=== PATIENT | male | born 1970 | race Caucasian/White ===

== ENCOUNTER 2016-06-27 09:56 | Outpatient (RCR) | payer OTHER ==
--- OUTSIDE RECORDS SUMMARY | 2016-03-31 13:56 | XMS REPORT | Continuity of Care Document ---
Author Author [facility] Organization [facility] Address Unknown Phone Unavailable Care Team Providers Care Employment Recruiter Name Role Phone ALFONSO JACKSON MD PCP Insurance Providers Payer Name Policy Number Subscriber Name Relationship [facility] [id number] Ana Luisa Her S 01 Advance Directives Directive Response Recorded Date/Time Advance Directives No 06/09/14 8:00am Organ Donor Yes 06/09/14 8:00am Problems No known problems or medical conditions. Medications Medication Dose Route Sig Days/Qty Instructions Order Date Discontinued Date Status Lisinopril 10 Mg PO DAILY 06/07/14 Active Levothyroxine Sodium (Levothroid) 100 Mcg PO DAILY 06/07/14 Active Loratadine 10 Mg PO DAILY 06/07/14 Active Esomeprazole Magnesium 20 Mg PO DAILY 06/07/14 Active Acetaminophen/Diphenhydramine 1 Ea PO BEDTIME 06/07/14 Active Ibuprofen 400-600 Mg PO FOUR TIMES DAILY PRN PAIN TAKE 2-3 (200MG) TABS PRN PAIN 06/07/14 Active Social History Social History Problem Response Recorded Date/Time Recent Foreign Travel N padmini collazo 03/21/2014 9:29am Hospital Discharge Instructions No hospital discharge instructions. Plan of Care No plan of care. Functional Status No functional status results. Allergies, Adverse Reactions, Alerts Allergen Type Severity Reaction Status Last Updated FRESH FRUIT [employer] FISH Allergy Unknown RASH Active 06/07/14 Immunizations No immunization records. Vital Signs Acute Vital Signs Vital Response Date/Time Temperature (Fahrenheit) 97.8 degrees F (97.6 - 99.5) Temperature (Calculated Celsius) 36.91817 degrees C (36.4 - 37.5) Temperature Source Temporal Pulse Rate (adult) 85 bpm (60 - 90) Respiratory Rate 16 bpm (12 - 24) O2 Sat by Pulse Oximetry 94 % (88 - 100) Blood Pressure 114/74 mm Hg Pain Pain Intensity 0 Height (Feet) 5 feet Height (Inches) 11.00 inches Height (Calculated Centimeters) 180.356068 cm Weight (Pounds) 210 pounds Weight (Calculated Grams) 44490.399 gm Weight (Calculated Kilograms) 95.715108 kilograms Height 5 ft 11 in Weight 95 lb Body Mass Index 13.2 kg/m^2 Results Laboratory Results Test Name Result Units Flags Reference Collection Date/Time Result Date/ Time Comments White Blood Count 3.8 10^3/uL L 4.3-11.0 06/19/2014 9:00am 06/19/2014 9: 09am Red Blood Count 4.39 10^6/uL 4.35-5.85 06/19/2014 9:00am 06/19/2014 9: 09am Hemoglobin 13.8 G/DL 13.3-17.7 06/19/2014 9:00am 06/19/2014 9:09am Hematocrit 39 % L 40-54 06/19/2014 9:00am 06/19/2014 9:09am Mean Corpuscular Volume 90 FL 80-99 06/19/2014 9:00am 06/19/2014 9: 09am Mean Corpuscular Hemoglobin 31 PG 25-34 06/19/2014 9:00am 06/19/2014 9: 09am Mean Corpuscular Hemoglobin Concent 35 G/DL 32-36 06/19/2014 9:00am 9:09am Red Cell Distribution Width 12.2 % 10.0-14.5 06/19/2014 9:00am 2014 9:09am Platelet Count 176 10^3/uL 130-400 06/19/2014 9:00am 06/19/2014 9:09am Mean Platelet Volume 11.7 FL H 7.4-10.4 06/19/2014 9:00am 06/19/2014 9: 09am Neutrophils (%) (Auto) 57 % 42-75 06/19/2014 9:00am 06/19/2014 9:09am Lymphocytes (%) (Auto) 26 % 12-44 06/19/2014 9:00am 06/19/2014 9:09am Monocytes (%) (Auto) 11 % 0-12 06/19/2014 9:00am 06/19/2014 9:09am Eosinophils (%) (Auto) 4 % 0-10 06/19/2014 9:00am 06/19/2014 9:09am Basophils (%) (Auto) 1 % 0-10 06/19/2014 9:00am 06/19/2014 9:09am Neutrophils # (Auto) 2.2 X 10^3 1.8-7.8 06/19/2014 9:00am 06/19/2014 9: 09am Lymphocytes # (Auto) 1.0 X 10^3 1.0-4.0 06/19/2014 9:00am 06/19/2014 9: 09am Monocytes # (Auto) 0.4 X 10^3 0.0-1.0 06/19/2014 9:00am 06/19/2014 9: 09am Eosinophils # (Auto) 0.2 10^3/uL 0.0-0.3 06/19/2014 9:00am 06/19/2014 9 :09am Basophils # (Auto) 0.1 10^3/uL 0.0-0.1 06/19/2014 9:00am 06/19/2014 9: 09am Sodium Level 139 MMOL/L 135-145 06/19/2014 9:00am 06/19/2014 9:28am Potassium Level 3.7 MMOL/L 3.6-5.0 06/19/2014 9:00am 06/19/2014 9:28am Chloride Level 107 MMOL/L 98-107 06/19/2014 9:00am 06/19/2014 9:28am Carbon Dioxide Level 22 MMOL/L 21-32 06/19/2014 9:00am 06/19/2014 9: 28am Blood Urea Nitrogen 13 MG/DL 7-18 06/19/2014 9:00am 06/19/2014 9:28am Creatinine 0.92 MG/DL 0.60-1.30 06/19/2014 9:00am 06/19/2014 9:28am BUN/Creatinine Ratio 14 06/19/2014 9:00am 06/19/2014 9:28am Estimat Glomerular Filtration Rate > 60 06/19/2014 9:00am 2014 9:28am GFR INTERPRETIVE DATA UNITS FOR ESTIMATED GFR (eGFR): mL/min/1.73 M2 REFERENCE RANGE FOR ESTIMATED GFR (eGFR) eGFR NORMAL eGFR >60 MODERATELY DECREASED eGFR 30-59 SEVERLY DECREASED eGFR 15-29 KIDNEY FAILURE <15 (OR DIALYSIS) Glucose Level 122 MG/DL H 70-105 06/19/2014 9:00am 06/19/2014 9:28am Calcium Level 8.9 MG/DL 8.5-10.1 06/19/2014 9:00am 06/19/2014 9:28am Magnesium Level 1.9 MG/DL 1.8-2.4 06/19/2014 9:00am 06/19/2014 9:28am Total Bilirubin 0.4 MG/DL 0.1-1.0 06/19/2014 9:00am 06/19/2014 9:28am Alkaline Phosphatase 82 U/L 40-136 06/19/2014 9:00am 06/19/2014 9:28am Aspartate Amino Transf (AST/SGOT) 25 U/L 5-34 06/19/2014 9:00am 2014 9:28am Alanine Aminotransferase (ALT/SGPT) 33 U/L 0-55 06/19/2014 9:00am 06/19 9:28am Total Protein 6.9 G/DL 6.4-8.2 06/19/2014 9:00am 06/19/2014 9:28am Albumin 3.7 G/DL 3.2-4.5 06/19/2014 9:00am 06/19/2014 9:28am Thyroid Stimulating Hormone (TSH) 0.02 UIU/ML L 0.35-4.94 05/30/2014 9: 30am 05/30/2014 10:23am Free Thyroxine 1.00 NG/DL 0.70-1.48 05/30/2014 9:30am 05/30/2014 10: 56am Procedures Procedure Status Date Provider(s) INSERT TUNNELED CV CATH completed 06/09/14 SHANT NOLEN DO Encounters Encounter Location Date/Time Discharged Recurring [facility] 06/19/14 8:33am Registered Clinic [facility] 06/14/14 9:50am Registered [facility] Day [facility] 06/09/14 7:28am Registered Clinic [facility] 06/07/14 9:01am
[2016-03-31 15:40] LABS: ALBUMIN 4.6 G/DL (3.2-4.5); BILIRUBIN,TOTAL 0.6 MG/DL (0.1-1.0); CALCIUM 9.3 MG/DL (8.5-10.1); CREATININE SERUM 1.38 MG/DL (0.60-1.30); POTASSIUM 4.1 MMOL/L (3.6-5.0); TOTAL PROTEIN 7.6 G/DL (6.4-8.2)
[2016-03-31 15:51] LABS: BASOPHILS # (AUTO) 0.1 10^3/uL (0.0-0.1); BASOPHILS % (AUTO) 1 % (0-10); EOSINOPHILS # (AUTO) 0.2 10^3/uL (0.0-0.3); EOSINOPHILS % (AUTO) 3 % (0-10); LYMPHOCYTES # (AUTO) 1.1 X 10^3 (1.0-4.0); LYMPHOCYTES % (AUTO) 19 % (12-44); MEAN CORPUSCULAR HEMOGLOBIN 31 PG (25-34); MEAN CORPUSCULAR HGB CONC 34 G/DL (32-36); MEAN CORPUSCULAR VOLUME 91 FL (80-99); MEAN PLATELET VOLUME 10.9 FL (7.4-10.4); MONOCYTES # (AUTO) 0.7 X 10^3 (0.0-1.0); MONOCYTES % (AUTO) 11 % (0-12); NEUTROPHILS # (AUTO) 3.9 X 10^3 (1.8-7.8); NEUTROPHILS % (AUTO) 66 % (42-75); PLATELET COUNT 198 10^3/uL (130-400); RED BLOOD COUNT 4.77 10^6/uL (4.35-5.85); RED CELL DISTRIBUTION WIDTH 13.1 % (10.0-14.5); WHITE BLOOD COUNT 5.8 10^3/uL (4.3-11.0)
[2016-03-31 15:55] LABS: THYROID STIMULATING HORMONE 1.09 UIU/ML (0.35-4.94)
[~2016-06-27 09:56] MED LIST: ACDPT PO; ESOM20CA PO; IBUP200T48 PO; LISI10TA2 PO; LORA10TA76 PO; LVT.1T PO
[2016-06-27 10:12] LABS: BASOPHILS # (AUTO) 0.1 10^3/uL (0.0-0.1); BASOPHILS % (AUTO) 1 % (0-10); EOSINOPHILS # (AUTO) 0.3 10^3/uL (0.0-0.3); EOSINOPHILS % (AUTO) 5 % (0-10); LYMPHOCYTES # (AUTO) 1.2 X 10^3 (1.0-4.0); LYMPHOCYTES % (AUTO) 21 % (12-44); MEAN CORPUSCULAR HEMOGLOBIN 31 PG (25-34); MEAN CORPUSCULAR HGB CONC 34 G/DL (32-36); MEAN CORPUSCULAR VOLUME 90 FL (80-99); MEAN PLATELET VOLUME 10.9 FL (7.4-10.4); MONOCYTES # (AUTO) 0.7 X 10^3 (0.0-1.0); MONOCYTES % (AUTO) 12 % (0-12); NEUTROPHILS # (AUTO) 3.5 X 10^3 (1.8-7.8); NEUTROPHILS % (AUTO) 61 % (42-75); PLATELET COUNT 185 10^3/uL (130-400); RED BLOOD COUNT 4.63 10^6/uL (4.35-5.85); RED CELL DISTRIBUTION WIDTH 12.8 % (10.0-14.5); WHITE BLOOD COUNT 5.7 10^3/uL (4.3-11.0)
[2016-06-27 10:37] LABS: ALANINE AMINOTRANSFERASE 59 U/L (0-55); ALBUMIN 4.2 G/DL (3.2-4.5); ANION GAP 10 MMOL/L (5-14); ASPARTATE AMINO TRANSFERASE 42 U/L (5-34); BILIRUBIN,TOTAL 0.5 MG/DL (0.1-1.0); BLOOD UREA NITROGEN 21 MG/DL (7-18); BUN/CREATININE RATIO 17; CALCIUM 8.8 MG/DL (8.5-10.1); CARBON DIOXIDE 24 MMOL/L (21-32); CHLORIDE 104 MMOL/L (98-107); CREATININE SERUM 1.24 MG/DL (0.60-1.30); GFR ESTIMATED > 60; GLUCOSE 89 MG/DL (70-105); POTASSIUM 4.3 MMOL/L (3.6-5.0); SODIUM 138 MMOL/L (135-145); TOTAL PROTEIN 7.3 G/DL (6.4-8.2)
[2016-06-27 10:57] LABS: THYROID STIMULATING HORMONE 1.22 UIU/ML (0.35-4.94)
== END 2016-06-29 | disposition home or self-care (01) ==
LOC: ONC 09:56
PROVIDERS: ATTEND Internal Medicine Hematology & Oncology
DX: Z08 Encounter for follow-up examination after completed treatment for malignant neoplasm (principal); Z85.818 Personal history of malignant neoplasm of other sites of lip, oral cavity, and pharynx; E89.0 Postprocedural hypothyroidism; Z79.899 Other long term (current) drug therapy; Z92.21 Personal history of antineoplastic chemotherapy; Z92.3 Personal history of irradiation; Z45.2 Encounter for adjustment and management of vascular access device
CPT/HCPCS: 36591; 80053; 84443; 85025; 96523; 99213

== ENCOUNTER 2016-09-26 11:33 | Outpatient (RCR) | payer BC, OTHER ==
[2016-09-26 11:55] LABS: BASOPHILS # (AUTO) 0.1 10^3/uL (0.0-0.1); BASOPHILS % (AUTO) 1 % (0-10); EOSINOPHILS # (AUTO) 0.3 10^3/uL (0.0-0.3); EOSINOPHILS % (AUTO) 5 % (0-10); LYMPHOCYTES % (AUTO) 19 % (12-44); MEAN CORPUSCULAR HEMOGLOBIN 31 PG (25-34); MEAN CORPUSCULAR HGB CONC 34 G/DL (32-36); MEAN CORPUSCULAR VOLUME 92 FL (80-99); MONOCYTES # (AUTO) 0.4 X 10^3 (0.0-1.0); MONOCYTES % (AUTO) 7 % (0-12); NEUTROPHILS # (AUTO) 3.6 X 10^3 (1.8-7.8); NEUTROPHILS % (AUTO) 68 % (42-75); PLATELET COUNT 165 10^3/uL (130-400); RED BLOOD COUNT 4.55 10^6/uL (4.35-5.85); RED CELL DISTRIBUTION WIDTH 12.7 % (10.0-14.5); WHITE BLOOD COUNT 5.3 10^3/uL (4.3-11.0)
[2016-09-26 12:20] LABS: ALANINE AMINOTRANSFERASE 49 U/L (0-55); ALBUMIN 4.2 G/DL (3.2-4.5); ANION GAP 8 MMOL/L (5-14); ASPARTATE AMINO TRANSFERASE 42 U/L (5-34); BILIRUBIN,TOTAL 0.6 MG/DL (0.1-1.0); BLOOD UREA NITROGEN 23 MG/DL (7-18); BUN/CREATININE RATIO 19; CALCIUM 9.2 MG/DL (8.5-10.1); CARBON DIOXIDE 25 MMOL/L (21-32); CHLORIDE 103 MMOL/L (98-107); CREATININE SERUM 1.22 MG/DL (0.60-1.30); GFR ESTIMATED > 60; GLUCOSE 136 MG/DL (70-105); POTASSIUM 4.1 MMOL/L (3.6-5.0); SODIUM 136 MMOL/L (135-145); TOTAL PROTEIN 7.5 G/DL (6.4-8.2)
[2016-09-26 12:40] LABS: THYROID STIMULATING HORMONE 1.92 UIU/ML (0.35-4.94)
== END 2016-10-30 | disposition home or self-care (01) ==
LOC: ONC 11:33
PROVIDERS: ATTEND Internal Medicine Hematology & Oncology
DX: Z08 Encounter for follow-up examination after completed treatment for malignant neoplasm (principal); Z85.818 Personal history of malignant neoplasm of other sites of lip, oral cavity, and pharynx; E89.0 Postprocedural hypothyroidism; Z79.899 Other long term (current) drug therapy; Z92.21 Personal history of antineoplastic chemotherapy; Z92.3 Personal history of irradiation; Z45.2 Encounter for adjustment and management of vascular access device
CPT/HCPCS: 36591; 80053; 84443; 85025; 96523; 99213

== ENCOUNTER 2016-12-19 10:41 | Outpatient (RCR) | payer BC | END 2017-01-31 | disposition home or self-care (01) | LOC: ONC 10:41 | PROVIDERS: ATTEND Internal Medicine Hematology & Oncology | DX: Z08 Encounter for follow-up examination after completed treatment for malignant neoplasm (principal); Z85.818 Personal history of malignant neoplasm of other sites of lip, oral cavity, and pharynx; E89.0 Postprocedural hypothyroidism; Z79.899 Other long term (current) drug therapy; Z92.21 Personal history of antineoplastic chemotherapy; Z92.3 Personal history of irradiation; Z45.2 Encounter for adjustment and management of vascular access device | CPT/HCPCS: 96523 ==

== ENCOUNTER 2017-02-06 11:41 | Outpatient (RCR) | payer BC ==
[2017-03-11] MEDS ORDERED: ALPR0.25 PO (14:52)
[2017-03-11] MEDS ORDERED: LEVO125T6 PO (14:52)
[2017-03-11] MEDS ORDERED: FLUO20CA42 PO (14:52)
[2017-03-11] MEDS ORDERED: ESOM20CA PO (14:52)
[2017-03-11] MEDS ORDERED: LORA10TA7 PO (14:52)
[2017-03-11] MEDS ORDERED: ATOR40TA70 PO (14:52)
[2017-03-11] MEDS ORDERED: LISI10TA2 PO (14:52)
== END 2017-05-07 | disposition home or self-care (01) ==
LOC: ONC 11:41
PROVIDERS: ATTEND Internal Medicine Hematology & Oncology
DX: Z08 Encounter for follow-up examination after completed treatment for malignant neoplasm (principal); Z85.818 Personal history of malignant neoplasm of other sites of lip, oral cavity, and pharynx; E89.0 Postprocedural hypothyroidism; Z79.899 Other long term (current) drug therapy; Z92.21 Personal history of antineoplastic chemotherapy; Z92.3 Personal history of irradiation; Z45.2 Encounter for adjustment and management of vascular access device
CPT/HCPCS: 96523

== ENCOUNTER → 2017-02-10 | Outpatient (CLI) | payer BC ==
[~2017-02-10] MED LIST changes: +IOHEXOL 350 MG/ML 100 ML (OMNIPAQUE 350) VIAL IV ONE; +NS 100 ML (IVPB) BAG IV ONE
--- NOTE | 2017-02-10 12:02 | Diagnostic Imaging Report ---
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 Two years ago, another evaluation of neck biopsy came back positive. EXAMINATION: Axial CT scan of the neck soft tissue performed with 75 cc of Omnipaque 350 IV contrast. Coronal and sagittal reformatted images are created. COMPARISON: CT scan of the neck performed with and without IV contrast dated 01/23/2016. FINDINGS: Dental streak artifact obscures portions of the oral cavity and tongue region. There is no evidence of developing mass or lymphadenopathy. There is interval resolution of previously seen mild prominence of the right parotid gland which is now relatively symmetric to the left side, suspected to represent resolution of previous inflammation. Left submandibular gland is stable and unremarkable. There is stable postop changes to the neck with modified neck dissection. There is removal of the right submandibular gland and right neck soft tissue. There is no developing mass seen in the region. Stable hypertrophy of the anterior belly of the left digastric muscle. The nasopharynx, oropharynx, hypopharynx, and laryngeal soft tissue structures are unremarkable. Stable lymph nodes in the periparotid region on the right near the pancreatic tail. Thyroid gland is unremarkable. The visualized neck vascular structures are patent. Visualized upper lung howell are clear. Previously seen [id number] is again seen overlying left chest. There is mild cervical spine degenerative disease. Visualized intracranial structures, orbits, and other extra cranial soft tissue structures are unremarkable. There is mild mucosal thickening in the sphenoid sinus. IMPRESSION: 1: There is no evidence of developing mass or lymphadenopathy. 2: There is resolution of previously seen mild enlargement of the right parotid gland suggesting resolution of inflammatory process. 3: Stable postop changes to the neck. Dictated by: Dictated on workstation # [id number]
--- NOTE | 2017-02-10 14:03 | Diagnostic Imaging Report ---
EXAMINATION: PET-CT. TECHNIQUE: Serum glucose level at the time of the study is: 103 mg/dL. 13.7 mCi of FDG was administered intravenously followed by obtaining PET images with corresponding noncontrast CT scan images. The CT scan was performed for anatomic correlation and attenuation correction and was not performed according to the diagnostic protocol of the areas covered. The scan was performed from the head to mid thighs. 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 COMPARISON: 09/18/2015. FINDINGS: The brain has symmetric FDG uptake. There is a moderately intense area of increased FDG uptake seen within the anterior aspect of the oral cavity that appears to project over the anterior aspect of the tongue, and the corresponding maximum SUV is 7. The correlating CT scan appearance is nonspecific with no definitive underlying mass is noted. This is similar to mom nonspecific activity seen in this region on the prior exam. There is otherwise no hypermetabolic mass seen in the neck. In the chest no suspicious hypermetabolic mass is seen. Uptake in the liver is slightly heterogeneous with no discrete focal mass. There is activity projecting over the bowel loops in a nonfocal fashion and with mild degree seen. There is blooming artifact obscuring evaluation in the pelvis probably related to the bladder intense activity from excretion. There is also excretion of the kidneys and renal collecting system. No suspicious hypermetabolic mass is seen in the abdomen or pelvis. IMPRESSION: Moderately intense area of increased FDG uptake in the anterior aspect of the oral cavity with no obvious correlating abnormality seen on the localizer unenhanced CT or concurrent CT scan of the neck performed. Correlate clinically. There is otherwise no hypermetabolic lymphadenopathy in the neck or evidence of metastasis. Dictated by: Dictated on workstation # [id number]
== END ==
LOC: RAD 08:45
PROVIDERS: ATTEND Plastic Surgery Plastic Surgery Within the Head and Neck
DX: C06.1 Malignant neoplasm of vestibule of mouth (principal); Z98.890 Other specified postprocedural states
CPT/HCPCS: 70491

== ENCOUNTER 2017-05-06 11:32 | Outpatient (RCR) | payer BC ==
[~2017-05-06 11:32] MED LIST changes: +ALPR0.25 PO; +ATOR40TA70 PO; +FLUO20CA42 PO; -IOHEXOL 350 MG/ML 100 ML (OMNIPAQUE 350) VIAL IV ONE; +LEVO125T6 PO; +LORA10TA7 PO; -NS 100 ML (IVPB) BAG IV ONE
== END 2017-06-08 15:16 | disposition home or self-care (01) ==
PROVIDERS: ATTEND Physician Assistant Surgical
DX: R13.12 Dysphagia, oropharyngeal phase (principal); C06.9 Malignant neoplasm of mouth, unspecified; Z92.3 Personal history of irradiation; Z98.890 Other specified postprocedural states

== ENCOUNTER → 2017-05-29 | Outpatient (CLI) | payer BC ==
--- NOTE | 2017-05-29 12:30 | Diagnostic Imaging Report ---
INDICATION: Dysphagia. TECHNIQUE: The study was performed in conjunction with speech pathology. Videofluoroscopy was performed during swallowing of thin barium. 26 seconds of fluoroscopy time was utilized. FINDINGS: The patient ingested thin barium. This was done without difficulty. No laryngeal penetration or aspiration was observed. No significant residue is identified. IMPRESSION: Unremarkable video swallow, as described. Dictated by: Dictated on workstation # [id number]
== END ==
LOC: RAD 09:56
PROVIDERS: ATTEND Physician Assistant Surgical
DX: R13.10 Dysphagia, unspecified (principal)
CPT/HCPCS: 74230

== ENCOUNTER → 2017-07-21 | Outpatient (CLI) | payer BC | LOC: LAB 11:27 | PROVIDERS: ATTEND Internal Medicine Infectious Disease | DX: R19.7 Diarrhea, unspecified (principal) | CPT/HCPCS: 87493 ==

== ENCOUNTER 2017-07-30 12:55 | Outpatient (RCR) | payer BC ==
[2017-07-14 16:11] VITALS: BP 128/80
[2017-07-14 16:26] VITALS: BP 128/80
[2017-07-14 16:36] VITALS: BP 128/80
[2017-07-20 11:30] VITALS: BP 91/64
[2017-07-20 11:56] LABS: BASOPHILS # (AUTO) 0.1 10^3/uL (0.0-0.1); BASOPHILS % (AUTO) 1 % (0-10); EOSINOPHILS # (AUTO) 0.4 10^3/uL (0.0-0.3); EOSINOPHILS % (AUTO) 7 % (0-10); HEMATOCRIT 37 % (40-54); HEMOGLOBIN 12.1 G/DL (13.3-17.7); LYMPHOCYTES % (AUTO) 16 % (12-44); MEAN CORPUSCULAR HEMOGLOBIN 27 PG (25-34); MEAN CORPUSCULAR HGB CONC 33 G/DL (32-36); MEAN CORPUSCULAR VOLUME 83 FL (80-99); MEAN PLATELET VOLUME 11.4 FL (7.4-10.4); MONOCYTES # (AUTO) 0.6 X 10^3 (0.0-1.0); MONOCYTES % (AUTO) 10 % (0-12); NEUTROPHILS # (AUTO) 4.3 X 10^3 (1.8-7.8); NEUTROPHILS % (AUTO) 67 % (42-75); PLATELET COUNT 344 10^3/uL (130-400); RED BLOOD COUNT 4.43 10^6/uL (4.35-5.85); WHITE BLOOD COUNT 6.4 10^3/uL (4.3-11.0)
[2017-07-20 12:13] LABS: ALANINE AMINOTRANSFERASE 23 U/L (0-55); ALKALINE PHOSPHATASE 143 U/L (40-136); BILIRUBIN,TOTAL 0.3 MG/DL (0.1-1.0); BUN/CREATININE RATIO 19; CALCIUM 9.5 MG/DL (8.5-10.1); CARBON DIOXIDE 26 MMOL/L (21-32); CHLORIDE 108 MMOL/L (98-107); CREATININE SERUM 0.86 MG/DL (0.60-1.30); GFR ESTIMATED > 60; GLUCOSE 86 MG/DL (70-105); POTASSIUM 4.4 MMOL/L (3.6-5.0); SODIUM 141 MMOL/L (135-145); TOTAL PROTEIN 7.8 GM/DL (6.4-8.2)
[2017-07-20 12:50] LABS: ERYTHROCYTE SEDIMENTATION RATE 56 MM/HR (0-15)
[2017-07-27 13:10] VITALS: BP 103/84
[2017-07-27 13:19] LABS: BASOPHILS # (AUTO) 0.1 10^3/uL (0.0-0.1); BASOPHILS % (AUTO) 1 % (0-10); EOSINOPHILS # (AUTO) 0.3 10^3/uL (0.0-0.3); EOSINOPHILS % (AUTO) 5 % (0-10); HEMATOCRIT 36 % (40-54); HEMOGLOBIN 11.6 G/DL (13.3-17.7); LYMPHOCYTES # (AUTO) 1.4 X 10^3 (1.0-4.0); LYMPHOCYTES % (AUTO) 22 % (12-44); MEAN CORPUSCULAR HEMOGLOBIN 27 PG (25-34); MEAN CORPUSCULAR HGB CONC 32 G/DL (32-36); MEAN CORPUSCULAR VOLUME 84 FL (80-99); MEAN PLATELET VOLUME 11.8 FL (7.4-10.4); MONOCYTES # (AUTO) 0.5 X 10^3 (0.0-1.0); MONOCYTES % (AUTO) 9 % (0-12); NEUTROPHILS # (AUTO) 3.9 X 10^3 (1.8-7.8); NEUTROPHILS % (AUTO) 63 % (42-75); PLATELET COUNT 307 10^3/uL (130-400); RED BLOOD COUNT 4.31 10^6/uL (4.35-5.85); RED CELL DISTRIBUTION WIDTH 13.9 % (10.0-14.5); WHITE BLOOD COUNT 6.1 10^3/uL (4.3-11.0)
[2017-07-27 13:40] LABS: ERYTHROCYTE SEDIMENTATION RATE 75 MM/HR (0-15)
[2017-07-27 13:51] LABS: ALANINE AMINOTRANSFERASE 21 U/L (0-55); ALBUMIN 3.9 GM/DL (3.2-4.5); ALKALINE PHOSPHATASE 130 U/L (40-136); BILIRUBIN,TOTAL 0.5 MG/DL (0.1-1.0); BUN/CREATININE RATIO 14; CALCIUM 9.3 MG/DL (8.5-10.1); CARBON DIOXIDE 29 MMOL/L (21-32); CHLORIDE 104 MMOL/L (98-107); CREATININE SERUM 0.83 MG/DL (0.60-1.30); GFR ESTIMATED > 60; GLUCOSE 96 MG/DL (70-105); POTASSIUM 4.1 MMOL/L (3.6-5.0); SODIUM 138 MMOL/L (135-145); TOTAL PROTEIN 7.1 GM/DL (6.4-8.2)
[~2017-07-30] VITALS: Ht 180.3 cm; Wt 104.3 kg
[~2017-07-30 12:55] MED LIST changes: +ERTAPENEM 1 GM/NS 100 ML IVPB IV NR
== END 2017-10-12 | disposition home or self-care (01) ==
LOC: SDC 12:55
PROVIDERS: ATTEND Physician Assistant
DX: M27.2 Inflammatory conditions of jaws (principal); T84.7XXS Infection and inflammatory reaction due to other internal orthopedic prosthetic devices, implants and grafts, sequela
CPT/HCPCS: 36415; 36569; 36592; 76937; 80053; 85025; 85652; 86141; 96365; 99211; 99212

== ENCOUNTER 2017-11-19 14:37 | Outpatient (RCR) | payer BC ==
[2017-10-07 13:02] VITALS: BP 131/84
[2017-10-07 13:30] VITALS: BP 131/84
--- NOTE | 2017-10-07 14:55 | Diagnostic Imaging Report ---
INDICATION: PICC line placement. EXAMINATION: Portable chest at 02:37 p.m. FINDINGS: Left upper extremity PICC line tip projects over the SVC. Heart size and pulmonary vascularity are normal. Lungs are clear. There are no effusions or pneumothoraces. IMPRESSION: PICC line tip projects over the SVC. Dictated by: Dictated on workstation # [id number]
[2017-10-07 15:24] LABS: BASOPHILS # (AUTO) 0.1 10^3/uL (0.0-0.1); BASOPHILS % (AUTO) 1 % (0-10); EOSINOPHILS # (AUTO) 0.4 10^3/uL (0.0-0.3); EOSINOPHILS % (AUTO) 6 % (0-10); HEMATOCRIT 35 % (40-54); HEMOGLOBIN 11.3 G/DL (13.3-17.7); LYMPHOCYTES # (AUTO) 1.1 X 10^3 (1.0-4.0); LYMPHOCYTES % (AUTO) 17 % (12-44); MEAN CORPUSCULAR HEMOGLOBIN 28 PG (25-34); MEAN CORPUSCULAR HGB CONC 32 G/DL (32-36); MEAN CORPUSCULAR VOLUME 86 FL (80-99); MONOCYTES # (AUTO) 0.6 X 10^3 (0.0-1.0); MONOCYTES % (AUTO) 8 % (0-12); NEUTROPHILS # (AUTO) 4.6 X 10^3 (1.8-7.8); NEUTROPHILS % (AUTO) 68 % (42-75); PLATELET COUNT 282 10^3/uL (130-400); RED BLOOD COUNT 4.06 10^6/uL (4.35-5.85); RED CELL DISTRIBUTION WIDTH 14.3 % (10.0-14.5); WHITE BLOOD COUNT 6.8 10^3/uL (4.3-11.0)
[2017-10-07 15:35] LABS: ALANINE AMINOTRANSFERASE 17 U/L (0-55); ALBUMIN 3.9 GM/DL (3.2-4.5); ALKALINE PHOSPHATASE 120 U/L (40-136); BILIRUBIN,TOTAL 0.4 MG/DL (0.1-1.0); BUN/CREATININE RATIO 16; CALCIUM 9.8 MG/DL (8.5-10.1); CARBON DIOXIDE 27 MMOL/L (21-32); CHLORIDE 104 MMOL/L (98-107); GFR ESTIMATED > 60; GLUCOSE 108 MG/DL (70-105); POTASSIUM 4.3 MMOL/L (3.6-5.0); SODIUM 139 MMOL/L (135-145); TOTAL PROTEIN 7.7 GM/DL (6.4-8.2)
[2017-10-07 16:02] LABS: ERYTHROCYTE SEDIMENTATION RATE > 140 MM/HR (0-15)
[2017-10-14 10:15] VITALS: BP 119/92
[2017-10-14 10:48] LABS: BASOPHILS # (AUTO) 0.1 10^3/uL (0.0-0.1); BASOPHILS % (AUTO) 2 % (0-10); EOSINOPHILS # (AUTO) 0.5 10^3/uL (0.0-0.3); EOSINOPHILS % (AUTO) 10 % (0-10); HEMATOCRIT 36 % (40-54); HEMOGLOBIN 11.4 G/DL (13.3-17.7); LYMPHOCYTES # (AUTO) 1.3 X 10^3 (1.0-4.0); LYMPHOCYTES % (AUTO) 26 % (12-44); MEAN CORPUSCULAR HEMOGLOBIN 27 PG (25-34); MEAN CORPUSCULAR HGB CONC 32 G/DL (32-36); MEAN CORPUSCULAR VOLUME 85 FL (80-99); MEAN PLATELET VOLUME 9.8 FL (7.4-10.4); MONOCYTES # (AUTO) 0.5 X 10^3 (0.0-1.0); MONOCYTES % (AUTO) 10 % (0-12); NEUTROPHILS # (AUTO) 2.6 X 10^3 (1.8-7.8); NEUTROPHILS % (AUTO) 52 % (42-75); PLATELET COUNT 316 10^3/uL (130-400); RED BLOOD COUNT 4.21 10^6/uL (4.35-5.85); RED CELL DISTRIBUTION WIDTH 13.7 % (10.0-14.5)
[2017-10-14 11:11] LABS: ALANINE AMINOTRANSFERASE 15 U/L (0-55); ALBUMIN 3.9 GM/DL (3.2-4.5); ALKALINE PHOSPHATASE 126 U/L (40-136); BILIRUBIN,TOTAL 0.3 MG/DL (0.1-1.0); BUN/CREATININE RATIO 14; CALCIUM 9.5 MG/DL (8.5-10.1); CARBON DIOXIDE 27 MMOL/L (21-32); CHLORIDE 104 MMOL/L (98-107); CREATININE SERUM 0.81 MG/DL (0.60-1.30); GFR ESTIMATED > 60; GLUCOSE 100 MG/DL (70-105); POTASSIUM 4.4 MMOL/L (3.6-5.0); SODIUM 141 MMOL/L (135-145); TOTAL PROTEIN 7.5 GM/DL (6.4-8.2)
[2017-10-14 11:18] LABS: ERYTHROCYTE SEDIMENTATION RATE 86 MM/HR (0-15)
[2017-10-21 13:35] VITALS: BP 123/94
[2017-10-21 13:57] LABS: HEMOGLOBIN 11.4 G/DL (13.3-17.7); RED BLOOD COUNT 4.08 10^6/uL (4.35-5.85); RED CELL DISTRIBUTION WIDTH 13.7 % (10.0-14.5); WHITE BLOOD COUNT 5.3 10^3/uL (4.3-11.0)
[2017-10-21 14:09] LABS: ALANINE AMINOTRANSFERASE 27 U/L (0-55); ALKALINE PHOSPHATASE 142 U/L (40-136); BILIRUBIN,TOTAL 0.4 MG/DL (0.1-1.0); BUN/CREATININE RATIO 12; CALCIUM 9.5 MG/DL (8.5-10.1); CARBON DIOXIDE 25 MMOL/L (21-32); CHLORIDE 106 MMOL/L (98-107); CREATININE SERUM 0.86 MG/DL (0.60-1.30); GFR ESTIMATED > 60; GLUCOSE 108 MG/DL (70-105); POTASSIUM 3.8 MMOL/L (3.6-5.0); SODIUM 143 MMOL/L (135-145); TOTAL PROTEIN 7.7 GM/DL (6.4-8.2)
[2017-10-28 12:39] VITALS: BP 139/92
[2017-10-28 13:36] LABS: BASOPHILS # (AUTO) 0.1 10^3/uL (0.0-0.1); BASOPHILS % (AUTO) 1 % (0-10); EOSINOPHILS # (AUTO) 0.5 10^3/uL (0.0-0.3); EOSINOPHILS % (AUTO) 4 % (0-10); HEMATOCRIT 35 % (40-54); HEMOGLOBIN 11.1 G/DL (13.3-17.7); LYMPHOCYTES # (AUTO) 1.2 X 10^3 (1.0-4.0); LYMPHOCYTES % (AUTO) 11 % (12-44); MEAN CORPUSCULAR HEMOGLOBIN 27 PG (25-34); MEAN CORPUSCULAR HGB CONC 32 G/DL (32-36); MEAN CORPUSCULAR VOLUME 85 FL (80-99); MEAN PLATELET VOLUME 11.1 FL (7.4-10.4); MONOCYTES # (AUTO) 0.7 X 10^3 (0.0-1.0); MONOCYTES % (AUTO) 6 % (0-12); NEUTROPHILS # (AUTO) 8.2 X 10^3 (1.8-7.8); NEUTROPHILS % (AUTO) 78 % (42-75); PLATELET COUNT 260 10^3/uL (130-400); RED BLOOD COUNT 4.09 10^6/uL (4.35-5.85); RED CELL DISTRIBUTION WIDTH 13.9 % (10.0-14.5); WHITE BLOOD COUNT 10.5 10^3/uL (4.3-11.0)
[2017-10-28 13:58] LABS: ERYTHROCYTE SEDIMENTATION RATE 76 MM/HR (0-15)
[2017-10-28 14:00] LABS: ALANINE AMINOTRANSFERASE 23 U/L (0-55); ALBUMIN 3.7 GM/DL (3.2-4.5); ALKALINE PHOSPHATASE 145 U/L (40-136); BILIRUBIN,TOTAL 0.4 MG/DL (0.1-1.0); BUN/CREATININE RATIO 14; CARBON DIOXIDE 27 MMOL/L (21-32); CHLORIDE 104 MMOL/L (98-107); CREATININE SERUM 0.71 MG/DL (0.60-1.30); GFR ESTIMATED > 60; GLUCOSE 105 MG/DL (70-105); SODIUM 140 MMOL/L (135-145); TOTAL PROTEIN 7.2 GM/DL (6.4-8.2)
--- NOTE | 2017-10-28 14:39 | Progress Note-Post Operative ---
Post-Operative Progess Note Surgeon (s)/Aviculturist (s) Surgeon JIM HANEY MD Aviculturist: none Pre-Operative Diagnosis squamous cell carcinoma oral, malfunctioning PEG tube Post-Operative Diagnosis same Procedure & Operative Findings Date of Procedure 10/28/17 Procedure Performed/Findings removal replacement PEG tube Anesthesia Type none Estimated Blood Loss Estimated blood loss (mL): minimal Specimens/Packing Specimens Removed none JIM HANEY MD Oct 28, 2017 14:39
--- NOTE | 2017-10-28 18:08 | CONSULTATION REPORT ---
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 He reports that this was first detected and he then underwent radiation therapy. He then developed lymphadenopathy, which was found to be positive for malignancy and underwent a modified radical neck dissection. This was then followed by chemotherapy. He states that he had done well; however, did have reoccurrence of the lesion. He then underwent the wedge resection of his mandible and a free flap reconstruction taken from his right leg on 03/2017 at [facility]. Since that time, he has had issues with oral hardware infection, requiring IV antibiotics. He also has a percutaneous gastrostomy tube placed during that surgery. He reports that early this morning he felt a pop as if something was actually popping and has not used the tube since that time. Upon further examination and exploration, the balloon within the gastrostomy tube appears to have perforated. PAST MEDICAL HISTORY: Metastatic oropharyngeal squamous cell carcinoma, hypothyroid, hypertension and hypercholesterolemia. PAST SURGICAL HISTORY: Anterior buccal radiation following a modified radical neck dissection and chemotherapy. Radical resection of the mandible with a free flap reconstruction as well as tracheostomy and gastrostomy tube in 03/2017 at [facility]. Tonsillectomy. Removal of a squamous cell cancer from the forehead. ALLERGIES: Some form of ANTIBIOTIC caused the joint pain. MEDICATIONS: Xanax 0.25 mg p.r.n. and hydrocodone p.r.n. SOCIAL HISTORY: Previous chewing tobacco two times a day for approximately 20 years. Positive alcohol; however, quit. He states taking in about four beers daily. FAMILY HISTORY: Father colon cancer. Paternal grandfather colon cancer. Maternal grandfather lung cancer. REVIEW OF SYSTEMS: Well-nourished male currently in no acute distress. He is not experiencing any shortness of breath or difficulty breathing. No chest pain, palpitations or diaphoresis. No nausea, vomiting, no diarrhea, constipation. No fever, chills, no recent inadvertent weight loss. All other review of systems negative. PHYSICAL EXAMINATION: VITAL SIGNS: Stable, afebrile. CHEST: Clear. Good breath sounds bilaterally. HEART: Regular. No murmurs. HEENT: No scleral icterus. NECK: No cervical lymphadenopathy. ABDOMEN: Soft, nontender, nondistended. SKIN: Warm, dry. ASSESSMENT AND PLAN: A 47-year-old male with a nonfunctioning of gastrostomy tube due to perforated intragastric balloon. We will remove this gastrostomy tube and replace with a new SUZI gastrostomy balloon at 20-Tajik size. Job ID: [id number] DocumentID: [id number] Dictated Date: 10/28/2017 14:45:06 [employer] Date: 10/28/2017 18:07:27 Dictated By: JIM HANEY MD
[2017-11-03 12:58] VITALS: BP 139/92
[2017-11-03 14:07] LABS: HEMATOCRIT 35 % (40-54); HEMOGLOBIN 11.3 G/DL (13.3-17.7); MEAN CORPUSCULAR HEMOGLOBIN 27 PG (25-34); MEAN CORPUSCULAR HGB CONC 32 G/DL (32-36); MEAN CORPUSCULAR VOLUME 85 FL (80-99); PLATELET COUNT 268 10^3/uL (130-400); RED BLOOD COUNT 4.12 10^6/uL (4.35-5.85)
[2017-11-03 14:08] LABS: BASOPHILS # (AUTO) 0.1 10^3/uL (0.0-0.1); BASOPHILS % (AUTO) 1 % (0-10); EOSINOPHILS # (AUTO) 0.4 10^3/uL (0.0-0.3); EOSINOPHILS % (AUTO) 8 % (0-10); LYMPHOCYTES # (AUTO) 1.2 X 10^3 (1.0-4.0); LYMPHOCYTES % (AUTO) 23 % (12-44); MEAN PLATELET VOLUME 10.9 FL (7.4-10.4); MONOCYTES # (AUTO) 0.4 X 10^3 (0.0-1.0); MONOCYTES % (AUTO) 9 % (0-12); NEUTROPHILS % (AUTO) 59 % (42-75)
[2017-11-03 14:18] LABS: ALANINE AMINOTRANSFERASE 34 U/L (0-55); ALBUMIN 3.9 GM/DL (3.2-4.5); ALKALINE PHOSPHATASE 135 U/L (40-136); BILIRUBIN,TOTAL 0.4 MG/DL (0.1-1.0); BUN/CREATININE RATIO 12; CALCIUM 9.3 MG/DL (8.5-10.1); CARBON DIOXIDE 28 MMOL/L (21-32); CHLORIDE 105 MMOL/L (98-107); CREATININE SERUM 0.81 MG/DL (0.60-1.30); GFR ESTIMATED > 60; GLUCOSE 111 MG/DL (70-105); SODIUM 141 MMOL/L (135-145); TOTAL PROTEIN 7.2 GM/DL (6.4-8.2)
[2017-11-03 14:27] LABS: ERYTHROCYTE SEDIMENTATION RATE 71 MM/HR (0-15)
[2017-11-10 14:20] VITALS: BP 108/67
[2017-11-10 15:59] LABS: BASOPHILS # (AUTO) 0.1 10^3/uL (0.0-0.1); BASOPHILS % (AUTO) 1 % (0-10); EOSINOPHILS # (AUTO) 0.6 10^3/uL (0.0-0.3); EOSINOPHILS % (AUTO) 12 % (0-10); HEMATOCRIT 36 % (40-54); HEMOGLOBIN 11.9 G/DL (13.3-17.7); LYMPHOCYTES # (AUTO) 1.1 X 10^3 (1.0-4.0); LYMPHOCYTES % (AUTO) 22 % (12-44); MEAN CORPUSCULAR HEMOGLOBIN 28 PG (25-34); MEAN CORPUSCULAR HGB CONC 33 G/DL (32-36); MEAN CORPUSCULAR VOLUME 85 FL (80-99); MEAN PLATELET VOLUME 11.9 FL (7.4-10.4); MONOCYTES # (AUTO) 0.4 X 10^3 (0.0-1.0); MONOCYTES % (AUTO) 7 % (0-12); NEUTROPHILS # (AUTO) 2.8 X 10^3 (1.8-7.8); NEUTROPHILS % (AUTO) 57 % (42-75); PLATELET COUNT 241 10^3/uL (130-400); RED BLOOD COUNT 4.25 10^6/uL (4.35-5.85); RED CELL DISTRIBUTION WIDTH 13.5 % (10.0-14.5); WHITE BLOOD COUNT 4.9 10^3/uL (4.3-11.0)
[2017-11-10 16:10] LABS: ALANINE AMINOTRANSFERASE 24 U/L (0-55); ALBUMIN 3.9 GM/DL (3.2-4.5); ALKALINE PHOSPHATASE 119 U/L (40-136); BILIRUBIN,TOTAL 0.5 MG/DL (0.1-1.0); BUN/CREATININE RATIO 13; CALCIUM 9.5 MG/DL (8.5-10.1); CARBON DIOXIDE 27 MMOL/L (21-32); CHLORIDE 104 MMOL/L (98-107); GFR ESTIMATED > 60; GLUCOSE 84 MG/DL (70-105); POTASSIUM 3.9 MMOL/L (3.6-5.0); SODIUM 141 MMOL/L (135-145); TOTAL PROTEIN 7.3 GM/DL (6.4-8.2)
[2017-11-10 16:18] LABS: BASOPHILS % (MANUAL) 2 %; EOSINOPHILS % (MANUAL) 10 %; LYMPHOCYTES % (MANUAL) 32 %; MONOCYTES % (MANUAL) 3 %
[2017-11-10 16:19] LABS: ERYTHROCYTE SEDIMENTATION RATE 38 MM/HR (0-15); RBC MORPH NORMAL
[2017-11-11 08:53] LABS: BAND NEUTROPHILS 0 %; NEUTROPHILS % (MANUAL) 53 %
[2017-11-17 14:49] LABS: BASOPHILS # (AUTO) 0.1 10^3/uL (0.0-0.1); BASOPHILS % (AUTO) 2 % (0-10); EOSINOPHILS # (AUTO) 0.6 10^3/uL (0.0-0.3); EOSINOPHILS % (AUTO) 11 % (0-10); HEMATOCRIT 38 % (40-54); HEMOGLOBIN 12.1 G/DL (13.3-17.7); LYMPHOCYTES % (AUTO) 19 % (12-44); MEAN CORPUSCULAR HEMOGLOBIN 27 PG (25-34); MEAN CORPUSCULAR HGB CONC 32 G/DL (32-36); MEAN CORPUSCULAR VOLUME 85 FL (80-99); MEAN PLATELET VOLUME 11.1 FL (7.4-10.4); MONOCYTES # (AUTO) 0.5 X 10^3 (0.0-1.0); MONOCYTES % (AUTO) 9 % (0-12); NEUTROPHILS # (AUTO) 3.2 X 10^3 (1.8-7.8); NEUTROPHILS % (AUTO) 60 % (42-75); PLATELET COUNT 222 10^3/uL (130-400); RED BLOOD COUNT 4.49 10^6/uL (4.35-5.85); RED CELL DISTRIBUTION WIDTH 13.7 % (10.0-14.5); WHITE BLOOD COUNT 5.4 10^3/uL (4.3-11.0)
[2017-11-17 15:11] LABS: ALANINE AMINOTRANSFERASE 36 U/L (0-55); ALKALINE PHOSPHATASE 131 U/L (40-136); BILIRUBIN,TOTAL 0.5 MG/DL (0.1-1.0); BUN/CREATININE RATIO 12; CALCIUM 9.8 MG/DL (8.5-10.1); CARBON DIOXIDE 33 MMOL/L (21-32); CHLORIDE 104 MMOL/L (98-107); CREATININE SERUM 0.83 MG/DL (0.60-1.30); GFR ESTIMATED > 60; GLUCOSE 92 MG/DL (70-105); POTASSIUM 4.2 MMOL/L (3.6-5.0); SODIUM 145 MMOL/L (135-145); TOTAL PROTEIN 7.7 GM/DL (6.4-8.2)
[2017-11-17 15:15] LABS: ERYTHROCYTE SEDIMENTATION RATE 48 MM/HR (0-15)
--- NOTE | 2017-11-17 15:15 | Diagnostic Imaging Report ---
INDICATION: PICC line placement. EXAMINATION: Portable chest at 2:28 PM. FINDINGS: The left upper extremity PICC line tip projects over the SVC. The heart size and pulmonary vascularity are normal. The lungs are clear. There are no effusions or pneumothoraces. IMPRESSION: Negative chest. Dictated by: Dictated on workstation # [id number]
[2017-11-17 15:20] VITALS: BP 125/87
[~2017-11-19] VITALS: Ht 175.3 cm; Wt 82.1 kg
[~2017-11-19 14:37] MED LIST changes: -ERTAPENEM 1 GM/NS 100 ML IVPB IV NR; +MEROPENEM 1,000 MG in NS (IVPB) 100 ML IV NR; +WATER (STERILE) FOR INJECTION 20 ML ONE
[2017-11-19 15:00] VITALS: BP 139/88
== END 2018-01-05 | disposition home or self-care (01) ==
LOC: SDC 14:37
PROVIDERS: ATTEND Internal Medicine Infectious Disease
DX: M27.2 Inflammatory conditions of jaws (principal); Z45.2 Encounter for adjustment and management of vascular access device
CPT/HCPCS: 36415; 36569; 36592; 71045; 76937; 80053; 85007; 85025; 85027; 85652; 86141; 99211

== ENCOUNTER 2017-12-01 13:03 | Outpatient (RCR) | payer BC ==
[2017-09-08 16:38] LABS: BASOPHILS # (AUTO) 0.1 10^3/uL (0.0-0.1); BASOPHILS % (AUTO) 1 % (0-10); EOSINOPHILS # (AUTO) 0.4 10^3/uL (0.0-0.3); EOSINOPHILS % (AUTO) 5 % (0-10); HEMATOCRIT 37 % (40-54); HEMOGLOBIN 11.7 G/DL (13.3-17.7); LYMPHOCYTES # (AUTO) 1.3 X 10^3 (1.0-4.0); LYMPHOCYTES % (AUTO) 19 % (12-44); MEAN CORPUSCULAR HEMOGLOBIN 27 PG (25-34); MEAN CORPUSCULAR HGB CONC 32 G/DL (32-36); MEAN CORPUSCULAR VOLUME 85 FL (80-99); MEAN PLATELET VOLUME 9.9 FL (7.4-10.4); MONOCYTES # (AUTO) 0.6 X 10^3 (0.0-1.0); MONOCYTES % (AUTO) 8 % (0-12); NEUTROPHILS # (AUTO) 4.4 X 10^3 (1.8-7.8); NEUTROPHILS % (AUTO) 66 % (42-75); PLATELET COUNT 348 10^3/uL (130-400); RED BLOOD COUNT 4.34 10^6/uL (4.35-5.85); RED CELL DISTRIBUTION WIDTH 14.9 % (10.0-14.5); WHITE BLOOD COUNT 6.7 10^3/uL (4.3-11.0)
[2017-09-08 17:00] LABS: ALANINE AMINOTRANSFERASE 21 U/L (0-55); ALBUMIN 4.1 GM/DL (3.2-4.5); ALKALINE PHOSPHATASE 151 U/L (40-136); BILIRUBIN,TOTAL 0.3 MG/DL (0.1-1.0); BUN/CREATININE RATIO 14; CALCIUM 9.6 MG/DL (8.5-10.1); CARBON DIOXIDE 26 MMOL/L (21-32); CHLORIDE 105 MMOL/L (98-107); GFR ESTIMATED > 60; GLUCOSE 94 MG/DL (70-105); POTASSIUM 4.5 MMOL/L (3.6-5.0); SODIUM 140 MMOL/L (135-145); TOTAL PROTEIN 7.6 GM/DL (6.4-8.2)
[2017-10-01 13:34] LABS: BASOPHILS # (AUTO) 0.1 10^3/uL (0.0-0.1); BASOPHILS % (AUTO) 1 % (0-10); EOSINOPHILS # (AUTO) 0.4 10^3/uL (0.0-0.3); EOSINOPHILS % (AUTO) 6 % (0-10); HEMATOCRIT 36 % (40-54); HEMOGLOBIN 11.8 G/DL (13.3-17.7); LYMPHOCYTES # (AUTO) 1.1 X 10^3 (1.0-4.0); LYMPHOCYTES % (AUTO) 18 % (12-44); MEAN CORPUSCULAR HEMOGLOBIN 28 PG (25-34); MEAN CORPUSCULAR HGB CONC 32 G/DL (32-36); MEAN CORPUSCULAR VOLUME 85 FL (80-99); MEAN PLATELET VOLUME 10.3 FL (7.4-10.4); MONOCYTES # (AUTO) 0.4 X 10^3 (0.0-1.0); MONOCYTES % (AUTO) 6 % (0-12); NEUTROPHILS # (AUTO) 4.2 X 10^3 (1.8-7.8); NEUTROPHILS % (AUTO) 69 % (42-75); PLATELET COUNT 273 10^3/uL (130-400); RED BLOOD COUNT 4.26 10^6/uL (4.35-5.85); RED CELL DISTRIBUTION WIDTH 14.4 % (10.0-14.5); WHITE BLOOD COUNT 6.1 10^3/uL (4.3-11.0)
[2017-10-01 13:54] LABS: ALANINE AMINOTRANSFERASE 17 U/L (0-55); ALKALINE PHOSPHATASE 120 U/L (40-136); BILIRUBIN,TOTAL 0.3 MG/DL (0.1-1.0); BUN/CREATININE RATIO 16; CALCIUM 9.9 MG/DL (8.5-10.1); CARBON DIOXIDE 25 MMOL/L (21-32); CHLORIDE 107 MMOL/L (98-107); CREATININE SERUM 0.86 MG/DL (0.60-1.30); GFR ESTIMATED > 60; GLUCOSE 126 MG/DL (70-105); POTASSIUM 4.2 MMOL/L (3.6-5.0); SODIUM 140 MMOL/L (135-145); TOTAL PROTEIN 7.7 GM/DL (6.4-8.2)
[2017-10-29 13:02] LABS: BASOPHILS # (AUTO) 0.1 10^3/uL (0.0-0.1); BASOPHILS % (AUTO) 1 % (0-10); EOSINOPHILS # (AUTO) 0.6 10^3/uL (0.0-0.3); EOSINOPHILS % (AUTO) 10 % (0-10); HEMATOCRIT 35 % (40-54); HEMOGLOBIN 11.3 G/DL (13.3-17.7); LYMPHOCYTES # (AUTO) 1.4 X 10^3 (1.0-4.0); LYMPHOCYTES % (AUTO) 24 % (12-44); MEAN CORPUSCULAR HEMOGLOBIN 28 PG (25-34); MEAN CORPUSCULAR HGB CONC 33 G/DL (32-36); MEAN CORPUSCULAR VOLUME 86 FL (80-99); MEAN PLATELET VOLUME 10.6 FL (7.4-10.4); MONOCYTES # (AUTO) 0.6 X 10^3 (0.0-1.0); MONOCYTES % (AUTO) 11 % (0-12); NEUTROPHILS # (AUTO) 3.2 X 10^3 (1.8-7.8); NEUTROPHILS % (AUTO) 54 % (42-75); PLATELET COUNT 261 10^3/uL (130-400); RED BLOOD COUNT 4.03 10^6/uL (4.35-5.85); RED CELL DISTRIBUTION WIDTH 13.8 % (10.0-14.5); WHITE BLOOD COUNT 5.9 10^3/uL (4.3-11.0)
[2017-10-29 13:20] LABS: ALANINE AMINOTRANSFERASE 25 U/L (0-55); ALBUMIN 3.7 GM/DL (3.2-4.5); ALKALINE PHOSPHATASE 142 U/L (40-136); BILIRUBIN,TOTAL 0.3 MG/DL (0.1-1.0); BUN/CREATININE RATIO 12; CALCIUM 9.5 MG/DL (8.5-10.1); CARBON DIOXIDE 28 MMOL/L (21-32); CHLORIDE 106 MMOL/L (98-107); CREATININE SERUM 0.75 MG/DL (0.60-1.30); GFR ESTIMATED > 60; GLUCOSE 96 MG/DL (70-105); POTASSIUM 4.1 MMOL/L (3.6-5.0); SODIUM 143 MMOL/L (135-145); TOTAL PROTEIN 7.4 GM/DL (6.4-8.2)
[~2017-12-01 13:03] MED LIST changes: -MEROPENEM 1,000 MG in NS (IVPB) 100 ML IV NR; -WATER (STERILE) FOR INJECTION 20 ML ONE
[2017-12-01 13:16] LABS: BASOPHILS # (AUTO) 0.1 10^3/uL (0.0-0.1); BASOPHILS % (AUTO) 1 % (0-10); EOSINOPHILS # (AUTO) 0.6 10^3/uL (0.0-0.3); EOSINOPHILS % (AUTO) 11 % (0-10); HEMATOCRIT 39 % (40-54); HEMOGLOBIN 12.7 G/DL (13.3-17.7); LYMPHOCYTES # (AUTO) 1.6 X 10^3 (1.0-4.0); LYMPHOCYTES % (AUTO) 28 % (12-44); MEAN CORPUSCULAR HEMOGLOBIN 28 PG (25-34); MEAN CORPUSCULAR HGB CONC 33 G/DL (32-36); MEAN CORPUSCULAR VOLUME 84 FL (80-99); MONOCYTES # (AUTO) 0.5 X 10^3 (0.0-1.0); MONOCYTES % (AUTO) 9 % (0-12); NEUTROPHILS # (AUTO) 2.9 X 10^3 (1.8-7.8); NEUTROPHILS % (AUTO) 52 % (42-75); PLATELET COUNT 225 10^3/uL (130-400); RED BLOOD COUNT 4.58 10^6/uL (4.35-5.85); RED CELL DISTRIBUTION WIDTH 13.7 % (10.0-14.5); WHITE BLOOD COUNT 5.7 10^3/uL (4.3-11.0)
[2017-12-01 13:33] LABS: ALANINE AMINOTRANSFERASE 24 U/L (0-55); ALBUMIN 4.2 GM/DL (3.2-4.5); ALKALINE PHOSPHATASE 155 U/L (40-136); BILIRUBIN,TOTAL 0.5 MG/DL (0.1-1.0); BUN/CREATININE RATIO 9; CALCIUM 9.9 MG/DL (8.5-10.1); CARBON DIOXIDE 27 MMOL/L (21-32); CHLORIDE 102 MMOL/L (98-107); GFR ESTIMATED > 60; GLUCOSE 114 MG/DL (70-105); POTASSIUM 3.8 MMOL/L (3.6-5.0); SODIUM 139 MMOL/L (135-145); TOTAL PROTEIN 7.7 GM/DL (6.4-8.2)
== END 2017-12-07 | disposition home or self-care (01) ==
LOC: ONC 13:03
PROVIDERS: ATTEND Internal Medicine Hematology & Oncology
DX: Z08 Encounter for follow-up examination after completed treatment for malignant neoplasm (principal); Z85.818 Personal history of malignant neoplasm of other sites of lip, oral cavity, and pharynx; E89.0 Postprocedural hypothyroidism; Z79.899 Other long term (current) drug therapy; Z92.21 Personal history of antineoplastic chemotherapy; Z92.3 Personal history of irradiation
CPT/HCPCS: 36415; 80053; 84443; 85025; 99213

== ENCOUNTER 2018-01-12 09:41 | Outpatient (RCR) | payer BC ==
[2018-01-12 11:08] LABS: BASOPHILS % (AUTO) 1 % (0-10); EOSINOPHILS # (AUTO) 0.5 10^3/uL (0.0-0.3); EOSINOPHILS % (AUTO) 12 % (0-10); HEMATOCRIT 35 % (40-54); HEMOGLOBIN 11.3 G/DL (13.3-17.7); LYMPHOCYTES # (AUTO) 1.2 X 10^3 (1.0-4.0); LYMPHOCYTES % (AUTO) 29 % (12-44); MEAN CORPUSCULAR HEMOGLOBIN 28 PG (25-34); MEAN CORPUSCULAR HGB CONC 33 G/DL (32-36); MEAN CORPUSCULAR VOLUME 86 FL (80-99); MEAN PLATELET VOLUME 11.6 FL (7.4-10.4); MONOCYTES # (AUTO) 0.6 X 10^3 (0.0-1.0); MONOCYTES % (AUTO) 14 % (0-12); NEUTROPHILS # (AUTO) 1.8 X 10^3 (1.8-7.8); NEUTROPHILS % (AUTO) 43 % (42-75); PLATELET COUNT 195 10^3/uL (130-400); RED BLOOD COUNT 4.03 10^6/uL (4.35-5.85); RED CELL DISTRIBUTION WIDTH 13.9 % (10.0-14.5); WHITE BLOOD COUNT 4.2 10^3/uL (4.3-11.0)
[2018-01-12 11:23] LABS: ALANINE AMINOTRANSFERASE 32 U/L (0-55); ALBUMIN 3.9 GM/DL (3.2-4.5); ALKALINE PHOSPHATASE 157 U/L (40-136); BILIRUBIN,TOTAL 0.5 MG/DL (0.1-1.0); BUN/CREATININE RATIO 14; CALCIUM 9.4 MG/DL (8.5-10.1); CARBON DIOXIDE 29 MMOL/L (21-32); CHLORIDE 103 MMOL/L (98-107); CREATININE SERUM 0.78 MG/DL (0.60-1.30); GFR ESTIMATED > 60; GLUCOSE 93 MG/DL (70-105); POTASSIUM 4.1 MMOL/L (3.6-5.0); SODIUM 141 MMOL/L (135-145); TOTAL PROTEIN 7.4 GM/DL (6.4-8.2)
== END 2018-01-31 | disposition home or self-care (01) ==
LOC: ONC 09:41
PROVIDERS: ATTEND Internal Medicine Hematology & Oncology
DX: Z08 Encounter for follow-up examination after completed treatment for malignant neoplasm (principal); Z85.818 Personal history of malignant neoplasm of other sites of lip, oral cavity, and pharynx; E89.0 Postprocedural hypothyroidism; Z79.899 Other long term (current) drug therapy; Z92.21 Personal history of antineoplastic chemotherapy; Z92.3 Personal history of irradiation
CPT/HCPCS: 36415; 80053; 84443; 85025; 99213

== ENCOUNTER 2018-01-26 13:46 | Outpatient (RCR) | payer BC ==
[2017-12-10 15:00] VITALS: BP 132/85
--- NOTE | 2017-12-10 16:08 | Diagnostic Imaging Report ---
INDICATION: PICC line placement. FINDINGS: Left PICC catheter distal tip overlies the SVC in good position. The lungs are clear. IMPRESSION: Left PICC line at the SVC distally projecting over the shadow of the right mainstem bronchus. Dictated by: Dictated on workstation # [id number]
[2017-12-15 15:00] VITALS: BP 133/92
[2017-12-15 15:05] LABS: BASOPHILS # (AUTO) 0.1 10^3/uL (0.0-0.1); BASOPHILS % (AUTO) 1 % (0-10); EOSINOPHILS # (AUTO) 0.4 10^3/uL (0.0-0.3); EOSINOPHILS % (AUTO) 7 % (0-10); HEMATOCRIT 37 % (40-54); LYMPHOCYTES # (AUTO) 1.2 X 10^3 (1.0-4.0); LYMPHOCYTES % (AUTO) 18 % (12-44); MEAN CORPUSCULAR HEMOGLOBIN 28 PG (25-34); MEAN CORPUSCULAR HGB CONC 33 G/DL (32-36); MEAN CORPUSCULAR VOLUME 86 FL (80-99); MEAN PLATELET VOLUME 11.8 FL (7.4-10.4); MONOCYTES # (AUTO) 0.4 X 10^3 (0.0-1.0); MONOCYTES % (AUTO) 6 % (0-12); NEUTROPHILS # (AUTO) 4.6 X 10^3 (1.8-7.8); NEUTROPHILS % (AUTO) 69 % (42-75); PLATELET COUNT 230 10^3/uL (130-400); RED BLOOD COUNT 4.25 10^6/uL (4.35-5.85); RED CELL DISTRIBUTION WIDTH 13.7 % (10.0-14.5); WHITE BLOOD COUNT 6.7 10^3/uL (4.3-11.0)
[2017-12-15 15:19] LABS: ALANINE AMINOTRANSFERASE 24 U/L (0-55); ALKALINE PHOSPHATASE 149 U/L (40-136); BILIRUBIN,TOTAL 0.5 MG/DL (0.1-1.0); BUN/CREATININE RATIO 10; CALCIUM 9.5 MG/DL (8.5-10.1); CARBON DIOXIDE 30 MMOL/L (21-32); CHLORIDE 102 MMOL/L (98-107); CREATININE SERUM 0.86 MG/DL (0.60-1.30); GFR ESTIMATED > 60; GLUCOSE 128 MG/DL (70-105); POTASSIUM 3.9 MMOL/L (3.6-5.0); SODIUM 140 MMOL/L (135-145); TOTAL PROTEIN 7.7 GM/DL (6.4-8.2)
[2017-12-15 15:52] LABS: ERYTHROCYTE SEDIMENTATION RATE 55 MM/HR (0-15)
[2017-12-22 14:30] VITALS: BP 110/83
[2017-12-22 14:47] LABS: BASOPHILS # (AUTO) 0.1 10^3/uL (0.0-0.1); BASOPHILS % (AUTO) 1 % (0-10); EOSINOPHILS # (AUTO) 0.6 10^3/uL (0.0-0.3); EOSINOPHILS % (AUTO) 8 % (0-10); HEMATOCRIT 36 % (40-54); HEMOGLOBIN 11.6 G/DL (13.3-17.7); LYMPHOCYTES # (AUTO) 1.2 X 10^3 (1.0-4.0); LYMPHOCYTES % (AUTO) 16 % (12-44); MEAN CORPUSCULAR HEMOGLOBIN 27 PG (25-34); MEAN CORPUSCULAR HGB CONC 32 G/DL (32-36); MEAN CORPUSCULAR VOLUME 86 FL (80-99); MEAN PLATELET VOLUME 10.6 FL (7.4-10.4); MONOCYTES # (AUTO) 0.7 X 10^3 (0.0-1.0); MONOCYTES % (AUTO) 9 % (0-12); NEUTROPHILS # (AUTO) 5.1 X 10^3 (1.8-7.8); NEUTROPHILS % (AUTO) 67 % (42-75); PLATELET COUNT 336 10^3/uL (130-400); RED BLOOD COUNT 4.23 10^6/uL (4.35-5.85); RED CELL DISTRIBUTION WIDTH 13.4 % (10.0-14.5); WHITE BLOOD COUNT 7.6 10^3/uL (4.3-11.0)
[2017-12-22 15:03] LABS: ALANINE AMINOTRANSFERASE 27 U/L (0-55); ALBUMIN 3.9 GM/DL (3.2-4.5); ALKALINE PHOSPHATASE 178 U/L (40-136); BILIRUBIN,TOTAL 0.5 MG/DL (0.1-1.0); BUN/CREATININE RATIO 14; CALCIUM 9.9 MG/DL (8.5-10.1); CARBON DIOXIDE 32 MMOL/L (21-32); CHLORIDE 101 MMOL/L (98-107); CREATININE SERUM 0.76 MG/DL (0.60-1.30); GFR ESTIMATED > 60; GLUCOSE 109 MG/DL (70-105); POTASSIUM 3.8 MMOL/L (3.6-5.0); SODIUM 140 MMOL/L (135-145); TOTAL PROTEIN 7.8 GM/DL (6.4-8.2)
[2017-12-22 15:06] LABS: ERYTHROCYTE SEDIMENTATION RATE 76 MM/HR (0-15)
[2017-12-29 14:26] VITALS: BP 125/87
[2017-12-29 14:59] LABS: BASOPHILS # (AUTO) 0.1 10^3/uL (0.0-0.1); BASOPHILS % (AUTO) 1 % (0-10); EOSINOPHILS # (AUTO) 0.6 10^3/uL (0.0-0.3); EOSINOPHILS % (AUTO) 9 % (0-10); HEMATOCRIT 36 % (40-54); HEMOGLOBIN 11.9 G/DL (13.3-17.7); LYMPHOCYTES # (AUTO) 1.4 X 10^3 (1.0-4.0); LYMPHOCYTES % (AUTO) 20 % (12-44); MEAN CORPUSCULAR HEMOGLOBIN 28 PG (25-34); MEAN CORPUSCULAR HGB CONC 33 G/DL (32-36); MEAN CORPUSCULAR VOLUME 86 FL (80-99); MEAN PLATELET VOLUME 10.9 FL (7.4-10.4); MONOCYTES # (AUTO) 0.5 X 10^3 (0.0-1.0); MONOCYTES % (AUTO) 7 % (0-12); NEUTROPHILS # (AUTO) 4.2 X 10^3 (1.8-7.8); NEUTROPHILS % (AUTO) 63 % (42-75); PLATELET COUNT 297 10^3/uL (130-400); RED BLOOD COUNT 4.23 10^6/uL (4.35-5.85); RED CELL DISTRIBUTION WIDTH 13.2 % (10.0-14.5); WHITE BLOOD COUNT 6.8 10^3/uL (4.3-11.0)
[2017-12-29 15:23] LABS: ALANINE AMINOTRANSFERASE 23 U/L (0-55); ALBUMIN 3.9 GM/DL (3.2-4.5); ALKALINE PHOSPHATASE 146 U/L (40-136); BILIRUBIN,TOTAL 0.5 MG/DL (0.1-1.0); BUN/CREATININE RATIO 17; CALCIUM 9.6 MG/DL (8.5-10.1); CARBON DIOXIDE 26 MMOL/L (21-32); CHLORIDE 103 MMOL/L (98-107); CREATININE SERUM 0.81 MG/DL (0.60-1.30); GFR ESTIMATED > 60; GLUCOSE 101 MG/DL (70-105); SODIUM 140 MMOL/L (135-145); TOTAL PROTEIN 7.8 GM/DL (6.4-8.2)
[2017-12-29 15:39] LABS: ERYTHROCYTE SEDIMENTATION RATE 69 MM/HR (0-15)
[2018-01-05 15:15] VITALS: BP 121/78
[2018-01-05 15:20] LABS: BASOPHILS # (AUTO) 0.1 10^3/uL (0.0-0.1); BASOPHILS % (AUTO) 1 % (0-10); EOSINOPHILS # (AUTO) 0.5 10^3/uL (0.0-0.3); EOSINOPHILS % (AUTO) 9 % (0-10); HEMATOCRIT 36 % (40-54); HEMOGLOBIN 11.7 G/DL (13.3-17.7); LYMPHOCYTES % (AUTO) 19 % (12-44); MEAN CORPUSCULAR HEMOGLOBIN 28 PG (25-34); MEAN CORPUSCULAR HGB CONC 33 G/DL (32-36); MEAN CORPUSCULAR VOLUME 86 FL (80-99); MEAN PLATELET VOLUME 11.5 FL (7.4-10.4); MONOCYTES # (AUTO) 0.4 X 10^3 (0.0-1.0); MONOCYTES % (AUTO) 8 % (0-12); NEUTROPHILS # (AUTO) 3.3 X 10^3 (1.8-7.8); NEUTROPHILS % (AUTO) 63 % (42-75); PLATELET COUNT 244 10^3/uL (130-400); RED BLOOD COUNT 4.17 10^6/uL (4.35-5.85); RED CELL DISTRIBUTION WIDTH 13.5 % (10.0-14.5); WHITE BLOOD COUNT 5.2 10^3/uL (4.3-11.0)
[2018-01-05 15:39] LABS: ALANINE AMINOTRANSFERASE 26 U/L (0-55); ALBUMIN 3.9 GM/DL (3.2-4.5); ALKALINE PHOSPHATASE 136 U/L (40-136); BILIRUBIN,TOTAL 0.5 MG/DL (0.1-1.0); BUN/CREATININE RATIO 15; CALCIUM 9.4 MG/DL (8.5-10.1); CARBON DIOXIDE 29 MMOL/L (21-32); CHLORIDE 103 MMOL/L (98-107); CREATININE SERUM 0.75 MG/DL (0.60-1.30); GFR ESTIMATED > 60; GLUCOSE 103 MG/DL (70-105); SODIUM 140 MMOL/L (135-145); TOTAL PROTEIN 7.4 GM/DL (6.4-8.2)
[2018-01-05 15:41] LABS: ERYTHROCYTE SEDIMENTATION RATE 69 MM/HR (0-15)
[2018-01-12 10:30] VITALS: BP 121/78
[2018-01-19 16:05] VITALS: BP 131/91
[2018-01-19 16:10] LABS: BASOPHILS % (AUTO) 1 % (0-10); EOSINOPHILS # (AUTO) 0.3 10^3/uL (0.0-0.3); EOSINOPHILS % (AUTO) 7 % (0-10); HEMATOCRIT 34 % (40-54); HEMOGLOBIN 11.4 G/DL (13.3-17.7); LYMPHOCYTES # (AUTO) 0.8 X 10^3 (1.0-4.0); LYMPHOCYTES % (AUTO) 22 % (12-44); MEAN CORPUSCULAR HEMOGLOBIN 29 PG (25-34); MEAN CORPUSCULAR HGB CONC 34 G/DL (32-36); MEAN CORPUSCULAR VOLUME 86 FL (80-99); MEAN PLATELET VOLUME 11.4 FL (7.4-10.4); MONOCYTES # (AUTO) 0.3 X 10^3 (0.0-1.0); MONOCYTES % (AUTO) 7 % (0-12); NEUTROPHILS # (AUTO) 2.4 X 10^3 (1.8-7.8); NEUTROPHILS % (AUTO) 63 % (42-75); PLATELET COUNT 188 10^3/uL (130-400); RED BLOOD COUNT 3.92 10^6/uL (4.35-5.85); RED CELL DISTRIBUTION WIDTH 13.8 % (10.0-14.5); WHITE BLOOD COUNT 3.9 10^3/uL (4.3-11.0)
[2018-01-19 16:28] LABS: ERYTHROCYTE SEDIMENTATION RATE 56 MM/HR (0-15)
[2018-01-19 16:29] LABS: ALANINE AMINOTRANSFERASE 33 U/L (0-55); ALBUMIN 4.1 GM/DL (3.2-4.5); ALKALINE PHOSPHATASE 145 U/L (40-136); BILIRUBIN,TOTAL 0.7 MG/DL (0.1-1.0); BUN/CREATININE RATIO 14; CALCIUM 9.7 MG/DL (8.5-10.1); CARBON DIOXIDE 30 MMOL/L (21-32); CHLORIDE 103 MMOL/L (98-107); CREATININE SERUM 0.78 MG/DL (0.60-1.30); GFR ESTIMATED > 60; GLUCOSE 116 MG/DL (70-105); POTASSIUM 3.7 MMOL/L (3.6-5.0); SODIUM 141 MMOL/L (135-145); TOTAL PROTEIN 7.4 GM/DL (6.4-8.2)
[~2018-01-26] VITALS: Ht 175.3 cm; Wt 82.1 kg
[2018-01-26 14:10] LABS: BASOPHILS % (AUTO) 1 % (0-10); EOSINOPHILS # (AUTO) 0.5 10^3/uL (0.0-0.3); EOSINOPHILS % (AUTO) 10 % (0-10); HEMATOCRIT 35 % (40-54); HEMOGLOBIN 11.3 G/DL (13.3-17.7); LYMPHOCYTES % (AUTO) 21 % (12-44); MEAN CORPUSCULAR HEMOGLOBIN 29 PG (25-34); MEAN CORPUSCULAR HGB CONC 33 G/DL (32-36); MEAN CORPUSCULAR VOLUME 87 FL (80-99); MONOCYTES # (AUTO) 0.5 X 10^3 (0.0-1.0); MONOCYTES % (AUTO) 10 % (0-12); NEUTROPHILS # (AUTO) 2.7 X 10^3 (1.8-7.8); NEUTROPHILS % (AUTO) 57 % (42-75); PLATELET COUNT 227 10^3/uL (130-400); RED BLOOD COUNT 3.96 10^6/uL (4.35-5.85); RED CELL DISTRIBUTION WIDTH 14.1 % (10.0-14.5); WHITE BLOOD COUNT 4.6 10^3/uL (4.3-11.0)
[2018-01-26 14:15] VITALS: BP 112/73
[2018-01-26 14:31] LABS: ALANINE AMINOTRANSFERASE 24 U/L (0-55); ALBUMIN 4.1 GM/DL (3.2-4.5); ALKALINE PHOSPHATASE 113 U/L (40-136); BILIRUBIN,TOTAL 0.7 MG/DL (0.1-1.0); BUN/CREATININE RATIO 18; CALCIUM 9.6 MG/DL (8.5-10.1); CARBON DIOXIDE 31 MMOL/L (21-32); CHLORIDE 104 MMOL/L (98-107); CREATININE SERUM 0.83 MG/DL (0.60-1.30); GFR ESTIMATED > 60; GLUCOSE 99 MG/DL (70-105); POTASSIUM 4.1 MMOL/L (3.6-5.0); SODIUM 142 MMOL/L (135-145); TOTAL PROTEIN 7.5 GM/DL (6.4-8.2)
[2018-01-26 15:11] LABS: ERYTHROCYTE SEDIMENTATION RATE 65 MM/HR (0-15)
== END 2018-03-10 | disposition home or self-care (01) ==
LOC: SDC 13:46
PROVIDERS: ATTEND Internal Medicine Infectious Disease
DX: M27.2 Inflammatory conditions of jaws (principal)
CPT/HCPCS: 36415; 36569; 36592; 71045; 76937; 80053; 85025; 85652; 86141; 99211

== ENCOUNTER → 2018-03-06 | Outpatient (CLI) | payer BC ==
[~2018-03-06] MED LIST changes: +GADOBUTROL 10 MMOL/10 ML (GADAVIST) VIAL IV ONE
--- NOTE | 2018-03-06 16:13 | Diagnostic Imaging Report ---
PROCEDURE: MRI neck with and without contrast. TECHNIQUE: Multiplanar, multisequence MRI of the neck was performed with and without contrast. INDICATION: Followup recurrent oral cancer. 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 COMPARISON: None. DISCUSSION: Postoperative changes of excision of the right mandible with fibular graft. There is diffuse swelling of the overlying facial soft tissues on the right. There is soft tissue edema present. No drainable discrete fluid collection is identified. There is mild enhancement of the soft tissues which is nonspecific. No discrete enhancing mass is identified otherwise. There is no definite enhancement within the fibular graft itself to suggest tumor recurrence or osteomyelitis. Shotty appearing cervical lymph nodes are present. The visualized orbits and sinuses are unremarkable. The mastoid air cells are well-aerated. The lung apices appear within normal limits. The right submandibular gland is not visualized, likely surgically absent. Extensive scarring is noted along the floor of the mouth. IMPRESSION: 1. Right facial soft tissue swelling in the setting of previous postsurgical change of the right mandible as described. There is no drainable fluid collection identified. There is no abnormal contrast enhancement within the fibular graft to suggest tumor recurrence or osteomyelitis. Dictated by: Dictated on workstation # [id number]
== END ==
LOC: RAD 10:54
PROVIDERS: ATTEND Otolaryngology
DX: C02.9 Malignant neoplasm of tongue, unspecified (principal)
CPT/HCPCS: 70543

== ENCOUNTER 2018-03-16 14:26 | Outpatient (RCR) | payer BC ==
[2018-02-02 14:55] VITALS: BP 115/78
[2018-02-02 15:22] LABS: BASOPHILS # (AUTO) 0.1 10^3/uL (0.0-0.1); BASOPHILS % (AUTO) 1 % (0-10); EOSINOPHILS # (AUTO) 0.5 10^3/uL (0.0-0.3); EOSINOPHILS % (AUTO) 9 % (0-10); HEMATOCRIT 33 % (40-54); LYMPHOCYTES # (AUTO) 1.3 X 10^3 (1.0-4.0); LYMPHOCYTES % (AUTO) 22 % (12-44); MEAN CORPUSCULAR HEMOGLOBIN 29 PG (25-34); MEAN CORPUSCULAR HGB CONC 33 G/DL (32-36); MEAN CORPUSCULAR VOLUME 88 FL (80-99); MEAN PLATELET VOLUME 11.8 FL (7.4-10.4); MONOCYTES # (AUTO) 0.6 X 10^3 (0.0-1.0); MONOCYTES % (AUTO) 9 % (0-12); NEUTROPHILS # (AUTO) 3.6 X 10^3 (1.8-7.8); NEUTROPHILS % (AUTO) 59 % (42-75); PLATELET COUNT 227 10^3/uL (130-400); RED BLOOD COUNT 3.77 10^6/uL (4.35-5.85); RED CELL DISTRIBUTION WIDTH 13.6 % (10.0-14.5); WHITE BLOOD COUNT 6.1 10^3/uL (4.3-11.0)
[2018-02-02 15:48] LABS: ALANINE AMINOTRANSFERASE 22 U/L (0-55); ALBUMIN 4.1 GM/DL (3.2-4.5); ALKALINE PHOSPHATASE 130 U/L (40-136); BILIRUBIN,TOTAL 0.5 MG/DL (0.1-1.0); BUN/CREATININE RATIO 12; CALCIUM 9.5 MG/DL (8.5-10.1); CARBON DIOXIDE 28 MMOL/L (21-32); CHLORIDE 104 MMOL/L (98-107); CREATININE SERUM 0.81 MG/DL (0.60-1.30); GFR ESTIMATED > 60; GLUCOSE 94 MG/DL (70-105); SODIUM 143 MMOL/L (135-145); TOTAL PROTEIN 7.6 GM/DL (6.4-8.2)
[2018-02-02 15:54] LABS: ERYTHROCYTE SEDIMENTATION RATE 52 MM/HR (0-15)
[2018-02-09 14:40] VITALS: BP 129/85
[2018-02-09 15:12] LABS: BASOPHILS # (AUTO) 0.1 10^3/uL (0.0-0.1); BASOPHILS % (AUTO) 1 % (0-10); EOSINOPHILS # (AUTO) 0.6 10^3/uL (0.0-0.3); EOSINOPHILS % (AUTO) 11 % (0-10); HEMATOCRIT 34 % (40-54); HEMOGLOBIN 11.1 G/DL (13.3-17.7); LYMPHOCYTES # (AUTO) 1.2 X 10^3 (1.0-4.0); LYMPHOCYTES % (AUTO) 22 % (12-44); MEAN CORPUSCULAR HEMOGLOBIN 28 PG (25-34); MEAN CORPUSCULAR HGB CONC 33 G/DL (32-36); MEAN CORPUSCULAR VOLUME 87 FL (80-99); MEAN PLATELET VOLUME 11.7 FL (7.4-10.4); MONOCYTES # (AUTO) 0.5 X 10^3 (0.0-1.0); MONOCYTES % (AUTO) 8 % (0-12); NEUTROPHILS # (AUTO) 3.3 X 10^3 (1.8-7.8); NEUTROPHILS % (AUTO) 58 % (42-75); PLATELET COUNT 238 10^3/uL (130-400); RED CELL DISTRIBUTION WIDTH 13.1 % (10.0-14.5); WHITE BLOOD COUNT 5.6 10^3/uL (4.3-11.0)
[2018-02-09 15:34] LABS: ERYTHROCYTE SEDIMENTATION RATE 68 MM/HR (0-15)
[2018-02-09 15:36] LABS: ALANINE AMINOTRANSFERASE 41 U/L (0-55); ALBUMIN 4.1 GM/DL (3.2-4.5); ALKALINE PHOSPHATASE 164 U/L (40-136); BILIRUBIN,TOTAL 0.5 MG/DL (0.1-1.0); BUN/CREATININE RATIO 16; CALCIUM 9.4 MG/DL (8.5-10.1); CARBON DIOXIDE 28 MMOL/L (21-32); CHLORIDE 102 MMOL/L (98-107); CREATININE SERUM 0.82 MG/DL (0.60-1.30); GFR ESTIMATED > 60; GLUCOSE 111 MG/DL (70-105); POTASSIUM 3.6 MMOL/L (3.6-5.0); SODIUM 140 MMOL/L (135-145); TOTAL PROTEIN 7.6 GM/DL (6.4-8.2)
[2018-02-16 11:10] VITALS: BP 117/97
[2018-02-16 11:21] LABS: BASOPHILS # (AUTO) 0.1 10^3/uL (0.0-0.1); BASOPHILS % (AUTO) 1 % (0-10); EOSINOPHILS # (AUTO) 0.6 10^3/uL (0.0-0.3); EOSINOPHILS % (AUTO) 12 % (0-10); HEMATOCRIT 35 % (40-54); HEMOGLOBIN 11.7 G/DL (13.3-17.7); LYMPHOCYTES # (AUTO) 1.3 X 10^3 (1.0-4.0); LYMPHOCYTES % (AUTO) 24 % (12-44); MEAN CORPUSCULAR HEMOGLOBIN 29 PG (25-34); MEAN CORPUSCULAR HGB CONC 33 G/DL (32-36); MEAN CORPUSCULAR VOLUME 86 FL (80-99); MEAN PLATELET VOLUME 11.5 FL (7.4-10.4); MONOCYTES # (AUTO) 0.5 X 10^3 (0.0-1.0); MONOCYTES % (AUTO) 10 % (0-12); NEUTROPHILS # (AUTO) 2.8 X 10^3 (1.8-7.8); NEUTROPHILS % (AUTO) 53 % (42-75); PLATELET COUNT 209 10^3/uL (130-400); RED CELL DISTRIBUTION WIDTH 13.2 % (10.0-14.5); WHITE BLOOD COUNT 5.2 10^3/uL (4.3-11.0)
[2018-02-16 11:35] LABS: ALANINE AMINOTRANSFERASE 27 U/L (0-55); ALBUMIN 4.2 GM/DL (3.2-4.5); ALKALINE PHOSPHATASE 147 U/L (40-136); BILIRUBIN,TOTAL 0.5 MG/DL (0.1-1.0); BUN/CREATININE RATIO 18; CALCIUM 9.4 MG/DL (8.5-10.1); CARBON DIOXIDE 27 MMOL/L (21-32); CHLORIDE 103 MMOL/L (98-107); CREATININE SERUM 0.78 MG/DL (0.60-1.30); GFR ESTIMATED > 60; GLUCOSE 109 MG/DL (70-105); SODIUM 139 MMOL/L (135-145); TOTAL PROTEIN 7.7 GM/DL (6.4-8.2)
[2018-02-16 11:45] LABS: ERYTHROCYTE SEDIMENTATION RATE 56 MM/HR (0-15)
[2018-02-23 15:18] LABS: BASOPHILS # (AUTO) 0.1 10^3/uL (0.0-0.1); BASOPHILS % (AUTO) 1 % (0-10); EOSINOPHILS # (AUTO) 0.6 10^3/uL (0.0-0.3); EOSINOPHILS % (AUTO) 8 % (0-10); HEMATOCRIT 35 % (40-54); HEMOGLOBIN 11.4 G/DL (13.3-17.7); LYMPHOCYTES % (AUTO) 14 % (12-44); MEAN CORPUSCULAR HEMOGLOBIN 28 PG (25-34); MEAN CORPUSCULAR HGB CONC 33 G/DL (32-36); MEAN CORPUSCULAR VOLUME 88 FL (80-99); MONOCYTES # (AUTO) 0.5 X 10^3 (0.0-1.0); MONOCYTES % (AUTO) 7 % (0-12); NEUTROPHILS % (AUTO) 70 % (42-75); PLATELET COUNT 202 10^3/uL (130-400); RED BLOOD COUNT 4.01 10^6/uL (4.35-5.85); RED CELL DISTRIBUTION WIDTH 13.1 % (10.0-14.5); WHITE BLOOD COUNT 7.1 10^3/uL (4.3-11.0)
[2018-02-23 15:25] VITALS: BP 127/78
[2018-02-23 15:33] LABS: ALANINE AMINOTRANSFERASE 24 U/L (0-55); ALBUMIN 4.1 GM/DL (3.2-4.5); ALKALINE PHOSPHATASE 156 U/L (40-136); BILIRUBIN,TOTAL 0.4 MG/DL (0.1-1.0); BUN/CREATININE RATIO 16; CALCIUM 9.3 MG/DL (8.5-10.1); CARBON DIOXIDE 27 MMOL/L (21-32); CHLORIDE 102 MMOL/L (98-107); GFR ESTIMATED > 60; GLUCOSE 107 MG/DL (70-105); POTASSIUM 3.8 MMOL/L (3.6-5.0); SODIUM 141 MMOL/L (135-145); TOTAL PROTEIN 7.6 GM/DL (6.4-8.2)
[2018-02-23 15:38] LABS: ERYTHROCYTE SEDIMENTATION RATE 55 MM/HR (0-15)
[2018-03-02 14:35] VITALS: BP 123/97
[2018-03-02 15:06] LABS: BASOPHILS # (AUTO) 0.1 10^3/uL (0.0-0.1); BASOPHILS % (AUTO) 1 % (0-10); EOSINOPHILS # (AUTO) 0.5 10^3/uL (0.0-0.3); EOSINOPHILS % (AUTO) 4 % (0-10); HEMATOCRIT 34 % (40-54); HEMOGLOBIN 11.3 G/DL (13.3-17.7); LYMPHOCYTES # (AUTO) 1.1 X 10^3 (1.0-4.0); LYMPHOCYTES % (AUTO) 10 % (12-44); MEAN CORPUSCULAR HEMOGLOBIN 29 PG (25-34); MEAN CORPUSCULAR HGB CONC 34 G/DL (32-36); MEAN CORPUSCULAR VOLUME 87 FL (80-99); MEAN PLATELET VOLUME 11.5 FL (7.4-10.4); MONOCYTES # (AUTO) 0.7 X 10^3 (0.0-1.0); MONOCYTES % (AUTO) 6 % (0-12); NEUTROPHILS # (AUTO) 8.9 X 10^3 (1.8-7.8); NEUTROPHILS % (AUTO) 80 % (42-75); PLATELET COUNT 215 10^3/uL (130-400); RED BLOOD COUNT 3.88 10^6/uL (4.35-5.85); RED CELL DISTRIBUTION WIDTH 13.3 % (10.0-14.5); WHITE BLOOD COUNT 11.2 10^3/uL (4.3-11.0)
--- NOTE | 2018-03-02 15:16 | Diagnostic Imaging Report ---
INDICATION: PICC line placement. TIME OF EXAM: 03:04 p.m. Correlation is made with prior study from 12/10/2017. FINDINGS: Left upper extremity PICC line is noted. Tip appears to overlie the SVC near the right atrial junction. Lungs are clear. There is no pneumothorax. IMPRESSION: PICC line placement, as described. Dictated by: Dictated on workstation # [id number]
[2018-03-02 15:24] LABS: ERYTHROCYTE SEDIMENTATION RATE 60 MM/HR (0-15)
[2018-03-02 15:27] LABS: ALANINE AMINOTRANSFERASE 30 U/L (0-55); ALBUMIN 4.1 GM/DL (3.2-4.5); ALKALINE PHOSPHATASE 143 U/L (40-136); BILIRUBIN,TOTAL 0.7 MG/DL (0.1-1.0); BUN/CREATININE RATIO 19; CALCIUM 9.4 MG/DL (8.5-10.1); CARBON DIOXIDE 29 MMOL/L (21-32); CHLORIDE 100 MMOL/L (98-107); GFR ESTIMATED > 60; GLUCOSE 111 MG/DL (70-105); POTASSIUM 3.9 MMOL/L (3.6-5.0); SODIUM 138 MMOL/L (135-145); TOTAL PROTEIN 7.4 GM/DL (6.4-8.2)
[2018-03-09 15:05] VITALS: BP 130/91
[2018-03-09 15:11] LABS: BASOPHILS # (AUTO) 0.1 10^3/uL (0.0-0.1); BASOPHILS % (AUTO) 2 % (0-10); EOSINOPHILS # (AUTO) 0.5 10^3/uL (0.0-0.3); EOSINOPHILS % (AUTO) 9 % (0-10); HEMATOCRIT 37 % (40-54); HEMOGLOBIN 11.8 G/DL (13.3-17.7); LYMPHOCYTES # (AUTO) 1.4 X 10^3 (1.0-4.0); LYMPHOCYTES % (AUTO) 23 % (12-44); MEAN CORPUSCULAR HEMOGLOBIN 28 PG (25-34); MEAN CORPUSCULAR HGB CONC 32 G/DL (32-36); MEAN CORPUSCULAR VOLUME 86 FL (80-99); MONOCYTES # (AUTO) 0.5 X 10^3 (0.0-1.0); MONOCYTES % (AUTO) 9 % (0-12); NEUTROPHILS # (AUTO) 3.5 X 10^3 (1.8-7.8); NEUTROPHILS % (AUTO) 58 % (42-75); PLATELET COUNT 223 10^3/uL (130-400); RED BLOOD COUNT 4.23 10^6/uL (4.35-5.85); RED CELL DISTRIBUTION WIDTH 13.2 % (10.0-14.5)
[2018-03-09 15:34] LABS: ALANINE AMINOTRANSFERASE 38 U/L (0-55); ALBUMIN 4.2 GM/DL (3.2-4.5); ALKALINE PHOSPHATASE 158 U/L (40-136); BILIRUBIN,TOTAL 0.5 MG/DL (0.1-1.0); BUN/CREATININE RATIO 16; CALCIUM 9.6 MG/DL (8.5-10.1); CARBON DIOXIDE 27 MMOL/L (21-32); CHLORIDE 102 MMOL/L (98-107); GFR ESTIMATED > 60; GLUCOSE 108 MG/DL (70-105); POTASSIUM 3.7 MMOL/L (3.6-5.0); SODIUM 141 MMOL/L (135-145); TOTAL PROTEIN 7.7 GM/DL (6.4-8.2)
[2018-03-09 15:40] LABS: ERYTHROCYTE SEDIMENTATION RATE 40 MM/HR (0-15)
[~2018-03-16] VITALS: Ht 175.3 cm; Wt 82.1 kg
[~2018-03-16 14:26] MED LIST changes: -GADOBUTROL 10 MMOL/10 ML (GADAVIST) VIAL IV ONE
[2018-03-16 14:50] VITALS: BP 115/66
== END 2018-05-03 | disposition home or self-care (01) ==
LOC: SDC 14:26
PROVIDERS: ATTEND Internal Medicine Hematology & Oncology
DX: Z08 Encounter for follow-up examination after completed treatment for malignant neoplasm (principal); Z85.818 Personal history of malignant neoplasm of other sites of lip, oral cavity, and pharynx; E89.0 Postprocedural hypothyroidism; Z79.899 Other long term (current) drug therapy; Z92.21 Personal history of antineoplastic chemotherapy; Z92.3 Personal history of irradiation
CPT/HCPCS: 36415; 71045; 80053; 85025; 85652; 86141; 99211

== ENCOUNTER 2018-04-19 14:19 | Outpatient (RCR) | payer BC ==
[2018-03-15 14:12] LABS: BASOPHILS # (AUTO) 0.1 10^3/uL (0.0-0.1); BASOPHILS % (AUTO) 1 % (0-10); EOSINOPHILS # (AUTO) 0.5 10^3/uL (0.0-0.3); EOSINOPHILS % (AUTO) 8 % (0-10); HEMATOCRIT 38 % (40-54); HEMOGLOBIN 12.9 G/DL (13.3-17.7); LYMPHOCYTES # (AUTO) 1.7 X 10^3 (1.0-4.0); LYMPHOCYTES % (AUTO) 26 % (12-44); MEAN CORPUSCULAR HEMOGLOBIN 29 PG (25-34); MEAN CORPUSCULAR HGB CONC 34 G/DL (32-36); MEAN CORPUSCULAR VOLUME 86 FL (80-99); MEAN PLATELET VOLUME 11.4 FL (7.4-10.4); MONOCYTES # (AUTO) 0.6 X 10^3 (0.0-1.0); MONOCYTES % (AUTO) 9 % (0-12); NEUTROPHILS # (AUTO) 3.7 X 10^3 (1.8-7.8); NEUTROPHILS % (AUTO) 57 % (42-75); PLATELET COUNT 232 10^3/uL (130-400); RED BLOOD COUNT 4.46 10^6/uL (4.35-5.85); RED CELL DISTRIBUTION WIDTH 13.9 % (10.0-14.5); WHITE BLOOD COUNT 6.6 10^3/uL (4.3-11.0)
[2018-03-15 14:34] LABS: ALANINE AMINOTRANSFERASE 29 U/L (0-55); ALBUMIN 4.4 GM/DL (3.2-4.5); ALKALINE PHOSPHATASE 156 U/L (40-136); BILIRUBIN,TOTAL 0.5 MG/DL (0.1-1.0); BUN/CREATININE RATIO 13; CALCIUM 9.7 MG/DL (8.5-10.1); CARBON DIOXIDE 27 MMOL/L (21-32); CHLORIDE 102 MMOL/L (98-107); CREATININE SERUM 0.92 MG/DL (0.60-1.30); GFR ESTIMATED > 60; GLUCOSE 111 MG/DL (70-105); POTASSIUM 3.9 MMOL/L (3.6-5.0); SODIUM 139 MMOL/L (135-145)
[2018-04-19 14:30] LABS: BASOPHILS # (AUTO) 0.1 10^3/uL (0.0-0.1); BASOPHILS % (AUTO) 1 % (0-10); EOSINOPHILS # (AUTO) 0.5 10^3/uL (0.0-0.3); EOSINOPHILS % (AUTO) 5 % (0-10); HEMATOCRIT 38 % (40-54); HEMOGLOBIN 12.2 G/DL (13.3-17.7); LYMPHOCYTES # (AUTO) 1.8 X 10^3 (1.0-4.0); LYMPHOCYTES % (AUTO) 19 % (12-44); MEAN CORPUSCULAR HEMOGLOBIN 29 PG (25-34); MEAN CORPUSCULAR HGB CONC 32 G/DL (32-36); MEAN CORPUSCULAR VOLUME 91 FL (80-99); MEAN PLATELET VOLUME 11.1 FL (7.4-10.4); MONOCYTES # (AUTO) 0.6 X 10^3 (0.0-1.0); MONOCYTES % (AUTO) 7 % (0-12); NEUTROPHILS # (AUTO) 6.3 X 10^3 (1.8-7.8); NEUTROPHILS % (AUTO) 68 % (42-75); PLATELET COUNT 256 10^3/uL (130-400); RED BLOOD COUNT 4.19 10^6/uL (4.35-5.85); RED CELL DISTRIBUTION WIDTH 13.6 % (10.0-14.5); WHITE BLOOD COUNT 9.3 10^3/uL (4.3-11.0)
[2018-04-19 14:51] LABS: ALANINE AMINOTRANSFERASE 22 U/L (0-55); ALBUMIN 4.4 GM/DL (3.2-4.5); ALKALINE PHOSPHATASE 188 U/L (40-136); BILIRUBIN,TOTAL 0.4 MG/DL (0.1-1.0); BUN/CREATININE RATIO 13; CALCIUM 9.7 MG/DL (8.5-10.1); CARBON DIOXIDE 28 MMOL/L (21-32); CHLORIDE 102 MMOL/L (98-107); CREATININE SERUM 0.99 MG/DL (0.60-1.30); GFR ESTIMATED > 60; GLUCOSE 109 MG/DL (70-105); POTASSIUM 4.1 MMOL/L (3.6-5.0); SODIUM 141 MMOL/L (135-145); TOTAL PROTEIN 8.1 GM/DL (6.4-8.2)
[2018-05-13] MEDS ORDERED: BUPR-168 PO (08:35)
[2018-05-13] MEDS ORDERED: ESOM20CA58 PO (08:35)
[2018-05-13] MEDS ORDERED: FENT-64 TD (08:35)
[2018-05-13] MEDS ORDERED: AMOX1TAB12 PO (08:42)
[2018-05-13] MEDS ORDERED: OXYC5SOL19 PO (08:42)
[2018-05-13] MEDS ORDERED: ACET-2469 PO (08:42)
[2018-05-13] MEDS ORDERED: ALPR0.254 PO (08:42)
[2018-05-13] MEDS ORDERED: PARO30TA3 PO (08:42)
[2018-05-14] MEDS ORDERED: MERO1PIG IV (09:49)
== END 2018-05-17 | disposition home or self-care (01) ==
LOC: ONC 14:19
PROVIDERS: ATTEND Internal Medicine Hematology & Oncology
DX: Z08 Encounter for follow-up examination after completed treatment for malignant neoplasm (principal); Z85.818 Personal history of malignant neoplasm of other sites of lip, oral cavity, and pharynx; E89.0 Postprocedural hypothyroidism; Z79.899 Other long term (current) drug therapy; Z92.21 Personal history of antineoplastic chemotherapy; Z92.3 Personal history of irradiation
CPT/HCPCS: 36415; 80053; 84443; 85025; 99213

== ENCOUNTER 2018-05-12 12:42 | Inpatient (IN) | payer BC ==
[~2018-05-12] VITALS: Ht 180.3 cm; Wt 98.6 kg
--- OUTSIDE RECORDS SUMMARY | 2018-05-12 12:47 | XMS REPORT | Encounter Summary ---
Author Author [facility] Organization [facility] Address Unknown Phone Unavailable Care Team Providers Care Urban Gardening Specialist Name Role Phone Michael Encinas MD PCP Ingrid Medeiros MD Unavailable Reason for Visit * Reason Comments Records Request Encounter Details Care Team Description Date Type Department Saeid Luna PA-C [address] [facility] [address] [place] [address] Records Request 05/05/2018 Telephone [facility] [address] [place] [address] Social History Date Tobacco Use Types Packs/Day Years Used Never Smoker Smokeless Tobacco: Former Chew Quit: 05/20/2013 User Comments: used chew for 20 years Alcohol Use Drinks/Week oz/Week Comments No Sex Assigned at Date Recorded Not on file Industry Job Start Date Occupation Not on file Not on file Not on file Travel End Travel History Travel Start No recent travel history available. as of this encounter Functional Status Date of Assessment Functional Status Response 07/02/2017 Does the patient have a hearing impairment: No 07/02/2017 Does the patient have a visual impairment: No 07/02/2017 Does the patient have impaired ambulation: No 07/02/2017 Does the patient have an activity of daily living No (ADL) impairment: 07/02/2017 Does the patient have an instrumental activity of Yes daily living (IADL) impairment: Date of Assessment Cognitive Status Response 07/02/2017 Does the patient have a cognitive impairment: No as of this encounter Miscellaneous Notes * Telephone Encounter - Gayle Null LPN - 05/05/2018 3:46 PM DIRECTOR EXPERIMENTAL MEDICINE Faxed office visit note to Dr Ingrid Medeiros @ [phone]. Confirmation rec'd 05.05.2018 @ 2:49pm. CTOR EXPERIMENTAL MEDICINE in this encounter Plan of Treatment Not on fileas of this encounter Visit Diagnoses Not on filein this encounter
--- OUTSIDE RECORDS SUMMARY | 2018-05-12 12:47 | XMS REPORT | Encounter Summary ---
Author Author [facility] Organization [facility] Address Unknown Phone Unavailable Care Team Providers Care Pneumatic Tester Name Role Phone Michael Encinas MD PCP Ingrid Medeiros MD Unavailable Reason for Visit * Reason Comments Anxiety Encounter Details Care Team Description Date Type Department Tiago Flower MD [address] [place] [address] MDD (major depressive disorder), recurrent episode, moderate (HCC) (Primary Dx); Specific phobia 05/05/2018 Office Visit [facility] - [facility]iatry [facility] Level 6A [address] [place] [address] Social History Date Tobacco Use Types Packs/Day [...] travel history available. as of this encounter Last Filed Vital Signs Time Taken Vital Sign Reading 05/05/2018 1:50 PM EMBLEM CUTTER Blood Pressure 130/76 05/05/2018 1:50 PM EMBLEM CUTTER Pulse 80 - Temperature - - Respiratory Rate - - Oxygen Saturation - - Inhaled Oxygen - Concentration 05/05/2018 1:50 PM EMBLEM CUTTER Weight 96.2 kg (212 lb) 05/05/2018 1:50 PM EMBLEM CUTTER Height 177.8 cm (5' 10") 05/05/2018 1:50 PM EMBLEM CUTTER Body Mass Index 30.42 in this encounter Functional Status Date of Assessment [...] cognitive impairment: No as of this encounter Patient Instructions * Patient Instructions* Tiago Flower MD - 05/05/2018 1:45 PM EMBLEM CUTTER - Increase Paxil to 30mg daily for depression and anxiety - Start Wellbutrin 75mg daily for depression and energy In the event of a safety concern or suicidal thoughts, call 911 or go to the nearest emergency room. National Suicide Prevention Lifeline 899-015-1074 (Talk) . Crisis Text Hotline (text 431776). The [facility] phone line is a resource for talk support innon- emergencysituations (1-537-IRHNVVK). Please do not hesitate to call the clinic, if you have questions regarding your psychiatric medications or start to develop side effects to medications prescribed by your psychiatrist. EM CUTTER in this encounter Progress Notes * Elbert Haque MD - 05/05/2018 1:45 PM EMBLEM CUTTER ATTENDING NOTE Encounter Date: 05/05/2018 I saw and evaluated Roberto Her, discussed with Tiago Flower MD and concur with the assessment and treatment plan. PRESENTING PROBLEM AND BACKGROUND: Patient is 47 y.o. male with initially seen in our clinic in February with one year history of depression and anxiety following extensive facial surgery for cancer with readmissions for revisions and infections. Major complaint is dysphoria and extreme avolition, fatigue, and anhedonia. His pc physician started him on paroxetine with no apparent benefit at current dose. Patient lives with , worked until year ago when his illness forced him to discontinue. At first visit with us paroxetine increased and psychotherapy recommended CURRENT TREATMENT AND RESPONSES: Patient accompanied by and both report no significant change with increase in paroxetine. He has noted onset of nightmares with increase in paroxetine. He continues to need opiates for his pain and hoping to be able to decrease in the future. He is agreeable to increase in paroxetine with addition of bupropion. He is also seeking psychotherapy in his home community of [facility]. PLAN: 1. Increase paroxetine from 20 mg qd to 30 mg qd 2. Trial bupropion 75 mg qam 3. Continue alprazolam 0.25 mg prn anxiety 4. Encourage psychotherapy 5. Monitor affect, energy, nightmares EM CUTTER * Tiago Flower MD - 05/05/2018 1:45 PM EMBLEM CUTTER Subjective: Patient is a 47 year old male with history of hypertension, squamous cell carcinoma, hypothyroidism with depression and specific phobia of driving presenting for follow up. Ana Luisa present. Since last visit in February with Mansi Rosales when Paxil was increased he reports that things are worse. Ana Luisa is present. Patient reports fatigue , lack of motivation. Having nightmares; thinks about fighting with his parents. Patient reports feeling worse, lazy and sluggish. Patient reports difficulty accomplishing nearly anything lately. Has had 2 surgeries due to infection on R cheek after removal of titanium plate. As far as they know the patient is currently in remission. Denies all SI/HI. Denies all concern for psychosis, AVH, paranoia or delusions. Biggest issues are currently fatigue, lack of purpose and motivation. Patient endorses feeling depressed for about 1 year. Patient has had problems with driving since 2014; can only drive in town but not on the highway or around a lot of cars. No history of mukul. Patient uses Tylenol PM to fall asleep. Takes Xanax rarely; only when nervous. Uses Xanax rarely and thinks it helps some. Has been on Paxil for about 6 months. Paxil was chosen per patient to help with depression and anxiety. Had surgery on face in March 2017; at that time wasn' t taking any medications. No history of seizures. Past medications: Cymbalta - "lazy" Wellbutrin- doesn't think so Buspirone- has taken Substance Use: Alcohol: Denies. Tobacco: Denies currently. Illicit drugs: States that in the s he used to take a "bottle of legal speed ". He did this daily for 10 years. 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 On disability for about year since cancer treatment His main support system is his Ana Luisa Review of Systems Constitutional: Positive for fatigue. HENT: Positive for ear pain, trouble swallowing and voice change. Negative for congestion. Respiratory: Negative for shortness of breath. Cardiovascular: Negative for chest pain. Psychiatric/Behavioral: Positive for dysphoric mood. Negative for hallucinations and suicidal ideas. The patient is nervous/anxious. Objective: acetaminophen (TYLENOL) 325 mg tablet two tablets by PEG Tube route every 4 hours as needed. acetaminophen/diphenhydramine (TYLENOL PM PO) Take by mouth at bedtime daily. ALPRAZolam (XANAX) 0.25 mg tablet Take 1 tablet via feeding tube three times daily as needed for Anxiety. Per amoxicillin/K clavulanate (AUGMENTIN) 875/125 mg tablet Take one tablet by mouth every 12 hours. Take with food. atorvastatin (LIPITOR) 40 mg tablet Take 1 tablet via feeding tube daily. esomeprazole DR(+) (NEXIUM) 20 mg capsule Take 1 capsule by mouth every morning. Take on an empty stomach at least 1 hour before or 2 hours after food. Per Gtube fentaNYL (DURAGESIC) 12 mcg/hr patch Apply 1 patch to top of skin as directed every 72 hours total dose of 37 (along with the 25mcg patch) fentaNYL (DURAGESIC) 25 mcg/hr patch Apply 1 patch to top of skin as directed every 72 hours L.acid/L.casei/B.bif/B.susan/FOS (PROBIOTIC BLEND PO) Take by mouth daily. levothyroxine (SYNTHROID) 125 mcg tablet Take one tablet via feeding tube daily 30 minutes before breakfast. Hold tube feed 1hr before and 1hr after dose. loratadine (CLARITIN) 10 mg tablet Take 1 tablet by mouth every morning. Per feeding tube ondansetron (ZOFRAN) 4 mg tablet Take 1 tablet by mouth every 8 hours as needed for Nausea or Vomiting. oxyCODONE (ROXICODONE) 1 mg/mL oral solution 5-10 mL by PEG Tube route every 4 hours as needed PARoxetine (PAXIL) 20 mg tablet Take one tablet by mouth daily. There were no vitals filed for this visit. There is no height or weight on file to calculate BMI. Physical Exam Metabolic monitoring: Metabolic monitoring: There is no height or weight on file to calculate BMI. Wt Readings from Last 3 Encounters: 03/03/18 96.6 kg (213 lb) 03/03/18 95.7 kg (211 lb) 03/03/18 95.7 kg (211 lb) BP Readings from Last 3 Encounters: 03/03/18 132/83 03/03/18 123/81 03/03/18 122/80 Recent K-TRACS shows 04/19/2018 2 04/19/2018 OXYCODONE HCL 5 MG/5 ML SOLN 1800.0 30 HI PER [id number] [facility] (6157) 0 90.0 MME Comm Ins [place] 04/15/2018 2 04/12/2018 FENTANYL 37.5 MCG/HR PATCH 10.0 30 TIFFANIE MAT [id number] [facility] (6157) 0 90.0 [place] 04/06/2018 2 04/06/2018 ALPRAZOLAM 0.25 MG TABLET 20.0 6 SE AND [id number] [facility] ( 6157) 0 [place] 03/30/2018 2 03/23/2018 FENTANYL 37.5 MCG/HR PATCH 5.0 15 TIFFANIE MAT [id number] [facility] ( 6157) 0 90.0 [place] 03/29/2018 2 03/23/2018 OXYCODONE HCL 5 MG/5 ML SOLN 1540.0 25 TIFFANIE MAT [id number] [facility] (6157) 0 92.4 [place] 02/25/2018 2 02/23/2018 FENTANYL 50 MCG/HR PATCH 10.0 30 TIFFANIE MAT [id number] [facility] ( 6157) 0 120.0 [place] 02/18/2018 2 02/16/2018 OXYCODONE HCL 5 MG/5 ML SOLN 1800.0 30 TIFFANIE MAT [id number] [facility] (6157) 0 90.0 [place] 02/15/2018 2 02/15/2018 ALPRAZOLAM 0.25 MG TABLET 20.0 6 SE AND [id number] [facility] ( 6157) 0 Comm Ins [place] 02/05/2018 2 02/05/2018 OXYCODONE HCL 5 MG/5 ML SOLN 500.0 8 TIFFANIE MAT [id number] [facility] (6157) 0 93.75 MME Comm Ins [place] 01/26/2018 2 01/25/2018 OXYCODONE HCL 5 MG/5 ML SOLN 500.0 8 TIFFANIE MAT [id number] [facility] (6157) 0 93.75 MME Comm Ins [place] 01/23/2018 1 01/23/2018 OXYCODONE HCL 5 MG/5 ML SOLN 220.0 4 CH BOY [id number] [facility] (0971) 0 82.5 MME Comm Ins [place] 01/21/2018 2 01/21/2018 ALPRAZOLAM 0.25 MG TABLET 20.0 6 SE AND [id number] [facility] ( 6157) 0 Comm Ins [place] Assessment and Plan: AXIS I: MDD, recurrent, moderate -specific phobia, situational (driving) -tobacco use disorder, severe, in sustained remission AXIS II: Deferred AXIS III: hx of squamous cell carcinoma of buccal mucosa, HTN, GERD, hypothyroid AXIS IV: PSYCHOSOCIAL STRESSORS: relationships AXIS V: CURRENT GAF: 64 Plan: Patient presents with continued depression after Paxil was increased last visit in February. Depression became severe after treatment of facial cancer about 1 year ago. Reporting violent nightmares recently. Also of note has been out of work for 1 year and on disability; also on opioid pain medication for about 1 year which is likely contributing to presentation. Main symptoms are fatigue and lack of motivation. No SI/HI/AVH. Uses feeding tube at times for nutrition but states that he can swallow pills without issue. - Increase Paxil to 30mg QDAY for depression and anxiety - Start Wellbutrin 75mg QDAY for depression and energy - Continue Xanax 0.25mg QDAY PRN for severe anxiety (no refill today) - Again strongly recommending therapy; patient to contact insurance company to find provider in [place], [place] + Oxycodone, Fentanyl, Gabapentin Return to clinic in 2 months Seen and discussed with Dr. Haque The following was discussed with patient: In the event of a safety concern or suicidal thoughts, call 911 or go to the nearest emergency room. National Suicide Prevention Lifeline 423-592-4853 (Talk) . Crisis Text Hotline (text 141938). The [facility] phone line is a resource for talk support innon- emergencysituations (9-715-IRVHSVP). Please do not hesitate to call the clinic, if you have questions regarding your psychiatric medications or start to develop side effects to medications prescribed by your psychiatrist. EM CUTTER in this encounter Plan of Treatment Not on fileas of this encounter Visit Diagnoses Diagnosis MDD (major depressive disorder), recurrent episode, moderate (HCC) - Primary Major depressive disorder, recurrent episode, moderate Specific phobia Other isolated or specific phobias in this encounter
--- OUTSIDE RECORDS SUMMARY | 2018-05-12 12:47 | XMS REPORT | Clinical Summary ---
Author Author [facility] Organization [facility] Address Unknown Phone Unavailable Care Team Providers Care Traffic Representative Name Role Phone Michael Encinas MD PCP Ingrid Medeiros MD Unavailable Source Comments Some departments are not documenting in the electronic medical record. If you do not see the information that you expected, contact Release of Information in the Health Information Management department at [phone] for further assistance in locating additional records.[facility] Allergies Comments Active Allergy Reactions Severity Noted Date Levofloxacin JOINT PAIN Low 06/04/2017 Fresh fruit Unclassified Drug ITCHING, Medium 02/17/2017 EDEMA Medications End Date Status Medication Sig Dispensed Refills Start Date Active atorvastatin (LIPITOR) 40 Take 1 tablet 90 tablet 3 03/27/201 mg tablet via feeding 7 tube daily. Active ALPRAZolam (XANAX) 0.25 Take 1 tablet 10 tablet 0 201 mg tablet via feeding 8 tube three times daily as needed for Anxiety. Per Active loratadine (CLARITIN) 10 Take 1 tablet 90 tablet 3 mg tablet by mouth 8 every morning. Per feeding tube Active esomeprazole DR(+) Take 1 90 capsule 3 (NEXIUM) 20 mg capsule capsule by 8 mouth every morning. Take on an empty stomach at least 1 hour before or 2 hours after food. Per Gtube Active L.acid/L.casei/B.bif/B.lo Take by 0 n/FOS (PROBIOTIC BLEND mouth daily. PO) Active fentaNYL (DURAGESIC) 25 Apply 1 patch 0 mcg/hr patchIndications: to top of 50mcg/hr patch skin as directed every 72 hours Active acetaminophen/diphenhydra Take by 0 mine (TYLENOL PM PO) mouth at bedtime daily. Active fentaNYL (DURAGESIC) 12 Apply 1 patch 0 mcg/hr patch to top of skin as directed every 72 hours total dose of 37 (along with the 25mcg patch) Active acetaminophen (TYLENOL) two tablets 0 325 mg tablet by PEG Tube 8 route every 4 hours as needed. Active oxyCODONE (ROXICODONE) 1 5-10 mL by 220 mL 0 mg/mL oral solution PEG Tube 8 route every 4 hours as needed Active amoxicillin/K clavulanate Take one 60 tablet 4 (AUGMENTIN) 875/125 mg tablet by 8 tablet mouth every 12 hours. Take with food. Active levothyroxine (SYNTHROID) Take one 60 tablet 0 125 mcg tablet tablet via 8 feeding tube daily 30 minutes before breakfast. Hold tube feed 1hr before and 1hr after dose. Active gabapentin (NEURONTIN) Take one 90 capsule 2 300 mg capsule by 9 capsuleIndications: mouth every 8 Neuropathic Pain hours. Active PARoxetine (PAXIL) 30 mg Take one 30 tablet 3 tablet tablet by 9 mouth daily. Active buPROPion (WELLBUTRIN) 75 Take one 30 tablet 3 mg tablet tablet by 9 mouth daily. 05/05/2018 Discontinued ondansetron (ZOFRAN) 4 mg Take 1 tablet 30 tablet 0 tablet by mouth 8 every 8 hours as needed for Nausea or Vomiting. 05/05/2018 Discontinued PARoxetine (PAXIL) 20 mg Take one 30 tablet 0 tablet tablet by 8 mouth daily. 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 Malignant neoplasm of oral cavity 02/17/2017 Status post dissection of neck 02/17/2017 History of radiation therapy 02/17/2017 Recurrent tongue cancer 02/17/2017 Hypertension 02/17/2017 Resolved Problems Problem Noted Date Resolved Date Tracheostomy in place 05/05/2017 06/16/2017 Encounters Care Team Description Date Type Specialty Tiago Flower MD MDD (major depressive disorder), recurrent episode, moderate (HCC) (Primary Dx); Specific phobia 05/05/2018 Office Visit Psychiatry Saeid Luna PA-C Malignant neoplasm of oral cavity (HCC) (Primary Dx); Recurrent tongue cancer (HCC); History of radiation therapy; Status post dissection of neck; 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 Infectious Diseases Antibiotic Therapy Roque Oshea MD Outpatient Antibiotic Therapy (Opat) 03/17/2018 Telephone Infectious Diseases Roque Oshea MD Outpatient Antibiotic Therapy (Opat) 03/16/2018 Telephone Infectious Diseases Roque Oshea MD Results 03/16/2018 Telephone Infectious Diseases Roque Oshea MD 03/15/2018 Outpt. Infectious Diseases Antibiotic Therapy Roque Oshea MD 03/10/2018 Outpt. 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 Infectious Diseases Antibiotic Therapy Roque Oshea MD 02/24/2018 Outpt. Infectious Diseases Antibiotic Therapy Saeid Luna PA-C Referral 02/18/2018 Telephone Otolaryngology Saeid Luna PA-C Depression, unspecified depression type (Primary Dx) 02/18/2018 Orders Only Otolaryngology Roque Oshea MD 02/16/2018 Outpt. Infectious Diseases Antibiotic Therapy Roque Oshea MD 02/10/2018 Outpt. Infectious Diseases Antibiotic Therapy from Last 3 Months Immunizations Name Dates Previously Given Next Due Flu Vaccine=>6 Months 07/02/2017 Quadrivalent PF Family History Relation Name Status Comments Father Mother Alive Social History Date Tobacco Use Types Packs/Day Years Used Never Smoker Smokeless Tobacco: Former Chew Quit: 05/20/2013 User Comments: used chew for 20 years Alcohol Use Drinks/Week oz/Week Comments No Sex Assigned at Date Recorded Not on file Industry Job Start Date Occupation Not on file Not on file Not on file Travel End Travel History Travel Start No recent travel history available. Last Filed Vital Signs Time Taken Vital Sign Reading 05/05/2018 1:50 PM CHERRY PICKER OPERATOR Blood Pressure 130/76 05/05/2018 1:50 PM CHERRY PICKER OPERATOR Pulse 80 03/03/2018 1:08 PM CDT Temperature 36.2 C (97.1 F) 03/03/2018 3:18 PM CDT Respiratory Rate 18 01/23/2018 9:14 AM CDT Oxygen Saturation 96% - Inhaled Oxygen - Concentration 05/05/2018 1:50 PM CHERRY PICKER OPERATOR Weight 96.2 kg (212 lb) 05/05/2018 1:50 PM CHERRY PICKER OPERATOR Height 177.8 cm (5' 10") 05/05/2018 1:50 PM CHERRY PICKER OPERATOR Body Mass Index 30.42 Plan of Treatment Health Maintenance Due Date Last Done Comments PHYSICAL (COMPREHENSIVE) 1976 EXAM HIV SCREENING 1984 DTAP/TDAP VACCINES ( - 1987 Tdap) INFLUENZA VACCINE Completed 02/24/2018, 07/02/2017, 02/15/2003, Additional history exists Implants Device Identifier Shelf Expiration Date Model / Serial / Lot Implanted Type Area Manufactur er [id number] / [id number] / Screw Titanium 11mm 2mm Taper Mandible UNIDENTIFI Oralmaxillofacial Self - ED MFG [id number] Implanted: Qty: 1 on 03/19/2017 by Baron Torres MD 11/24/2018 [id number] / [id number] / [id number] Filler Bone Void 2.5cc Dbx Mandible MUSCULOSKE Allograft Freeze Dry Putty - LETAL [id number] TRANSPLANT Implanted: Qty: 1 on 03/19/2017 by Baron Perdomo MD 11/19/2021 [id number] / N/A / [id number] Software Deployment Engineer Anastomosis 4mm [place] [employer] Microvascular Sterile Disposable - MICRO CO Sn/A ALLIANCE Implanted: Qty: 1 on 03/19/2017 by Baron Torres MD 11/19/2021 [id number] / [id number] / [id number] Software Deployment Engineer Anastomosis 4mm [place] [employer]NOVIS Microvascular Sterile Disposable - MICRO CO [id number] ALLIANCE Implanted: Qty: 1 on 03/19/2017 by Baron Torres MD Device Identifier Shelf Expiration Date Model / Serial / Lot Explanted Type Area Manufactur / / Screw Titanium 7mm 2mm Taper Mandible UNIDENTIFI Oralmaxillofacial Self - ED MFG [id number] Implanted: Qty: 4 on 03/19/2017 by Baron Torres MD Explanted: Qty: 4 on 01/21/2018 by Baron Torres MD / / Screw Titanium 9mm 2mm Taper Mandible UNIDENTIFI Oralmaxillofacial Self - ED MFG [id number] Implanted: Qty: 7 on 03/19/2017 by Baron Torres MD Explanted: Qty: 7 on 01/21/2018 by Baron Torres MD [id number] / N/A / N/A Pci,Slim Plate - Sn/A Mandible UNIDENTIFI Implanted: Qty: 1 on 03/19/2017 by ED ELÍASG Baron Torres MD Explanted: Qty: 1 on 01/21/2018 by Baron Torres MD Procedures Comments Procedure Name Priority Date/Time Associated Diagnosis C REACTIVE PROTEIN (CRP) Routine 03/16/2018 2:45 PM CHERRY PICKER OPERATOR SED RATE Routine 03/16/2018 2:45 PM CHERRY PICKER OPERATOR BUN Routine 03/15/2018 2:04 PM CHERRY PICKER OPERATOR ALT (SGPT) Routine 03/15/2018 2:04 PM CHERRY PICKER OPERATOR AST (SGOT) Routine 03/15/2018 2:04 PM CHERRY PICKER OPERATOR POTASSIUM Routine 03/15/2018 2:04 PM CHERRY PICKER OPERATOR ALK PHOS TOTAL Routine 03/15/2018 2:04 PM CHERRY PICKER OPERATOR CREATININE Routine 03/15/2018 2:04 PM CHERRY PICKER OPERATOR PLATELET COUNT Routine 03/15/2018 2:04 PM CHERRY PICKER OPERATOR CBC Routine 03/15/2018 2:04 PM CHERRY PICKER OPERATOR HEMOGLOBIN Routine 03/15/2018 2:04 PM CHERRY PICKER OPERATOR C REACTIVE PROTEIN (CRP) Routine 03/09/2018 2:55 PM CHERRY PICKER OPERATOR BUN Routine 03/09/2018 2:55 PM CHERRY PICKER OPERATOR ALT (SGPT) Routine 03/09/2018 2:55 PM CHERRY PICKER OPERATOR AST (SGOT) Routine 03/09/2018 2:55 PM CHERRY PICKER OPERATOR POTASSIUM Routine 03/09/2018 2:55 PM CHERRY PICKER OPERATOR ALK PHOS TOTAL Routine 03/09/2018 2:55 PM CHERRY PICKER OPERATOR CREATININE Routine 03/09/2018 2:55 PM CHERRY PICKER OPERATOR SED RATE Routine 03/09/2018 2:55 PM CHERRY PICKER OPERATOR PLATELET COUNT Routine 03/09/2018 2:55 PM CHERRY PICKER OPERATOR CBC Routine 03/09/2018 2:55 PM CHERRY PICKER OPERATOR HEMOGLOBIN Routine 03/09/2018 2:55 PM CHERRY PICKER OPERATOR MRI NECK EXTERNAL IMAGING Routine 03/06/2018 MRI NECK EXTERNAL IMAGING Routine 03/06/2018 Diagnosis unknown 12:00 AM CDT C REACTIVE PROTEIN (CRP) Routine 03/02/2018 3:00 PM CDT BUN Routine 03/02/2018 3:00 PM CDT ALT (SGPT) Routine 03/02/2018 3:00 PM CDT AST (SGOT) Routine 03/02/2018 3:00 PM CDT POTASSIUM Routine 03/02/2018 3:00 PM CDT ALK PHOS TOTAL Routine 03/02/2018 3:00 PM CDT CREATININE Routine 03/02/2018 3:00 PM CDT SED RATE Routine 03/02/2018 3:00 PM CDT PLATELET COUNT Routine 03/02/2018 3:00 PM CDT CBC Routine 03/02/2018 3:00 PM CDT HEMOGLOBIN Routine 03/02/2018 3:00 PM CDT C REACTIVE PROTEIN (CRP) Routine 02/23/2018 3:00 PM CDT BUN Routine 02/23/2018 3:00 PM CDT ALT (SGPT) Routine 02/23/2018 3:00 PM CDT AST (SGOT) Routine 02/23/2018 3:00 PM CDT POTASSIUM Routine 02/23/2018 3:00 PM CDT ALK PHOS TOTAL Routine 02/23/2018 3:00 PM CDT CREATININE Routine 02/23/2018 3:00 PM CDT SED RATE Routine 02/23/2018 3:00 PM CDT PLATELET COUNT Routine 02/23/2018 3:00 PM CDT CBC Routine 02/23/2018 3:00 PM CDT HEMOGLOBIN Routine 02/23/2018 3:00 PM CDT C REACTIVE PROTEIN (CRP) Routine 02/16/2018 11:10 AM CDT BUN Routine 02/16/2018 11:10 AM CDT ALT (SGPT) Routine 02/16/2018 11:10 AM CDT AST (SGOT) Routine 02/16/2018 11:10 AM CDT POTASSIUM Routine 02/16/2018 11:10 AM CDT ALK PHOS TOTAL Routine 02/16/2018 11:10 AM CDT CREATININE Routine 02/16/2018 11:10 AM CDT SED RATE Routine 02/16/2018 11:10 AM CDT PLATELET COUNT Routine 02/16/2018 11:10 AM CDT CBC Routine 02/16/2018 11:10 AM CDT HEMOGLOBIN Routine 02/16/2018 11:10 AM CDT C REACTIVE PROTEIN (CRP) Routine 02/09/2018 2:50 PM CDT BUN Routine 02/09/2018 2:50 PM CDT ALT (SGPT) Routine 02/09/2018 2:50 PM CDT AST (SGOT) Routine 02/09/2018 2:50 PM CDT POTASSIUM Routine 02/09/2018 2:50 PM CDT ALK PHOS TOTAL Routine 02/09/2018 2:50 PM CDT CREATININE Routine 02/09/2018 2:50 PM CDT SED RATE Routine 02/09/2018 2:50 PM CDT PLATELET COUNT Routine 02/09/2018 2:50 PM CDT CBC Routine 02/09/2018 2:50 PM CDT HEMOGLOBIN Routine 02/09/2018 2:50 PM CDT from Last 3 Months Results * SED RATE (03/16/2018 2:45 PM CHERRY PICKER OPERATOR) Only the most recent of 6 results within the time period is included. Sed Rate -ESR 38 OTHER OUTSIDE LAB Specimen Blood - Blood Narrative Performed At Performing Organization Address City/State/Zipcode Phone Number OTHER OUTSIDE LAB * C REACTIVE PROTEIN (CRP) (03/16/2018 2:45 PM CHERRY PICKER OPERATOR) Only the most recent of 6 results within the time period is included. C-Reactive Protein 1.72mg/dL high sensitivity OTHER OUTSIDE LAB Specimen Blood - Blood Narrative Performed At Performing Organization Address City/State/Zipcode Phone Number OTHER OUTSIDE LAB * PLATELET COUNT (03/15/2018 2:04 PM CHERRY PICKER OPERATOR) Only the most recent of 6 results within the time period is included. Platelet Count 232 OTHER OUTSIDE LAB Specimen Blood - Blood Performing Organization Address City/State/Zipcode Phone Number OTHER OUTSIDE LAB * CBC (03/15/2018 2:04 PM CHERRY PICKER OPERATOR) Only the most recent of 6 results within the time period is included. White Blood Cells 6.6 OTHER OUTSIDE LAB Specimen Blood - Blood Performing Organization Address City/State/Zipcode Phone Number OTHER OUTSIDE LAB * HEMOGLOBIN (03/15/2018 2:04 PM CHERRY PICKER OPERATOR) Only the most recent of 6 results within the time period is included. Hemoglobin 12.9 OTHER OUTSIDE LAB Specimen Blood - Blood Narrative Performed At Performing Organization Address City/State/Zipcode Phone Number OTHER OUTSIDE LAB * BUN (03/15/2018 2:04 PM CHERRY PICKER OPERATOR) Only the most recent of 6 results within the time period is included. Blood Urea Nitrogen 12 OTHER OUTSIDE LAB Specimen Blood - Blood Performing Organization Address City/State/Zipcode Phone Number OTHER OUTSIDE LAB * ALT (SGPT) (03/15/2018 2:04 PM CHERRY PICKER OPERATOR) Only the most recent of 6 results within the time period is included. ALT (SGPT) 29 OTHER OUTSIDE LAB Specimen Blood - Blood Performing Organization Address City/State/Zipcode Phone Number OTHER OUTSIDE LAB * AST (SGOT) (03/15/2018 2:04 PM CHERRY PICKER OPERATOR) Only the most recent of 6 results within the time period is included. AST (SGOT) 26 OTHER OUTSIDE LAB Specimen Blood - Blood Performing Organization Address [facility]State[facility] Phone Number OTHER [facility] * POTASSIUM (03/15/2018 2:04 PM CHERRY PICKER OPERATOR) Only the most recent of 6 results within the time period is included. Potassium 3.9 OTHER OUTSIDE LAB Specimen Blood - Blood Performing Organization Address City/State/Zipcode Phone Number OTHER OUTSIDE LAB * ALK PHOS TOTAL (03/15/2018 2:04 PM CHERRY PICKER OPERATOR) Only the most recent of 6 results within the time period is included. Alk Phosphatase 156 OTHER OUTSIDE LAB Specimen Blood - Blood Performing Organization Address City/State/Zipcode Phone Number OTHER OUTSIDE LAB * CREATININE (03/15/2018 2:04 PM CHERRY PICKER OPERATOR) Only the most recent of 6 results within the time period is included. Creatinine 0.92 OTHER OUTSIDE LAB Specimen Blood - Blood Performing Organization Address City/State/Zipcode Phone Number OTHER OUTSIDE LAB * MRI NECK EXTERNAL IMAGING (03/06/2018) Only the most recent of 2 results within the time period is included. Narrative Performed At Performing Organization Address City/State/Zipcode Phone Number IN CLINIC from Last 3 Months Insurance Payer Benefit Subscriber ID Type Phone Address Plan / Group [facility] xxxxxxxxxxxx PPO [facility] BLUE Advance Directives Patient has advance care planning documents, and code status on file. For more information, please contact: [facility] [address] [place] [address] Date Inactivated Comments Code Status Date Activated 01/23/2018 3:41 PM Full Code 01/21/2018 6:11 PM Provider has discussed Code Status No, discussion not w/Patient or Family? necessary based on Dx 07/02/2017 3:02 PM Full Code 06/26/2017 4:32 PM Provider has discussed Code Status No, more discussion w/Patient or Family? needed 03/27/2017 4:47 PM Full Code 03/19/2017 9:21 PM Provider has discussed Code Status No, discussion not w/Patient or Family? necessary based on Dx
--- OUTSIDE RECORDS SUMMARY | 2018-05-12 12:47 | XMS REPORT | Encounter Summary ---
Author Author [facility] Organization [facility] Address Unknown Phone Unavailable Care Team Providers Care Hospital Account Manager Name Role Phone Michael Encinas MD PCP Ingrid Medeiros MD Unavailable Reason for Visit * Reason Comments Other pt. 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); Oropharyngeal dysphagia 05/05/2018 Office Visit [facility] - ENT [facility] Level 3C [address] [place] [address] Social History Date Tobacco Use [...] Signs Time Taken Vital Sign Reading 05/05/2018 11:32 AM LIBRARY SERVICES COORDINATOR Blood Pressure 130/77 05/05/2018 11:32 AM LIBRARY SERVICES COORDINATOR Pulse 82 - Temperature - - Respiratory Rate - - Oxygen Saturation - - Inhaled Oxygen - Concentration 05/05/2018 11:32 AM LIBRARY SERVICES COORDINATOR Weight 96.2 kg (212 lb) 05/05/2018 11:32 AM LIBRARY SERVICES COORDINATOR Height 177.8 cm (5' 10") 05/05/2018 11:32 AM LIBRARY SERVICES COORDINATOR Body Mass Index 30.42 in this encounter [...] cognitive impairment: No as of this encounter Progress Notes * Saeid Luna PA-C - 05/05/2018 11:30 AM LIBRARY SERVICES COORDINATOR Chief Complaint Patient presents with Other pt. here to check on jaw and OC infection History of Present Illness: Roberto Her is a 47 y.o. year old male evaluated on 05/05/2018, in the Otolaryngology-Head and Neck Surgery Clinic at the [facility] for follow-up. Pt. here for follow-up after right jaw hardware removal from mandible on 01/21/18. He reports that about 2 weeks ago he had another episode of facial swelling and that he pushed on his right neck and that puss came out of a pocket in his mouth. He denies any drainage from the skin. He is still on BID augmentin. He has been off IV abx for over 2 months now. He is scheduled to see Dr. Oshea and Dr. Torres on 06/02/18 but wanted to be seen today since he had the intraoral drainage. He is still seeing pain management physician in [place] and reports that he has lowered his fentanyl patch dose but is still relying on oxy at times for breakthrough pain which worries him and his . He is worried about addiction. He is seeing psy today for follow up on paxil treatment which he believes is giving him nightmares. He denies fever and reports that since 2 weeks ago he has had no issues and things have been steady. He reports that he still on occasion gets a "toothache where he doesn't have a tooth". He is also reporting that he has been getting headaches recently which is new. Otherwise he is doing ok. Reports that he hasn't used his PEG in months and that he is eating special K drinks and that he eats a lot of toaster strudels. He is accompanied by his today. Just of note his PMH is significant for Patient has history significant chewing tobacco for 30+ years and initial lesion discovered in 2012. Underwent primary radiation completed in 08/2013, then recurrence and underwent buccal resection, marginal mandibulectomy, and R MRND in 04/2014. Final path report not available but he had positive LN and completed adjuvant chemotherapy in 10/2014. Unsure why delay in adjuvant therapy. He noted new lesions and sores in his mouth along two spots in his gingival buccal sulcus along previous marginal mandibulecotmy. Biopsied both showed +SCCa. He is also s/p DL, tracheotomy, composite resection of the right oral cavity, revision right ND, left ND and mandible reconstruction with plate by Dr. Ramey and right fibula free flap, STSG, osteotomy of the mandible and vestibuloplasty by Dr. Torres on 03/19/17. 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 His has a past surgical history that includes tonsillectomy (Childhood); Mandible reconstruction (2013); Mouth surgery (2013); sinus surgery (2013); Tunneled venous port placement (2014); Neck surgery (Bilateral, 03/19/2017); tracheostomy (N/A, 03/19/2017); laryngoscopy (03/19/2017); Mandible reconstruction (03/19/2017); Mandible reconstruction (N/A, 03/19/2017); tissue transfer (Right, 03/19/2017); Skin graft (03/19/2017); incision and drainage ( Bilateral, 06/30/2017); and removal implant deep (N/A, 01/21/2018). Past Family/Social History His family history is not on file. He reports that has never smoked. He quit smokeless tobacco use about 4 years ago. His smokeless tobacco use included chew. He reports that he does not drink alcohol or use drugs. Medications/Allergies/Immunizations His current medication(s) include: Current Outpatient Medications Medication Sig Dispense Refill acetaminophen (TYLENOL) 325 mg tablet two tablets by PEG Tube route every 4 hours as needed. 0 acetaminophen/diphenhydramine (TYLENOL PM PO) Take by mouth at bedtime daily. ALPRAZolam (XANAX) 0.25 mg tablet Take 1 tablet via feeding tube three times daily as needed for Anxiety. Per 10 tablet 0 amoxicillin/K clavulanate (AUGMENTIN) 875/125 mg tablet Take one tablet by mouth every 12 hours. Take with food. 60 tablet 4 atorvastatin (LIPITOR) 40 mg tablet Take 1 tablet via feeding tube daily. 90 tablet 3 buPROPion (WELLBUTRIN) 75 mg tablet Take one tablet by mouth daily. [address](+) (NEXIUM) 20 mg capsule Take 1 capsule by mouth every morning. Take on an empty stomach at least 1 hour before or 2 hours after food. Per Gtube 90 capsule 3 fentaNYL (DURAGESIC) 12 mcg/hr patch Apply 1 patch to top of skin as directed every 72 hours total dose of 37 (along with the 25mcg patch) fentaNYL (DURAGESIC) 25 mcg/hr patch Apply 1 patch to top of skin as directed every 72 hours gabapentin (NEURONTIN) 300 mg capsule Take one capsule by mouth every 8 hours. 90 capsule 2 L.acid/L.casei/B.bif/B.susan/FOS (PROBIOTIC BLEND PO) Take by mouth daily. levothyroxine (SYNTHROID) 125 mcg tablet Take one tablet via feeding tube daily 30 minutes before breakfast. Hold tube feed 1hr before and 1hr after dose. 60 tablet 0 loratadine (CLARITIN) 10 mg tablet Take 1 tablet by mouth every morning. Per feeding tube 90 tablet 3 oxyCODONE (ROXICODONE) 1 mg/mL oral solution 5-10 mL by PEG Tube route every 4 hours as needed 220 mL 0 PARoxetine (PAXIL) 30 mg tablet Take one tablet by mouth daily. 30 tablet 3 No current facility-administered medications for this visit. Allergies: Other [unclassified drug] and Levaquin [levofloxacin] Immunizations: Immunization History Administered Date(s) Administered Flu Vaccine=>6 Months Quadrivalent PF 07/02/2017 Review of Systems Constitutional: Negative for fever, weight loss and weight gain. Skin: Negative for rash, itchiness, dryness HENT: Negative for ear pain, sore throat and hoarseness. Negative for difficulty swallowing. Cardiovascular: Negative for chest pain and dyspnea on exertion (Can climb up 2 floors). Respiratory: Is not experiencing shortness of breath. Gastrointestinal: Negative for nausea and vomiting. Neurological: Negative for headaches. Lymph/Heme: Negative for lymphadenopathy or easy bruising Musculoskeletal: Negative for joint or muscle pain Psychiatric: The patient is not nervous/anxious. All other systems are negative except for that listed in the HPI. PHYSICAL EXAM: Vital Signs: BP 130/77 (BP Source: Arm, Left Upper, Patient Position: Sitting) | Pulse 82 | Ht 177.8 cm (70") | Wt 96.2 kg (212 lb) | BMI 30.42 kg/m General: Well-developed, well-nourished Communication and Voice: Clear pitch and clarity Hearing: Hearing adequate for verbal communication bilaterally Inspection: Normocephalic and atraumatic without mass or lesion Palpation: Facial skeleton intact without bony stepoffs Parotid Glands: No mass or tenderness Facial Strength: Facial motility at baseline Pinna: External ear intact and fully developed External canal: Canal is patent with intact skin Tympanic Membrane: Clear and mobile External nose: No scar or anatomic deformity TMJ: No pain to palpation with more mobility on exam today that previously Oral cavity, Lips, Teeth, and Gums: Mucosa and teeth intact and viable, no fistula that I can appreciate, right RMT with granulation tissue and callous from upper teeth rubbing as well as the left lower alveolar ridge, nothing friable Oropharynx: No erythema or exudate, no masses or ulcerations, non-obstructive tonsils Nasopharynx: Not visualized Hypopharynx: Not visualized Larynx: Not visualized Neck, Trachea, Lymphatics: Midline trachea without mass or lesion, no lymphadenopathy with post surgical and XRT changes and redness around mouth at baseline, no open draining areas from the neck Thyroid: Did not palpate Eyes: No nystagmus with equal extraocular motion bilaterally Neuro/Psych/Balance: Patient oriented and appropriate in interaction; Appropriate mood and affect; Gait is intact with no imbalance; Cranial nerves I -XII are intact Respiratory effort: Equal inspiration and expiration without stridor Peripheral Vascular: Warm extremities with equal pulses PATHOLOGY REVIEW: none RADIOLOGIC REVIEW: MRI results are scanned in under imaging and from 03/06/18. IMPRESSION: My impression is that Mr. Her has had recurrent oral cancer and is most recently s/p DL, tracheotomy, composite resection of the right oral cavity, revision right ND, left ND and mandible reconstruction with plate by Dr. Ramey and right fibula free flap, STSG, osteotomy of the mandible and vestibuloplasty by Dr. Torres on 03/19/17 and then hardware removal on 01/21/18. Most recent MRI without signs of osteomyelitis per outside report. Pain intermittent and episode of facial swelling and purulent drainage from OC 2 weeks ago. Still on augmentin. PLAN: Follow up with Dr. Torres and Dr. Oshea as planned for 06/02/18. I talked with pt. about using a water pik on the lowest setting after he eats to keep the OC clean. He is going to get in with his PCP soon to have his lipids and TSH checked. I am going to start him on a trial of gabapentin to see if this helps with pain. Will fax office note to his pain management physician Dr. Ingrid Medeiros. I believe that Mr. Her has a good understanding of the issues involved and I answered all of his questions. 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
--- OUTSIDE RECORDS SUMMARY | 2018-05-12 12:48 | XMS REPORT | Encounter Summary ---
Author Author [facility] Organization [facility] Address Unknown Phone Unavailable Care Team Providers Care Complex Manager Name Role Phone Michael Encinas MD PCP Encounter Details Care Team Description Date Type Department Roque Oshea MD [address] [facility] [address] [place] [address] 03/10/2018 Outpt. [facility] Physicians - Internal Therapy Medicine Ortho and [facility] Level 4C [address] [place] [address] Social History Date Tobacco Use [...] cognitive impairment: No as of this encounter Plan of Treatment Not on fileas of this encounter Procedures Comments Procedure Name Priority Date/Time Associated Diagnosis SED RATE Routine 03/09/2018 2:55 PM RETAIL COMMISSION SALES ASSOCIATE PLATELET COUNT Routine 03/09/2018 2:55 PM RETAIL COMMISSION SALES ASSOCIATE CBC Routine 03/09/2018 2:55 PM RETAIL COMMISSION SALES ASSOCIATE HEMOGLOBIN Routine 03/09/2018 2:55 PM RETAIL COMMISSION SALES ASSOCIATE C REACTIVE PROTEIN (CRP) Routine 03/09/2018 2:55 PM RETAIL COMMISSION SALES ASSOCIATE BUN Routine 03/09/2018 2:55 PM RETAIL COMMISSION SALES ASSOCIATE ALT (SGPT) Routine 03/09/2018 2:55 PM RETAIL COMMISSION SALES ASSOCIATE AST (SGOT) Routine 03/09/2018 2:55 PM RETAIL COMMISSION SALES ASSOCIATE POTASSIUM Routine 03/09/2018 2:55 PM RETAIL COMMISSION SALES ASSOCIATE ALK PHOS TOTAL Routine 03/09/2018 2:55 PM RETAIL COMMISSION SALES ASSOCIATE CREATININE Routine 03/09/2018 2:55 PM RETAIL COMMISSION SALES ASSOCIATE in this encounter Results * C REACTIVE PROTEIN (CRP) (03/09/2018 2:55 PM RETAIL COMMISSION SALES ASSOCIATE) C-Reactive Protein 1.49mg/dL high sensitivity OTHER OUTSIDE LAB Specimen Blood - Blood Performing Organization Address City/[facility] Phone Number OTHER OUTSIDE LAB * BUN (03/09/2018 2:55 PM RETAIL COMMISSION SALES ASSOCIATE) Blood Urea Nitrogen 13 OTHER OUTSIDE LAB Specimen Blood - Blood Performing Organization Address [facility] Phone Number OTHER OUTSIDE LAB * ALT (SGPT) (03/09/2018 2:55 PM RETAIL COMMISSION SALES ASSOCIATE) ALT (SGPT) 38 OTHER OUTSIDE LAB Specimen Blood - Blood Performing Organization Address City/[facility] Phone Number OTHER OUTSIDE LAB * AST (SGOT) (03/09/2018 2:55 PM RETAIL COMMISSION SALES ASSOCIATE) AST (SGOT) 32 OTHER OUTSIDE LAB Specimen Blood - Blood Performing Organization Address City/[facility] Phone Number OTHER OUTSIDE LAB * POTASSIUM (03/09/2018 2:55 PM RETAIL COMMISSION SALES ASSOCIATE) Potassium 3.7 OTHER OUTSIDE LAB Specimen Blood - Blood Performing Organization Address [facility] Phone Number OTHER OUTSIDE LAB * ALK PHOS TOTAL (03/09/2018 2:55 PM RETAIL COMMISSION SALES ASSOCIATE) Alk Phosphatase 158 OTHER OUTSIDE LAB Specimen Blood - Blood Performing Organization Address City/State/Zipcode Phone Number OTHER OUTSIDE LAB * CREATININE (03/09/2018 2:55 PM RETAIL COMMISSION SALES ASSOCIATE) Creatinine 0.80 OTHER OUTSIDE LAB Specimen Blood - Blood Performing Organization Address City/[facility]/Zipcode Phone Number OTHER OUTSIDE LAB * SED RATE (03/09/2018 2:55 PM RETAIL COMMISSION SALES ASSOCIATE) Sed Rate -ESR 40 OTHER OUTSIDE LAB Specimen Blood - Blood Performing Organization Address City/[facility]/Zipcode Phone Number OTHER OUTSIDE LAB * PLATELET COUNT (03/09/2018 2:55 PM RETAIL COMMISSION SALES ASSOCIATE) Platelet Count 223 OTHER OUTSIDE LAB Specimen Blood - Blood Performing Organization Address City/[facility]/Zipcode Phone Number OTHER OUTSIDE LAB * CBC (03/09/2018 2:55 PM RETAIL COMMISSION SALES ASSOCIATE) White Blood Cells 6.0 OTHER OUTSIDE LAB Specimen Blood - Blood Performing Organization Address City/[facility]/Zipcode Phone Number OTHER OUTSIDE LAB * HEMOGLOBIN (03/09/2018 2:55 PM RETAIL COMMISSION SALES ASSOCIATE) Hemoglobin 11.8 OTHER OUTSIDE LAB Specimen Blood - Blood Narrative Performed At Performing Organization Address City/State/Zipcode Phone Number OTHER OUTSIDE LAB in this encounter Visit Diagnoses Not on filein this encounter
--- OUTSIDE RECORDS SUMMARY | 2018-05-12 12:48 | XMS REPORT | Encounter Summary ---
Author Author [facility] Organization [facility] Address Unknown Phone Unavailable Care Team Providers Care Patent Engineer Name Role Phone Michael Encinas MD PCP Reason for Referral * Consult, Test & Treat (Routine) Referred By Contact Referred To Contact Status Reason Specialty Diagnoses / [place] [address] [place] [address] [address] [place] [address] New Request Specialty Services Diagnoses Required Encounter for long-term (current) use of antibiotics Reason for Visit * Reason Comments Outpatient Antibiotic Therapy (Opat) Encounter Details Care Team Description Date [place] [address] [place] [address] MS [facility] [place], [place] [id number] Outpatient Antibiotic Therapy (Opat) 03/16/2018 Telephone [facility] Physicians - Internal Medicine Ortho and [facility] Level 4C [address] [place] [address] Social History Date Tobacco Use [...] encounter Miscellaneous Notes * Telephone Encounter - Blanco Gunn RN - 03/16/2018 9:09 AM FIELD CROP HARVEST WORKER D CROP HARVEST WORKER in this encounter Plan of Treatment Order Schedule Name Priority Associated Diagnoses Ordered: 03/16/2018 AMB REFERRAL TO HOME CARE Routine Encounter for long-term (current) use of antibiotics as of this encounter Visit Diagnoses Diagnosis Encounter for long-term (current) use of antibiotics - Primary in this encounter
--- OUTSIDE RECORDS SUMMARY | 2018-05-12 12:48 | XMS REPORT | Encounter Summary ---
Author Author [facility] Organization [facility] Address Unknown Phone Unavailable Care Team Providers Care Agricultural Crop Farm Manager Name Role Phone Michael Encinas MD PCP Reason for Visit * Reason Comments Results Encounter Details Care Team Description Date Type Department Roque Oshea MD [address] [facility] [address] [place] [address] Results 03/16/2018 Telephone [facility] Physicians - Internal Medicine [facility] Level 4C [address] [place] [address] Social History Date Tobacco Use [...] encounter Miscellaneous Notes * Telephone Encounter - Roque Oshea MD - 03/16/2018 7:33 AM SENIOR ADMINISTRATIVE ASSOCIATE MRI imaging reviewed. We received the formal report yesterday. There remains soft tissue swelling around the right mandible (fibula graft). No evidence of associated abscess. MRI not suggestive of substantial involvement of osteomyelitis of the fibula graft. I attempted to contact the patient. Left voicemail. Our plan is to go ahead and remove the PICC. He will continue on oral Augmentin for suppressive therapy. I have asked him to contact us if he develops any new concerns. Otherwise, we will plan to see him back in clinic as previously scheduled. Roque Oshea MD OR ADMINISTRATIVE ASSOCIATE in this encounter Plan of Treatment Not on fileas of this encounter Visit Diagnoses Not on filein this encounter
--- OUTSIDE RECORDS SUMMARY | 2018-05-12 12:48 | XMS REPORT | Encounter Summary ---
Author Author [facility] Organization [facility] Address Unknown Phone Unavailable Care Team Providers Care Analysis Analyst Name Role Phone Michael Encinas MD PCP Encounter Details Care Team Description Date Type Department Saeid Luna PA-C [address] [facility] [address] [place] [address] 04/12/2018 Orders Only [facility] Physicians - ENT Ortho and Medical [facility] Level 3C [address] [place] [address] Social History Date Tobacco Use [...]
--- OUTSIDE RECORDS SUMMARY | 2018-05-12 12:48 | XMS REPORT | Encounter Summary ---
Author Author [facility] Organization [facility] Address Unknown Phone Unavailable Care Team Providers Care Account Group Supervisor Name Role Phone Michael Encinas MD PCP Reason for Visit * Reason Comments Outpatient Antibiotic Therapy (Opat) Encounter Details Care Team Description Date Type Department Roque Oshea MD [address] [facility] [address] [place] [address] Outpatient Antibiotic Therapy (Opat) 03/17/2018 Telephone [facility] Physicians - Internal Medicine [facility] and [facility] Level 4C [address] [place] [address] Social History Date Tobacco Use [...] Telephone Encounter - Blanco Gunn RN - 03/17/2018 9:59 AM MILITARY POLICE OFFICER Confirmed with [facility] at [facility] PICC was removed on 03/16/18 and all weekly lab orders and antibiotics were discontinued. Pt to follow up in ID ~End may. TARY POLICE OFFICER in this encounter Plan of Treatment Not on fileas of this encounter Visit Diagnoses Not on filein this encounter
--- OUTSIDE RECORDS SUMMARY | 2018-05-12 12:48 | XMS REPORT | Encounter Summary ---
Author Author [facility] Organization [facility] Address Unknown Phone Unavailable Care Team Providers Care Parachutist/Combatant Diver Qualified Name Role Phone Michael Encinas MD PCP Reason for Visit * Reason Comments Depression Anxiety * Consult, Test & Treat (Urgent) Referred By Contact Referred To Contact Status Reason Specialty Diagnoses / Procedures Saeid Luna PA-C [address] [facility] [address] [place] [address] [facility] Level 6A [address] [place] [address] No Auth Needed Specialty Services Psychiatry Diagnoses Required Depression, unspecified depression type Encounter Details Care Team Description Date Type Department Saeid Luna PA-C [address] [facility] [address] [place] [address] [phone] Mansi Rosales, HEAD ORTHOPEDIC TEAM PHYSICIAN-SONG AND DANCE PERFORMER [address] [place] [address] [phone] MDD (major depressive disorder), recurrent episode, moderate (HCC) (Primary Dx); Tobacco use disorder, severe, in sustained remission; Specific phobia 03/03/2018 Office Visit [facility] - Psychiatry [facility] Level 6A [address] [place] [address] Social History Date Tobacco Use [...] Vital Signs Time Taken Vital Sign Reading 03/03/2018 3:18 PM CDT Blood Pressure 132/83 03/03/2018 3:18 PM CDT Pulse 96 - Temperature - 03/03/2018 3:18 PM CDT Respiratory Rate 18 - Oxygen Saturation - - Inhaled Oxygen - Concentration 03/03/2018 3:18 PM CDT Weight 96.6 kg (213 lb) 03/03/2018 3:18 PM CDT Height 180.3 cm (5' 11") 03/03/2018 3:18 PM CDT Body Mass Index 29.71 in this encounter Functional Status Date of [...] this encounter Patient Instructions * Patient Instructions* Mansi Rosales APRN-NP - 03/03/2018 3:30 PM CDT -Start paxil 20mg by mouth once a day. -Continue xanax 0.25mg by mouth three times a day as needed for anxiety. -Begin therapy. Suggested options are the following. -[email or web address] or -[facility] or -Call the number on the back of your insurance card -Return to the clinic in 4 weeks. Call clinic with questions or concerns. Should suicidal thoughts, intentions or plans or homicidal thoughts, intentions or plans develop and/or worsen, please utilize one of the following resources including 911, ER, mental health provider or crisis hotline including National Suicide Prevention Lifeline (Talk). Crisis text hotline, text 665941. in this encounter Progress Notes * Mansi Rosales APRN-NP - 03/03/2018 3:30 PM CDT Subjective: Roberto Her is 47 y.o. presents with chief complaint of "depression and anxiety ". Patient presents to the clinic to establish care with a history of depressed moods and anxiety History of Present Illness: Patient reports that he has been struggling with depression and anxiety. He is on disability for hx of oral cancer that was caused by 20 years of chewing tobacco. States oral cancer has returned 3 times and did have skin cancer on his forehead at one point.Currently not in chemo. Has an oral infection currently and patient reports "they can't figure out why it's not going away". Has been on an antibiotic since October 2017. Patient's reports that she noticed his depression worsening around the same time that he started the antibiotics. Reports that depression has worsened over the past 3 months. Cancer first arised in 2012 and this is when he noticed depressed moods. Currently describes his mood as depressed. He is waking up every hour, he will go to bed at 10pm and wake up all night until 6am then go back to sleep until 12 or 2pm with some naps. Sleep has been poor since July 2017. Reports anhedonia. Reports hopelessness. Denies worthlessness and guilt. Endorses fatigue throughout the day. His concentration is poor. Has a feeding tube. Denies active SI/HI when asked. Started paxil in October 2017. Reports feeling on edge all the time but denies that it is anxiety. Has been on xanax at least 1.5 years, does not take it often. Reports taking xanax prior to being in the car. He fears driving and hates driving over bridges. This has been going on for the past 2 years. Denies that he has been in any car accidents or anything that would cause his fear of driving. States that he has less anxiety while being a passenger in the car but that the anxiety is still persistent. PSYCHIATRIC REVIEW OF SYMPTOMS Depression: The patient endorses symptoms of depressed mood, sleep changes, anhedonia, feelings of hopelessness, fatigue, poor concentration. Denies active SI/HI when asked. Denies feelings of guilt/worthlessness, appetite changes, or psychomotor agitation or retardation. Mukul: The patient denies symptoms of elevated/expansive mood, decreased need for sleep, grandiosity, and pressured speech, flight of ideas, distractibility, and increase in goal directed activity, and hyper sexuality. Psychosis: The patient denies symptoms of auditory or visual hallucinations, delusions, thought broadcasting, thought insertion, delusions of reference, catatonia, or disorganized speech or behavior. Anxiety: The patient denies symptoms of excessive worry, restlessness, easily fatigued, poor concentration, irritability, muscle tension, and sleep changes for greater than 6 months. Panic: The patient endorses history of panic attacks lasting 2 of minutes with palpitations, tachycardia, diaphoresis, tremulousness, SOB, smothering sensation /choking, chest tightness, nausea, lightheadedness/dizziness, derealization/ depersonalization, fear of dying. This will only occur while driving. First panic attack was in 2011 when he was working for the [employer]. States that at that time he was under a lot of stress and was working in an area he disliked. Endorses fearing future panic attacks. 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 PTSD: The patient denies a history of a traumatic event, 1 symptom of re- experiencing (nightmares, flashbacks, illusions, intrusive thoughts, triggers symbolizing trauma), 3 symptoms of avoidance of (thoughts, situations, amnesia, anhedonia, detachment, numbness, sense of shortened future), and 2 symptoms of hyperarousal (hypervigilance, irritability, poor sleep, poor concentration, exaggerated startle response). Borderline personality disorder: The patient denies a pattern of intense and unstable personal relationships, frantic efforts to avoid real or imagined abandonment, unstable self-image, chronic feelings of emptiness, impulsivity in 2 harmful areas, recurrent suicidal behavior, affective instability, intense and inappropriate anger, transient stress-related paranoid ideation or dissociation. OCD: The patient denies intrusive images/impulses/thoughts, repetitive behaviors , counting, checking, washing, symmetry, or grouping and ordering that take up more than 1 hour of the day. Eating Disorder: The patient denies feeling overweight, excessive dieting or exercise to lose weight, overuse of laxatives, binging/purging behaviors, and amenorrhea. ADHD: The patient denies 6 (or more) symptoms of inattention in TWO settings before age 12, including failing to give close attention to details, difficulty with sustained attention, difficulty listening when spoken to, difficulty finishing work, difficulty organizing tasks and activities, avoiding tasks requiring mental effort, losing things often, often distracted by extraneous stimuli, flight of ideas and forgetfulness. The patient also denies 6 (or more) symptoms of hyperactivity-impulsivity in 2 settings, including fidgeting, getting up from the seat in class, running about or climbing on things excessively, difficulty engaging quietly, always "on the go", talking excessively, blurting out answers before the question has been completed, difficulty awaiting turn, interrupting others. Past Psychiatric History: - Diagnoses: "depression and anxiety". - Outpatient: Denies. Has been to a therapist one time. He saw one 2-3 years ago during chemo. - Hospitalizations: Denies. -Past Self-Injurious Behaviors: Denies. - Past suicide attempts: Denies. Past Psychiatric Medication Trials and Responses -Paxil-taking currently, unsure if it is helpful. -xanax-taking currently, feels it helps with some anxiety. 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) ([facility]) Comment: buccal gingival sulcus No date: Seasonal allergic reaction 2013, 2014: Status post chemoradiation No date: Tobacco abuse No date: Weight loss Comment: 45# since mar 2017 No date: Wheezing Past Surgical History: 2014: MANDIBLE RECONSTRUCTION 2014: MOUTH SURGERY 2014: SINUS SURGERY 2015: TUNNELED VENOUS PORT PLACEMENT Comment: romoved 03/19/2017: NECK SURGERY; Bilateral Comment: COMPOSITE RESECTION WITH REVISION RIGHT NECK DISSECTION, LEFT NECK DISSECTION performed by Vivian Ramey MD at [facility] OR/[facility] 03/19/2017: TRACHEOSTOMY; N/A Comment: TRACHEOSTOMY performed by Vivian Ramey MD at [facility] OR/[facility] 03/19/2017: LARYNGOSCOPY Comment: DIRECT LARYNGOSCOPY performed by Vivian Ramey MD at [facility] OR/[facility] 03/19/2017: MANDIBLE RECONSTRUCTION Comment: RECONSTRUCTION MANDIBLE WITH PLATE performed by Vivian Ramey MD at [facility] OR/[place], [facility] 03/19/2017: MANDIBLE RECONSTRUCTION; N/A Comment: RECONSTRUCTION MANDIBLE WITH ALLOGRAFT performed by Baron Torres MD at [facility] OR/[facility], [facility] 03/19/2017: TISSUE TRANSFER; Right Comment: OSTEOCUTANEOUS FREE FLAP-FIBULA performed by Baron Torres MD at [facility] OR/[place], [facility] 03/19/2017: SKIN GRAFT Comment: GRAFT SKIN SPLIT THICKNESS LOWER EXTREMITY performed by Baron Torres MD at [facility] OR/[facility], [facility] 06/30/2017: INCISION AND DRAINAGE; Bilateral Comment: INCISION AND DRAINAGE OF SUBMENTAL ABSCESS; EXAM OF ORAL CAVITY UNDER ANESTHESIA; I&D OF RIGHT CHEEK ABSCESS performed by Baron Torres MD at [facility] OR/[facility], [facility] 01/21/2018: SC REMOVAL IMPLANT DEEP; N/A Comment: HARDWARE REMOVAL MANDIBLE performed by Baron Torres MD at [facility] OR/[facility] Childhood: HX TONSILLECTOMY Allergies: -- Other (Unclassified Drug) -- ITCHING and EDEMA -- Fresh fruit -- Levaquin (Levofloxacin) -- JOINT PAIN No results found for: HGBA1C, CHOL, LDL, TRIG, HDL, VLDL, NONHDLCHOL Substance Use: - Alcohol: Denies. - Tobacco: Denies currently. He used to chew tobacco, quit in 2013. He chewed 2 cans a day for 20 years. - Illicit drugs: States that in the he used to take a "bottle of legal speed". He did this daily for 10 years. - Caffeine: Denies -Access to firearms: Reports access to firearms, states they are secure. Denies negative thoughts of using a firearm to harm themselves or others. Social History: Born and raised in [place]. Raised by biological mother and father. He has 2 sisters. He has been 2 times. currently for 6 years. He has 2 daughters, his oldest one he adopted and the other is biological. Lives with and the youngest son. He is on social security and disability which started a few months ago. 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 His main support system is his . For fun, he used to enjoy hunting, fishing, and golfing. - Abuse: Denies. - Education: Some college, he was studying firefighting. - Legal history: Denies. Arrested for bad checks years ago. - history: Denies. - Sabianist: [employer] Family History: - Mother: Denies. - Father: Denies. - Knowledge of suicide attempts within family: Denies. Roberto Her is a 47 y.o. male. Review of Systems Constitutional: Positive for fatigue. Negative for appetite change. Eyes: Negative for pain. Respiratory: Negative for chest tightness, shortness of breath and wheezing. Cardiovascular: Negative for chest pain and palpitations. Gastrointestinal: Negative for abdominal pain. Endocrine: Negative for polydipsia. Musculoskeletal: Negative for gait problem. Neurological: Negative for dizziness. Psychiatric/Behavioral: Positive for dysphoric mood and sleep disturbance. Negative for agitation, behavioral problems, confusion, decreased concentration , hallucinations, self-injury and suicidal ideas. The patient is nervous/ anxious. The patient is not hyperactive. Objective: acetaminophen (TYLENOL) 325 mg tablet two tablets by PEG Tube route every 4 hours as needed. acetaminophen/diphenhydramine (TYLENOL PM PO) Take by mouth at bedtime daily. ALPRAZolam (XANAX) 0.25 mg tablet Take 1 tablet via feeding tube three times daily as needed for Anxiety. Per atorvastatin (LIPITOR) 40 mg tablet Take 1 [...] daily. levothyroxine (SYNTHROID) 125 mcg tablet Take 1 tablet via feeding tube daily 30 minutes before breakfast. Hold tube feed 1hr before and 1hr after dose. loratadine (CLARITIN) 10 mg tablet Take 1 tablet by mouth every morning. Per feeding tube meropenem (MERREM) 1 g/20 mL injection Administer 1 g through vein every 8 hours. ondansetron (ZOFRAN) 4 mg tablet Take 1 tablet by mouth every 8 hours as needed for Nausea or Vomiting. oxyCODONE (ROXICODONE) 1 mg/mL oral solution 5-10 mL by PEG Tube route every 4 hours as needed PARoxetine (PAXIL) 10 mg tablet one tablet by Per G Tube route daily. Vitals: 03/03/18 1518 BP: 132/83 Pulse: 96 Resp: 18 Weight: 96.6 kg (213 lb) Height: 180.3 cm (71") Body mass index is 29.71 kg/m. Physical Exam Psychiatric: Mental Status Exam: General/Constitutional: 47 y.o. male with facial scarring on his left cheek from surgery, dressed in street clothes, appropriate hygiene Eye Contact: appropriately maintained Speech: regular rate rhythm tone and volume Psychomotor: Normal Mood:"tired" Affect: dysphoric, stable, full range, mood congruent Thought Process: linear, goal oriented Associations: intact Thought Content: denies suicidal intent, homicidal intent Perception: denies paranoia. Denies delusions/illusions. Denies auditory hallucinations. Denies visual hallucinations Insight: Good Judgement: Good Orientation: AOx4 Recent and Remote Memory: intact Attention span and concentration: intact, keeps focus, not easily distracted Language: Hungarian, appropriate Fund of knowledge and vocabulary: appropriate for educational level Gait: steady Assessment and Plan: IMPRESSION DIAGNOSIS: Roberto Her is a 47 y.o. y.o. male with a history of depressed moods and anxiety while driving who presents to outpatient psychiatry with his , which appears to be precipitated by a referral from his ENT. Diagnosed with oral cancer in 2012 from 20 years of chewing tobacco. Does not chew tobacco anymore. First noticed depression around the time of his diagnosis. Patient's noticed worsening depression when starting antibiotics in October 2017 that he is still on. Reports depressed moods and panic attacks specifically when driving. Will increase paxil from 10mg to 20mg po q day for mood and anxiety. Does have a feeding tube but has been taking paxil orally. States that he his doctor started him on paxil 10mg po q day with intention of increasing it but never did. Has xanax prescription, does not take it often. Will continue xanax 0.25mg po TID PRN for severe anxiety. Discussed plan to possibly taper and discontinue this medication as it is intended for short-term use only. Encouraged patient to begin therapy for specific phobia of driving, states he will look into resources provided. Denies [facility]. Denies active SI/HI when asked. Factors that seem to have predisposed him to depression and anxiety include include history of depressed mood, hx of oral cancer, current oral infection, and driving. This current problem is maintained by poor medication management and lack of therapy. Patient denies history of mukul, hypomania, psychosis, PTSD, ADHD, or OCD. Protective factors include willingness to engage in treatment, good insight, and a strong support system. Proposed treatment will consist of medication management, therapy, and ongoing outpatient psychiatry visits. -MDD, recurrent, moderate -specific phobia, situational (driving) -tobacco use disorder, severe, in sustained remission -R/O Medication induced depressive disorder -hx of squamous cell carcinoma of buccal mucosa, HTN, GERD, hypothyroid PLAN: -Increase paxil from 10mg to 20mg po q day for mood and anxiety. -Continue xanax 0.25mg po TID PRN for severe anxiety. Per [facility], last filled qty 20 with zero refills. No refills provided today. -Begin therapy. Suggested options are the following. -[email or web address] or -[facility] or -Call the number on the back of insurance card -RTC 4 weeks or PRN Denies active SI/HI when asked. Denies plan, access, or intent. Contracts for safety. Discussed safety plan if the patient were to have thoughts of harming themselves or others. Patient was instructed to call 911 and/or come to the emergency room. Patient was agreeable. Medication risks and benefits were discussed with patient. Patient was agreeable to medication changes noted above. Discussed the dangers of respiratory depression and when using alcohol, opioids, and benzodiazepines . Patient understood the risks. Discussed potential side effects of Benzodiazepines use including but not limited to: cognitive dysfunction, falls, tolerance, dependence, rebound anxiety , and potentially fatal respiratory depression especially when combined with opioids and/or alcohol Discussed potential side effects of SSRI including but not limited to sleep changes, weight changes, nausea/vomiting/diarrhea, and sexual dysfunction. The proposed treatment plan was discussed with the patient/guardian who was provided the opportunity to ask questions and make suggestions regarding alternative treatment. in this encounter Plan of Treatment Not on fileas of this encounter Visit Diagnoses Diagnosis MDD (major depressive disorder), recurrent episode, moderate (HCC) - Primary Major depressive disorder, recurrent episode, moderate Tobacco use disorder, severe, in sustained remission Specific phobia Other isolated or specific phobias in this encounter
--- OUTSIDE RECORDS SUMMARY | 2018-05-12 12:48 | XMS REPORT | Encounter Summary ---
Author Author [facility] Organization [facility] Address Unknown Phone Unavailable Care Team Providers Care Life Enrichment Director Name Role Phone Michael Encinas MD PCP Reason for Referral * Consult, Test & Treat (Routine) Referred By Contact Referred To Contact Status Reason Specialty Diagnoses [place] [address] [place] [address] [address] [place] [address] New Request Specialty Services Diagnoses Required Encounter for long-term (current) use of antibiotics Reason for Visit * Reason Comments Outpatient Antibiotic Therapy ([facility]) Encounter Details Care Team Description Date [place] [address] [place] [address] MS [facility] [place], [place] [id number] Outpatient Antibiotic Therapy ([facility]) 03/04/2018 Telephone [facility] - Internal Medicine [facility] Level [address] [place] [address] Social History Date Tobacco Use [...] as of this encounter Miscellaneous Notes * Addendum Note - Juan Pablo López RN - 03/04/2018 1:37 PM CDT Addended by: JUAN PABLO LÓPEZ on: 03/04/2018 01:37 PM Modules accepted: Orders * Telephone Encounter - Juan Pablo López RN - 03/04/2018 1:14 PM CDT I spoke with Ana Luisa, pts and she understands we will D/C Meropenem 1g IV Q 8 hrs on 03/04/18. According to pts , when D/C a picc in the past and starting oral abx, pt would have a return of infection and have to get another picc placed. Per Dr. Oshea leaving the current picc in for a week and starting amoxicillin/K clavulanate (AUGMENTIN) 875/125 mg tablet Q12 hrs is the plan. I will call pt on 03/08 to see how he is doing on oral abx and we will assess getting the picc out then. in this encounter Plan of Treatment Order Schedule Name Priority Associated Diagnoses Ordered: 03/04/2018 AMB REFERRAL TO HOME CARE Routine Encounter for long-term (current) use of antibiotics as of this encounter Visit Diagnoses Diagnosis Encounter for long-term (current) use of antibiotics - Primary in this encounter
--- OUTSIDE RECORDS SUMMARY | 2018-05-12 12:48 | XMS REPORT | Encounter Summary ---
Author Author [facility] Organization [facility] Address Unknown Phone Unavailable Care Team Providers Care Fisher Trap Name Role Phone Michael Encinas MD PCP Encounter Details Care Team Description Date Type Department Roque Oshea MD [address] [facility] [address] [place] [address] 03/15/2018 Outpt. [facility] Antibiotic Physicians - Internal Therapy Medicine [facility] Level 4C [address] [place] [address] Social History Date Tobacco Use [...] Comments Procedure Name Priority Date/Time Associated Diagnosis MRI NECK EXTERNAL IMAGING Routine 03/06/2018 in this encounter Results * MRI NECK EXTERNAL IMAGING (03/06/2018) Narrative Performed At Performing Organization Address City/State/Zipcode Phone Number IN CLINIC in this encounter Visit Diagnoses Not on filein this encounter
--- OUTSIDE RECORDS SUMMARY | 2018-05-12 12:48 | XMS REPORT | Encounter Summary ---
Author Author [facility] Organization [facility] Address Unknown Phone Unavailable Care Team Providers Care First Beater Name Role Phone Michael Encinas MD PCP Reason for Visit * Reason Comments Medication Refill Encounter Details Care Team Description Date Type Department Tiago Flower MD [address] [place] [address] 03/31/2018 Refill [facility] Physicians - Psychiatry [facility] Level [address]A [address] [place] [address] Social History Date Tobacco Use [...]
--- OUTSIDE RECORDS SUMMARY | 2018-05-12 12:48 | XMS REPORT | Encounter Summary ---
Author Author [facility] Organization [facility] Address Unknown Phone Unavailable Care Team Providers Care Glue Specialty Supervisor Name Role Phone Michael Encinas MD PCP Encounter Details Care Team Description Date Type Department Roque Oshea MD [address] [facility] [address] [place] [address] 03/19/2018 Outpt. [facility] Antibiotic Physicians - Internal Therapy Medicine [facility] Level 4C [address] [place] [address] Social History Date Tobacco Use [...] Priority Date/Time Associated Diagnosis SED RATE Routine 03/16/2018 2:[address] ABSTRACTOR C REACTIVE PROTEIN (CRP) Routine 03/16/2018 2:[address] [facility] PLATELET COUNT Routine 03/15/2018 2:[address] ABSTRA[facility] CBC Routine 03/15/2018 2:[address] [facility] HEMOGLOBIN Routine 03/15/2018 2:[address] [facility] BUN Routine 03/15/2018 2:[address] [facility] ALT (SGPT) Routine 03/15/2018 2:[address] [facility]STRA[facility] AST (SGOT) Routine 03/15/2018 2:[address] [facility] POTASSIUM Routine 03/15/2018 2:[address] ABSTRACTOR ALK PHOS TOTAL Routine 03/15/2018 2:[address] ABSTRACTOR CREATININE Routine 03/15/2018 2:[address] ABSTRACTOR in this encounter Results * C REACTIVE PROTEIN (CRP) (03/16/2018 2:[address] ABSTRACTOR) C-Reactive Protein 1.72mg/dL high sensitivity OTHER OUTSIDE LAB Specimen Blood - Blood Narrative Performed At Performing Organization Address City/State/Zipcode Phone Number OTHER OUTSIDE LAB * SED RATE (03/16/2018 2:[address] ABSTRACTOR) Sed Rate -ESR 38 OTHER OUTSIDE LAB Specimen Blood - Blood Narrative Performed At Performing Organization Address City/State/Zipcode Phone Number OTHER OUTSIDE LAB * BUN (03/15/2018 2:[address] ABSTRACTOR) Blood Urea Nitrogen 12 OTHER OUTSIDE LAB Specimen Blood - Blood Performing Organization Address City/[facility]/Zipcode Phone Number OTHER OUTSIDE LAB * ALT (SGPT) (03/15/2018 2:[address] ABSTRACTOR) ALT (SGPT) 29 OTHER OUTSIDE LAB Specimen Blood - Blood Performing Organization Address City/[facility] [[email or web address] Phone Number OTHER OUTSIDE LAB * AST (SGOT) (03/15/2018 2:[address] ABSTRACTOR) AST (SGOT) 26 OTHER OUTSIDE LAB Specimen Blood - Blood Performing Organization Address City/[facility]/Zipcode Phone Number OTHER OUTSIDE LAB * POTASSIUM (03/15/2018 2:[address] ABSTRACTOR) Potassium 3.9 OTHER OUTSIDE LAB Specimen Blood - Blood Performing Organization Address City/[facility]/Zipcode Phone Number OTHER OUTSIDE LAB * ALK PHOS TOTAL (03/15/2018 2:[address] ABSTRACTOR) Alk Phosphatase 156 OTHER OUTSIDE LAB Specimen Blood - Blood Performing Organization Address City/[facility] [[email or web address] Phone Number OTHER OUTSIDE LAB * CREATININE (03/15/2018 2:[address] ABSTRACTOR) Creatinine 0.92 OTHER OUTSIDE LAB Specimen Blood - Blood Performing Organization Address City/[facility]/Zipcode Phone Number OTHER OUTSIDE LAB * PLATELET COUNT (03/15/2018 2:[address] ABSTRACTOR) Platelet Count 232 OTHER OUTSIDE LAB Specimen Blood - Blood Performing Organization Address City/[facility] [[email or web address] Phone Number OTHER OUTSIDE LAB * CBC (03/15/2018 2:[address] ABSTRACTOR) White Blood Cells 6.6 OTHER OUTSIDE LAB Specimen Blood - Blood Performing Organization Address City/[facility] [[email or web address] Phone Number OTHER OUTSIDE LAB * HEMOGLOBIN (03/15/2018 2:[address] ABSTRACTOR) Hemoglobin 12.9 OTHER OUTSIDE LAB Specimen Blood - Blood Narrative Performed At Performing Organization Address City/State/[facility] [[email or web address] Phone Number OTHER OUTSIDE LAB in this encounter Visit Diagnoses Not on filein this encounter
--- OUTSIDE RECORDS SUMMARY | 2018-05-12 12:48 | XMS REPORT | Encounter Summary ---
Author Author [facility] Organization [facility] Address Unknown Phone Unavailable Care Team Providers Care Assistant Pastry Chef Name Role Phone Michael Encinas MD PCP Encounter Details Care Team Description Date Type Department 03/06/2018 Hospital [facility] Encounter Hospital Radiology [facility] [address] [place] [address] Social History Date Tobacco Use Types Packs/Day [...] cognitive impairment: No as of this encounter Medications at Time of Discharge Start Date End Date Medication Sig Dispensed Refills 01/23/2018 acetaminophen (TYLENOL) two tablets 0 325 mg tablet by PEG Tube route every 4 hours as needed. acetaminophen/diphenhydra Take by 0 mine (TYLENOL PM PO) mouth at bedtime daily. 07/02/2017 ALPRAZolam (XANAX) 0.25 Take 1 tablet 10 tablet 0 mg tablet via feeding tube three times daily as needed for Anxiety. Per 03/04/2018 amoxicillin/K clavulanate Take one 60 tablet 4 (AUGMENTIN) 875/125 mg tablet by tablet mouth every 12 hours. Take with food. 03/27/2017 atorvastatin (LIPITOR) 40 Take 1 tablet 90 tablet 3 mg tablet via feeding tube daily. 07/02/[address](+) Take 1 90 capsule 3 (NEXIUM) 20 mg capsule capsule by mouth every morning. Take on an empty stomach at least 1 hour before or 2 hours after food. Per Gtube fentaNYL (DURAGESIC) 12 Apply 1 patch 0 mcg/hr patch to top of skin as directed every 72 hours total dose of 37 (along with the 25mcg patch) fentaNYL (DURAGESIC) 25 Apply 1 patch 0 mcg/hr patchIndications: to top of 50mcg/hr patch skin as directed every 72 hours L.acid/L.casei/B.bif/B.lo Take by 0 n/FOS (PROBIOTIC BLEND mouth daily. PO) 07/02/2017 loratadine (CLARITIN) 10 Take 1 tablet 90 tablet 3 mg tablet by mouth every morning. Per feeding tube 01/23/2018 oxyCODONE (ROXICODONE) 1 5-10 mL by 220 mL 0 mg/mL oral solution PEG Tube route every 4 hours as needed 03/27/2017 04/12/2018 levothyroxine (SYNTHROID) Take 1 tablet 90 tablet 3 125 mcg tablet via feeding tube daily 30 minutes before breakfast. Hold tube feed 1hr before and 1hr after dose. 09/08/2017 05/05/2018 ondansetron (ZOFRAN) 4 mg Take 1 tablet 30 tablet 0 tablet by mouth every 8 hours as needed for Nausea or Vomiting. 03/03/2018 03/31/2018 PARoxetine (PAXIL) 20 mg Take one 30 tablet 0 tablet tablet by mouth daily. as of this encounter Plan of Treatment Not on fileas of this encounter Procedures Comments Procedure Name Priority Date/Time Associated Diagnosis MRI NECK EXTERNAL IMAGING Routine 03/06/2018 Diagnosis unknown 12:00 AM CDT in this encounter Results * MRI NECK EXTERNAL IMAGING (03/06/2018 12:00 AM CDT) Narrative Performed At This order has been auto finalized and does not contain a result. in this encounter Visit Diagnoses Diagnosis Diagnosis unknown Other unknown and unspecified cause of morbidity or mortality in this encounter
--- OUTSIDE RECORDS SUMMARY | 2018-05-12 12:48 | XMS REPORT | Encounter Summary ---
Author Author [facility] Organization [facility] Address Unknown Phone Unavailable Care Team Providers Care Clinical Implementation Specialist Name Role Phone Michael Encinas MD PCP Ingrid Medeiros MD Unavailable Reason for Visit * Reason Comments Medication Refill Encounter Details Care Team Description Date Type Department Vivian Ramey MD [address] [facility] [address] [place] [address] 03/30/2018 Refill [facility] Physicians - ENT Orth[facility] Level 3C [address] [place] [address] Social History Date Tobacco Use [...]
--- OUTSIDE RECORDS SUMMARY | 2018-05-12 12:49 | XMS REPORT | Encounter Summary ---
Author Author [facility] Organization [facility] Address Unknown Phone Unavailable Care Team Providers Care Cell Stripper Final Name Role Phone Michael Encinas MD PCP Encounter Details Care Team Description Date Type Department Roque Oshea MD [address] [facility] [address] [place] [address] 02/10/2018 Outpt. [facility] Antibiotic Physicians - Internal Therapy Medicine [facility] Level 4C [address] [place] [address] Social History Date Tobacco Use [...] Priority Date/Time Associated Diagnosis SED RATE Routine 02/09/2018 2:50 PM CDT PLATELET COUNT Routine 02/09/2018 2:50 PM CDT CBC Routine 02/09/2018 2:50 PM CDT HEMOGLOBIN Routine 02/09/2018 2:50 PM CDT C REACTIVE PROTEIN (CRP) Routine 02/09/2018 2:50 PM CDT BUN Routine 02/09/2018 2:50 PM CDT ALT (SGPT) Routine 02/09/2018 2:50 PM CDT AST (SGOT) Routine 02/09/2018 2:50 PM CDT POTASSIUM Routine 02/09/2018 2:50 PM CDT ALK PHOS TOTAL Routine 02/09/2018 2:50 PM CDT CREATININE Routine 02/09/2018 2:50 PM CDT in this encounter Results * C REACTIVE PROTEIN (CRP) (02/09/2018 2:50 PM CDT) C-Reactive Protein 2.59mg/dL high sensitivity OTHER OUTSIDE LAB Specimen Blood - Blood Performing Organization Address City/[facility]/Zipcode Phone Number OTHER OUTSIDE LAB * BUN (02/09/2018 2:50 PM CDT) Blood Urea Nitrogen 13 OTHER OUTSIDE LAB Specimen Blood - Blood Performing Organization Address City/[facility] Phone Number OTHER [facility] * ALT (SGPT) (02/09/2018 2:50 PM CDT) ALT (SGPT) 41 OTHER OUTSIDE LAB Specimen Blood - Blood Performing Organization Address City/[facility]/Zipcode Phone Number OTHER OUTSIDE LAB * AST (SGOT) (02/09/2018 2:50 PM CDT) AST (SGOT) 40 OTHER OUTSIDE LAB Specimen Blood - Blood Performing Organization Address City/[facility]/Zipcode Phone Number OTHER OUTSIDE LAB * POTASSIUM (02/09/2018 2:50 PM CDT) Potassium 3.6 OTHER OUTSIDE LAB Specimen Blood - Blood Performing Organization Address City/[facility] Phone Number OTHER OUTSIDE LAB * ALK PHOS TOTAL (02/09/2018 2:50 PM CDT) Alk Phosphatase 164 OTHER OUTSIDE LAB Specimen Blood - Blood Performing Organization Address City/State/Zipcode Phone Number OTHER OUTSIDE LAB * CREATININE (02/09/2018 2:50 PM CDT) Creatinine 0.82 OTHER OUTSIDE LAB Specimen Blood - Blood Performing Organization Address City/State/Zipcode Phone Number OTHER OUTSIDE LAB * SED RATE (02/09/2018 2:50 PM CDT) Sed Rate -ESR 68 OTHER OUTSIDE LAB Specimen Blood - Blood Performing Organization Address City/State/Path[address]code Phone Number OTHER OUTSIDE LAB * PLATELET COUNT (02/09/2018 2:50 PM CDT) Platelet Count 238 OTHER OUTSIDE LAB Specimen Blood - Blood Performing Organization Address City/State/Zipcode Phone Number OTHER OUTSIDE LAB * CBC (02/09/2018 2:50 PM CDT) White Blood Cells 5.6 OTHER OUTSIDE LAB Specimen Blood - Blood Performing Organization Address City/[facility] Phone Number OTHER OUTSIDE LAB * HEMOGLOBIN (02/09/2018 2:50 PM CDT) Hemoglobin 11.1 OTHER OUTSIDE LAB Specimen Blood - Blood Narrative Performed At Performing Organization Address City/State/Zipcode Phone Number OTHER OUTSIDE LAB in this encounter Visit Diagnoses Not on filein this encounter
--- OUTSIDE RECORDS SUMMARY | 2018-05-12 12:49 | XMS REPORT | Encounter Summary ---
Author Author [facility] Organization [facility] Address Unknown Phone Unavailable Care Team Providers Care Infection Control Rn Name Role Phone Michale Encinas MD PCP Reason for Referral * Consult, Test & Treat (Urgent) Referred By Contact Referred To Contact Status Reason Specialty Diagnoses / Procedures Saeid Luna PA-C [id number] [place] [address] [facility] Level 6A [address] [place] [address] No Auth Needed Specialty Services Psychiatry Diagnoses Required Depression, unspecified depression type Scheduling Instructions Please call the pts , Ana Luisa, to schedule. Pt. lives hours away and will be here for 2 other office visits on 03/03/18 so if at all possible for him to see someone in your department on the same day that would be greatly appreciated. Encounter Details Care Team Description Date Type Department Saeid Luna PA-C [id number] [place] [address] Depression, unspecified depression type (Primary Dx) 02/18/2018 Orders Only [facility] Physicians - ENT Ortho and [facility] Level [address]C [address] [place] [address] Social History Date Tobacco Use [...] as of this encounter Plan of Treatment Order Schedule Name Priority Associated Diagnoses Ordered: 02/18/2018 AMB REFERRAL TO PSYCHIATRY Routine Depression, unspecified depression type as of this encounter Visit Diagnoses Diagnosis Depression, unspecified depression type - Primary in this encounter
--- OUTSIDE RECORDS SUMMARY | 2018-05-12 12:49 | XMS REPORT | Encounter Summary ---
Author Author [facility] Organization [facility] Address Unknown Phone Unavailable Care Team Providers Care Hearing Aide Technician Name Role Phone Michael Encinas MD PCP Reason for Visit * Reason Comments Referral Encounter Details Care Team Description Date Type Department Saeid Luna PA-C [address] [facility] [address] [place] [address] Referral 02/18/2018 Telephone [facility] Physicians - ENT Ortho and [facility] Level [address]C [address] [place] [address] Social History Date Tobacco Use [...] Telephone Encounter - Gayle Null LPN - 02/18/2018 1:43 PM CDT Faxed referral to the Psychiatry Dept @ [phone]. Confirmation rec'd 02.18.2018 @ 1:16pm. in this encounter Plan of Treatment Not on fileas of this encounter Visit Diagnoses Not on filein this encounter
--- OUTSIDE RECORDS SUMMARY | 2018-05-12 12:49 | XMS REPORT | Encounter Summary ---
Author Author [facility] Organization [facility] Address Unknown Phone Unavailable Care Team Providers Care Message Clerk Name Role Phone Michael Encinas MD PCP Reason for Visit * Reason Comments Infection Encounter Details Care Team Description Date Type Department Roque Oshea MD [address] [facility] [address] [place] [address] Encounter for long-term (current) use of antibiotics ( Primary Dx); Infection of mandible; History of radiation therapy 03/03/2018 Office Visit [facility] Physicians - Internal Medicine [facility] Level 4C [address] [place] [address] Social History Date Tobacco Use [...] Signs Time Taken Vital Sign Reading 03/03/2018 1:08 PM CDT Blood Pressure 122/80 03/03/2018 1:08 PM CDT Pulse 80 03/03/2018 1:08 PM CDT Temperature 36.2 C (97.1 F) - Respiratory Rate - - Oxygen Saturation - - Inhaled Oxygen - Concentration 03/03/2018 1:08 PM CDT Weight 95.7 kg (211 lb) 03/03/2018 1:08 PM CDT Height 180.3 cm (5' 11") 03/03/2018 1:08 PM CDT Body Mass Index 29.43 in this encounter Functional Status Date of [...] as of this encounter Progress Notes * Roque Oshea MD - 03/03/2018 1:00 PM CDT History of Present Illness: Roberto Her is a 47 y.o. male with h/o chronic chewing tobaccosim, SCC H&N 2012 s/p XRT 08/2013, recurrence recently admitted with surgical site infection. He returns to clinic for f/u. Mr. Her was dx with SCC mandible 2012 for which he completed XRT 08/2013, recurrence prompted buccal resection with mandibulectomy and right neck dissection (LN pos) 04/2014 followed by adjuvant chemo complete 10/2014. Established with ENT Dr. Ramey b/c of new palate lesion adjacent to prior surgical site, bx confirmed SCCa, 03/19/17 s/p tracheotomy, osteotomy mandible & vestibuloplasthy, mandibular reconstruction w/ plate and tibular graft. 04/03 ENT f/u drainage along R neck noted, 1.5 cm dehiscence inferiorlateral to trach , 5 cm deep , drained in clinic, cx obtained and started on empiric LQ. Cx returned Eikenella corrodens, CO2-dep strep, MSSA, after cx returned LQ changed to Bactim 04/06, improved drainage thereafter. He was put on augmentin 05/13 b/c of erythematous hiwot-oral regions, picture sent to ENT with unchanged facial swelling, no systemic complaints, started on augmentin (05/13-05/23) and seen back 05/19 at which point cx obtained, g/s with no pmns, moderate secs, moderate yeast, cx=CoNS, fungal cx NG. 06/04 CT neck obtained showing ill-defined abscess along floor of the mouth (3.1 x 5.7 x 2 cm) adjacent to flap, he was started on nystatin and IR aspiration performed 06/11 submental (left side??? Why not clear the indurated area and CT was on right side)of 1-2 cc old clotted blood aspirated, no organized collection seen, g/s=rare pmns, no organisms, aerobic cx NG. Was seen 06/[address] Turk at which time edematous mandible off abx since 06/02 , resumed on augmentin while awaiting cultures w/o much improvement. A few weeks later with progressive right sided facial swelling, and 06/26 when pressed cheek purulent discharge from R buccal region was expressed and was admitted to same day. On admit afebrile w/o tachycardia, tachypnea and normotensive on RA although with slight leukocytosis (13.8, 81%N). he was evaluated by ID Dr. Oshea & Dr. Andrews, on exam with purulent material expressed from R buccal region, swab of this culture - g/s moderate GPC, few GNRs, few budding yeast, rare GPRs, aerobic cx NG, anaerobic heavy growth Veillonella spp. CT showed persistent abscess along floor of mouth (5.3 x 2.9 --> 5.5 x 2 cm) w/ LAD, callus formation around mandibular fibular graft, HDW intact no lysis. He was started on unasyn, leukocytosis resolved, 06/30 underwent I&D by Dr. Torres, intra- operatively was discovered to have R lateral buccal abscess the cavity was debrided but difficult access 2/2 trismus, significant necrotic debris was encountered along submental area also both sites packed, frozen sections & cytology negative for malignancy which showed only acute inflammation, path of floor of mouth w/ extensive ulceration, necrosis, acute inflammation with granulation tissue hyperkeratosis of squamous mucosa no malignancy on 2 specimens. g/s showed few pmns, no bacteria, aerobic cx grew LG of CO2-dep strep , 8 colonies alpha hemolytic strep, 5 colonies Lactobacillus spp, 2 colonies C.albicans and anaerobic grew Veillonella spp also, fungal cx NG, AFB cx NGTD ( unreliable as arrived on swab). ID recommended ertapenem, he declined and alternative moxifloxacin x4 weeks started potential suppressive given HDW, w/ instructions to call should tendonitis develop. He tolerated moxifloxacin during his hospital stay, and discharged home on the same. He states that within a few days of returning home, he developed diffuse arthralgias. This included pain in his shoulders, elbows, knees, etc. He also had significant fatigue. He tried to wait out the symptoms, but they simply progressed. He was seen in clinic by Dr. Keenan on 07/13/17. At that time, she discussed options with the patient. He is agreeable to starting IV ertapenem. PICC was placed back at home in [place]. He was started on IV. His contacted us within 34 days explaining he was feeling severely depressed. He felt this poorly as he did at one point a few years prior when he was dealing with his advanced malignancy. He felt as though this was worse after starting the IV ertapenem. He declined interventions at that point. He was able to complete his scheduled course of therapy on 07/29/17 and started on amoxicillin 500 mg p.o. twice daily on 07/29/17. Of note, he was diagnosed with C. difficile colitis on 07/22/17 it was treated with a 2 week course of oral vancomycin. Patient contacted our office on 08/20/17 with complaints of increasing pain in his jaw. He send us pictures at that time. Tentatively, surgery was not scheduled until October. We elected to stop Augmentin at that point and start clindamycin 450 mg p.o. 3 times daily + doxycycline 100 mg p.o. twice daily. He declined IV antibiotic therapy at that point. He was seen back in clinic by Dr. Ramey on 09/01/17. Repeat CT neck was completed that day. Films viewed. This demonstrated a well-formed abscess between the fibular graft and hyoid muscle with a tract extending towards the skin surface and abutting the fibular graft. He also had further enlargement of a nearby lymph node. He went to IR to undergo biopsy of the cervical lymph node in the right neck FNA was without evidence of malignancy. An aspirate of the right neck fluid revealed 2 colonies of coagulase-negative Staphylococcus. No other growth. No change in his antibiotics recommended at that time. The patient contacted our office 10/06/17 and sent to us to new pictures. He had worsening swelling/pain along the right side of his face. He would have continued drainage from this region, sometimes white in color, other times clear , occasionally bloody. He was started meropenem 1 g IV every 8 hours. Amoxicillin + doxycycline were discontinued. Meropenem completed 11/18/17. He was then started back on amox/clav 875 mg p.o. twice daily + doxycycline 100 mg p.o. twice daily. This summer, he sought a second surgical opinion at [facility] for second opinion regarding his mandible. He was encouraged that some additional healing was underway. He was also encouraged to hear that it was unlikely that he would lose his mandible. He was seen by Infectious Diseases also while at [facility]. Per the patient, they explained that he would likely continue to require courses of IV antibiotic therapy while waiting for further healing of the bone. Patient returned to the OR (Dr. Torres) on (01/21/18) The prior incision was opened and the plate was exposed. 10 screws in the plate were removed. Dr. Torres was unable to debride the bone as he felt healing was too tenuous to allow for such debridement. His neck wound was closed. The first 7-10 days following surgery , he felt much better with significant improvement in swelling. However, by the time of our last visit 02/04/18, he developed some increasing swelling around the right neck/right jaw. A small amount of serosanguineous fluid was expressed on the day of our last visit. He was continued on IV meropenem with anticipated stop date=03/04/18. Current Visit: Patient returns to clinic today for follow-up. We have continue to monitor his labs on a weekly basis. WBC is remain normal. Hemoglobin and platelets stable. ESR has remained elevated but essentially unchanged over the last 1 month (5260). CRP also remains mildly elevated (1.422.56). Creatinine and liver enzymes also stable. Patient continues to have pain and swelling along the right mandible. In general, swelling has increased since his last visit. No fevers or night sweats. He does believe there is some mobility of the distal aspect of the right mandible. He denies nausea, vomiting, diarrhea, myalgia or arthralgia. He has had issues with worsening depression. Recently, he started to see a psychologist to address this issue. Review of systems: Remainder of full 14-point ROS reviewed and unremarkable. 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 sulcus Seasonal allergic reaction Status post chemoradiation 2013, 2014 Tobacco abuse Weight loss 45# since mar 2017 Wheezing Past Surgical History: Procedure Laterality Date MANDIBLE RECONSTRUCTION 2014 MOUTH SURGERY 2013 SINUS SURGERY 2013 TUNNELED VENOUS PORT PLACEMENT 2015 romoved NECK SURGERY Bilateral 03/19/2017 COMPOSITE RESECTION WITH REVISION RIGHT NECK DISSECTION, LEFT NECK DISSECTION performed by Vivian Ramey MD at [facility] OR/Periop TRACHEOSTOMY N/A 03/19/2017 TRACHEOSTOMY performed by Vivian Ramey MD at [facility] OR/Periop LARYNGOSCOPY 03/19/2017 DIRECT LARYNGOSCOPY performed by Vivian Ramey MD at [facility] OR/Periop MANDIBLE RECONSTRUCTION 03/19/2017 RECONSTRUCTION MANDIBLE WITH PLATE performed by Vivian Ramey MD at [facility] OR/ Periop MANDIBLE RECONSTRUCTION N/A 03/19/2017 RECONSTRUCTION MANDIBLE WITH ALLOGRAFT performed by Baron Torres MD at [facility] OR/ Peri TISSUE TRANSFER Right 03/19/2017 OSTEOCUTANEOUS FREE FLAP-FIBULA performed by Baron Torres MD at [facility] OR/Periop SKIN GRAFT 03/19/2017 GRAFT SKIN SPLIT THICKNESS LOWER EXTREMITY performed by Baron Torres MD at [facility] OR/Periop INCISION AND DRAINAGE Bilateral 06/30/2017 INCISION AND DRAINAGE OF SUBMENTAL ABSCESS; EXAM OF ORAL CAVITY UNDER ANESTHESIA; I&D OF RIGHT CHEEK ABSCESS performed by Baron Torres MD at [facility] OR/ Periop NC REMOVAL IMPLANT DEEP N/A 01/21/2018 HARDWARE REMOVAL MANDIBLE performed by Baron Torres MD at [facility] OR/Periop HX TONSILLECTOMY Childhood Immunization History Administered Date(s) Administered Flu Vaccine=>6 Months Quadrivalent PF 07/02/2017 Social Hx: . Lives in [facility]. Previously worked for [employer]. Recently started receiving Social Security. History of chewing tobacco dependence. Family History: Reviewed. Noncontributory Allergies: Allergies Allergen Reactions Other [Unclassified Drug] ITCHING and EDEMA Fresh fruit Levaquin [Levofloxacin] JOINT PAIN acetaminophen (TYLENOL) 325 mg tablet two tablets [...] tablet Take one tablet by mouth daily. Vitals: 03/03/18 1308 BP: 122/80 Pulse: 80 Temp: 36.2 C (97.1 F) TempSrc: Axillary Weight: 95.7 kg (211 lb) Height: 180.3 cm (71") Physical Exam: Gen: Awake, alert, NAD at rest HEENT: No icterus, no conj hemorrhages, PERRL Thickened skin + swelling of right cheek / mandible; no drainage; minimal warmth Nodes: No axillary, epitrochlear or inguinal adenopathy Lungs: clear Heart: Reg, no murmur Abd: + BS, soft, NT, no HSM Ext: No edema MSK: no warm or tender joints Skin: no acute rash. Lab/Radiology/Other Diagnostic Tests: CBC w/Diff Lab Results Component Value Date/Time WBC 11.2 03/02/2018 03:00 PM RBC 3.38 (L) 01/22/2018 04:20 AM HGB 11.3 03/02/2018 03:00 PM HCT 28.6 (L) 01/22/2018 04:20 AM MCV 84.8 01/22/2018 04:20 AM MCH 28.4 01/22/2018 04:20 AM MCHC 33.5 01/22/2018 04:20 AM RDW 14.5 01/22/2018 04:20 AM PLTCT 215 03/02/2018 03:00 PM MPV 9.4 01/22/2018 04:20 AM Lab Results Component Value Date/Time NEUT 72 07/02/2017 04:42 AM ANC 6.10 07/02/2017 04:42 AM LYMA 18 (L) 07/02/2017 04:42 AM ALC 1.50 07/02/2017 04:42 AM SHANNAN 8 07/02/2017 04:42 AM AMC 0.70 07/02/2017 04:42 AM EOSA 1 07/02/2017 04:42 AM AEC 0.10 07/02/2017 04:42 AM BASA 1 07/02/2017 04:42 AM ABC 0.10 07/02/2017 04:42 AM Comprehensive Metabolic Profile Lab Results Component Value Date/Time NA 138 01/22/2018 04:20 AM K 3.9 03/02/2018 03:00 PM CL 102 01/22/2018 04:20 AM CO2 30 01/22/2018 04:20 AM GAP 6 01/22/2018 04:20 AM BUN 15 03/02/2018 03:00 PM CR 0.80 03/02/2018 03:00 PM GLU 133 (H) 01/22/2018 04:20 AM Lab Results Component Value Date/Time CA 8.9 01/22/2018 04:20 AM PO4 3.5 06/26/2017 02:39 PM ALBUMIN 4.1 07/13/2017 12:40 PM TOTPROT 7.8 07/13/2017 12:40 PM ALKPHOS 143 03/02/2018 03:00 PM AST 30 03/02/2018 03:00 PM ALT 30 03/02/2018 03:00 PM TOTBILI 0.6 07/13/2017 12:40 PM GFR >60 01/22/2018 04:20 AM GFRAA >60 01/22/2018 04:20 AM Assessment / Plan : 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 - +30 year hx chewing tobacco - 2012 dx of SCCa of Head/neck, s/p Rad/buccal resection with marginal mandibulectomy and R MRN D (04/2014 for surgery after recurrence)/ adjuvant chemotherapy (10/2014) -02/2017 Presented to ENT for new lesion (SCCa) in mouth -03/19/17 Direct laryngoscopy, tracheotomy, composite resection of the right oral cavity, revision of the right neck dissection, left neck dissection, and mandibular reconstruction with plate placement, donor site on fibula -04/03/17 Seen in follow-up, noted drainage from R Neck, 1.5 cm inferior to the neck incision and lateral to the trach area of dehiscence proximal to ear about 5 cm in depth small opening, this was drained and packed, given Levofloxacin, cx with Eikenella corrodens, CO2 dependent Streptococcus, and MSSA. -04/06/17 Changed to TMP/SMX -05/13/17 Facial Redness/swelling; invoving chin and near lips/ perioral region. Given Amoxicillin/clavulanic acid -05/19/17. Noted to have erythema and facial swelling, No fever chills or night sweats. He was given a prescription for nystatin cream, prednisone, and levofloxacin. - Culture "right neck": (?draining wound?) gram stain showed no neutrophils and moderate epithelial cells as well as moderate yeast, grew coagulase-negative staph, fungal NGTD. Saw [facility], no caries were noted. - 05/22/17 ENT messaged by , slight improvement but not much. Pt given 1 dose of fluconazole. -05/26/17 Email update showed minimal improvement. Prednisone was completed -06/04/17 Seen again in clinic, Noted significant joint pain since starting levofloxacin. redness/edema not improved. Because yeast grew on cx, given additional nystatin powder. ID referral given. - Aspiration of small subsegmental fluid collection (06/11/17). 1- 2 cm of old blood was removed. - 06/30/17 to OR, found to have significant necrotic debris. Central portion of skin paddle on right communicating with cavity in right neck. -d/c home on moxifloxacin, tolerated poorly; transitioned to ertapenem 1 g daily on (3/12/18). Completed 07/29/17 - Started amoxicillin 500 mg p.o. twice daily his chronic prophylaxis (07/29/17) . - Progressive swelling/tenderness - Transition to clindamycin 450 mg p.o. 3 times daily + doxycycline 100 mg p.o. twice daily (08/20/17) - Little improvement > worsening swelling, pain + low-grade fever - Meropenem initiated (10/06/17) -> discontinued (11/18/17) - Did well for approximately 710 days; development of new swelling/pain - Second opinion [facility] /had a repeat CT neck completed (films requested) - with worsening swelling / pain of jaw, restarted meropenem (12/10/17) - OR (01/21/18): - Dr. Torres - removal of plate and hardware; no bony debridement as mandible felt to be too unstable - progressive swelling / tenderness despite 6 weeks of IV abx therapy ( meropenem) following procedure C.diff colitis -Responded to therapy History of tobacco abuse - quit 2013 Antibiotic sensitivity -Levofloxacin: joint pain Despite continuation of broad-spectrum antibiotics (IV meropenem), he has developed progressive swelling and tenderness of the right mandible. As of tomorrow, we will have completed 6 weeks of IV meropenem since the time of his last surgery. Not surprisingly, ESR/CRP have not normalized. In addition, he believes there is now a step-off along the distal aspect of his right mandible, concerning for potential fracture. Organisms previously recovered from his right mandible/cheek should have been susceptible to meropenem. In fact, he had progressive symptoms on other antibiotic regimens as well. I am very suspicious about osteomyelitis of residual portions of his sycuan bone and/or osteomyelitis of the fibula graft. Though a sycuan mandible can be somewhat more resilient in regard to infections than osteomyelitis of most all other bones of the body, his history of radiation therapy of the jaw and replacement of a portion of his mandible with a fibula graft would render that relative potential benefit moot. In other words, for cure of the osteomyelitis, adequate bony debridement of all infected bone must be achieved. For Mr. Her, this is not an option. Aggressive debridement would result in further instability of the mandible. This leaves us trying to attempt adequate suppression with antibiotic therapy. Unfortunately, he has failed very aggressive IV antimicrobial therapy. Though it is possible his mandible is now colonized with an organism not previously recovered and thus not susceptible to meropenem, I am concerned that advanced osteomyelitis and an inadequate immune response (secondary to radiation therapy of the surrounding soft tissues) is more likely responsible for his clinical failure. Patient discussed with Dr. Torres. We have suggested MRI maxillofacial to better evaluate for subtle abscess within the surrounding soft tissues and to assess degree of underlying osteomyelitis. If there is a fluid collection that is drainable, it would be reasonable to acquire a culture from this collection to see if there are organisms present such that a change in antimicrobial suppression would result in more effective control of this chronic bone infection. Our plan is to discontinue the IV meropenem as he has now completed 6 weeks of therapy following his surgical procedure. We will transition to amox/clav 875 mg p.o. twice daily. Per his 's request, we will leave his PICC in for 1 additional week. They will flush it on a daily basis. They are fearful that the infection will get too far out of control while off the meropenem. We will review MRI results once available. We will see him back in clinic at the end of May. in this encounter Plan of Treatment Not on fileas of this encounter Visit Diagnoses Diagnosis Encounter for long-term (current) use of antibiotics - Primary Infection of mandible Inflammatory conditions of jaw History of radiation therapy Personal history of irradiation, presenting hazards to health in this encounter
--- OUTSIDE RECORDS SUMMARY | 2018-05-12 12:49 | XMS REPORT | Encounter Summary ---
Author Author [facility] Organization [facility] Address Unknown Phone Unavailable Care Team Providers Care Spiral Tube Winder Name Role Phone Michael Encinas MD PCP Encounter Details Care Team Description Date Type Department Roque Oshea MD [address] [facility] [address] [place] [address] 03/02/2018 Outpt. [facility] Antibiotic Physicians - Internal Therapy Medicine [facility] Level 4C [address] [place] [address] Social History Date Tobacco Use [...] Priority Date/Time Associated Diagnosis SED RATE Routine 03/02/2018 3:00 PM CDT PLATELET COUNT Routine 03/02/2018 3:00 PM CDT CBC Routine 03/02/2018 3:00 PM CDT HEMOGLOBIN Routine 03/02/2018 3:00 PM CDT C REACTIVE PROTEIN (CRP) Routine 03/02/2018 3:00 PM CDT BUN Routine 03/02/2018 3:00 PM CDT ALT (SGPT) Routine 03/02/2018 3:00 PM CDT AST (SGOT) Routine 03/02/2018 3:00 PM CDT POTASSIUM Routine 03/02/2018 3:00 PM CDT ALK PHOS TOTAL Routine 03/02/2018 3:00 PM CDT CREATININE Routine 03/02/2018 3:00 PM CDT in this encounter Results * C REACTIVE PROTEIN (CRP) (03/02/2018 3:00 PM CDT) C-Reactive Protein 2.56mg/dL high sensitivity OTHER OUTSIDE LAB Specimen Blood - Blood Performing Organization Address City/[facility]/Zipcode Phone Number OTHER OUTSIDE LAB * BUN (03/02/2018 3:00 PM CDT) Blood Urea Nitrogen 15 OTHER OUTSIDE LAB Specimen Blood - Blood Performing Organization Address City/[facility] Number [facility] * ALT (SGPT) (03/02/2018 3:00 PM CDT) ALT (SGPT) 30 OTHER OUTSIDE LAB Specimen Blood - Blood Performing Organization Address City/[facility]/Zipcode Phone Number OTHER OUTSIDE LAB * AST (SGOT) (03/02/2018 3:00 PM CDT) AST (SGOT) 30 OTHER OUTSIDE LAB Specimen Blood - Blood Performing Organization Address City/[facility]/Zipcode Phone Number OTHER OUTSIDE LAB * POTASSIUM (03/02/2018 3:00 PM CDT) Potassium 3.9 OTHER OUTSIDE LAB Specimen Blood - Blood Performing Organization Address City/[facility]/Zipcode Phone Number OTHER OUTSIDE LAB * ALK PHOS TOTAL (03/02/2018 3:00 PM CDT) Alk Phosphatase 143 OTHER OUTSIDE LAB Specimen Blood - Blood Performing Organization Address City/State/Zipcode Phone Number OTHER OUTSIDE LAB * CREATININE (03/02/2018 3:00 PM CDT) Creatinine 0.80 OTHER OUTSIDE LAB Specimen Blood - Blood Performing Organization Address City/State/Zipcode Phone Number OTHER OUTSIDE LAB * SED RATE (03/02/2018 3:00 PM CDT) Sed Rate -ESR 60 OTHER OUTSIDE LAB Specimen Blood - Blood Performing Organization Address City/State/[place] Phone Number OTHER OUTSIDE LAB * PLATELET COUNT (03/02/2018 3:00 PM CDT) Platelet Count 215 OTHER OUTSIDE LAB Specimen Blood - Blood Performing Organization Address City/State/Zipcode Phone Number OTHER OUTSIDE LAB * CBC (03/02/2018 3:00 PM CDT) White Blood Cells 11.2 OTHER OUTSIDE LAB Specimen Blood - Blood Performing Organization Address City/[facility] Phone Number OTHER OUTSIDE LAB * HEMOGLOBIN (03/02/2018 3:00 PM CDT) Hemoglobin 11.3 OTHER OUTSIDE LAB Specimen Blood - Blood Narrative Performed At Performing Organization Address City/State/Zipcode Phone Number OTHER OUTSIDE LAB in this encounter Visit Diagnoses Not on filein this encounter
--- OUTSIDE RECORDS SUMMARY | 2018-05-12 12:49 | XMS REPORT | Encounter Summary ---
Author Author [facility] Organization [facility] Address Unknown Phone Unavailable Care Team Providers Care Interstate Bus Driver Name Role Phone Michael Encinas MD PCP Reason for Referral * Radiology Services (Routine) Referred By Contact Referred To Contact Status Reason Specialty Diagnoses / Procedures Baron Torres MD [address] [place] [address] New Request Radiology Diagnoses Recurrent tongue cancer (HCC) P rocedures MRI ORBIT FACE AND/OR NECK WO/W CONT Reason for Visit * Reason Comments Post Operative Visit Encounter Details Care Team Description Date Type Department Baron Torres MD [address] [place] [address] Recurrent tongue cancer (HCC) (Primary Dx); 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 Office Visit [facility] - ENT [facility] Level 3C [address] [place] [address] Social History Date Tobacco Use [...] Signs Time Taken Vital Sign Reading 03/03/2018 2:06 PM CDT Blood Pressure 123/81 03/03/2018 2:06 PM CDT Pulse 93 - Temperature - 03/03/2018 2:06 PM CDT Respiratory Rate 18 - Oxygen Saturation - - Inhaled Oxygen - Concentration 03/03/2018 2:06 PM CDT Weight 95.7 kg (211 lb) 03/03/2018 2:06 PM CDT Height 180.3 cm (5' 11") 03/03/2018 2:06 PM CDT Body Mass Index 29.43 in [...] as of this encounter Progress Notes * Baron Torres MD - 03/03/2018 1:45 PM CDT Chief Complaint Patient presents with Post Operative Visit History of Present Illness: Roberto Her is a 47 y.o. year old male evaluated on 03/03/2018, in the Otolaryngology-Head and Neck Surgery Clinic at the [facility] for follow-up after right jaw hardware removal from mandible on 01/21/18. Since his last visit with Saeid Luna, he has continued to experience swelling and some serous drainage from his right neck. He has had no fevers. Is currently on meropenem which is being monitored by Dr. Oshea and he has PICC line in place. He is drinking PO including Ensure and attempting some soft foods PO. Accompanied by his today. Recently started on paxil to help with anxiety and depression. He is seeing a psychiatrist this afternoon. 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 His has a past surgical [...] is not on file. He reports that he has never smoked. He quit smokeless tobacco use about 4 years ago. His smokeless tobacco use included Chew. He reports that he does not drink alcohol or use drugs. Medications/Allergies/Immunizations His current medication(s) include: Current Outpatient Prescriptions Medication Sig Dispense Refill acetaminophen (TYLENOL) 325 mg tablet two tablets by PEG Tube route every 4 hours as needed. 0 acetaminophen/diphenhydramine (TYLENOL PM PO) Take by mouth at bedtime daily. ALPRAZolam (XANAX) 0.25 mg tablet Take 1 tablet via feeding tube three times daily as needed for Anxiety. Per 10 tablet 0 atorvastatin (LIPITOR) 40 mg tablet Take 1 tablet via feeding tube daily. [address](+) (NEXIUM) 20 mg [...] feed 1hr before and 1hr after dose. 90 tablet 3 loratadine (CLARITIN) 10 mg tablet Take 1 tablet by mouth every morning. Per feeding tube 90 tablet 3 meropenem (MERREM) 1 g/20 mL injection Administer 1 g through vein every 8 hours. ondansetron (ZOFRAN) 4 mg tablet Take 1 tablet by mouth every 8 hours as needed for Nausea or Vomiting. 30 tablet 0 oxyCODONE (ROXICODONE) 1 mg/mL oral solution 5-10 mL by PEG Tube route every 4 hours as needed 220 mL 0 PARoxetine (PAXIL) 10 mg tablet one tablet by Per G Tube route daily. senna/docusate (SENOKOT-S) 8.6/50 mg tablet one tablet by Per G Tube route twice daily. 60 tablet 0 No current facility-administered medications for this visit. [...] the HPI. PHYSICAL EXAM: Vital Signs: BP 123/81 | Pulse 93 | Resp 18 | Ht 180.3 cm (71") | Wt 95.7 kg (211 lb) | BMI 29.43 kg/m General: Well-developed, well-nourished Communication and Voice: Clear pitch and clarity Hearing: Hearing adequate for verbal communication bilaterally Inspection: Normocephalic and atraumatic without mass or lesion Palpation: Facial skeleton intact without bony stepoffs Parotid Glands: No mass or tenderness Facial Strength: Facial motility symmetric and full bilaterally Pinna: External ear intact and fully developed External canal: Canal is patent with intact skin Tympanic Membrane: Clear and mobile External nose: No scar or anatomic deformity Internal Nose: Septum intact and midline. No edema, polyp, or rhinorrhea. TMJ: No pain to palpation with full mobility Oral cavity, Lips, Teeth, and Gums: Mucosa and teeth intact and viable, No lesions, masses or ulcers. Skin paddle well healed. There is a macerated area opposing the region of the left maxillary canine. Oropharynx: No erythema or exudate, no masses or ulcerations, non-obstructive tonsils Nasopharynx: No mass or lesion with intact mucosa Hypopharynx: No masses or ulcerations, normal mucosa without pooling of secretions Larynx: Normal supraglottic and glottic structures without masses or ulcerations, normal vocal fold mobility Neck, Trachea, Lymphatics: Midline trachea without mass or lesion, no lymphadenopathy. Incision well healed. Minimal erythema of the chin. No masses. Thyroid: No mass or nodularity Eyes: No nystagmus with equal extraocular motion bilaterally Neuro/Psych/Balance: Patient oriented and appropriate in interaction; Appropriate mood and affect; Gait is intact with no imbalance; Cranial nerves I -XII are intact Respiratory effort: Equal inspiration and expiration without stridor Peripheral Vascular: Warm extremities with equal pulses PATHOLOGY REVIEW: NA RADIOLOGIC REVIEW: NA IMPRESSION: My impression is that Mr. 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 PLAN: Overall, he is doing about the same that he was prior to surgery to remove the hardware. I did discuss his case with Dr. Oshea today and specifically discussed that his mandibular bone actually looked quite healthy at the time of surgery 6 weeks ago. The concern at this point, now that the hardware has been removed, is that he has osteomyelitis of the flap bone or nuiqsut mandible. We will obtain an MRI of the neck to evaluate for this. I did explain that there is likely no role for surgery here because of the previously discussed risks of mandible fracture, discontinuity, etc. I also discussed that I would not recommend aggressive bone removal, as osteomyelitis is primarily a disease that is treated medically. The [facility]'s expressed their understanding. I will see him back in 3 months. I believe that Mr. Her has a good understanding of the issues involved and I answered all of his questions. 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
--- OUTSIDE RECORDS SUMMARY | 2018-05-12 12:49 | XMS REPORT | Encounter Summary ---
Author Author [facility] Organization [facility] Address Unknown Phone Unavailable Care Team Providers Care Mold Stamper Name Role Phone Michael Encinas MD PCP Encounter Details Care Team Description Date Type Department Roque Oshea MD [address] [facility] [address] [place] [address] 02/16/2018 Outpt. [facility] - Internal Therapy Medicine [facility] Level 4C [address] [place] [address] Social History Date Tobacco Use [...] Priority Date/Time Associated Diagnosis SED RATE Routine 02/16/2018 11:10 AM CDT PLATELET COUNT Routine 02/16/2018 11:10 AM CDT CBC Routine 02/16/2018 11:10 AM CDT HEMOGLOBIN Routine 02/16/2018 11:10 AM CDT C REACTIVE PROTEIN (CRP) Routine 02/16/2018 11:10 AM CDT BUN Routine 02/16/2018 11:10 AM CDT ALT (SGPT) Routine 02/16/2018 11:10 AM CDT AST (SGOT) Routine 02/16/2018 11:10 AM CDT POTASSIUM Routine 02/16/2018 11:10 AM CDT ALK PHOS TOTAL Routine 02/16/2018 11:10 AM CDT CREATININE Routine 02/16/2018 11:10 AM CDT in this encounter Results * C REACTIVE PROTEIN (CRP) (02/16/2018 11:10 AM CDT) C-Reactive Protein 1.42mg/dL high sensitivity OTHER OUTSIDE LAB Specimen Blood - Blood Performing Organization Address City/[facility]/Zipcode Phone Number OTHER OUTSIDE LAB * BUN (02/16/2018 11:10 AM CDT) Blood Urea Nitrogen 14 OTHER OUTSIDE LAB Specimen Blood - Blood Performing Organization Address City/[facility] Number OTHER OUT[facility] * ALT (SGPT) (02/16/2018 11:10 AM CDT) ALT (SGPT) 27 OTHER OUTSIDE LAB Specimen Blood - Blood Performing Organization Address City/[facility]/Zipcode Phone Number OTHER OUTSIDE LAB * AST (SGOT) (02/16/2018 11:10 AM CDT) AST (SGOT) 23 OTHER OUTSIDE LAB Specimen Blood - Blood Performing Organization Address City/[facility]/Zipcode Phone Number OTHER OUTSIDE LAB * POTASSIUM (02/16/2018 11:10 AM CDT) Potassium 4.0 OTHER OUTSIDE LAB Specimen Blood - Blood Performing Organization Address City/[facility]/Zipcode Phone Number OTHER OUTSIDE LAB * ALK PHOS TOTAL (02/16/2018 11:10 AM CDT) Alk Phosphatase 147 OTHER OUTSIDE LAB Specimen Blood - Blood Performing Organization Address City/State/Zipcode Phone Number OTHER OUTSIDE LAB * CREATININE (02/16/2018 11:10 AM CDT) Creatinine 0.78 OTHER OUTSIDE LAB Specimen Blood - Blood Performing Organization Address City/State/Zipcode Phone Number OTHER OUTSIDE LAB * SED RATE (02/16/2018 11:10 AM CDT) Sed Rate -ESR 56 OTHER OUTSIDE LAB Specimen Blood - Blood Performing Organization Address City/State/Zipcode Phone Number OTHER OUTSIDE LAB * PLATELET COUNT (02/16/2018 11:10 AM CDT) Platelet Count 209 OTHER OUTSIDE LAB Specimen Blood - Blood Performing Organization Address City/[facility]/Zipcode Phone Number OTHER OUTSIDE LAB * CBC (02/16/2018 11:10 AM CDT) White Blood Cells 5.2 OTHER OUTSIDE LAB Specimen Blood - Blood Performing Organization Address City/[facility] Phone Number OTHER OUTSIDE LAB * HEMOGLOBIN (02/16/2018 11:10 AM CDT) Hemoglobin 11.7 OTHER OUTSIDE LAB Specimen Blood - Blood Narrative Performed At Performing Organization Address City/State/Zipcode Phone Number OTHER OUTSIDE LAB in this encounter Visit Diagnoses Not on filein this encounter
--- OUTSIDE RECORDS SUMMARY | 2018-05-12 12:49 | XMS REPORT | Encounter Summary ---
Author Author [facility] Organization [facility] Address Unknown Phone Unavailable Care Team Providers Care Recovery Operator Helper Name Role Phone Michael Encinas MD PCP Encounter Details Care Team Description Date Type Department Roque Oshea MD [address] [facility] [address] [place] [address] 02/24/2018 Outpt. [facility] - Internal Therapy Medicine [facility] Level 4C [address] [place] [address] Social History Date Tobacco Use [...] Priority Date/Time Associated Diagnosis SED RATE Routine 02/23/2018 3:00 PM CDT [...] CDT CREATININE Routine 02/23/2018 3:00 PM CDT in this encounter Results * C REACTIVE PROTEIN (CRP) (02/23/2018 3:00 PM CDT) C-Reactive Protein 1.50mg/dL high sensitivity OTHER OUTSIDE LAB Specimen Blood - Blood Performing Organization Address City/[facility]/Zipcode Phone Number OTHER OUTSIDE LAB * BUN (02/23/2018 3:00 PM CDT) Blood Urea Nitrogen 13 OTHER OUTSIDE LAB Specimen Blood - Blood Performing Organization Address City/[facility] Number [facility] * ALT (SGPT) (02/23/2018 3:00 PM CDT) ALT (SGPT) 24 OTHER OUTSIDE LAB Specimen Blood - Blood Performing Organization Address City/[facility]/Zipcode Phone Number OTHER OUTSIDE LAB * AST (SGOT) (02/23/2018 3:00 PM CDT) AST (SGOT) 24 OTHER OUTSIDE LAB Specimen Blood - Blood Performing Organization Address City/[facility]/Zipcode Phone Number OTHER OUTSIDE LAB * POTASSIUM (02/23/2018 3:00 PM CDT) Potassium 3.8 OTHER OUTSIDE LAB Specimen Blood - Blood Performing Organization Address City/[facility]/Zipcode Phone Number OTHER OUTSIDE LAB * ALK PHOS TOTAL (02/23/2018 3:00 PM CDT) Alk Phosphatase 156 OTHER OUTSIDE LAB Specimen Blood - Blood Performing Organization Address City/State/Zipcode Phone Number OTHER OUTSIDE LAB * CREATININE (02/23/2018 3:00 PM CDT) Creatinine 0.80 OTHER OUTSIDE LAB Specimen Blood - Blood Performing Organization Address City/[facility]/Zipcode Phone Number OTHER OUTSIDE LAB * SED RATE (02/23/2018 3:00 PM CDT) Sed Rate -ESR 55 OTHER OUTSIDE LAB Specimen Blood - Blood Performing Organization Address City/State/Zipcode Phone Number OTHER OUTSIDE LAB * PLATELET COUNT (02/23/2018 3:00 PM CDT) Platelet Count 202 OTHER OUTSIDE LAB Specimen Blood - Blood Performing Organization Address City/[facility]/Zipcode Phone Number OTHER OUTSIDE LAB * CBC (02/23/2018 3:00 PM CDT) White Blood Cells 7.1 OTHER OUTSIDE LAB Specimen Blood - Blood Performing Organization Address City/[facility] Number OTHER OUTSIDE LAB * HEMOGLOBIN (02/23/2018 3:00 PM CDT) Hemoglobin 11.4 OTHER OUTSIDE LAB Specimen Blood - Blood Narrative Performed At Performing Organization Address City/State/Zipcode Phone Number OTHER OUTSIDE LAB in this encounter Visit Diagnoses Not on filein this encounter
--- OUTSIDE RECORDS SUMMARY | 2018-05-12 12:54 | XMS REPORT | Continuity of Care Document ---
Author Author [facility] Organization [facility] Address Unknown Phone Unavailable Allergies Active Description Code Type Severity Reaction Onset Reported/Identified Relationship to Patient Clinical Status Yes No Allergy Information Available [id number] Drug Allergy Unknown N/A 2013 Yes FRESH FRUIT AND FISH FRESH FRUIT AND FISH Unknown RASH 06/07/2014 Yes FRESH FRUIT FRESH FRUIT Severe SWELLING OF KATE 03/11/2017 Medications There is no data. 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, 04/02/1340 KAMINI ELLIS Ot Z92.21 PERSONAL HISTORY OF ANTINEOPLASTIC CHEMO 04/02/1340 KAMINI ELLIS Ot Z92.3 PERSONAL HISTORY OF IRRADIATION 04/02/1515 SEMAJ SANTIAGO Ot C06.9 MALIGNANT NEOPLASM OF MOUTH, UNSPECIFIED 04/02/1515 SEMAJ SANTIAGO Ot R13.12 DYSPHAGIA, OROPHARYNGEAL PHASE 04/02/1515 SEMAJ SANTIAGO Ot Z92.3 PERSONAL HISTORY OF IRRADIATION 04/02/1515 SEMAJ SANTIAGO Ot Z98.890 OTHER SPECIFIED POSTPROCEDURAL STATES 08/11/2013 BALDEV BERRY MD Ot 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 08/11/2013 BALDEV BERRY MD Ot V58.0 ENCOUNTER FOR RADIOTHERAPY 11/10/2013 BALDEV BERRY MD Ot 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 11/10/2013 BALDEV BERRY MD Ot V58.0 ENCOUNTER FOR RADIOTHERAPY 03/15/2014 Ot 143.1 03/22/2014 MOUNA OCAMPO, ROSA Domingo Ot 143.1 03/29/2014 MOUNA OCAMPO, ROSA Domingo Ot 145.9 04/05/2014 MOUNA OCAMPO, ROSA Domingo Ot 145.9 06/08/2014 MOUNA OCAMPO, ROSA Domingo Ot 143.1 06/09/2014 SHANT NOLEN DO Ot 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 06/19/2014 ROSA FREIRE MD Ot 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 06/19/2014 ROSA FREIRE MD Ot V58.11 ENCOUNTER FOR ANTINEOPLASTIC CHEMOTHERAP 06/19/2014 ROSA FREIRE MD Ot 143.1 06/23/2014 ROSA FREIRE MD Ot 143.1 06/26/2014 ROSA FREIRE MD Ot 143.1 08/01/2014 ROSA FREIRE MD Ot 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 08/01/2014 KAMINI ELLIS N Ot 143.1 08/03/2014 CALEBKAMINI RASHID N Ot 143.1 08/04/2014 CALEBKAMINI N Ot 143.1 09/04/2014 CALEBKAMINI N Ot 143.1 09/04/2014 CALEBKAMINI N Ot 143.1 09/27/2014 SHANT NOLEN DO Ot 145.9 09/27/2014 SHANT NOLEN DO Ot V72.84 09/27/2014 CALEB, BOBAN N Ot 143.1 10/02/2014 CALEB, BOBAN N Ot 143.1 10/03/2014 CALEB, BOBAN N Ot 143.1 10/03/2014 CALEB, BOBAN N Ot 143.1 11/01/2014 CALEBKAMINI N Ot 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 11/01/2014 GA ELLISAN N Ot 288.03 DRUG INDUCED NEUTROPENIA 11/01/2014 GA ELLISAN N Ot 564.00 UNSPEC CONSTIPATION 11/01/2014 KAMINI ELLIS N Ot 692.3 TOPICAL MED DERMATITIS 11/01/2014 CALEB BOBNEWTON N Ot 780.4 DIZZINESS AND GIDDINESS 11/01/2014 KAMINI ELLIS N Ot E933.1 ADV EFF ANTINEOPLASTIC 11/01/2014 KAMINI ELLIS N Ot V58.11 ENCOUNTER FOR ANTINEOPLASTIC CHEMOTHERAP 11/06/2014 KAMINI ELLIS N Ot 143.1 11/07/2014 KAMINI ELLIS N Ot 143.1 12/04/2014 KAMINI ELLIS N Ot 145.9 01/01/2015 MARCOS PATEL S GRADUATE RECRUITER Ot 143.1 01/01/2015 MARCOS PATEL S GRADUATE RECRUITER Ot 389.9 01/01/2015 MARCOS PATEL S GRADUATE RECRUITER Ot V15.3 01/01/2015 MARCOS PATEL S GRADUATE RECRUITER Ot V58.81 01/01/2015 MARCOS PATEL S GRADUATE RECRUITER Ot V87.41 01/29/2015 KAMINI ELLIS N Ot 143.1 01/31/2015 KAMINI ELLIS N Ot 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 01/31/2015 KAMINI ELLIS N Ot V58.81 FIT/ADJ VASCULAR CATHETER 03/26/2015 RENETTA OCAMPO, ALFONSO Sanchez Ot 143.1 03/26/2015 MOUNA OCAMPO, ROSA Domingo Ot 145.9 03/26/2015 MOUNA OCAMPO, ROSA Domingo Ot 145.9 03/26/2015 RENETTA OCAMPO, ALFONSO Sanchez Ot 401.9 03/26/2015 NOLENSHANT HERNANDEZ DO Ot 145.9 03/26/2015 SHANT NOLEN DO Ot V72.84 03/26/2015 MARCOS PATEL S GRADUATE RECRUITER Ot 145.9 03/26/2015 Ot 145.9 03/26/2015 MARCOS PATEL S GRADUATE RECRUITER Ot 145.9 03/26/2015 MARCOS PATEL S GRADUATE RECRUITER Ot 145.9 03/26/2015 MARCOS PATEL S GRADUATE RECRUITER Ot 780.4 03/26/2015 MARCOS PATEL S GRADUATE RECRUITER Ot 145.9 03/26/2015 MARCOS PATEL S GRADUATE RECRUITER Ot 780.4 03/26/2015 PATELMARCOS Oshea S GRADUATE RECRUITER Ot 145.9 03/26/2015 CALEBGA RASHIDAN N Ot 145.9 03/26/2015 MARCOS PATEL S GRADUATE RECRUITER Ot 143.1 03/26/2015 MARCOS PATEL S GRADUATE RECRUITER Ot 389.9 03/26/2015 MARCOS PATEL S GRADUATE RECRUITER Ot V15.3 03/26/2015 MARCOS PATEL S GRADUATE RECRUITER Ot V58.81 03/26/2015 MARCOS PATEL S GRADUATE RECRUITER Ot V87.41 03/26/2015 KAMINI ELLIS N Ot 143.1 04/21/2015 KAMINI ELLIS N Ot 143.1 04/24/2015 RENETTA OCAMPO, ALFONSO Sanchez Ot 143.1 04/24/2015 MOUNA OCAMPO, ROSA Domingo Ot 145.9 04/24/2015 MOUNA OCAMPO, ROSA Domingo Ot 145.9 04/24/2015 RENETTA OCAMPO, ALFONSO W Ot 401.9 04/24/2015 MOCA SHANT GOMEZ Ot 145.9 04/24/2015 MOCA SHANT GOMEZ Ot V72.84 04/24/2015 PATEL, MARCOS S GRADUATE RECRUITER Ot 145.9 04/24/2015 Ot 145.9 04/24/2015 JORGE MARCOS S GRADUATE RECRUITER Ot 145.9 04/24/2015 PATEL, MARCOS S GRADUATE RECRUITER Ot 145.9 04/24/2015 JORGE MARCOS S GRADUATE RECRUITER Ot 780.4 04/24/2015 JORGE MARCOS S GRADUATE RECRUITER Ot 145.9 04/24/2015 JORGE MARCOS S GRADUATE RECRUITER Ot 780.4 04/24/2015 JORGE MARCOS S GRADUATE RECRUITER Ot 145.9 04/24/2015 KAMINI ELLIS N Ot 145.9 04/24/2015 JORGE MARCOS S GRADUATE RECRUITER Ot 143.1 04/24/2015 JORGE MARCOS S GRADUATE RECRUITER Ot 389.9 04/24/2015 JORGE MARCOS S GRADUATE RECRUITER Ot V15.3 04/24/2015 JORGE MARCOS S GRADUATE RECRUITER Ot V58.81 04/24/2015 JORGE MARCOS S GRADUATE RECRUITER Ot V87.41 04/24/2015 KAMINI ELLIS N Ot C03.1 04/24/2015 CALEBKAMINI RASHID N Ot Z45.2 04/24/2015 JORGE MARCOS S GRADUATE RECRUITER Ot F32.9 04/24/2015 JORGE MARCOS S GRADUATE RECRUITER Ot F41.9 04/24/2015 JORGE MARCOS S GRADUATE RECRUITER Ot K06.8 04/24/2015 JORGE MARCOS S GRADUATE RECRUITER Ot Z08 04/24/2015 MOMO PATELLEE S GRADUATE RECRUITER Ot Z79.899 04/24/2015 JORGE MARCOS S GRADUATE RECRUITER Ot Z85.818 04/24/2015 JORGE MARCOS Oshea GRADUATE RECRUITER Ot Z92.21 04/24/2015 GETACHEW YEAGER APRN Ot E78.5 05/15/2015 JORGE MARCOS Oshea GRADUATE RECRUITER Ot F32.9 05/15/2015 JORGE MARCOS Oshea GRADUATE RECRUITER Ot F41.9 05/15/2015 JORGE MARCOS Oshea GRADUATE RECRUITER Ot K06.8 05/15/2015 MOMO PATELLEE Dorie CLEANINGP Ot Z08 05/15/2015 JORGE MARCOS Oshea GRADUATE RECRUITER Ot Z79.899 05/15/2015 JORGE MARCOS Oshea GRADUATE RECRUITER Ot Z85.818 05/15/2015 JORGE MARCOS Oshea GRADUATE RECRUITER Ot Z92.21 05/29/2015 KAMINI ELLIS Ot C03.1 MALIGNANT NEOPLASM OF LOWER GUM 05/29/2015 KAMINI ELLIS Ot Z45.2 ENCOUNTER FOR ADJUSTMENT AND MANAGEMENT 06/14/2015 KAMINI ELLIS Ot C03.1 06/14/2015 KAMINI ELLIS N Ot Z45.2 06/22/2015 CALEBKAMINI N Ot C03.1 06/22/2015 CALEBKAMINI N Ot Z45.2 09/14/2015 MARCOS PATELP Ot E89.0 POSTPROCEDURAL HYPOTHYROIDISM 09/14/2015 MARCOS PATELP Ot Z08 ENCNTR FOR FOLLOW-UP EXAM AFTER TRTMT FO 09/14/2015 MARCOS PATEL GRADUATE RECRUITER Ot Z79.899 OTHER SENIOR CARE (CURRENT) DRUG THERAPY 09/14/2015 MARCOS PATEL GRADUATE RECRUITER Ot 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, 09/14/2015 MARCOS PATEL GRADUATE RECRUITER Ot Z92.21 PERSONAL HISTORY OF ANTINEOPLASTIC CHEMO 09/14/2015 MARCOS PATEL GRADUATE RECRUITER Ot Z92.3 PERSONAL HISTORY OF IRRADIATION 09/15/2015 MARCOS PATEL GRADUATE RECRUITER Ot E89.0 POSTPROCEDURAL HYPOTHYROIDISM 09/15/2015 MARCOS PATEL GRADUATE RECRUITER Ot Z08 ENCNTR FOR FOLLOW-UP EXAM AFTER TRTMT FO 09/15/2015 MARCOS PATEL GRADUATE RECRUITER Ot Z79.899 OTHER SENIOR CARE (CURRENT) DRUG THERAPY 09/15/2015 PATELMOMOLEE S GRADUATE RECRUITER Ot 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, 09/15/2015 MARCOS PATEL GRADUATE RECRUITER Ot Z92.21 PERSONAL HISTORY OF ANTINEOPLASTIC CHEMO 09/15/2015 PATELMOMOLEE S GRADUATE RECRUITER Ot Z92.3 PERSONAL HISTORY OF IRRADIATION 09/19/2015 KAMINI ELLIS N Ot E89.0 POSTPROCEDURAL HYPOTHYROIDISM 09/19/2015 CALEB, GANEWTON N Ot Z08 ENCNTR FOR FOLLOW-UP EXAM AFTER TRTMT FO 09/19/2015 CALEBKAMINI RASHID N Ot Z45.2 ENCOUNTER FOR ADJUSTMENT AND MANAGEMENT 09/19/2015 CALEBKAMINI RASHID N Ot Z79.899 OTHER SENIOR CARE (CURRENT) DRUG THERAPY 09/19/2015 CALEBKAMINI RASHID N Ot 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, 09/19/2015 CALEBGANEWTON N Ot Z92.21 PERSONAL HISTORY OF ANTINEOPLASTIC CHEMO 09/19/2015 CALEB, KAMINI N Ot Z92.3 PERSONAL HISTORY OF IRRADIATION 09/19/2015 MARCOS PATEL S GRADUATE RECRUITER Ot 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 09/19/2015 MARCOS PATEL S GRADUATE RECRUITER Ot 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 09/20/2015 CALEB GANEWTON N Ot E89.0 POSTPROCEDURAL HYPOTHYROIDISM 09/20/2015 CALEB, KAMINI N Ot Z08 ENCNTR FOR FOLLOW-UP EXAM AFTER TRTMT FO 09/20/2015 CALEB, KAMINI Barker Ot Z45.2 ENCOUNTER FOR ADJUSTMENT AND MANAGEMENT 09/20/2015 KAMINI ELLIS N Ot Z79.899 OTHER SENIOR CARE (CURRENT) DRUG THERAPY 09/20/2015 CALEBKAMINI RASHID N Ot 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, 09/20/2015 CALEBKAMINI N Ot Z92.21 PERSONAL HISTORY OF ANTINEOPLASTIC CHEMO 09/20/2015 CALEB, KAMINI N Ot Z92.3 PERSONAL HISTORY OF IRRADIATION 10/29/2015 MARCOS PATEL S GRADUATE RECRUITER Ot 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 12/07/2015 KAMINI ELLIS Ot E89.0 POSTPROCEDURAL HYPOTHYROIDISM 12/07/2015 KAMINI ELLIS Ot Z08 ENCNTR FOR FOLLOW-UP EXAM AFTER TRTMT FO 12/07/2015 KAMINI ELLIS Ot Z45.2 ENCOUNTER FOR ADJUSTMENT AND MANAGEMENT 12/07/2015 KAMINI ELLIS Ot Z79.899 OTHER SENIOR CARE (CURRENT) DRUG THERAPY 12/07/2015 KAMINI ELLIS Ot 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, 12/07/2015 KAMINI ELLIS Ot Z92.21 PERSONAL HISTORY OF ANTINEOPLASTIC CHEMO 12/07/2015 KAMINI ELLIS Ot Z92.3 PERSONAL HISTORY OF IRRADIATION 12/11/2015 RENETTA OCAMPO, ALFONSO Sanchez Ot 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 12/11/2015 MOUNA OCAMPO, ROSA Domingo Ot 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 12/11/2015 MOUNA OCAMPO, ROSA Domingo Ot 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 12/11/2015 RENETTA OCAMPO, ALFONSO Sanchez Ot 401.9 HYPERTENSION NOS 12/11/2015 NOLEN SHANT GOMEZ D Ot 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 12/11/2015 SHANT NOLEN DO Ot V72.84 EXAM PRE-OPERATIVE NOS 12/11/2015 MARCOS PATEL GRADUATE RECRUITER Ot 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 12/11/2015 Ot 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 12/11/2015 PATELMARCOS Oshea S GRADUATE RECRUITER Ot 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 12/11/2015 PATELMARCOS Oshea S GRADUATE RECRUITER Ot 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 12/11/2015 MARCOS PATEL S GRADUATE RECRUITER Ot 780.4 DIZZINESS AND GIDDINESS 12/11/2015 PATELMARCOS S GRADUATE RECRUITER Ot 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 12/11/2015 MARCOS PATEL S GRADUATE RECRUITER Ot 780.4 DIZZINESS AND GIDDINESS 12/11/2015 PATELMARCOS Oshea S GRADUATE RECRUITER Ot 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 12/11/2015 KAMINI ELLIS N Ot 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 12/11/2015 MARCOS PATEL S GRADUATE RECRUITER Ot 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 12/11/2015 MARCOS PATEL S GRADUATE RECRUITER Ot 389.9 HEARING LOSS NOS 12/11/2015 MARCOS PATEL GRADUATE RECRUITER Ot V15.3 HX OF IRRADIATION 12/11/2015 MARCOS PATEL GRADUATE RECRUITER Ot V58.81 FIT/ADJ VASCULAR CATHETER 12/11/2015 MARCOS PATEL GRADUATE RECRUITER Ot V87.41 PERSONAL HISTORY OF ANTINEOPLASTIC CHEMO 12/11/2015 MARCOS PATEL GRADUATE RECRUITER Ot F32.9 MAJOR DEPRESSIVE DISORDER, SINGLE EPISOD 12/11/2015 MARCOS PATEL GRADUATE RECRUITER Ot F41.9 ANXIETY DISORDER, UNSPECIFIED 12/11/2015 MARCOS PATELP Ot 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 12/11/2015 MARCOS PATEL GRADUATE RECRUITER Ot Z08 ENCNTR FOR FOLLOW-UP EXAM AFTER TRTMT FO 12/11/2015 MARCOS PATEL GRADUATE RECRUITER Ot Z79.899 OTHER INSPECTOR GENERAL (CURRENT) DRUG THERAPY 12/11/2015 PATELMARCOS Oshea GRADUATE RECRUITER Ot 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, 12/11/2015 MARCOS PATEL GRADUATE RECRUITER Ot Z92.21 PERSONAL HISTORY OF ANTINEOPLASTIC CHEMO 12/11/2015 MARCOS PATEL GRADUATE RECRUITER Ot 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 12/11/2015 GETACHEW YEAGER WAREHOUSE DIRECTOR Ot E78.5 HYPERLIPIDEMIA, UNSPECIFIED 12/11/2015 MARCOS PATEL GRADUATE RECRUITER Ot E89.0 POSTPROCEDURAL HYPOTHYROIDISM 12/11/2015 PATELMARCOS Oshea GRADUATE RECRUITER Ot Z08 ENCNTR FOR FOLLOW-UP EXAM AFTER TRTMT FO 12/11/2015 MARCOS PATEL GRADUATE RECRUITER Ot Z79.899 OTHER INSPECTOR GENERAL (CURRENT) DRUG THERAPY 12/11/2015 PATELMARCOS Oshea GRADUATE RECRUITER Ot 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, 12/11/2015 PATELMARCOS Oshea GRADUATE RECRUITER Ot Z92.21 PERSONAL HISTORY OF ANTINEOPLASTIC CHEMO 12/11/2015 PATELMARCOS GRADUATE RECRUITER Ot Z92.3 PERSONAL HISTORY OF IRRADIATION 12/11/2015 PATELMARCOS Oshea GRADUATE RECRUITER Ot 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 12/11/2015 KAMINI ELLIS Ot E89.0 POSTPROCEDURAL HYPOTHYROIDISM 12/11/2015 KAMINI ELLIS Ot Z08 ENCNTR FOR FOLLOW-UP EXAM AFTER TRTMT FO 12/11/2015 KAMINI ELLIS Ot Z45.2 ENCOUNTER FOR ADJUSTMENT AND MANAGEMENT 12/11/2015 KAMINI ELLIS Ot Z79.899 OTHER SENIOR CARE (CURRENT) DRUG THERAPY 12/11/2015 KAMINI ELLIS Ot 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, 12/11/2015 KAMINI ELLIS Ot Z92.21 PERSONAL HISTORY OF ANTINEOPLASTIC CHEMO 12/11/2015 KAMINI ELLIS Ot Z92.3 PERSONAL HISTORY OF IRRADIATION 12/26/2015 RENETTA OCAMPO, ALFONSO Sanchez Ot 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 12/26/2015 MOUNA OCAMPO, ROSA Domingo Ot 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 12/26/2015 MOUNA OCAMPO, ROSA Domingo Ot 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 12/26/2015 RENETTA OCAMPO, ALFONSO Sanchez Ot 401.9 HYPERTENSION NOS 12/26/2015 NOLEN DOSHANT D Ot 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 12/26/2015 SHANT NOLEN DO D Ot V72.84 EXAM PRE-OPERATIVE NOS 12/26/2015 MARCOS PATEL S GRADUATE RECRUITER Ot 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 12/26/2015 Ot 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 12/26/2015 PATELMARCOS Oshea S GRADUATE RECRUITER Ot 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 12/26/2015 PATELMARCOS Oshea S GRADUATE RECRUITER Ot 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 12/26/2015 MARCOS PATEL S GRADUATE RECRUITER Ot 780.4 DIZZINESS AND GIDDINESS 12/26/2015 PATELMARCOS S GRADUATE RECRUITER Ot 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 12/26/2015 PATELMARCOS Oshea S GRADUATE RECRUITER Ot 780.4 DIZZINESS AND GIDDINESS 12/26/2015 PATELMARCOS Oshea S GRADUATE RECRUITER Ot 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 12/26/2015 KAMINI ELLIS N Ot 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 12/26/2015 MARCOS PATEL S GRADUATE RECRUITER Ot 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 12/26/2015 MARCOS PATEL S GRADUATE RECRUITER Ot 389.9 HEARING LOSS NOS 12/26/2015 PATELMARCOS Oshea GRADUATE RECRUITER Ot V15.3 HX OF IRRADIATION 12/26/2015 PATELMARCOS Oshea GRADUATE RECRUITER Ot V58.81 FIT/ADJ VASCULAR CATHETER 12/26/2015 PATELMARCOS Oshea GRADUATE RECRUITER Ot V87.41 PERSONAL HISTORY OF ANTINEOPLASTIC CHEMO 12/26/2015 JORGEMARCOS GRADUATE RECRUITER Ot F32.9 MAJOR DEPRESSIVE DISORDER, SINGLE EPISOD 12/26/2015 PATELMARCOS Oshea GRADUATE RECRUITER Ot F41.9 ANXIETY DISORDER, UNSPECIFIED 12/26/2015 PATELMARCOS Oshea GRADUATE RECRUITER Ot 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 12/26/2015 PATELMARCOS GRADUATE RECRUITER Ot Z08 ENCNTR FOR FOLLOW-UP EXAM AFTER TRTMT FO 12/26/2015 JORGE MARCOS Oshea GRADUATE RECRUITER Ot Z79.899 OTHER INSPECTOR GENERAL (CURRENT) DRUG THERAPY 12/26/2015 JORGE MARCOS Oshea GRADUATE RECRUITER Ot 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, 12/26/2015 JORGE MARCOS Oshea GRADUATE RECRUITER Ot Z92.21 PERSONAL HISTORY OF ANTINEOPLASTIC CHEMO 12/26/2015 JORGE MARCOS Oshea GRADUATE RECRUITER Ot 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 12/26/2015 GETACHEW YEAGER WAREHOUSE DIRECTOR Ot E78.5 HYPERLIPIDEMIA, UNSPECIFIED 12/26/2015 PATELMARCOS Oshea GRADUATE RECRUITER Ot E89.0 POSTPROCEDURAL HYPOTHYROIDISM 12/26/2015 JORGE MARCOS Oshea GRADUATE RECRUITER Ot Z08 ENCNTR FOR FOLLOW-UP EXAM AFTER TRTMT FO 12/26/2015 JORGE MARCOS Oshea GRADUATE RECRUITER Ot Z79.899 OTHER SENIOR CARE (CURRENT) DRUG THERAPY 12/26/2015 JORGE MARCOS Oshea GRADUATE RECRUITER Ot 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, 12/26/2015 AKMINI ELLIS Ot Z92.21 PERSONAL HISTORY OF ANTINEOPLASTIC CHEMO 12/26/2015 KAMINI ELLIS Ot Z92.3 PERSONAL HISTORY OF IRRADIATION 12/27/2015 RENETTA OCAMPO, ALFONSO Sanchez Ot 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 12/27/2015 MOUNA OCAMPO, ROSA Domingo Ot 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 12/27/2015 MOUNA OCAMPO, ROSA Domingo Ot 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 12/27/2015 RENETTA OCAMPO, ALFONSO Sanchez Ot 401.9 HYPERTENSION NOS 12/27/2015 NOLENSHANT HERNANDEZ DO D Ot 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 12/27/2015 SHANT NOLEN DO Ot V72.84 EXAM PRE-OPERATIVE NOS 12/27/2015 MARCOS PATEL GRADUATE RECRUITER Ot 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 12/27/2015 Ot 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 12/27/2015 PATELMARCOS Oseha GRADUATE RECRUITER Ot 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 12/27/2015 MARCOS PATEL GRADUATE RECRUITER Ot 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 12/27/2015 MARCOS PATEL GRADUATE RECRUITER Ot 780.4 DIZZINESS AND GIDDINESS 12/27/2015 MARCOS PATEL GRADUATE RECRUITER Ot 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 12/27/2015 MARCOS PATEL S GRADUATE RECRUITER Ot 780.4 DIZZINESS AND GIDDINESS 12/27/2015 MARCOS PATEL S GRADUATE RECRUITER Ot 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 12/27/2015 CALEB GANEWTON Lucero Ot 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 12/27/2015 MARCOS PATEL S GRADUATE RECRUITER Ot 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 12/27/2015 MOMO PATELAH S GRADUATE RECRUITER Ot 389.9 HEARING LOSS NOS 12/27/2015 PATELMARCOS Oshea GRADUATE RECRUITER Ot V15.3 HX OF IRRADIATION 12/27/2015 JORGE MARCOS Oshea GRADUATE RECRUITER Ot V58.81 FIT/ADJ VASCULAR CATHETER 12/27/2015 PATELMARCOS Oshea GRADUATE RECRUITER Ot V87.41 PERSONAL HISTORY OF ANTINEOPLASTIC CHEMO 12/27/2015 MOMO PATELLEE Dorie CLEANINGP Ot F32.9 MAJOR DEPRESSIVE DISORDER, SINGLE EPISOD 12/27/2015 JORGE MARCOS Oshea GRADUATE RECRUITER Ot F41.9 ANXIETY DISORDER, UNSPECIFIED 12/27/2015 JORGE MARCOS Oshea GRADUATE RECRUITER Ot 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 12/27/2015 MOMO PATELLEE Oshea GRADUATE RECRUITER Ot Z08 ENCNTR FOR FOLLOW-UP EXAM AFTER TRTMT FO 12/27/2015 MOMO PATELLEE Oshea GRADUATE RECRUITER Ot Z79.899 OTHER INSPECTOR GENERAL (CURRENT) DRUG THERAPY 12/27/2015 MOMO PATELLEE Oshea GRADUATE RECRUITER Ot 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, 12/27/2015 JORGE MARCOS Oshea GRADUATE RECRUITER Ot Z92.21 PERSONAL HISTORY OF ANTINEOPLASTIC CHEMO 12/27/2015 JORGE MARCOS Oshea GRADUATE RECRUITER Ot 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 12/27/2015 GETACHEW YEAGER WAREHOUSE DIRECTOR Ot E78.5 HYPERLIPIDEMIA, UNSPECIFIED 12/27/2015 PATEL MARCOS Oshea GRADUATE RECRUITER Ot E89.0 POSTPROCEDURAL HYPOTHYROIDISM 12/27/2015 MOMO PATELLEE Dorie GRADUATE RECRUITER Ot Z08 ENCNTR FOR FOLLOW-UP EXAM AFTER TRTMT FO 12/27/2015 MOMO PATELLEE Oshea GRADUATE RECRUITER Ot Z79.899 OTHER INSPECTOR GENERAL (CURRENT) DRUG THERAPY 12/27/2015 MARCOS PATEL GRADUATE RECRUITER Ot 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, 12/27/2015 JORGE MARCOS Oshea GRADUATE RECRUITER Ot Z92.21 PERSONAL HISTORY OF ANTINEOPLASTIC CHEMO 12/27/2015 MARCOS PATEL GRADUATE RECRUITER Ot Z92.3 PERSONAL HISTORY OF IRRADIATION 12/27/2015 MOMO PATELLEE Dorie GRADUATE RECRUITER Ot 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 12/27/2015 KAMINI ELLIS Ot E89.0 POSTPROCEDURAL HYPOTHYROIDISM 12/27/2015 KAMINI ELLIS Ot Z08 ENCNTR FOR FOLLOW-UP EXAM AFTER TRTMT FO 12/27/2015 KAMINI ELLIS Ot Z45.2 ENCOUNTER FOR ADJUSTMENT AND MANAGEMENT 12/27/2015 KAMINI ELLIS Ot Z79.899 OTHER SENIOR CARE (CURRENT) DRUG THERAPY 12/27/2015 KAMINI ELLIS Ot 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, 12/27/2015 KAMINI ELLIS Ot Z92.21 PERSONAL HISTORY OF ANTINEOPLASTIC CHEMO 12/27/2015 KAMINI ELLIS Ot Z92.3 PERSONAL HISTORY OF IRRADIATION 12/28/2015 RENETTA OCAMPO, ALFONSO Sanchez Ot 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 12/28/2015 MOUNA OCAMPO, ROSA Domingo Ot 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 12/28/2015 MOUNA OCAMPO, ROSA Domingo Ot 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 12/28/2015 RENETTA OCAMPO, ALFONSO Sanchez Ot 401.9 HYPERTENSION NOS 12/28/2015 NOLEN SHANT GOMEZ D Ot 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 12/28/2015 SHANT NOLEN DO Ot V72.84 EXAM PRE-OPERATIVE NOS 12/28/2015 MARCOS PATEL GRADUATE RECRUITER Ot 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 12/28/2015 Ot 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 12/28/2015 MARCOS PATEL GRADUATE RECRUITER Ot 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 12/28/2015 MARCOS PATEL GRADUATE RECRUITER Ot 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 12/28/2015 MARCOS PATEL GRADUATE RECRUITER Ot 780.4 DIZZINESS AND GIDDINESS 12/28/2015 MARCOS PATEL GRADUATE RECRUITER Ot 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 12/28/2015 MARCOS PATEL GRADUATE RECRUITER Ot 780.4 DIZZINESS AND GIDDINESS 12/28/2015 MARCOS PATEL S GRADUATE RECRUITER Ot 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 12/28/2015 KAMINI ELLIS Lucero Ot 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 12/28/2015 MARCOS PATEL GRADUATE RECRUITER Ot 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 12/28/2015 MARCOS PATEL GRADUATE RECRUITER Ot 389.9 HEARING LOSS NOS 12/28/2015 MARCOS PATEL GRADUATE RECRUITER Ot V15.3 HX OF IRRADIATION 12/28/2015 MARCOS PATEL GRADUATE RECRUITER Ot V58.81 FIT/ADJ VASCULAR CATHETER 12/28/2015 MARCOS PATEL GRADUATE RECRUITER Ot V87.41 PERSONAL HISTORY OF ANTINEOPLASTIC CHEMO 12/28/2015 MARCOS PATELP Ot F32.9 MAJOR DEPRESSIVE DISORDER, SINGLE EPISOD 12/28/2015 MARCOS PATEL GRADUATE RECRUITER Ot F41.9 ANXIETY DISORDER, UNSPECIFIED 12/28/2015 MARCOS PATELP Ot 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 12/28/2015 MARCOS PATELP Ot Z08 ENCNTR FOR FOLLOW-UP EXAM AFTER TRTMT FO 12/28/2015 MARCOS PATEL GRADUATE RECRUITER Ot Z79.899 OTHER SENIOR CARE (CURRENT) DRUG THERAPY 12/28/2015 MARCOS PATEL GRADUATE RECRUITER Ot 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, 12/28/2015 MARCOS PATEL GRADUATE RECRUITER Ot Z92.21 PERSONAL HISTORY OF ANTINEOPLASTIC CHEMO 12/28/2015 MARCOS PATEL GRADUATE RECRUITER Ot 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 12/28/2015 GETACHEW YEAGER WAREHOUSE DIRECTOR Ot E78.5 HYPERLIPIDEMIA, UNSPECIFIED 12/28/2015 MARCOS PATEL GRADUATE RECRUITER Ot E89.0 POSTPROCEDURAL HYPOTHYROIDISM 12/28/2015 MARCOS PATEL GRADUATE RECRUITER Ot Z08 ENCNTR FOR FOLLOW-UP EXAM AFTER TRTMT FO 12/28/2015 MARCOS PATEL GRADUATE RECRUITER Ot Z79.899 OTHER INSPECTOR GENERAL (CURRENT) DRUG THERAPY 12/28/2015 MARCOS PATEL GRADUATE RECRUITER Ot 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, 12/28/2015 MARCOS PATEL GRADUATE RECRUITER Ot Z92.21 PERSONAL HISTORY OF ANTINEOPLASTIC CHEMO 12/28/2015 MARCOS PATEL GRADUATE RECRUITER Ot Z92.3 PERSONAL HISTORY OF IRRADIATION 12/28/2015 MARCOS PATEL GRADUATE RECRUITER Ot 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 12/28/2015 KAMINI ELLIS Ot E89.0 POSTPROCEDURAL HYPOTHYROIDISM 12/28/2015 KAMINI ELLIS Ot Z08 ENCNTR FOR FOLLOW-UP EXAM AFTER TRTMT FO 12/28/2015 KAMINI ELLIS Ot Z45.2 ENCOUNTER FOR ADJUSTMENT AND MANAGEMENT 12/28/2015 KAMINI ELLIS Ot Z79.899 OTHER SENIOR CARE (CURRENT) DRUG THERAPY 12/28/2015 KAMINI ELLIS Ot 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, 12/28/2015 KAMINI ELLIS Ot Z92.21 PERSONAL HISTORY OF ANTINEOPLASTIC CHEMO 12/28/2015 KAMINI ELLIS Ot Z92.3 PERSONAL HISTORY OF IRRADIATION 12/31/2015 LIDIA APARICIO MD Ot I10 ESSENTIAL (PRIMARY) HYPERTENSION 12/31/2015 LIDIA APARICIO MD Ot R00.2 PALPITATIONS 12/31/2015 LIDIA APARICIO MD Ot R06.02 SHORTNESS OF BREATH 12/31/2015 LIDIA APARICIO MD Ot R07.9 CHEST PAIN, UNSPECIFIED 01/02/2016 LIDIA APARICIO MD Ot I10 ESSENTIAL (PRIMARY) HYPERTENSION 01/02/2016 LIDIA APARICIO MD Ot R00.2 PALPITATIONS 01/02/2016 LIDIA APARICIO MD Ot R06.02 SHORTNESS OF BREATH 01/02/2016 LIDIA APARICIO MD Ot R07.9 CHEST PAIN, UNSPECIFIED 01/17/2016 RENETTA OCAMPO, ALFONSO Sanchez Ot 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 01/17/2016 ROSA FREIRE MD Ot 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 01/17/2016 ROSA FREIRE MD Ot 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 01/17/2016 ALFONSO JACKSON MD Ot 401.9 HYPERTENSION NOS 01/17/2016 NOLENSHANT HERNANDEZ DO Ot 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 01/17/2016 SHANT NOLEN DO Ot V72.84 EXAM PRE-OPERATIVE NOS 01/17/2016 MARCOS PATEL GRADUATE RECRUITER Ot 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 01/17/2016 Ot 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 01/17/2016 MARCOS PATEL GRADUATE RECRUITER Ot 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 01/17/2016 MARCOS PATEL GRADUATE RECRUITER Ot 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 01/17/2016 MARCOS PATEL GRADUATE RECRUITER Ot 780.4 DIZZINESS AND GIDDINESS 01/17/2016 MARCOS PATEL GRADUATE RECRUITER Ot 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 01/17/2016 MARCOS PATEL GRADUATE RECRUITER Ot 780.4 DIZZINESS AND GIDDINESS 01/17/2016 MARCOS PATEL GRADUATE RECRUITER Ot 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 01/17/2016 KAMINI ELLIS N Ot 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 01/17/2016 MARCOS PATEL GRADUATE RECRUITER Ot 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 01/17/2016 MARCOS PATEL GRADUATE RECRUITER Ot 389.9 HEARING LOSS NOS 01/17/2016 MARCOS PATEL GRADUATE RECRUITER Ot V15.3 HX OF IRRADIATION 01/17/2016 MARCOS PATEL GRADUATE RECRUITER Ot V58.81 FIT/ADJ VASCULAR CATHETER 01/17/2016 MARCOS PATEL GRADUATE RECRUITER Ot V87.41 PERSONAL HISTORY OF ANTINEOPLASTIC CHEMO 01/17/2016 MARCOS PATEL GRADUATE RECRUITER Ot F32.9 MAJOR DEPRESSIVE DISORDER, SINGLE EPISOD 01/17/2016 MARCOS PATEL GRADUATE RECRUITER Ot F41.9 ANXIETY DISORDER, UNSPECIFIED 01/17/2016 MARCOS PATEL GRADUATE RECRUITER Ot 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 01/17/2016 MARCOS PATEL GRADUATE RECRUITER Ot Z08 ENCNTR FOR FOLLOW-UP EXAM AFTER TRTMT FO 01/17/2016 MARCOS PATEL GRADUATE RECRUITER Ot Z79.899 OTHER SENIOR CARE (CURRENT) DRUG THERAPY 01/17/2016 MARCOS PATEL GRADUATE RECRUITER Ot 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, 01/17/2016 MARCOS PATEL GRADUATE RECRUITER Ot Z92.21 PERSONAL HISTORY OF ANTINEOPLASTIC CHEMO 01/17/2016 MARCOS PATEL GRADUATE RECRUITER Ot 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 01/17/2016 GETACHEW YEAGER WAREHOUSE DIRECTOR Ot E78.5 HYPERLIPIDEMIA, UNSPECIFIED 01/17/2016 MARCOS PATEL GRADUATE RECRUITER Ot E89.0 POSTPROCEDURAL HYPOTHYROIDISM 01/17/2016 MARCOS PATEL GRADUATE RECRUITER Ot Z08 ENCNTR FOR FOLLOW-UP EXAM AFTER TRTMT FO 01/17/2016 MARCOS PATEL GRADUATE RECRUITER Ot Z79.899 OTHER SENIOR CARE (CURRENT) DRUG THERAPY 01/17/2016 MARCOS PATEL GRADUATE RECRUITER Ot 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, 01/17/2016 MARCOS PATEL GRADUATE RECRUITER Ot Z92.21 PERSONAL HISTORY OF ANTINEOPLASTIC CHEMO 01/17/2016 MARCOS PATEL GRADUATE RECRUITER Ot Z92.3 PERSONAL HISTORY OF IRRADIATION 01/17/2016 MARCOS PATEL GRADUATE RECRUITER Ot 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 01/17/2016 KAMINI ELLIS Lucero Ot E89.0 POSTPROCEDURAL HYPOTHYROIDISM 01/17/2016 KAMINI ELLIS Lucero Ot Z08 ENCNTR FOR FOLLOW-UP EXAM AFTER TRTMT FO 01/17/2016 CALEBKAMINI Ot Z45.2 ENCOUNTER FOR ADJUSTMENT AND MANAGEMENT 01/17/2016 CALEB, GANEWTON N Ot Z79.899 OTHER SENIOR CARE (CURRENT) DRUG THERAPY 01/17/2016 CALEB, GANEWTON Lucero Ot 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, 01/17/2016 CALEB GANEWTON N Ot Z92.21 PERSONAL HISTORY OF ANTINEOPLASTIC CHEMO 01/17/2016 CALEB GANEWTON N Ot Z92.3 PERSONAL HISTORY OF IRRADIATION 01/17/2016 LIDIA APARICIO MD Ot I10 ESSENTIAL (PRIMARY) HYPERTENSION 01/17/2016 LIDIA APARICIO MD Ot R00.2 PALPITATIONS 01/17/2016 LIDIA APARICIO MD Ot R06.02 SHORTNESS OF BREATH 01/17/2016 LIDIA APARICIO MD Ot R07.9 CHEST PAIN, UNSPECIFIED 01/17/2016 LIDIA AAPRICIO MD Ot I10 ESSENTIAL (PRIMARY) HYPERTENSION 01/17/2016 LIDIA APARICIO MD Ot R00.2 PALPITATIONS 01/17/2016 LIDIA APARICIO MD Ot R06.02 SHORTNESS OF BREATH 01/17/2016 ALESSANDRA MD, BASHAR J Ot R07.9 CHEST PAIN, UNSPECIFIED 01/23/2016 KAMINI ELLIS Ot E89.0 POSTPROCEDURAL HYPOTHYROIDISM 01/23/2016 KAMINI ELLIS Ot Z08 ENCNTR FOR FOLLOW-UP EXAM AFTER TRTMT FO 01/23/2016 KAMINI ELLIS Ot Z45.2 ENCOUNTER FOR ADJUSTMENT AND MANAGEMENT 01/23/2016 KAMINI ELLIS Ot Z79.899 OTHER SENIOR CARE (CURRENT) DRUG THERAPY 01/23/2016 KAMINI ELLIS Ot 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, 01/23/2016 KAMINI ELLIS Ot Z92.21 PERSONAL HISTORY OF ANTINEOPLASTIC CHEMO 01/23/2016 KAMINI ELLIS Ot Z92.3 PERSONAL HISTORY OF IRRADIATION 01/23/2016 RENETTA OCAMPO, ALFONSO Sanchez Ot 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 01/23/2016 MOUNA OCAMPO, ROSA Domingo Ot 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 01/23/2016 MOUNA OCAMPO, ROSA Domingo Ot 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 01/23/2016 RENETTA OCAMPO, ALFONSO Sanchez Ot 401.9 HYPERTENSION NOS 01/23/2016 NOLEN SHANT GOMEZ D Ot 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 01/23/2016 SHANT NOLEN DO Ot V72.84 EXAM PRE-OPERATIVE NOS 01/23/2016 MARCOS PATEL GRADUATE RECRUITER Ot 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 01/23/2016 Ot 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 01/23/2016 MARCOS PATEL GRADUATE RECRUITER Ot 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 01/23/2016 MARCOS PATEL GRADUATE RECRUITER Ot 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 01/23/2016 MARCOS PATEL GRADUATE RECRUITER Ot 780.4 DIZZINESS AND GIDDINESS 01/23/2016 MARCOS PATEL GRADUATE RECRUITER Ot 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 01/23/2016 MARCOS PATEL GRADUATE RECRUITER Ot 780.4 DIZZINESS AND GIDDINESS 01/23/2016 MARCOS PATEL S GRADUATE RECRUITER Ot 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 01/23/2016 GA ELLISNEWTON Barker Ot 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 01/23/2016 MARCOS PATEL S GRADUATE RECRUITER Ot 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 01/23/2016 MARCOS PATEL GRADUATE RECRUITER Ot 389.9 HEARING LOSS NOS 01/23/2016 MARCOS PATELP Ot V15.3 HX OF IRRADIATION 01/23/2016 MARCOS PATEL GRADUATE RECRUITER Ot V58.81 FIT/ADJ VASCULAR CATHETER 01/23/2016 MARCOS PATEL GRADUATE RECRUITER Ot V87.41 PERSONAL HISTORY OF ANTINEOPLASTIC CHEMO 01/23/2016 MARCOS PATEL GRADUATE RECRUITER Ot F32.9 MAJOR DEPRESSIVE DISORDER, SINGLE EPISOD 01/23/2016 MARCOS PATEL GRADUATE RECRUITER Ot F41.9 ANXIETY DISORDER, UNSPECIFIED 01/23/2016 MARCOS PATELP Ot 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 01/23/2016 MARCOS PATEL GRADUATE RECRUITER Ot Z08 ENCNTR FOR FOLLOW-UP EXAM AFTER TRTMT FO 01/23/2016 MARCOS PATEL GRADUATE RECRUITER Ot Z79.899 OTHER INSPECTOR GENERAL (CURRENT) DRUG THERAPY 01/23/2016 MARCOS PATEL GRADUATE RECRUITER Ot 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, 01/23/2016 MARCOS PATEL GRADUATE RECRUITER Ot Z92.21 PERSONAL HISTORY OF ANTINEOPLASTIC CHEMO 01/23/2016 MARCOS PATEL GRADUATE RECRUITER Ot 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 01/23/2016 GETACHEW YEAGER WAREHOUSE DIRECTOR Ot E78.5 HYPERLIPIDEMIA, UNSPECIFIED 01/23/2016 MARCOS PATELP Ot E89.0 POSTPROCEDURAL HYPOTHYROIDISM 01/23/2016 MARCOS PATEL GRADUATE RECRUITER Ot Z08 ENCNTR FOR FOLLOW-UP EXAM AFTER TRTMT FO 01/23/2016 MARCOS PATEL GRADUATE RECRUITER Ot Z79.899 OTHER SENIOR CARE (CURRENT) DRUG THERAPY 01/23/2016 MARCOS PATEL GRADUATE RECRUITER Ot 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, 01/23/2016 MARCOS PATEL GRADUATE RECRUITER Ot Z92.21 PERSONAL HISTORY OF ANTINEOPLASTIC CHEMO 01/23/2016 MARCOS PATEL GRADUATE RECRUITER Ot Z92.3 PERSONAL HISTORY OF IRRADIATION 01/23/2016 PATEL, HILAH S GRADUATE RECRUITER Ot 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 01/23/2016 KAMINI ELLIS Ot E89.0 POSTPROCEDURAL HYPOTHYROIDISM 01/23/2016 KAMINI ELLIS Ot Z08 ENCNTR FOR FOLLOW-UP EXAM AFTER TRTMT FO 01/23/2016 KAMINI ELLIS Ot Z45.2 ENCOUNTER FOR ADJUSTMENT AND MANAGEMENT 01/23/2016 KAMINI ELLIS Ot Z79.899 OTHER SENIOR CARE (CURRENT) DRUG THERAPY 01/23/2016 KAMINI ELLIS Ot 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, 01/23/2016 KAMINI ELLIS Ot Z92.21 PERSONAL HISTORY OF ANTINEOPLASTIC CHEMO 01/23/2016 KAMINI ELLIS Ot Z92.3 PERSONAL HISTORY OF IRRADIATION 01/23/2016 LIDIA APARICIO MD J Ot I10 ESSENTIAL (PRIMARY) HYPERTENSION 01/23/2016 LIDIA APARICIO MD J Ot R00.2 PALPITATIONS 01/23/2016 LIDIA APARICIO MD J Ot R06.02 SHORTNESS OF BREATH 01/23/2016 LIDIA APARICIO MD J Ot R07.9 CHEST PAIN, UNSPECIFIED 01/23/2016 ALESSANDRA OCAMPO, LIDIA J Ot I10 ESSENTIAL (PRIMARY) HYPERTENSION 01/23/2016 LIDIA APARICIO MD J Ot R00.2 PALPITATIONS 01/23/2016 LIDIA APARICIO MD J Ot R06.02 SHORTNESS OF BREATH 01/23/2016 LIDIA APARICIO MD J Ot R07.9 CHEST PAIN, UNSPECIFIED 01/24/2016 KAMINI ELLIS Ot E89.0 POSTPROCEDURAL HYPOTHYROIDISM 01/24/2016 KAMINI ELLIS Ot Z08 ENCNTR FOR FOLLOW-UP EXAM AFTER TRTMT FO 01/24/2016 KAMINI ELLIS Ot Z45.2 ENCOUNTER FOR ADJUSTMENT AND MANAGEMENT 01/24/2016 KAMINI ELLIS Ot Z79.899 OTHER SENIOR CARE (CURRENT) DRUG THERAPY 01/24/2016 KAMINI ELLIS Ot 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, 01/24/2016 KAMINI ELLIS Ot Z92.21 PERSONAL HISTORY OF ANTINEOPLASTIC CHEMO 01/24/2016 CALEB, BOBAN N Ot Z92.3 PERSONAL HISTORY OF IRRADIATION 01/24/2016 RENETTA OCAMPO, ALFONSO Sanchez Ot 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 01/24/2016 RENETTA OCAMPO, ALFONSO Sanchez Ot Z98.89 OTHER SPECIFIED POSTPROCEDURAL STATES 01/27/2016 ALESSANDRA OCAMPO, LIDIA Farley Ot I10 ESSENTIAL (PRIMARY) HYPERTENSION 01/27/2016 ALESSANDRA OCAMPO, LIDIA Farley Ot R00.2 PALPITATIONS 01/27/2016 ALESSANDRA OCAMPO, LIDIA Farley Ot R06.02 SHORTNESS OF BREATH 01/27/2016 ALESSANDRA OCAMPO, LIDIA Farley Ot R07.9 CHEST PAIN, UNSPECIFIED 02/08/2016 KM FRY DO Ot R06.00 DYSPNEA, UNSPECIFIED 02/11/2016 CALEBKAMINI RASHID Lucero Ot E89.0 POSTPROCEDURAL HYPOTHYROIDISM 02/11/2016 CALEB, GANEWTON N Ot Z08 ENCNTR FOR FOLLOW-UP EXAM AFTER TRTMT FO 02/11/2016 CALEBGANEWTON Lucero Ot Z45.2 ENCOUNTER FOR ADJUSTMENT AND MANAGEMENT 02/11/2016 CALEB, GANEWTON N Ot Z79.899 OTHER INSPECTOR GENERAL (CURRENT) DRUG THERAPY 02/11/2016 KAMINI ELLIS N Ot 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, 02/11/2016 KAMINI ELLIS N Ot Z92.21 PERSONAL HISTORY OF ANTINEOPLASTIC CHEMO 02/11/2016 CALEBKAMINI RASHID N Ot Z92.3 PERSONAL HISTORY OF IRRADIATION 02/11/2016 CALEB, GANEWTON N Ot E89.0 POSTPROCEDURAL HYPOTHYROIDISM 02/11/2016 CALEBKAMINI N Ot Z08 ENCNTR FOR FOLLOW-UP EXAM AFTER TRTMT FO 02/11/2016 KAMINI ELLIS N Ot Z79.899 OTHER INSPECTOR GENERAL (CURRENT) DRUG THERAPY 02/11/2016 CALEB, GANEWTON N Ot 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, 02/11/2016 CALEB, GANEWTON N Ot Z92.21 PERSONAL HISTORY OF ANTINEOPLASTIC CHEMO 02/11/2016 CALEB, GANEWTON N Ot Z92.3 PERSONAL HISTORY OF IRRADIATION 02/15/2016 RENETTA OCAMPO, ALFONSO Sanchez Ot 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 02/15/2016 ALFONSO JACKSON MD, Ot Z98.89 OTHER SPECIFIED POSTPROCEDURAL STATES 02/26/2016 ALFONSO JACKSON MD Ot 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 02/26/2016 ALFONSO JACKSON MD Ot Z98.89 OTHER SPECIFIED POSTPROCEDURAL STATES 02/26/2016 ALFONSO JACKSON MD Ot 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 02/26/2016 ALFONSO JACKSON MD Ot Z98.89 OTHER SPECIFIED POSTPROCEDURAL STATES 03/26/2016 CALEBKAMINI RASHID Lucero Ot E89.0 POSTPROCEDURAL HYPOTHYROIDISM 03/26/2016 CALEB GANEWTON Lucero Ot Z08 ENCNTR FOR FOLLOW-UP EXAM AFTER TRTMT FO 03/26/2016 CALEB GANEWTON Lucero Ot Z79.899 OTHER SENIOR CARE (CURRENT) DRUG THERAPY 03/26/2016 KAMINI ELLIS Lucero Ot 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, 03/26/2016 KAMINI ELLIS Lucero Ot Z92.21 PERSONAL HISTORY OF ANTINEOPLASTIC CHEMO 03/26/2016 CALEB, KAMINI Barker Ot Z92.3 PERSONAL HISTORY OF IRRADIATION 03/31/2016 RENETTA OCAMPO, ALFONSO Sanchez Ot 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 03/31/2016 MOUNA OCAMPO, ROSA Domingo Ot 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 03/31/2016 MOUNA OCAMPO, ROSA Domingo Ot 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 03/31/2016 RENETTA OCAMPO, ALFONSO Sanchez Ot 401.9 HYPERTENSION NOS 03/31/2016 NOLEN DOSHANT D Ot 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 03/31/2016 NOLEN DOSHANT D Ot V72.84 EXAM PRE-OPERATIVE NOS 03/31/2016 MARCOS PATEL GRADUATE RECRUITER Ot 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 03/31/2016 Ot 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 03/31/2016 MARCOS PATEL GRADUATE RECRUITER Ot 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 03/31/2016 MARCOS PATEL GRADUATE RECRUITER Ot 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 03/31/2016 MARCOS PATEL GRADUATE RECRUITER Ot 780.4 DIZZINESS AND GIDDINESS 03/31/2016 MARCOS PATEL GRADUATE RECRUITER Ot 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 03/31/2016 MARCOS PATEL GRADUATE RECRUITER Ot 780.4 DIZZINESS AND GIDDINESS 03/31/2016 MARCOS PATEL GRADUATE RECRUITER Ot 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 03/31/2016 KAMINI ELLIS Ot 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 03/31/2016 MARCOS PATEL GRADUATE RECRUITER Ot 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 03/31/2016 MARCOS PATEL GRADUATE RECRUITER Ot 389.9 HEARING LOSS NOS 03/31/2016 MARCOS PATEL GRADUATE RECRUITER Ot V15.3 HX OF IRRADIATION 03/31/2016 MARCOS PATEL GRADUATE RECRUITER Ot V58.81 FIT/ADJ VASCULAR CATHETER 03/31/2016 MARCOS PATEL GRADUATE RECRUITER Ot V87.41 PERSONAL HISTORY OF ANTINEOPLASTIC CHEMO 03/31/2016 MARCOS PATEL GRADUATE RECRUITER Ot F32.9 MAJOR DEPRESSIVE DISORDER, SINGLE EPISOD 03/31/2016 MARCOS PATEL GRADUATE RECRUITER Ot F41.9 ANXIETY DISORDER, UNSPECIFIED 03/31/2016 MARCOS PATEL GRADUATE RECRUITER Ot 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 03/31/2016 MARCOS PATEL GRADUATE RECRUITER Ot Z08 ENCNTR FOR FOLLOW-UP EXAM AFTER TRTMT FO 03/31/2016 MARCOS PATEL GRADUATE RECRUITER Ot Z79.899 OTHER INSPECTOR GENERAL (CURRENT) DRUG THERAPY 03/31/2016 MARCOS PATEL GRADUATE RECRUITER Ot 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, 03/31/2016 MARCOS PATEL GRADUATE RECRUITER Ot Z92.21 PERSONAL HISTORY OF ANTINEOPLASTIC CHEMO 03/31/2016 MARCOS PATEL GRADUATE RECRUITER Ot 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 03/31/2016 GETACHEW YEAGER WAREHOUSE DIRECTOR Ot E78.5 HYPERLIPIDEMIA, UNSPECIFIED 03/31/2016 MARCOS PATEL GRADUATE RECRUITER Ot E89.0 POSTPROCEDURAL HYPOTHYROIDISM 03/31/2016 MARCOS PATEL GRADUATE RECRUITER Ot Z08 ENCNTR FOR FOLLOW-UP EXAM AFTER TRTMT FO 03/31/2016 MARCOS PATEL GRADUATE RECRUITER Ot Z79.899 OTHER SENIOR CARE (CURRENT) DRUG THERAPY 03/31/2016 MARCOS PATEL GRADUATE RECRUITER Ot 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, 03/31/2016 MARCOS PATEL ZEV Ot Z92.21 PERSONAL HISTORY OF ANTINEOPLASTIC CHEMO 03/31/2016 MARCOS PATEL GRADUATE RECRUITER Ot Z92.3 PERSONAL HISTORY OF IRRADIATION 03/31/2016 MARCOS PATEL GRADUATE RECRUITER Ot 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 03/31/2016 LIDIA APARICIO MD Ot I10 ESSENTIAL (PRIMARY) HYPERTENSION 03/31/2016 LIDIA APARICIO MD Ot R00.2 PALPITATIONS 03/31/2016 LIDIA APARICIO MD Ot R06.02 SHORTNESS OF BREATH 03/31/2016 LIDIA APARICIO MD Ot R07.9 CHEST PAIN, UNSPECIFIED 03/31/2016 LIDIA APARICIO MD Ot I10 ESSENTIAL (PRIMARY) HYPERTENSION 03/31/2016 LIDIA APARICIO MD Ot R00.2 PALPITATIONS 03/31/2016 LIDIA APARICIO MD Ot R06.02 SHORTNESS OF BREATH 03/31/2016 LIDIA APARICIO MD Ot R07.9 CHEST PAIN, UNSPECIFIED 03/31/2016 RENETTA OCAMPO, ALFONSO Sanchez Ot 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 03/31/2016 RENETTA OCAMPO, ALFONSO Sanchez Ot Z98.89 OTHER SPECIFIED POSTPROCEDURAL STATES 03/31/2016 KM FRY DO Ot R06.00 DYSPNEA, UNSPECIFIED 03/31/2016 KAMINI ELLIS Ot E89.0 POSTPROCEDURAL HYPOTHYROIDISM 03/31/2016 KAMINI ELLIS Ot Z08 ENCNTR FOR FOLLOW-UP EXAM AFTER TRTMT FO 03/31/2016 KAMINI ELLIS Ot Z79.899 OTHER INSPECTOR GENERAL (CURRENT) DRUG THERAPY 03/31/2016 KAMINI ELLIS Ot 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, 03/31/2016 KAMINI ELLIS Ot Z92.21 PERSONAL HISTORY OF ANTINEOPLASTIC CHEMO 03/31/2016 KAMINI ELLIS Ot Z92.3 PERSONAL HISTORY OF IRRADIATION 04/08/2016 KAMINI ELLIS Ot E89.0 POSTPROCEDURAL HYPOTHYROIDISM 04/08/2016 CALEB, BOBAN N Ot Z08 ENCNTR FOR FOLLOW-UP EXAM AFTER TRTMT FO 04/08/2016 GA ELLISNEWTON N Ot Z79.899 OTHER SENIOR CARE (CURRENT) DRUG THERAPY 04/08/2016 GA ELLISNEWTON N Ot 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, 04/08/2016 KAMINI ELLIS N Ot Z92.21 PERSONAL HISTORY OF ANTINEOPLASTIC CHEMO 04/08/2016 CALEB, KAMINI N Ot Z92.3 PERSONAL HISTORY OF IRRADIATION 05/02/2016 KAMINI ELLIS N Ot E89.0 POSTPROCEDURAL HYPOTHYROIDISM 05/02/2016 CALEB, GAAN N Ot Z08 ENCNTR FOR FOLLOW-UP EXAM AFTER TRTMT FO 05/02/2016 CALEB KAMINI N Ot Z79.899 OTHER SENIOR CARE (CURRENT) DRUG THERAPY 05/02/2016 CALEB, KAMINI N Ot 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, 05/02/2016 CALEBKAMINI N Ot Z92.21 PERSONAL HISTORY OF ANTINEOPLASTIC CHEMO 05/02/2016 CALEB, KAMINI N Ot Z92.3 PERSONAL HISTORY OF IRRADIATION 06/29/2016 CALEB GANEWTON N Ot E89.0 POSTPROCEDURAL HYPOTHYROIDISM 06/29/2016 CALEBKAMINI N Ot Z08 ENCNTR FOR FOLLOW-UP EXAM AFTER TRTMT FO 06/29/2016 CALEBKAMINI N Ot Z45.2 ENCOUNTER FOR ADJUSTMENT AND MANAGEMENT 06/29/2016 GA ELLISNEWTON N Ot Z79.899 OTHER INSPECTOR GENERAL (CURRENT) DRUG THERAPY 06/29/2016 CALEB, KAMINI N Ot 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, 06/29/2016 CALEB, KAMINI N Ot Z92.21 PERSONAL HISTORY OF ANTINEOPLASTIC CHEMO 06/29/2016 CALEBKAMINI N Ot Z92.3 PERSONAL HISTORY OF IRRADIATION 06/30/2016 CALEB, KAMINI N Ot E89.0 POSTPROCEDURAL HYPOTHYROIDISM 06/30/2016 CALEB, KAMINI N Ot Z08 ENCNTR FOR FOLLOW-UP EXAM AFTER TRTMT FO 06/30/2016 CALEBKAMINI N Ot Z45.2 ENCOUNTER FOR ADJUSTMENT AND MANAGEMENT 06/30/2016 KAMINI ELLIS N Ot Z79.899 OTHER SENIOR CARE (CURRENT) DRUG THERAPY 06/30/2016 KAMINI ELLIS N Ot 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, 06/30/2016 CALEB GANEWTON N Ot Z92.21 PERSONAL HISTORY OF ANTINEOPLASTIC CHEMO 06/30/2016 CALEB GANEWTON N Ot Z92.3 PERSONAL HISTORY OF IRRADIATION 07/02/2016 CALEB GANEWTON N Ot E89.0 POSTPROCEDURAL HYPOTHYROIDISM 07/02/2016 CALEB KAMINI N Ot Z08 ENCNTR FOR FOLLOW-UP EXAM AFTER TRTMT FO 07/02/2016 CALEB GANEWTON Lucero Ot Z45.2 ENCOUNTER FOR ADJUSTMENT AND MANAGEMENT 07/02/2016 CALEB KAMINI N Ot Z79.899 OTHER SENIOR CARE (CURRENT) DRUG THERAPY 07/02/2016 CALEB GANEWTON N Ot 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, 07/02/2016 CALEB KAMINI N Ot Z92.21 PERSONAL HISTORY OF ANTINEOPLASTIC CHEMO 07/02/2016 CALEB KAMINI N Ot Z92.3 PERSONAL HISTORY OF IRRADIATION 08/05/2016 CALEB GANEWTON N Ot E89.0 POSTPROCEDURAL HYPOTHYROIDISM 08/05/2016 CALEBKAMINI N Ot Z08 ENCNTR FOR FOLLOW-UP EXAM AFTER TRTMT FO 08/05/2016 CALEB KAMINI N Ot Z79.899 OTHER SENIOR CARE (CURRENT) DRUG THERAPY 08/05/2016 CALEB KAMINI N Ot 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, 08/05/2016 CALEB KAMINI N Ot Z92.21 PERSONAL HISTORY OF ANTINEOPLASTIC CHEMO 08/05/2016 CALEBKAMINI N Ot Z92.3 PERSONAL HISTORY OF IRRADIATION 08/07/2016 CALEB AKMINI N Ot E89.0 POSTPROCEDURAL HYPOTHYROIDISM 08/07/2016 CALEBKAMINI N Ot Z08 ENCNTR FOR FOLLOW-UP EXAM AFTER TRTMT FO 08/07/2016 CALEB KAMINI N Ot Z79.899 OTHER INSPECTOR GENERAL (CURRENT) DRUG THERAPY 08/07/2016 CALEBKAMINI N Ot 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, 08/07/2016 KAMINI ELLIS Ot Z92.21 PERSONAL HISTORY OF ANTINEOPLASTIC CHEMO 08/07/2016 KAMINI ELLIS Ot Z92.3 PERSONAL HISTORY OF IRRADIATION 08/21/2016 KAMINI ELLIS Ot E89.0 POSTPROCEDURAL HYPOTHYROIDISM 08/21/2016 KAMINI ELLIS Ot Z08 ENCNTR FOR FOLLOW-UP EXAM AFTER TRTMT FO 08/21/2016 KAMINI ELLIS Ot Z79.899 OTHER SENIOR CARE (CURRENT) DRUG THERAPY 08/21/2016 KAMINI ELLIS Ot 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, 08/21/2016 KAMINI ELLIS Ot Z92.21 PERSONAL HISTORY OF ANTINEOPLASTIC CHEMO 08/21/2016 KAMINI ELLIS Ot Z92.3 PERSONAL HISTORY OF IRRADIATION 08/21/2016 RENETTA OCAMPO, ALFONSO Sanchez Ot 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 08/21/2016 ROSA FREIRE MD Ot 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 08/21/2016 ROSA FREIRE MD Ot 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 08/21/2016 RENETTA OCAMPO, LAFONSO Sanchez Ot 401.9 HYPERTENSION NOS 08/21/2016 NOLENSHANT HERNANDEZ DO D Ot 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 08/21/2016 SHANT NOLEN DO Ot V72.84 EXAM PRE-OPERATIVE NOS 08/21/2016 MARCOS PATEL GRADUATE RECRUITER Ot 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 08/21/2016 Ot 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 08/21/2016 PATELMARCOS Oshea S GRADUATE RECRUITER Ot 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 08/21/2016 PATELMARCOS Oshea S GRADUATE RECRUITER Ot 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 08/21/2016 MARCOS PATEL GRADUATE RECRUITER Ot 780.4 DIZZINESS AND GIDDINESS 08/21/2016 MARCOS PATEL GRADUATE RECRUITER Ot 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 08/21/2016 MARCOS PATEL S GRADUATE RECRUITER Ot 780.4 DIZZINESS AND GIDDINESS 08/21/2016 MARCOS PATEL GRADUATE RECRUITER Ot 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 08/21/2016 CALEB, BOBAN N Ot 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 08/21/2016 MARCOS PATEL GRADUATE RECRUITER Ot 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 08/21/2016 MARCOS PATEL GRADUATE RECRUITER Ot 389.9 HEARING LOSS NOS 08/21/2016 MARCOS PATEL GRADUATE RECRUITER Ot V15.3 HX OF IRRADIATION 08/21/2016 MARCOS PATEL GRADUATE RECRUITER Ot V58.81 FIT/ADJ VASCULAR CATHETER 08/21/2016 MARCOS PATEL GRADUATE RECRUITER Ot V87.41 PERSONAL HISTORY OF ANTINEOPLASTIC CHEMO 08/21/2016 MARCOS PATEL GRADUATE RECRUITER Ot F32.9 MAJOR DEPRESSIVE DISORDER, SINGLE EPISOD 08/21/2016 MARCOS PATEL GRADUATE RECRUITER Ot F41.9 ANXIETY DISORDER, UNSPECIFIED 08/21/2016 MARCOS PATELP Ot 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 08/21/2016 MARCOS PATEL GRADUATE RECRUITER Ot Z08 ENCNTR FOR FOLLOW-UP EXAM AFTER TRTMT FO 08/21/2016 MARCOS PATEL GRADUATE RECRUITER Ot Z79.899 OTHER SENIOR CARE (CURRENT) DRUG THERAPY 08/21/2016 MARCOS PATEL GRADUATE RECRUITER Ot 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, 08/21/2016 MARCOS PATEL GRADUATE RECRUITER Ot Z92.21 PERSONAL HISTORY OF ANTINEOPLASTIC CHEMO 08/21/2016 MARCOS PATEL GRADUATE RECRUITER Ot 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 08/21/2016 GETACHEW YEAGER WAREHOUSE DIRECTOR Ot E78.5 HYPERLIPIDEMIA, UNSPECIFIED 08/21/2016 MARCOS PATEL GRADUATE RECRUITER Ot E89.0 POSTPROCEDURAL HYPOTHYROIDISM 08/21/2016 MARCOS PATEL GRADUATE RECRUITER Ot Z08 ENCNTR FOR FOLLOW-UP EXAM AFTER TRTMT FO 08/21/2016 MARCOS PATEL GRADUATE RECRUITER Ot Z79.899 OTHER INSPECTOR GENERAL (CURRENT) DRUG THERAPY 08/21/2016 MARCOS PATEL S GRADUATE RECRUITER Ot 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, 08/21/2016 MARCOS PATEL GRADUATE RECRUITER Ot Z92.21 PERSONAL HISTORY OF ANTINEOPLASTIC CHEMO 08/21/2016 MARCOS PATEL GRADUATE RECRUITER Ot Z92.3 PERSONAL HISTORY OF IRRADIATION 08/21/2016 PATELMARCOS Oshea GRADUATE RECRUITER Ot 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 08/21/2016 LIDIA APARICIO MD Ot I10 ESSENTIAL (PRIMARY) HYPERTENSION 08/21/2016 LIDIA APARICIO MD Ot R00.2 PALPITATIONS 08/21/2016 LIDIA APARICIO MD Ot R06.02 SHORTNESS OF BREATH 08/21/2016 LIDIA APARICIO MD Ot R07.9 CHEST PAIN, UNSPECIFIED 08/21/2016 LIDIA APARICIO MD Ot I10 ESSENTIAL (PRIMARY) HYPERTENSION 08/21/2016 LIDIA APARICIO MD Ot R00.2 PALPITATIONS 08/21/2016 LIDIA APARICIO MD Ot R06.02 SHORTNESS OF BREATH 08/21/2016 LIDIA APARICIO MD Ot R07.9 CHEST PAIN, UNSPECIFIED 08/21/2016 RENETTA OCAMPO, ALFONSO Sanchez Ot 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 08/21/2016 ALFONSO JACKSON MD Ot Z98.89 OTHER SPECIFIED POSTPROCEDURAL STATES 08/21/2016 KM FRY DO Ot R06.00 DYSPNEA, UNSPECIFIED 08/21/2016 KAMINI ELLIS Ot E89.0 POSTPROCEDURAL HYPOTHYROIDISM 08/21/2016 KAMINI ELLIS Ot Z08 ENCNTR FOR FOLLOW-UP EXAM AFTER TRTMT FO 08/21/2016 KAMINI ELLIS Ot Z79.899 OTHER SENIOR CARE (CURRENT) DRUG THERAPY 08/21/2016 KAMINI ELLIS Ot 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, 08/21/2016 KAMINI ELLIS Ot Z92.21 PERSONAL HISTORY OF ANTINEOPLASTIC CHEMO 08/21/2016 KAMINI ELLIS Ot Z92.3 PERSONAL HISTORY OF IRRADIATION 10/15/2016 KAMINI ELLIS Ot E89.0 POSTPROCEDURAL HYPOTHYROIDISM 10/15/2016 KAMINI ELLIS Ot Z08 ENCNTR FOR FOLLOW-UP EXAM AFTER TRTMT FO 10/15/2016 KAMINI ELLIS Ot Z79.899 OTHER INSPECTOR GENERAL (CURRENT) DRUG THERAPY 10/15/2016 KAMINI ELLIS Ot 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, 10/15/2016 KAMINI ELLIS Ot Z92.21 PERSONAL HISTORY OF ANTINEOPLASTIC CHEMO 10/15/2016 KAMINI ELLIS Ot Z92.3 PERSONAL HISTORY OF IRRADIATION 10/30/2016 KAMINI ELLIS Ot E89.0 POSTPROCEDURAL HYPOTHYROIDISM 10/30/2016 KAMINI ELLIS Ot Z08 ENCNTR FOR FOLLOW-UP EXAM AFTER TRTMT FO 10/30/2016 KAMINI ELLIS Ot Z45.2 ENCOUNTER FOR ADJUSTMENT AND MANAGEMENT 10/30/2016 KAMINI ELLIS Ot Z79.899 OTHER INSPECTOR GENERAL (CURRENT) DRUG THERAPY 10/30/2016 KAMINI ELLIS Ot 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, 10/30/2016 KAMINI ELLIS Ot Z92.21 PERSONAL HISTORY OF ANTINEOPLASTIC CHEMO 10/30/2016 KAMINI ELLIS Ot Z92.3 PERSONAL HISTORY OF IRRADIATION 11/07/2016 RENETTA OCAMPO, ALFONSO Sanchez Ot 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 11/07/2016 MOUNA OCAMPO, ROSA Domingo Ot 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4 DIZZINESS AND GIDDINESS 11/07/2016 MARCOS PATEL GRADUATE RECRUITER Ot 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 11/07/2016 MARCOS PATEL GRADUATE RECRUITER Ot 780.4 DIZZINESS AND GIDDINESS 11/07/2016 MARCOS PATEL GRADUATE RECRUITER Ot 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 11/07/2016 KAMINI ELLIS N Ot 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 11/07/2016 MARCOS PATEL GRADUATE RECRUITER Ot 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 11/07/2016 MARCOS PATEL GRADUATE RECRUITER Ot 389.9 HEARING LOSS NOS 11/07/2016 MARCOS PATEL GRADUATE RECRUITER Ot V15.3 HX OF IRRADIATION 11/07/2016 MARCOS PATEL GRADUATE RECRUITER Ot V58.81 FIT/ADJ VASCULAR CATHETER 11/07/2016 MARCOS PATEL GRADUATE RECRUITER Ot V87.41 PERSONAL HISTORY OF ANTINEOPLASTIC CHEMO 11/07/2016 MARCOS PATEL GRADUATE RECRUITER Ot F32.9 MAJOR DEPRESSIVE DISORDER, SINGLE EPISOD 11/07/2016 MARCOS PATEL GRADUATE RECRUITER Ot F41.9 ANXIETY DISORDER, UNSPECIFIED 11/07/2016 MARCOS PATELP Ot 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 11/07/2016 MARCOS PATEL GRADUATE RECRUITER Ot Z08 ENCNTR FOR FOLLOW-UP EXAM AFTER TRTMT FO 11/07/2016 MARCOS PATEL GRADUATE RECRUITER Ot Z79.899 OTHER INSPECTOR GENERAL (CURRENT) DRUG THERAPY 11/07/2016 MARCOS PATEL GRADUATE RECRUITER Ot 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, 11/07/2016 MARCOS PATEL GRADUATE RECRUITER Ot Z92.21 PERSONAL HISTORY OF ANTINEOPLASTIC CHEMO 11/07/2016 MARCOS PATEL GRADUATE RECRUITER Ot 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 11/07/2016 GETACHEW YEAGER WAREHOUSE DIRECTOR Ot E78.5 HYPERLIPIDEMIA, UNSPECIFIED 11/07/2016 MARCOS PATEL GRADUATE RECRUITER Ot E89.0 POSTPROCEDURAL HYPOTHYROIDISM 11/07/2016 MARCOS PATEL GRADUATE RECRUITER Ot Z08 ENCNTR FOR FOLLOW-UP EXAM AFTER TRTMT FO 11/07/2016 MARCOS PATEL GRADUATE RECRUITER Ot Z79.899 OTHER SENIOR CARE (CURRENT) DRUG THERAPY 11/07/2016 MARCOS PATEL GRADUATE RECRUITER Ot 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, 11/07/2016 MARCOS PATEL Ot Z92.21 PERSONAL HISTORY OF ANTINEOPLASTIC CHEMO 11/07/2016 MOMO PATELLEE Dorie BROTHERS Ot Z92.3 PERSONAL HISTORY OF IRRADIATION 11/07/2016 MARCOS PATEL Ot 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 11/07/2016 LIDIA APARICIO MD Ot I10 ESSENTIAL (PRIMARY) HYPERTENSION 11/07/2016 LIDIA APARICIO MD Ot R00.2 PALPITATIONS 11/07/2016 LIDIA APARICIO MD Ot R06.02 SHORTNESS OF BREATH 11/07/2016 LIDIA APRAICIO MD Ot R07.9 CHEST PAIN, UNSPECIFIED 11/07/2016 LIDIA APARICIO MD Ot I10 ESSENTIAL (PRIMARY) HYPERTENSION 11/07/2016 LIDIA APARICIO MD Ot R00.2 PALPITATIONS 11/07/2016 LIDIA APARICIO MD Ot R06.02 SHORTNESS OF BREATH 11/07/2016 LIDIA APARICIO MD Ot R07.9 CHEST PAIN, UNSPECIFIED 11/07/2016 ALFONSO JACKSON MD Ot 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 11/07/2016 ALFONSO JACKSON MD Ot Z98.89 OTHER SPECIFIED POSTPROCEDURAL STATES 11/07/2016 KM FRY DO Ot R06.00 DYSPNEA, UNSPECIFIED 11/07/2016 KAMINI ELLIS Ot E89.0 POSTPROCEDURAL HYPOTHYROIDISM 11/07/2016 KAMINI ELLIS Ot Z08 ENCNTR FOR FOLLOW-UP EXAM AFTER TRTMT FO 11/07/2016 KAMINI ELLIS Ot Z79.899 OTHER INSPECTOR GENERAL (CURRENT) DRUG THERAPY 11/07/2016 KAMINI ELLIS Ot 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, 11/07/2016 KAMINI ELLIS Ot Z92.21 PERSONAL HISTORY OF ANTINEOPLASTIC CHEMO 11/07/2016 KAMINI ELLIS Ot Z92.3 PERSONAL HISTORY OF IRRADIATION 11/10/2016 ALFONSO JACKSON MD Ot 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 11/10/2016 ROSA FREIRE MD Ot 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 11/10/2016 ROSA FREIRE MD Ot 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 11/10/2016 RENETTA OCAMPO, ALFONSO W Ot 401.9 HYPERTENSION NOS 11/10/2016 SHANT NOLEN DO D Ot 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 11/10/2016 SHANT NOLEN DO D Ot V72.84 EXAM PRE-OPERATIVE NOS 11/10/2016 MARCOS PATEL GRADUATE RECRUITER Ot 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 11/10/2016 Ot 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 11/10/2016 MARCOS PATEL GRADUATE RECRUITER Ot 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 11/10/2016 MARCOS PATEL S GRADUATE RECRUITER Ot 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 11/10/2016 MARCOS PATEL GRADUATE RECRUITER Ot 780.4 DIZZINESS AND GIDDINESS 11/10/2016 MARCOS PATEL GRADUATE RECRUITER Ot 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 11/10/2016 MARCOS PATEL GRADUATE RECRUITER Ot 780.4 DIZZINESS AND GIDDINESS 11/10/2016 MARCOS PATEL GRADUATE RECRUITER Ot 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 11/10/2016 KAMINI ELLIS Ot 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 11/10/2016 MARCOS PATEL GRADUATE RECRUITER Ot 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 11/10/2016 MARCOS PATEL GRADUATE RECRUITER Ot 389.9 HEARING LOSS NOS 11/10/2016 MARCOS PATEL GRADUATE RECRUITER Ot V15.3 HX OF IRRADIATION 11/10/2016 MARCOS PATEL GRADUATE RECRUITER Ot V58.81 FIT/ADJ VASCULAR CATHETER 11/10/2016 MARCOS PATEL GRADUATE RECRUITER Ot V87.41 PERSONAL HISTORY OF ANTINEOPLASTIC CHEMO 11/10/2016 MARCOS PATEL GRADUATE RECRUITER Ot F32.9 MAJOR DEPRESSIVE DISORDER, SINGLE EPISOD 11/10/2016 MARCOS PATEL GRADUATE RECRUITER Ot F41.9 ANXIETY DISORDER, UNSPECIFIED 11/10/2016 MARCOS PATEL GRADUATE RECRUITER Ot 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 11/10/2016 MARCOS PATEL GRADUATE RECRUITER Ot Z08 ENCNTR FOR FOLLOW-UP EXAM AFTER TRTMT FO 11/10/2016 MARCOS PATEL GRADUATE RECRUITER Ot Z79.899 OTHER SENIOR CARE (CURRENT) DRUG THERAPY 11/10/2016 MARCOS PATEL GRADUATE RECRUITER Ot 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, 11/10/2016 MARCOS PATEL GRADUATE RECRUITER Ot Z92.21 PERSONAL HISTORY OF ANTINEOPLASTIC CHEMO 11/10/2016 MARCOS PATEL GRADUATE RECRUITER Ot 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 11/10/2016 GETACHEW YEAGER WAREHOUSE DIRECTOR Ot E78.5 HYPERLIPIDEMIA, UNSPECIFIED 11/10/2016 MARCOS PATEL GRADUATE RECRUITER Ot E89.0 POSTPROCEDURAL HYPOTHYROIDISM 11/10/2016 MARCOS PATEL GRADUATE RECRUITER Ot Z08 ENCNTR FOR FOLLOW-UP EXAM AFTER TRTMT FO 11/10/2016 MARCOS PATEL GRADUATE RECRUITER Ot Z79.899 OTHER SENIOR CARE (CURRENT) DRUG THERAPY 11/10/2016 MARCOS PATEL GRADUATE RECRUITER Ot 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, 11/10/2016 MARCOS PATEL GRADUATE RECRUITER Ot Z92.21 PERSONAL HISTORY OF ANTINEOPLASTIC CHEMO 11/10/2016 MARCOS PATEL GRADUATE RECRUITER Ot Z92.3 PERSONAL HISTORY OF IRRADIATION 11/10/2016 MARCOS PATEL GRADUATE RECRUITER Ot 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 11/10/2016 LIDIA APARICIO MD Ot I10 ESSENTIAL (PRIMARY) HYPERTENSION 11/10/2016 LIDIA APARICIO MD Ot R00.2 PALPITATIONS 11/10/2016 LIDIA APARICIO MD Ot R06.02 SHORTNESS OF BREATH 11/10/2016 LIDIA APARICIO MD Ot R07.9 CHEST PAIN, UNSPECIFIED 11/10/2016 LIDIA APARICIO MD Ot I10 ESSENTIAL (PRIMARY) HYPERTENSION 11/10/2016 LIDIA APARICIO MD Ot R00.2 PALPITATIONS 11/10/2016 LIDIA APARICIO MD Ot R06.02 SHORTNESS OF BREATH 11/10/2016 LIDIA APARICIO MD Ot R07.9 CHEST PAIN, UNSPECIFIED 11/10/2016 ALFONSO JACKSON MD Ot 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 11/10/2016 ALFONSO JACKSON MD Ot Z98.89 OTHER SPECIFIED POSTPROCEDURAL STATES 11/10/2016 KM FRY DO Ot R06.00 DYSPNEA, UNSPECIFIED 11/10/2016 CALEBKAMINI N Ot E89.0 POSTPROCEDURAL HYPOTHYROIDISM 11/10/2016 CALEBKAMINI RASHID N Ot Z08 ENCNTR FOR FOLLOW-UP EXAM AFTER TRTMT FO 11/10/2016 KAMINI ELLIS N Ot Z79.899 OTHER SENIOR CARE (CURRENT) DRUG THERAPY 11/10/2016 CALEBKAMINI RASHID N Ot 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, 11/10/2016 ACLEBKAMINI N Ot Z92.21 PERSONAL HISTORY OF ANTINEOPLASTIC CHEMO 11/10/2016 CALEBKAMINI N Ot Z92.3 PERSONAL HISTORY OF IRRADIATION 12/10/2016 CALEBKAMINI RASHID N Ot E89.0 POSTPROCEDURAL HYPOTHYROIDISM 12/10/2016 CALEBKAMINI N Ot Z08 ENCNTR FOR FOLLOW-UP EXAM AFTER TRTMT FO 12/10/2016 KAMINI ELLIS N Ot Z45.2 ENCOUNTER FOR ADJUSTMENT AND MANAGEMENT 12/10/2016 CALEBKAMINI N Ot Z79.899 OTHER INSPECTOR GENERAL (CURRENT) DRUG THERAPY 12/10/2016 CALEBKAMINI N Ot 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, 12/10/2016 CALEBKAMINI RASHID N Ot Z92.21 PERSONAL HISTORY OF ANTINEOPLASTIC CHEMO 12/10/2016 KAMINI ELLIS N Ot Z92.3 PERSONAL HISTORY OF IRRADIATION 12/24/2016 KAMINI ELLIS N Ot E89.0 POSTPROCEDURAL HYPOTHYROIDISM 12/24/2016 KAMINI ELLIS N Ot Z08 ENCNTR FOR FOLLOW-UP EXAM AFTER TRTMT FO 12/24/2016 KAMINI ELLIS N Ot Z45.2 ENCOUNTER FOR ADJUSTMENT AND MANAGEMENT 12/24/2016 CALEBKAMINI N Ot Z79.899 OTHER INSPECTOR GENERAL (CURRENT) DRUG THERAPY 12/24/2016 CALEBKAMINI N Ot 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, 12/24/2016 CALEBKAMINI N Ot Z92.21 PERSONAL HISTORY OF ANTINEOPLASTIC CHEMO 12/24/2016 CALEBKAMINI N Ot Z92.3 PERSONAL HISTORY OF IRRADIATION 01/31/2017 CALEBKAMINI N Ot E89.0 POSTPROCEDURAL HYPOTHYROIDISM 01/31/2017 CALEB, BOBAN N Ot Z08 ENCNTR FOR FOLLOW-UP EXAM AFTER TRTMT FO 01/31/2017 CALEBKAMINI N Ot Z45.2 ENCOUNTER FOR ADJUSTMENT AND MANAGEMENT 01/31/2017 CALEB, GAAN N Ot Z79.899 OTHER INSPECTOR GENERAL (CURRENT) DRUG THERAPY 01/31/2017 CALEBKAMINI N Ot 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, 01/31/2017 CALEBKAMINI N Ot Z92.21 PERSONAL HISTORY OF ANTINEOPLASTIC CHEMO 01/31/2017 CALEB BOBNEWTON N Ot Z92.3 PERSONAL HISTORY OF IRRADIATION 02/06/2017 CALEBKAMINI N Ot E89.0 POSTPROCEDURAL HYPOTHYROIDISM 02/06/2017 CALEBKAMINI N Ot Z08 ENCNTR FOR FOLLOW-UP EXAM AFTER TRTMT FO 02/06/2017 CALEBKAMINI N Ot Z45.2 ENCOUNTER FOR ADJUSTMENT AND MANAGEMENT 02/06/2017 CALEBKAMINI N Ot Z79.899 OTHER INSPECTOR GENERAL (CURRENT) DRUG THERAPY 02/06/2017 CALEBKAMINI N Ot 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, 02/06/2017 CALEBKAMINI N Ot Z92.21 PERSONAL HISTORY OF ANTINEOPLASTIC CHEMO 02/06/2017 CALEB BOBNEWTON N Ot Z92.3 PERSONAL HISTORY OF IRRADIATION 02/09/2017 CALEBKAMINI N Ot E89.0 POSTPROCEDURAL HYPOTHYROIDISM 02/09/2017 CALEBKAMINI N Ot Z08 ENCNTR FOR FOLLOW-UP EXAM AFTER TRTMT FO 02/09/2017 CALEBKAMINI N Ot Z45.2 ENCOUNTER FOR ADJUSTMENT AND MANAGEMENT 02/09/2017 CALEB, BOBAN N Ot Z79.899 OTHER SENIOR CARE (CURRENT) DRUG THERAPY 02/09/2017 CALEBKAMINI N Ot 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, 02/09/2017 CALEBKAMINI N Ot Z92.21 PERSONAL HISTORY OF ANTINEOPLASTIC CHEMO 02/09/2017 CALEBKAMINI N Ot Z92.3 PERSONAL HISTORY OF IRRADIATION 02/18/2017 RENETTA OCAMPO, ALFONSO Sanchez Ot 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 02/18/2017 RENETTA OCAMPO, ALFONSO Sanchez Ot Z98.890 OTHER SPECIFIED POSTPROCEDURAL STATES 03/11/2017 SHANT NOLEN DO Ot C06.9 MALIGNANT NEOPLASM OF MOUTH, UNSPECIFIED 03/11/2017 SHANT NOLEN DO Ot Z01.818 ENCOUNTER FOR OTHER PREPROCEDURAL EXAMIN 03/12/2017 SHANT NOLEN DO Ot C06.9 MALIGNANT NEOPLASM OF MOUTH, UNSPECIFIED 03/12/2017 SHANT NOLEN DO Ot Z01.818 ENCOUNTER FOR OTHER PREPROCEDURAL EXAMIN 03/12/2017 SHANT NOLEN DO Ot 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 03/12/2017 SHANT NOLEN DO Ot 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 03/12/2017 SHANT NOLEN DO Ot E03.9 HYPOTHYROIDISM, UNSPECIFIED 03/12/2017 SHANT NOLEN DO Ot F41.9 ANXIETY DISORDER, UNSPECIFIED 03/12/2017 SHANT NOLEN DO Ot G89.29 OTHER CHRONIC PAIN 03/12/2017 SHANT NOLEN DO Ot I10 ESSENTIAL (PRIMARY) HYPERTENSION 03/12/2017 SHANT NOLEN DO Ot J45.909 UNSPECIFIED ASTHMA, UNCOMPLICATED 03/12/2017 SHANT NOLEN DO Ot K21.9 GASTRO-ESOPHAGEAL REFLUX DISEASE WITHOUT 03/12/2017 SHANT NOLEN DO Ot Z79.899 OTHER INSPECTOR GENERAL (CURRENT) DRUG THERAPY 03/12/2017 SHANT NOLEN DO Ot Z87.891 PERSONAL HISTORY OF NICOTINE DEPENDENCE 03/23/2017 KAMINI ELLIS Ot E89.0 POSTPROCEDURAL HYPOTHYROIDISM 03/23/2017 KAMINI ELLIS Ot Z08 ENCNTR FOR FOLLOW-UP EXAM AFTER TRTMT FO 03/23/2017 KAMINI ELLIS Ot Z45.2 ENCOUNTER FOR ADJUSTMENT AND MANAGEMENT 03/23/2017 KAMINI ELLIS Ot Z79.899 OTHER SENIOR CARE (CURRENT) DRUG THERAPY 03/23/2017 KAMINI ELLIS Ot 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, 03/23/2017 KAMINI ELLIS Ot Z92.21 PERSONAL HISTORY OF ANTINEOPLASTIC CHEMO 03/23/2017 KAMINI ELLIS Lucero Ot Z92.3 PERSONAL HISTORY OF IRRADIATION 04/20/2017 SEMAJ SANTIAGO Ot C06.9 MALIGNANT NEOPLASM OF MOUTH, UNSPECIFIED 04/20/2017 SEMAJ SANTIAGO Ot R13.12 DYSPHAGIA, OROPHARYNGEAL PHASE 04/20/2017 SEMAJ SANTIAGO Ot Z92.3 PERSONAL HISTORY OF IRRADIATION 04/20/2017 SEMAJ SANTIAGO Ot Z98.890 OTHER SPECIFIED POSTPROCEDURAL STATES 05/07/2017 KAMINI ELLIS Lucero Ot E89.0 POSTPROCEDURAL HYPOTHYROIDISM 05/07/2017 KAMINI ELLIS Lucero Ot Z08 ENCNTR FOR FOLLOW-UP EXAM AFTER TRTMT FO 05/07/2017 KAMINI ELLIS Lucero Ot Z45.2 ENCOUNTER FOR ADJUSTMENT AND MANAGEMENT 05/07/2017 KAMINI ELLIS Lucero Ot Z79.899 OTHER INSPECTOR GENERAL (CURRENT) DRUG THERAPY 05/07/2017 KAMINI ELLIS Lucero Ot 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, 05/07/2017 KAMINI ELLIS Ot Z92.21 PERSONAL HISTORY OF ANTINEOPLASTIC CHEMO 05/07/2017 KAMINI ELLIS Lucero Ot Z92.3 PERSONAL HISTORY OF IRRADIATION 05/14/2017 SEMAJ SANTIAGO Ot C06.9 MALIGNANT NEOPLASM OF MOUTH, UNSPECIFIED 05/14/2017 SEMAJ SANTIAGO Ot R13.12 DYSPHAGIA, OROPHARYNGEAL PHASE 05/14/2017 SEMAJ SANTIAGO Ot Z92.3 PERSONAL HISTORY OF IRRADIATION 05/14/2017 SEMAJ SANTIAGO Ot Z98.890 OTHER SPECIFIED POSTPROCEDURAL STATES 06/08/2017 SEMAJ SANTIAGO Ot C06.9 MALIGNANT NEOPLASM OF MOUTH, UNSPECIFIED 06/08/2017 SEMAJ SANTIAGO Ot R13.12 DYSPHAGIA, OROPHARYNGEAL PHASE 06/08/2017 SEMAJ SANTIAGO Ot Z92.3 PERSONAL HISTORY OF IRRADIATION 06/08/2017 SEMAJ SANTIAGO Ot Z98.890 OTHER SPECIFIED POSTPROCEDURAL STATES 06/11/2017 SEMAJ SANTIAGO Ot R13.10 DYSPHAGIA, UNSPECIFIED 07/16/2017 JOSHUA COX Ot M27.2 INFLAMMATORY CONDITIONS OF JAWS 07/16/2017 JOSHUA COX Ot T84.7XXS INFECT/INFLM REACT DUE TO OTH INT ORTH P 07/17/2017 JOSHUA COX Ot M27.2 INFLAMMATORY CONDITIONS OF JAWS 07/17/2017 JOSHUA COX Ot T84.7XXS INFECT/INFLM REACT DUE TO OTH INT ORTH P 07/20/2017 JOSHUA COX Ot M27.2 INFLAMMATORY CONDITIONS OF JAWS 07/20/2017 JOSHUA COX Ot T84.7XXS INFECT/INFLM REACT DUE TO OTH INT ORTH P 07/23/2017 TEE OCAMPO, LAURIE Black Ot R19.7 DIARRHEA, UNSPECIFIED 07/27/2017 JOSHUA COX Ot M27.2 INFLAMMATORY CONDITIONS OF JAWS 07/27/2017 JOSHUA COX Ot T84.7XXS INFECT/INFLM REACT DUE TO OTH INT ORTH P 08/06/2017 LAURIE OLIVEIRA MD Ot R19.7 DIARRHEA, UNSPECIFIED 08/13/2017 JOSHUA COX Ot M27.2 INFLAMMATORY CONDITIONS OF JAWS 08/13/2017 JOSHUA COX Ot T84.7XXS INFECT/INFLM REACT DUE TO OTH INT ORTH P 08/20/2017 JOSHUA COX Ot M27.2 INFLAMMATORY CONDITIONS OF JAWS 08/20/2017 JOSHUA COX Ot T84.7XXS INFECT/INFLM REACT DUE TO OTH INT ORTH P 10/12/2017 JOSHUA COX Ot M27.2 INFLAMMATORY CONDITIONS OF JAWS 10/12/2017 JOSHUA COX Ot T84.7XXS INFECT/INFLM REACT DUE TO OTH INT ORTH P 10/13/2017 JOSHUA COX Ot M27.2 INFLAMMATORY CONDITIONS OF JAWS 10/13/2017 JOSHUA COX Ot T84.7XXS INFECT/INFLM REACT DUE TO OTH INT ORTH P 10/15/2017 KAMINI ELLIS Ot E89.0 POSTPROCEDURAL HYPOTHYROIDISM 10/15/2017 KAMINI ELILS Ot Z08 ENCNTR FOR FOLLOW-UP EXAM AFTER TRTMT FO 10/15/2017 KAMINI ELLIS Ot Z79.899 OTHER SENIOR CARE (CURRENT) DRUG THERAPY 10/15/2017 KAMINI ELLIS Ot 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, 10/15/2017 KAMINI ELLIS Ot Z92.21 PERSONAL HISTORY OF ANTINEOPLASTIC CHEMO 10/15/2017 KAMINI ELLIS Ot Z92.3 PERSONAL HISTORY OF IRRADIATION 10/21/2017 TEE OCAMPO, LAURIE Black Ot M27.2 INFLAMMATORY CONDITIONS OF JAWS 10/28/2017 TEE OCAMPO, LAURIE Black Ot M27.2 INFLAMMATORY CONDITIONS OF JAWS 10/28/2017 TEE OCAMPO, LAURIE Black Ot M27.2 INFLAMMATORY CONDITIONS OF JAWS 10/28/2017 TEE OCAMPO, LAURIE Black Ot M27.2 INFLAMMATORY CONDITIONS OF JAWS 11/03/2017 LAURIE OLIVEIRA MD Ot M27.2 INFLAMMATORY CONDITIONS OF JAWS 11/09/2017 RENETTA OCAMPO, ALFONSO Sanchez Ot 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 11/09/2017 MOUNA OCAMPO, ROSA Domingo Ot 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 11/09/2017 MOUNA OCAMPO, ROSA Domingo Ot 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 11/09/2017 RENETTA OCAMPO, ALFONSO Sanchez Ot 401.9 HYPERTENSION NOS 11/09/2017 NOLEN SHANT GOMEZ D Ot 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 11/09/2017 NOLEN SHANT GOMEZ Ot V72.84 EXAM PRE-OPERATIVE NOS 11/09/2017 MARCOS PATEL GRADUATE RECRUITER Ot 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 11/09/2017 Ot 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 11/09/2017 PATELMARCOS Oshea S GRADUATE RECRUITER Ot 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 11/09/2017 PATELMARCOS Oshea S GRADUATE RECRUITER Ot 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 11/09/2017 MARCOS PATEL GRADUATE RECRUITER Ot 780.4 DIZZINESS AND GIDDINESS 11/09/2017 MARCOS PATEL S GRADUATE RECRUITER Ot 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 11/09/2017 PATELMARCOS Oshea S GRADUATE RECRUITER Ot 780.4 DIZZINESS AND GIDDINESS 11/09/2017 MARCOS PATEL S GRADUATE RECRUITER Ot 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 11/09/2017 AKMINI ELLIS N Ot 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 11/09/2017 MARCOS PATEL GRADUATE RECRUITER Ot 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 11/09/2017 MARCOS PATEL GRADUATE RECRUITER Ot 389.9 HEARING LOSS NOS 11/09/2017 MARCOS PATEL GRADUATE RECRUITER Ot V15.3 HX OF IRRADIATION 11/09/2017 MARCOS PATEL GRADUATE RECRUITER Ot V58.81 FIT/ADJ VASCULAR CATHETER 11/09/2017 MARCOS PATEL GRADUATE RECRUITER Ot V87.41 PERSONAL HISTORY OF ANTINEOPLASTIC CHEMO 11/09/2017 MARCOS PATEL GRADUATE RECRUITER Ot F32.9 MAJOR DEPRESSIVE DISORDER, SINGLE EPISOD 11/09/2017 MARCOS PATEL GRADUATE RECRUITER Ot F41.9 ANXIETY DISORDER, UNSPECIFIED 11/09/2017 MARCOS PATEL GRADUATE RECRUITER Ot 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 11/09/2017 MARCOS PATEL GRADUATE RECRUITER Ot Z08 ENCNTR FOR FOLLOW-UP EXAM AFTER TRTMT FO 11/09/2017 MARCOS PATEL GRADUATE RECRUITER Ot Z79.899 OTHER INSPECTOR GENERAL (CURRENT) DRUG THERAPY 11/09/2017 MARCOS PATEL S GRADUATE RECRUITER Ot 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, 11/09/2017 MARCOS PATEL S GRADUATE RECRUITER Ot Z92.21 PERSONAL HISTORY OF ANTINEOPLASTIC CHEMO 11/09/2017 MARCOS PATEL GRADUATE RECRUITER Ot 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 11/09/2017 GETACHEW YEAGER WAREHOUSE DIRECTOR Ot E78.5 HYPERLIPIDEMIA, UNSPECIFIED 11/09/2017 MARCOS PATEL GRADUATE RECRUITER Ot E89.0 POSTPROCEDURAL HYPOTHYROIDISM 11/09/2017 MARCOS PATEL S GRADUATE RECRUITER Ot Z08 ENCNTR FOR FOLLOW-UP EXAM AFTER TRTMT FO 11/09/2017 MARCOS PATEL GRADUATE RECRUITER Ot Z79.899 OTHER SENIOR CARE (CURRENT) DRUG THERAPY 11/09/2017 MARCOS PATEL S GRADUATE RECRUITER Ot 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, 11/09/2017 MARCOS PATEL S GRADUATE RECRUITER Ot Z92.21 PERSONAL HISTORY OF ANTINEOPLASTIC CHEMO 11/09/2017 MARCOS PATEL Ot Z92.3 PERSONAL HISTORY OF IRRADIATION 11/09/2017 MARCOS PATEL Ot 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 11/09/2017 ALESSANDRA OCAMPO, LIDIA Farley Ot I10 ESSENTIAL (PRIMARY) HYPERTENSION 11/09/2017 ALESSANDRA OCAMPO, LIDIA Farley Ot R00.2 PALPITATIONS 11/09/2017 ALESSANDRA OCAMPO, LIDIA Farley Ot R06.02 SHORTNESS OF BREATH 11/09/2017 ALESSANDRA OCAMPO, LIDIA Farley Ot R07.9 CHEST PAIN, UNSPECIFIED 11/09/2017 ALESSANDRA OCAMPO, LIDIA Farley Ot I10 ESSENTIAL (PRIMARY) HYPERTENSION 11/09/2017 ALESSANDRA OCAMPO, LIDIA Farley Ot R00.2 PALPITATIONS 11/09/2017 LIDIA APARICIO MD Ot R06.02 SHORTNESS OF BREATH 11/09/2017 LIDIA APARICIO MD Ot R07.9 CHEST PAIN, UNSPECIFIED 11/09/2017 ALFONSO JACKSON MD Ot 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 11/09/2017 ALFONSO JACKSON MD Ot Z98.89 OTHER SPECIFIED POSTPROCEDURAL STATES 11/09/2017 KM FRY DO Ot R06.00 DYSPNEA, UNSPECIFIED 11/09/2017 ALFONSO JACKSON MD Ot 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 11/09/2017 ALFONSO JACKSON MD Ot Z98.890 OTHER SPECIFIED POSTPROCEDURAL STATES 11/09/2017 KAMINI ELLIS Ot E89.0 POSTPROCEDURAL HYPOTHYROIDISM 11/09/2017 KAMINI ELLIS Ot Z08 ENCNTR FOR FOLLOW-UP EXAM AFTER TRTMT FO 11/09/2017 KAMINI ELLIS Ot Z79.899 OTHER SENIOR CARE (CURRENT) DRUG THERAPY 11/09/2017 KAMINI ELLIS Ot 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, 11/09/2017 KAMINI ELLIS Ot Z92.21 PERSONAL HISTORY OF ANTINEOPLASTIC CHEMO 11/09/2017 KAMINI ELLIS Ot Z92.3 PERSONAL HISTORY OF IRRADIATION 11/09/2017 SEMAJ SANTIAGO Ot R13.10 DYSPHAGIA, UNSPECIFIED 11/09/2017 LAURIE OLIVEIRA MD Ot R19.7 DIARRHEA, UNSPECIFIED 11/09/2017 LAURIE OLIVEIRA MD, Ot M27.2 INFLAMMATORY CONDITIONS OF JAWS 11/09/2017 JOSHUA COX Ot M27.2 INFLAMMATORY CONDITIONS OF JAWS 11/09/2017 JOSHUA COX Ot T84.7XXS INFECT/INFLM REACT DUE TO OTH INT ORTH P 11/10/2017 LAURIE OLIVEIRA MD, Ot M27.2 INFLAMMATORY CONDITIONS OF JAWS 11/17/2017 LAURIE OLIVEIRA MD, Ot M27.2 INFLAMMATORY CONDITIONS OF JAWS 11/19/2017 LAURIE OLIVEIRA MD, Ot M27.2 INFLAMMATORY CONDITIONS OF JAWS 12/07/2017 KAMINI ELLIS Ot E89.0 POSTPROCEDURAL HYPOTHYROIDISM 12/07/2017 KAMINI ELLIS Ot Z08 ENCNTR FOR FOLLOW-UP EXAM AFTER TRTMT FO 12/07/2017 KAMINI ELILS Ot Z79.899 OTHER SENIOR CARE (CURRENT) DRUG THERAPY 12/07/2017 KAMINI ELLIS Ot 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, 12/07/2017 KAMINI ELLIS Ot Z92.21 PERSONAL HISTORY OF ANTINEOPLASTIC CHEMO 12/07/2017 KAMINI ELLIS Ot Z92.3 PERSONAL HISTORY OF IRRADIATION 12/22/2017 LAURIE OLIVEIRA MD, Ot M27.2 INFLAMMATORY CONDITIONS OF JAWS 12/22/2017 LAURIE OLIVEIRA MD Ot M27.2 INFLAMMATORY CONDITIONS OF JAWS 12/29/2017 LAURIE OLIVEIRA MD, Ot M27.2 INFLAMMATORY CONDITIONS OF JAWS 01/05/2018 LAURIE OLIVEIRA MD, Ot M27.2 INFLAMMATORY CONDITIONS OF JAWS 01/05/2018 LAURIE OLIVEIRA MD, Ot Z45.2 ENCOUNTER FOR ADJUSTMENT AND MANAGEMENT 01/05/2018 ALFONSO JACKSON MD Ot 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 01/05/2018 ROSA FREIRE MD Ot 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 01/05/2018 ROSA FREIRE MD Ot 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 01/05/2018 ALFONSO JACKSON MD Ot 401.9 HYPERTENSION NOS 01/05/2018 SHANT NOLEN DO D Ot 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 01/05/2018 NOLEN DO, SHANT D Ot V72.84 EXAM PRE-OPERATIVE NOS 01/05/2018 MARCOS PATEL GRADUATE RECRUITER Ot 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 01/05/2018 Ot 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 01/05/2018 MARCOS PATEL GRADUATE RECRUITER Ot 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 01/05/2018 PATELMARCOS Oshea GRADUATE RECRUITER Ot 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 01/05/2018 MARCOS PATEL GRADUATE RECRUITER Ot 780.4 DIZZINESS AND GIDDINESS 01/05/2018 MARCOS PATEL GRADUATE RECRUITER Ot 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 01/05/2018 MARCOS PATEL GRADUATE RECRUITER Ot 780.4 DIZZINESS AND GIDDINESS 01/05/2018 MARCOS PATEL GRADUATE RECRUITER Ot 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 01/05/2018 KAMINI ELLIS Ot 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 01/05/2018 MARCOS PATEL GRADUATE RECRUITER Ot 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 01/05/2018 MARCOS PATEL GRADUATE RECRUITER Ot 389.9 HEARING LOSS NOS 01/05/2018 MARCOS PATEL GRADUATE RECRUITER Ot V15.3 HX OF IRRADIATION 01/05/2018 MARCOS PATEL GRADUATE RECRUITER Ot V58.81 FIT/ADJ VASCULAR CATHETER 01/05/2018 MARCOS PATEL GRADUATE RECRUITER Ot V87.41 PERSONAL HISTORY OF ANTINEOPLASTIC CHEMO 01/05/2018 MARCOS PATEL GRADUATE RECRUITER Ot F32.9 MAJOR DEPRESSIVE DISORDER, SINGLE EPISOD 01/05/2018 MARCOS PATEL GRADUATE RECRUITER Ot F41.9 ANXIETY DISORDER, UNSPECIFIED 01/05/2018 MARCOS PATEL GRADUATE RECRUITER Ot 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 01/05/2018 MARCOS PATEL GRADUATE RECRUITER Ot Z08 ENCNTR FOR FOLLOW-UP EXAM AFTER TRTMT FO 01/05/2018 MARCOS PATEL GRADUATE RECRUITER Ot Z79.899 OTHER SENIOR CARE (CURRENT) DRUG THERAPY 01/05/2018 MARCOS PATEL GRADUATE RECRUITER Ot 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, 01/05/2018 MARCOS PATEL GRADUATE RECRUITER Ot Z92.21 PERSONAL HISTORY OF ANTINEOPLASTIC CHEMO 01/05/2018 MARCOS PATEL GRADUATE RECRUITER Ot 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 01/05/2018 GETACHEW YEAGER WAREHOUSE DIRECTOR Ot E78.5 HYPERLIPIDEMIA, UNSPECIFIED 01/05/2018 MARCOS PATEL GRADUATE RECRUITER Ot E89.0 POSTPROCEDURAL HYPOTHYROIDISM 01/05/2018 PATELMARCOS Oshea GRADUATE RECRUITER Ot Z08 ENCNTR FOR FOLLOW-UP EXAM AFTER TRTMT FO 01/05/2018 MARCOS PATEL GRADUATE RECRUITER Ot Z79.899 OTHER SENIOR CARE (CURRENT) DRUG THERAPY 01/05/2018 MARCOS PATEL GRADUATE RECRUITER Ot 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, 01/05/2018 MARCOS PATEL GRADUATE RECRUITER Ot Z92.21 PERSONAL HISTORY OF ANTINEOPLASTIC CHEMO 01/05/2018 MARCOS PATEL GRADUATE RECRUITER Ot Z92.3 PERSONAL HISTORY OF IRRADIATION 01/05/2018 PATELMARCOS Oshea GRADUATE RECRUITER Ot 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 01/05/2018 LIDIA APARICIO MD Ot I10 ESSENTIAL (PRIMARY) HYPERTENSION 01/05/2018 LIDIA APARICIO MD Ot R00.2 PALPITATIONS 01/05/2018 LIDIA APARICIO MD Ot R06.02 SHORTNESS OF BREATH 01/05/2018 LIDIA APARICIO MD Ot R07.9 CHEST PAIN, UNSPECIFIED 01/05/2018 LIDIA APARICIO MD Ot I10 ESSENTIAL (PRIMARY) HYPERTENSION 01/05/2018 LIDIA APARICIO MD Ot R00.2 PALPITATIONS 01/05/2018 LIDIA APARICIO MD Ot R06.02 SHORTNESS OF BREATH 01/05/2018 LIDIA APARICIO MD Ot R07.9 CHEST PAIN, UNSPECIFIED 01/05/2018 ALFONSO JACKSON MD Ot 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 01/05/2018 ALFONSO JACKSON MD Ot Z98.89 OTHER SPECIFIED POSTPROCEDURAL STATES 01/05/2018 KM FRY DO Ot R06.00 DYSPNEA, UNSPECIFIED 01/05/2018 ALFONSO JACKSON MD Ot 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 01/05/2018 RENETTA OCAMPO, ALFONSO Sanchez Ot Z98.890 OTHER SPECIFIED POSTPROCEDURAL STATES 01/05/2018 SEMAJ SANTIAGO Ot R13.10 DYSPHAGIA, UNSPECIFIED 01/05/2018 TEE OCAMPO, LAURIE Black Ot R19.7 DIARRHEA, UNSPECIFIED 01/05/2018 LAURIE OLIVEIRA MD Ot M27.2 INFLAMMATORY CONDITIONS OF JAWS 01/05/2018 JOSHUA COX Ot M27.2 INFLAMMATORY CONDITIONS OF JAWS 01/05/2018 JOSHUA COX Ot T84.7XXS INFECT/INFLM REACT DUE TO OTH INT ORTH P 01/05/2018 KAMINI ELLIS Ot E89.0 POSTPROCEDURAL HYPOTHYROIDISM 01/05/2018 KAMINI ELLIS Ot Z08 ENCNTR FOR FOLLOW-UP EXAM AFTER TRTMT FO 01/05/2018 KAMINI ELLIS Ot Z79.899 OTHER SENIOR CARE (CURRENT) DRUG THERAPY 01/05/2018 KAMINI ELLIS Ot 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, 01/05/2018 KAMINI ELLIS Ot Z92.21 PERSONAL HISTORY OF ANTINEOPLASTIC CHEMO 01/05/2018 KAMINI ELLIS Ot Z92.3 PERSONAL HISTORY OF IRRADIATION 01/05/2018 LAURIE OLIVEIRA MD Ot M27.2 INFLAMMATORY CONDITIONS OF JAWS 01/05/2018 LAURIE OLIVEIRA MD, Ot M27.2 INFLAMMATORY CONDITIONS OF JAWS 01/06/2018 LAURIE OLIVEIRA MD, Ot M27.2 INFLAMMATORY CONDITIONS OF JAWS 01/06/2018 LAURIE OLIVEIRA MD Ot Z45.2 ENCOUNTER FOR ADJUSTMENT AND MANAGEMENT 01/06/2018 LAURIE OLIVEIRA MD, Ot M27.2 INFLAMMATORY CONDITIONS OF JAWS 01/06/2018 LAURIE OLIVEIRA MD Ot Z45.2 ENCOUNTER FOR ADJUSTMENT AND MANAGEMENT 01/12/2018 LAURIE OLIVEIRA MD, Ot M27.2 INFLAMMATORY CONDITIONS OF JAWS 01/19/2018 LAURIE OLIVEIRA MD, Ot M27.2 INFLAMMATORY CONDITIONS OF JAWS 01/26/2018 LAURIE OLIVEIRA MD, Ot M27.2 INFLAMMATORY CONDITIONS OF JAWS 01/27/2018 [place] OLIVEIRA MDHEN C Ot M27.2 INFLAMMATORY CONDITIONS OF JAWS 01/31/2018 CALEBKAMINI N Ot E89.0 POSTPROCEDURAL HYPOTHYROIDISM 01/31/2018 CALEBKAMINI N Ot Z08 ENCNTR FOR FOLLOW-UP EXAM AFTER TRTMT FO 01/31/2018 CALEBKAMINI N Ot Z79.899 OTHER SENIOR CARE (CURRENT) DRUG THERAPY 01/31/2018 CALEBKAMINI N Ot 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, 01/31/2018 CALEBKAMINI N Ot Z92.21 PERSONAL HISTORY OF ANTINEOPLASTIC CHEMO 01/31/2018 CALEBKAMINI N Ot Z92.3 PERSONAL HISTORY OF IRRADIATION 02/02/2018 CALEBKAMINI RASHID N Ot E89.0 POSTPROCEDURAL HYPOTHYROIDISM 02/02/2018 CALEBKAMINI N Ot Z08 ENCNTR FOR FOLLOW-UP EXAM AFTER TRTMT FO 02/02/2018 KAMINI ELLIS N Ot Z79.899 OTHER INSPECTOR GENERAL (CURRENT) DRUG THERAPY 02/02/2018 CALEBKAMINI N Ot 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, 02/02/2018 CALEBKAMINI N Ot Z92.21 PERSONAL HISTORY OF ANTINEOPLASTIC CHEMO 02/02/2018 CALEBKAMINI N Ot Z92.3 PERSONAL HISTORY OF IRRADIATION 02/02/2018 CALEBKAMINI RASHID N Ot E89.0 POSTPROCEDURAL HYPOTHYROIDISM 02/02/2018 KAMINI ELLIS N Ot Z08 ENCNTR FOR FOLLOW-UP EXAM AFTER TRTMT FO 02/02/2018 KAMINI ELLIS N Ot Z79.899 OTHER SENIOR CARE (CURRENT) DRUG THERAPY 02/02/2018 CALEBKAMINI N Ot 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, 02/02/2018 CALEBKAMINI N Ot Z92.21 PERSONAL HISTORY OF ANTINEOPLASTIC CHEMO 02/02/2018 CALEB BOBAN N Ot Z92.3 PERSONAL HISTORY OF IRRADIATION 02/02/2018 CALEBKAMINI N Ot E89.0 POSTPROCEDURAL HYPOTHYROIDISM 02/02/2018 CALEBKAMINI N Ot Z08 ENCNTR FOR FOLLOW-UP EXAM AFTER TRTMT FO 02/02/2018 CALEBKAMINI RASHID N Ot Z79.899 OTHER INSPECTOR GENERAL (CURRENT) DRUG THERAPY 02/02/2018 CALEB, GAAN N Ot 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, 02/02/2018 CALEB, GAAN N Ot Z92.21 PERSONAL HISTORY OF ANTINEOPLASTIC CHEMO 02/02/2018 CALEBGAAN N Ot Z92.3 PERSONAL HISTORY OF IRRADIATION 02/02/2018 CALEBGAAN N Ot E89.0 POSTPROCEDURAL HYPOTHYROIDISM 02/02/2018 CALEBGAAN N Ot Z08 ENCNTR FOR FOLLOW-UP EXAM AFTER TRTMT FO 02/02/2018 CALEBGAAN N Ot Z79.899 OTHER INSPECTOR GENERAL (CURRENT) DRUG THERAPY 02/02/2018 CALEB BOBAN N Ot 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, 02/02/2018 CALEBKAMINI N Ot Z92.21 PERSONAL HISTORY OF ANTINEOPLASTIC CHEMO 02/02/2018 CALEBKAMINI N Ot Z92.3 PERSONAL HISTORY OF IRRADIATION 02/03/2018 CALEB BOBAN N Ot E89.0 POSTPROCEDURAL HYPOTHYROIDISM 02/03/2018 CALEB BOBAN N Ot Z08 ENCNTR FOR FOLLOW-UP EXAM AFTER TRTMT FO 02/03/2018 GA ELLISAN N Ot Z79.899 OTHER SENIOR CARE (CURRENT) DRUG THERAPY 02/03/2018 CALEBGAAN N Ot 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, 02/03/2018 CALEB BOBNEWTON N Ot Z92.21 PERSONAL HISTORY OF ANTINEOPLASTIC CHEMO 02/03/2018 CALEB BOBAN N Ot Z92.3 PERSONAL HISTORY OF IRRADIATION 02/09/2018 CALEB, BOBAN N Ot E89.0 POSTPROCEDURAL HYPOTHYROIDISM 02/09/2018 CALEB BOBAN N Ot Z08 ENCNTR FOR FOLLOW-UP EXAM AFTER TRTMT FO 02/09/2018 CALEB BOBAN N Ot Z79.899 OTHER INSPECTOR GENERAL (CURRENT) DRUG THERAPY 02/09/2018 CALEBGAAN N Ot 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, 02/09/2018 CALEBKAMINI RASHID N Ot Z92.21 PERSONAL HISTORY OF ANTINEOPLASTIC CHEMO 02/09/2018 CALEB, GAAN N Ot Z92.3 PERSONAL HISTORY OF IRRADIATION 02/16/2018 CALEB KAMINI N Ot E89.0 POSTPROCEDURAL HYPOTHYROIDISM 02/16/2018 CALEB, GAAN N Ot Z08 ENCNTR FOR FOLLOW-UP EXAM AFTER TRTMT FO 02/16/2018 CALEB KAMINI N Ot Z79.899 OTHER INSPECTOR GENERAL (CURRENT) DRUG THERAPY 02/16/2018 CALEB, GAAN N Ot 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, 02/16/2018 CALEB, GAAN N Ot Z92.21 PERSONAL HISTORY OF ANTINEOPLASTIC CHEMO 02/16/2018 CALEB, KAMINI N Ot Z92.3 PERSONAL HISTORY OF IRRADIATION 02/18/2018 TEE OCAMPO, LAURIE Black Ot M27.2 INFLAMMATORY CONDITIONS OF JAWS 02/18/2018 TEE OCAMPO, LAURIE Black Ot Z45.2 ENCOUNTER FOR ADJUSTMENT AND MANAGEMENT 02/19/2018 LAURIE OLIVEIRA MD Ot M27.2 INFLAMMATORY CONDITIONS OF JAWS 02/19/2018 TEE OCAMPO, LAURIE Black Ot Z45.2 ENCOUNTER FOR ADJUSTMENT AND MANAGEMENT 02/23/2018 CALEB, KAMINI N Ot E89.0 POSTPROCEDURAL HYPOTHYROIDISM 02/23/2018 CALEB BOBAN N Ot Z08 ENCNTR FOR FOLLOW-UP EXAM AFTER TRTMT FO 02/23/2018 CALEBKAMINI N Ot Z79.899 OTHER INSPECTOR GENERAL (CURRENT) DRUG THERAPY 02/23/2018 CALEB, KAMINI N Ot 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, 02/23/2018 CALEB, GAAN N Ot Z92.21 PERSONAL HISTORY OF ANTINEOPLASTIC CHEMO 02/23/2018 CALEB GAAN N Ot Z92.3 PERSONAL HISTORY OF IRRADIATION 03/02/2018 CALEB, KAMINI N Ot E89.0 POSTPROCEDURAL HYPOTHYROIDISM 03/02/2018 CALEB BOBAN N Ot Z08 ENCNTR FOR FOLLOW-UP EXAM AFTER TRTMT FO 03/02/2018 CALEB, KAMINI N Ot Z79.899 OTHER SENIOR CARE (CURRENT) DRUG THERAPY 03/02/2018 CALEB BOBAN N Ot 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, 03/02/2018 CALEBGA RASHIDAN N Ot Z92.21 PERSONAL HISTORY OF ANTINEOPLASTIC CHEMO 03/02/2018 CALEB, BOBAN N Ot Z92.3 PERSONAL HISTORY OF IRRADIATION 03/08/2018 CARMEN OCAMPO, PETERSON Taylor Ot C02.9 MALIGNANT NEOPLASM OF TONGUE, UNSPECIFIE 03/08/2018 PETERSON MORALES MD Ot C02.9 MALIGNANT NEOPLASM OF TONGUE, UNSPECIFIE 03/09/2018 CALEB, GAAN N Ot E89.0 POSTPROCEDURAL HYPOTHYROIDISM 03/09/2018 CALEB, BOBAN N Ot Z08 ENCNTR FOR FOLLOW-UP EXAM AFTER TRTMT FO 03/09/2018 GA ELLISAN N Ot Z79.899 OTHER SENIOR CARE (CURRENT) DRUG THERAPY 03/09/2018 CALEB GAAN N Ot 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, 03/09/2018 CALEB BOBAN N Ot Z92.21 PERSONAL HISTORY OF ANTINEOPLASTIC CHEMO 03/09/2018 CALEB BOBAN N Ot Z92.3 PERSONAL HISTORY OF IRRADIATION 03/10/2018 TEE OCAMPO, LAURIE Black Ot M27.2 INFLAMMATORY CONDITIONS OF JAWS 03/10/2018 CALEB BOBAN N Ot E89.0 POSTPROCEDURAL HYPOTHYROIDISM 03/10/2018 CALEB, BOBAN N Ot Z08 ENCNTR FOR FOLLOW-UP EXAM AFTER TRTMT FO 03/10/2018 CALEB KAMINI N Ot Z79.899 OTHER SENIOR CARE (CURRENT) DRUG THERAPY 03/10/2018 CALEBGAAN N Ot 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, 03/10/2018 CALEB BOBAN N Ot Z92.21 PERSONAL HISTORY OF ANTINEOPLASTIC CHEMO 03/10/2018 CALEB, BOBAN N Ot Z92.3 PERSONAL HISTORY OF IRRADIATION 03/12/2018 TEE OCAMPO, LAURIE Black Ot M27.2 INFLAMMATORY CONDITIONS OF JAWS 03/16/2018 CALEB BOBAN N Ot E89.0 POSTPROCEDURAL HYPOTHYROIDISM 03/16/2018 CALEB, BOBAN N Ot Z08 ENCNTR FOR FOLLOW-UP EXAM AFTER TRTMT FO 03/16/2018 CALEBKAMINI RASHID N Ot Z79.899 OTHER INSPECTOR GENERAL (CURRENT) DRUG THERAPY 03/16/2018 CALEBAG RASHIDAN N Ot 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, 03/16/2018 CALEBGA RASHIDAN N Ot Z92.21 PERSONAL HISTORY OF ANTINEOPLASTIC CHEMO 03/16/2018 CALEB, GAAN N Ot Z92.3 PERSONAL HISTORY OF IRRADIATION 05/03/2018 CALEB, GANEWTON N Ot E89.0 POSTPROCEDURAL HYPOTHYROIDISM 05/03/2018 ACLEB BOBAN N Ot Z08 ENCNTR FOR FOLLOW-UP EXAM AFTER TRTMT FO 05/03/2018 CALEB, GAAN N Ot Z79.899 OTHER INSPECTOR GENERAL (CURRENT) DRUG THERAPY 05/03/2018 CALEB GAAN N Ot 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, 05/03/2018 CALEB, BOBAN N Ot Z92.21 PERSONAL HISTORY OF ANTINEOPLASTIC CHEMO 05/03/2018 CALEB, GAAN N Ot Z92.3 PERSONAL HISTORY OF IRRADIATION 05/06/2018 CALEB BOBAN N Ot E89.0 POSTPROCEDURAL HYPOTHYROIDISM 05/06/2018 CALEB BOBAN N Ot Z08 ENCNTR FOR FOLLOW-UP EXAM AFTER TRTMT FO 05/06/2018 CALEB, KAMINI N Ot Z79.899 OTHER INSPECTOR GENERAL (CURRENT) DRUG THERAPY 05/06/2018 CALEB BOBAN N Ot 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, 05/06/2018 CALEB BOBAN N Ot Z92.21 PERSONAL HISTORY OF ANTINEOPLASTIC CHEMO 05/06/2018 CALEB BOBAN N Ot Z92.3 PERSONAL HISTORY OF IRRADIATION 05/06/2018 CALEB BOBAN N Ot E89.0 POSTPROCEDURAL HYPOTHYROIDISM 05/06/2018 CALEB BOBAN N Ot Z08 ENCNTR FOR FOLLOW-UP EXAM AFTER TRTMT FO 05/06/2018 CALEB BOBAN N Ot Z79.899 OTHER SENIOR CARE (CURRENT) DRUG THERAPY 05/06/2018 CALEB, BOBAN N Ot 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 Results Test Result Range Methicillin resistant Staphylococcus aureus (MRSA) screening culture - 06:30 Methicillin resistant Staphylococcus aureus (MRSA) screening culture NEG NRG Complete blood count (CBC) with automated white blood cell (WBC) differential - 07/20/17 11:25 Blood leukocytes automated count (number/volume) 6.4 10*3/uL 4.3-11.0 Blood erythrocytes automated count (number/volume) 4.43 10*6/uL 4.35-5.85 Venous blood hemoglobin measurement (mass/volume) 12.1 g/dL 13.3-17.7 Blood hematocrit (volume fraction) 37 % 40-54 Automated erythrocyte mean corpuscular volume 83 [foz_us] 80-99 Automated erythrocyte mean corpuscular hemoglobin (mass per erythrocyte) 27 pg 25-34 Automated erythrocyte mean corpuscular hemoglobin concentration measurement ( mass/volume) 33 g/dL 32-36 Automated erythrocyte distribution width ratio 14.0 % 10.0-14.5 Automated blood platelet count (count/volume) 344 10*3/uL 130-400 Automated blood platelet mean volume measurement 11.4 [foz_us] 7.4-10.4 Automated blood neutrophils/100 leukocytes 67 % 42-75 Automated blood lymphocytes/100 leukocytes 16 % 12-44 Blood monocytes/100 leukocytes 10 % 0-12 Automated blood eosinophils/100 leukocytes 7 % 0-10 Automated blood basophils/100 leukocytes 1 % 0-10 Blood neutrophils automated count (number/volume) 4.3 10*3 1.8-7.8 Blood lymphocytes automated count (number/volume) 1.0 10*3 1.0-4.0 Blood monocytes automated count (number/volume) 0.6 10*3 0.0-1.0 Automated eosinophil count 0.4 10*3/uL 0.0-0.3 Automated blood basophil count (count/volume) 0.1 10*3/uL 0.0-0.1 Comprehensive metabolic panel - 07/20/17 11:25 Serum or plasma sodium measurement (moles/volume) 141 mmol/L 135-145 Serum or plasma potassium measurement (moles/volume) 4.4 mmol/L 3.6-5.0 Serum or plasma chloride measurement (moles/volume) 108 mmol/L 98-107 Carbon dioxide 26 mmol/L 21-32 Serum or plasma anion gap determination (moles/volume) 7 mmol/L 5-14 Serum or plasma urea nitrogen measurement (mass/volume) 16 mg/dL 7-18 Serum or plasma creatinine measurement (mass/volume) 0.86 mg/dL 0.60-1.30 Serum or plasma urea nitrogen/creatinine mass ratio 19 NRG Serum or plasma creatinine measurement with calculation of estimated glomerular filtration rate > NRG Serum or plasma glucose measurement (mass/volume) 86 mg/dL 70-105 Serum or plasma calcium measurement (mass/volume) 9.5 mg/dL 8.5-10.1 Serum or plasma total bilirubin measurement (mass/volume) 0.3 mg/dL 0.1-1.0 Serum or plasma alkaline phosphatase measurement (enzymatic activity/volume) 143 U/L 40-136 Serum or plasma aspartate aminotransferase measurement (enzymatic activity/ volume) 19 U/L 5-34 Serum or plasma alanine aminotransferase measurement (enzymatic activity/volume ) 23 U/L 0-55 Serum or plasma protein measurement (mass/volume) 7.8 g/dL 6.4-8.2 Serum or plasma albumin measurement (mass/volume) 4.0 g/dL 3.2-4.5 Serum or plasma C reactive protein measurement (mass/volume) - 07/20/17 11:25 Serum or plasma C reactive protein measurement (mass/volume) 2.33 mg /dL 0.00-0.50 Erythrocyte sedimentation rate by westergren method - 07/20/17 11:25 Erythrocyte sedimentation rate by westergren method 56 mm 0-15 Serum ragweed IgE antibody assay - 07/21/17 08:45 Serum ragweed IgE antibody assay Positive NRG Complete blood count (CBC) with automated white blood cell (WBC) differential - 07/27/17 13:00 Blood leukocytes automated count (number/volume) 6.1 10*3/uL 4.3-11.0 Blood erythrocytes automated count (number/volume) 4.31 10*6/uL 4.35-5.85 Venous blood hemoglobin measurement (mass/volume) 11.6 g/dL 13.3-17.7 Blood hematocrit (volume fraction) 36 % 40-54 Automated erythrocyte mean corpuscular volume 84 [foz_us] 80-99 Automated erythrocyte mean corpuscular hemoglobin (mass per erythrocyte) 27 pg 25-34 Automated erythrocyte mean corpuscular hemoglobin concentration measurement ( mass/volume) 32 g/dL 32-36 Automated erythrocyte distribution width ratio 13.9 % 10.0-14.5 Automated blood platelet count (count/volume) 307 10*3/uL 130-400 Automated blood platelet mean volume measurement 11.8 [foz_us] 7.4-10.4 Automated blood neutrophils/100 leukocytes 63 % 42-75 Automated blood lymphocytes/100 leukocytes 22 % 12-44 Blood monocytes/100 leukocytes 9 % 0-12 Automated blood eosinophils/100 leukocytes 5 % 0-10 Automated blood basophils/100 leukocytes 1 % 0-10 Blood neutrophils automated count (number/volume) 3.9 10*3 1.8-7.8 Blood lymphocytes automated count (number/volume) 1.4 10*3 1.0-4.0 Blood monocytes automated count (number/volume) 0.5 10*3 0.0-1.0 Automated eosinophil count 0.3 10*3/uL 0.0-0.3 Automated blood basophil count (count/volume) 0.1 10*3/uL 0.0-0.1 Erythrocyte sedimentation rate by westergren method - 07/27/17 13:00 Erythrocyte sedimentation rate by westergren method 75 mm 0-15 Comprehensive metabolic panel - 07/27/17 13:00 Serum or plasma sodium measurement (moles/volume) 138 mmol/L 135-145 Serum or plasma potassium measurement (moles/volume) 4.1 mmol/L 3.6-5.0 Serum or plasma chloride measurement (moles/volume) 104 mmol/L 98-107 Carbon dioxide 29 mmol/L 21-32 Serum or plasma anion gap determination (moles/volume) 5 mmol/L 5-14 Serum or plasma urea nitrogen measurement (mass/volume) 12 mg/dL 7-18 Serum or plasma creatinine measurement (mass/volume) 0.83 mg/dL 0.60-1.30 Serum or plasma urea nitrogen/creatinine mass ratio 14 NRG Serum or plasma creatinine measurement with calculation of estimated glomerular filtration rate > NRG Serum or plasma glucose measurement (mass/volume) 96 mg/dL 70-105 Serum or plasma calcium measurement (mass/volume) 9.3 mg/dL 8.5-10.1 Serum or plasma total bilirubin measurement (mass/volume) 0.5 mg/dL 0.1-1.0 Serum or plasma alkaline phosphatase measurement (enzymatic activity/volume) 130 U/L 40-136 Serum or plasma aspartate aminotransferase measurement (enzymatic activity/ volume) 23 U/L 5-34 Serum or plasma alanine aminotransferase measurement (enzymatic activity/volume ) 21 U/L 0-55 Serum or plasma protein measurement (mass/volume) 7.1 g/dL 6.4-8.2 Serum or plasma albumin measurement (mass/volume) 3.9 g/dL 3.2-4.5 Serum or plasma C reactive protein measurement (mass/volume) - 07/27/17 13:00 Serum or plasma C reactive protein measurement (mass/volume) 2.29 mg /dL 0.00-0.50 Complete blood count (CBC) with automated white blood cell (WBC) differential - 10/07/17 15:05 Blood leukocytes automated count (number/volume) 6.8 10*3/uL 4.3-11.0 Blood erythrocytes automated count (number/volume) 4.06 10*6/uL 4.35-5.85 Venous blood hemoglobin measurement (mass/volume) 11.3 g/dL 13.3-17.7 Blood hematocrit (volume fraction) 35 % 40-54 Automated erythrocyte mean corpuscular volume 86 [foz_us] 80-99 Automated erythrocyte mean corpuscular hemoglobin (mass per erythrocyte) 28 pg 25-34 Automated erythrocyte mean corpuscular hemoglobin concentration measurement ( mass/volume) 32 g/dL 32-36 Automated erythrocyte distribution width ratio 14.3 % 10.0-14.5 Automated blood platelet count (count/volume) 282 10*3/uL 130-400 Automated blood platelet mean volume measurement 11.0 [foz_us] 7.4-10.4 Automated blood neutrophils/100 leukocytes 68 % 42-75 Automated blood lymphocytes/100 leukocytes 17 % 12-44 Blood monocytes/100 leukocytes 8 % 0-12 Automated blood eosinophils/100 leukocytes 6 % 0-10 Automated blood basophils/100 leukocytes 1 % 0-10 Blood neutrophils automated count (number/volume) 4.6 10*3 1.8-7.8 Blood lymphocytes automated count (number/volume) 1.1 10*3 1.0-4.0 Blood monocytes automated count (number/volume) 0.6 10*3 0.0-1.0 Automated eosinophil count 0.4 10*3/uL 0.0-0.3 Automated blood basophil count (count/volume) 0.1 10*3/uL 0.0-0.1 Comprehensive metabolic panel - 10/07/17 15:05 Serum or plasma sodium measurement (moles/volume) 139 mmol/L 135-145 Serum or plasma potassium measurement (moles/volume) 4.3 mmol/L 3.6-5.0 Serum or plasma chloride measurement (moles/volume) 104 mmol/L 98-107 Carbon dioxide 27 mmol/L 21-32 Serum or plasma anion gap determination (moles/volume) 8 mmol/L 5-14 Serum or plasma urea nitrogen measurement (mass/volume) 13 mg/dL 7-18 Serum or plasma creatinine measurement (mass/volume) 0.80 mg/dL 0.60-1.30 Serum or plasma urea nitrogen/creatinine mass ratio 16 NRG Serum or plasma creatinine measurement with calculation of estimated glomerular filtration rate > NRG Serum or plasma glucose measurement (mass/volume) 108 mg/dL 70-105 Serum or plasma calcium measurement (mass/volume) 9.8 mg/dL 8.5-10.1 Serum or plasma total bilirubin measurement (mass/volume) 0.4 mg/dL 0.1-1.0 Serum or plasma alkaline phosphatase measurement (enzymatic activity/volume) 120 U/L 40-136 Serum or plasma aspartate aminotransferase measurement (enzymatic activity/ volume) 21 U/L 5-34 Serum or plasma alanine aminotransferase measurement (enzymatic activity/volume ) 17 U/L 0-55 Serum or plasma protein measurement (mass/volume) 7.7 g/dL 6.4-8.2 Serum or plasma albumin measurement (mass/volume) 3.9 g/dL 3.2-4.5 Serum or plasma C reactive protein measurement (mass/volume) - 10/07/17 15:05 Serum or plasma C reactive protein measurement (mass/volume) 8.35 mg /dL 0.00-0.50 Erythrocyte sedimentation rate by westergren method - 10/07/17 15:05 Erythrocyte sedimentation rate by westergren method > mm 0-15 Complete blood count (CBC) with automated white blood cell (WBC) differential - 10/14/17 10:40 Blood leukocytes automated count (number/volume) 5.0 10*3/uL 4.3-11.0 Blood erythrocytes automated count (number/volume) 4.21 10*6/uL 4.35-5.85 Venous blood hemoglobin measurement (mass/volume) 11.4 g/dL 13.3-17.7 Blood hematocrit (volume fraction) 36 % 40-54 Automated erythrocyte mean corpuscular volume 85 [foz_us] 80-99 Automated erythrocyte mean corpuscular hemoglobin (mass per erythrocyte) 27 pg 25-34 Automated erythrocyte mean corpuscular hemoglobin concentration measurement ( mass/volume) 32 g/dL 32-36 Automated erythrocyte distribution width ratio 13.7 % 10.0-14.5 Automated blood platelet count (count/volume) 316 10*3/uL 130-400 Automated blood platelet mean volume measurement 9.8 [foz_us] 7.4-10.4 Automated blood neutrophils/100 leukocytes 52 % 42-75 Automated blood lymphocytes/100 leukocytes 26 % 12-44 Blood monocytes/100 leukocytes 10 % 0-12 Automated blood eosinophils/100 leukocytes 10 % 0-10 Automated blood basophils/100 leukocytes 2 % 0-10 Blood neutrophils automated count (number/volume) 2.6 10*3 1.8-7.8 Blood lymphocytes automated count (number/volume) 1.3 10*3 1.0-4.0 Blood monocytes automated count (number/volume) 0.5 10*3 0.0-1.0 Automated eosinophil count 0.5 10*3/uL 0.0-0.3 Automated blood basophil count (count/volume) 0.1 10*3/uL 0.0-0.1 Comprehensive metabolic panel - 10/14/17 10:40 Serum or plasma sodium measurement (moles/volume) 141 mmol/L 135-145 Serum or plasma potassium measurement (moles/volume) 4.4 mmol/L 3.6-5.0 Serum or plasma chloride measurement (moles/volume) 104 mmol/L 98-107 Carbon dioxide 27 mmol/L 21-32 Serum or plasma anion gap determination (moles/volume) 10 mmol/L 5-14 Serum or plasma urea nitrogen measurement (mass/volume) 11 mg/dL 7-18 Serum or plasma creatinine measurement (mass/volume) 0.81 mg/dL 0.60-1.30 Serum or plasma urea nitrogen/creatinine mass ratio 14 NRG Serum or plasma creatinine measurement with calculation of estimated glomerular filtration rate > NRG Serum or plasma glucose measurement (mass/volume) 100 mg/dL 70-105 Serum or plasma calcium measurement (mass/volume) 9.5 mg/dL 8.5-10.1 Serum or plasma total bilirubin measurement (mass/volume) 0.3 mg/dL 0.1-1.0 Serum or plasma alkaline phosphatase measurement (enzymatic activity/volume) 126 U/L 40-136 Serum or plasma aspartate aminotransferase measurement (enzymatic activity/ volume) 22 U/L 5-34 Serum or plasma alanine aminotransferase measurement (enzymatic activity/volume ) 15 U/L 0-55 Serum or plasma protein measurement (mass/volume) 7.5 g/dL 6.4-8.2 Serum or plasma albumin measurement (mass/volume) 3.9 g/dL 3.2-4.5 Serum or plasma C reactive protein measurement (mass/volume) - 10/14/17 10:40 Serum or plasma C reactive protein measurement (mass/volume) 2.99 mg /dL 0.00-0.50 Erythrocyte sedimentation rate by westergren method - 10/14/17 10:40 Erythrocyte sedimentation rate by westergren method 86 mm 0-15 Automated blood complete blood count (hemogram) panel - 10/21/17 13:35 Blood leukocytes automated count (number/volume) 5.3 10*3/uL 4.3-11.0 Blood erythrocytes automated count (number/volume) 4.08 10*6/uL 4.35-5.85 Venous blood hemoglobin measurement (mass/volume) 11.4 g/dL 13.3-17.7 Blood hematocrit (volume fraction) 35 % 40-54 Automated erythrocyte mean corpuscular volume 86 [foz_us] 80-99 Automated erythrocyte mean corpuscular hemoglobin (mass per erythrocyte) 28 pg 25-34 Automated erythrocyte mean corpuscular hemoglobin concentration measurement ( mass/volume) 33 g/dL 32-36 Automated erythrocyte distribution width ratio 13.7 % 10.0-14.5 Automated blood platelet count (count/volume) 326 10*3/uL 130-400 Automated blood platelet mean volume measurement 11.0 [foz_us] 7.4-10.4 Comprehensive metabolic panel - 10/21/17 13:35 Serum or plasma sodium measurement (moles/volume) 143 mmol/L 135-145 Serum or plasma potassium measurement (moles/volume) 3.8 mmol/L 3.6-5.0 Serum or plasma chloride measurement (moles/volume) 106 mmol/L 98-107 Carbon dioxide 25 mmol/L 21-32 Serum or plasma anion gap determination (moles/volume) 12 mmol/L 5-14 Serum or plasma urea nitrogen measurement (mass/volume) 10 mg/dL 7-18 Serum or plasma creatinine measurement (mass/volume) 0.86 mg/dL 0.60-1.30 Serum or plasma urea nitrogen/creatinine mass ratio 12 NRG Serum or plasma creatinine measurement with calculation of estimated glomerular filtration rate > NRG Serum or plasma glucose measurement (mass/volume) 108 mg/dL 70-105 Serum or plasma calcium measurement (mass/volume) 9.5 mg/dL 8.5-10.1 Serum or plasma total bilirubin measurement (mass/volume) 0.4 mg/dL 0.1-1.0 Serum or plasma alkaline phosphatase measurement (enzymatic activity/volume) 142 U/L 40-136 Serum or plasma aspartate aminotransferase measurement (enzymatic activity/ volume) 28 U/L 5-34 Serum or plasma alanine aminotransferase measurement (enzymatic activity/volume ) 27 U/L 0-55 Serum or plasma protein measurement (mass/volume) 7.7 g/dL 6.4-8.2 Serum or plasma albumin measurement (mass/volume) 4.0 g/dL 3.2-4.5 Serum or plasma C reactive protein measurement (mass/volume) - 10/21/17 13:35 Serum or plasma C reactive protein measurement (mass/volume) 2.98 mg /dL 0.00-0.50 Erythrocyte sedimentation rate by westergren method - 10/21/17 13:35 Erythrocyte sedimentation rate by westergren method 79 mm 0-15 Complete blood count (CBC) with automated white blood cell (WBC) differential - 10/28/17 13:10 Blood leukocytes automated count (number/volume) 10.5 10*3/uL 4.3-11.0 Blood erythrocytes automated count (number/volume) 4.09 10*6/uL 4.35-5.85 Venous blood hemoglobin measurement (mass/volume) 11.1 g/dL 13.3-17.7 Blood hematocrit (volume fraction) 35 % 40-54 Automated erythrocyte mean corpuscular volume 85 [foz_us] 80-99 Automated erythrocyte mean corpuscular hemoglobin (mass per erythrocyte) 27 pg 25-34 Automated erythrocyte mean corpuscular hemoglobin concentration measurement ( mass/volume) 32 g/dL 32-36 Automated erythrocyte distribution width ratio 13.9 % 10.0-14.5 Automated blood platelet count (count/volume) 260 10*3/uL 130-400 Automated blood platelet mean volume measurement 11.1 [foz_us] 7.4-10.4 Automated blood neutrophils/100 leukocytes 78 % 42-75 Automated blood lymphocytes/100 leukocytes 11 % 12-44 Blood monocytes/100 leukocytes 6 % 0-12 Automated blood eosinophils/100 leukocytes 4 % 0-10 Automated blood basophils/100 leukocytes 1 % 0-10 Blood neutrophils automated count (number/volume) 8.2 10*3 1.8-7.8 Blood lymphocytes automated count (number/volume) 1.2 10*3 1.0-4.0 Blood monocytes automated count (number/volume) 0.7 10*3 0.0-1.0 Automated eosinophil count 0.5 10*3/uL 0.0-0.3 Automated blood basophil count (count/volume) 0.1 10*3/uL 0.0-0.1 Erythrocyte sedimentation rate by westergren method - 10/28/17 13:10 Erythrocyte sedimentation rate by westergren method 76 mm 0-15 Comprehensive metabolic panel - 10/28/17 13:10 Serum or plasma sodium measurement (moles/volume) 140 mmol/L 135-145 Serum or plasma potassium measurement (moles/volume) 4.0 mmol/L 3.6-5.0 Serum or plasma chloride measurement (moles/volume) 104 mmol/L 98-107 Carbon dioxide 27 mmol/L 21-32 Serum or plasma anion gap determination (moles/volume) 9 mmol/L 5-14 Serum or plasma urea nitrogen measurement (mass/volume) 10 mg/dL 7-18 Serum or plasma creatinine measurement (mass/volume) 0.71 mg/dL 0.60-1.30 Serum or plasma urea nitrogen/creatinine mass ratio 14 NRG Serum or plasma creatinine measurement with calculation of estimated glomerular filtration rate > NRG Serum or plasma glucose measurement (mass/volume) 105 mg/dL 70-105 Serum or plasma calcium measurement (mass/volume) 9.0 mg/dL 8.5-10.1 Serum or plasma total bilirubin measurement (mass/volume) 0.4 mg/dL 0.1-1.0 Serum or plasma alkaline phosphatase measurement (enzymatic activity/volume) 145 U/L 40-136 Serum or plasma aspartate aminotransferase measurement (enzymatic activity/ volume) 28 U/L 5-34 Serum or plasma alanine aminotransferase measurement (enzymatic activity/volume ) 23 U/L 0-55 Serum or plasma protein measurement (mass/volume) 7.2 g/dL 6.4-8.2 Serum or plasma albumin measurement (mass/volume) 3.7 g/dL 3.2-4.5 Serum or plasma C reactive protein measurement (mass/volume) - 10/28/17 13:10 Serum or plasma C reactive protein measurement (mass/volume) 3.38 mg /dL 0.00-0.50 Complete blood count (CBC) with automated white blood cell (WBC) differential - 11/03/17 13:20 Blood leukocytes automated count (number/volume) 5.0 10*3/uL 4.3-11.0 Blood erythrocytes automated count (number/volume) 4.12 10*6/uL 4.35-5.85 Venous blood hemoglobin measurement (mass/volume) 11.3 g/dL 13.3-17.7 Blood hematocrit (volume fraction) 35 % 40-54 Automated erythrocyte mean corpuscular volume 85 [foz_us] 80-99 Automated erythrocyte mean corpuscular hemoglobin (mass per erythrocyte) 27 pg 25-34 Automated erythrocyte mean corpuscular hemoglobin concentration measurement ( mass/volume) 32 g/dL 32-36 Automated erythrocyte distribution width ratio 14.0 % 10.0-14.5 Automated blood platelet count (count/volume) 268 10*3/uL 130-400 Automated blood platelet mean volume measurement 10.9 [foz_us] 7.4-10.4 Automated blood neutrophils/100 leukocytes 59 % 42-75 Automated blood lymphocytes/100 leukocytes 23 % 12-44 Blood monocytes/100 leukocytes 9 % 0-12 Automated blood eosinophils/100 leukocytes 8 % 0-10 Automated blood basophils/100 leukocytes 1 % 0-10 Blood neutrophils automated count (number/volume) 3.0 10*3 1.8-7.8 Blood lymphocytes automated count (number/volume) 1.2 10*3 1.0-4.0 Blood monocytes automated count (number/volume) 0.4 10*3 0.0-1.0 Automated eosinophil count 0.4 10*3/uL 0.0-0.3 Automated blood basophil count (count/volume) 0.1 10*3/uL 0.0-0.1 Comprehensive metabolic panel - 11/03/17 13:20 Serum or plasma sodium measurement (moles/volume) 141 mmol/L 135-145 Serum or plasma potassium measurement (moles/volume) 4.0 mmol/L 3.6-5.0 Serum or plasma chloride measurement (moles/volume) 105 mmol/L 98-107 Carbon dioxide 28 mmol/L 21-32 Serum or plasma anion gap determination (moles/volume) 8 mmol/L 5-14 Serum or plasma urea nitrogen measurement (mass/volume) 10 mg/dL 7-18 Serum or plasma creatinine measurement (mass/volume) 0.81 mg/dL 0.60-1.30 Serum or plasma urea nitrogen/creatinine mass ratio 12 NRG Serum or plasma creatinine measurement with calculation of estimated glomerular filtration rate > NRG Serum or plasma glucose measurement (mass/volume) 111 mg/dL 70-105 Serum or plasma calcium measurement (mass/volume) 9.3 mg/dL 8.5-10.1 Serum or plasma total bilirubin measurement (mass/volume) 0.4 mg/dL 0.1-1.0 Serum or plasma alkaline phosphatase measurement (enzymatic activity/volume) 135 U/L 40-136 Serum or plasma aspartate aminotransferase measurement (enzymatic activity/ volume) 34 U/L 5-34 Serum or plasma alanine aminotransferase measurement (enzymatic activity/volume ) 34 U/L 0-55 Serum or plasma protein measurement (mass/volume) 7.2 g/dL 6.4-8.2 Serum or plasma albumin measurement (mass/volume) 3.9 g/dL 3.2-4.5 Serum or plasma C reactive protein measurement (mass/volume) - 11/03/17 13:20 Serum or plasma C reactive protein measurement (mass/volume) 1.98 mg /dL 0.00-0.50 Erythrocyte sedimentation rate by westergren method - 11/03/17 13:20 Erythrocyte sedimentation rate by westergren method 71 mm 0-15 Complete blood count (CBC) with automated white blood cell (WBC) differential - 11/10/17 14:30 Blood leukocytes automated count (number/volume) 4.9 10*3/uL 4.3-11.0 Blood erythrocytes automated count (number/volume) 4.25 10*6/uL 4.35-5.85 Venous blood hemoglobin measurement (mass/volume) 11.9 g/dL 13.3-17.7 Blood hematocrit (volume fraction) 36 % 40-54 Automated erythrocyte mean corpuscular volume 85 [foz_us] 80-99 Automated erythrocyte mean corpuscular hemoglobin (mass per erythrocyte) 28 pg 25-34 Automated erythrocyte mean corpuscular hemoglobin concentration measurement ( mass/volume) 33 g/dL 32-36 Automated erythrocyte distribution width ratio 13.5 % 10.0-14.5 Automated blood platelet count (count/volume) 241 10*3/uL 130-400 Automated blood platelet mean volume measurement 11.9 [foz_us] 7.4-10.4 Automated blood neutrophils/100 leukocytes 57 % 42-75 Automated blood lymphocytes/100 leukocytes 22 % 12-44 Blood monocytes/100 leukocytes 7 % 0-12 Automated blood eosinophils/100 leukocytes 12 % 0-10 Automated blood basophils/100 leukocytes 1 % 0-10 Blood neutrophils automated count (number/volume) 2.8 10*3 1.8-7.8 Blood lymphocytes automated count (number/volume) 1.1 10*3 1.0-4.0 Blood monocytes automated count (number/volume) 0.4 10*3 0.0-1.0 Automated eosinophil count 0.6 10*3/uL 0.0-0.3 Automated blood basophil count (count/volume) 0.1 10*3/uL 0.0-0.1 Comprehensive metabolic panel - 11/10/17 14:30 Serum or plasma sodium measurement (moles/volume) 141 mmol/L 135-145 Serum or plasma potassium measurement (moles/volume) 3.9 mmol/L 3.6-5.0 Serum or plasma chloride measurement (moles/volume) 104 mmol/L 98-107 Carbon dioxide 27 mmol/L 21-32 Serum or plasma anion gap determination (moles/volume) 10 mmol/L 5-14 Serum or plasma urea nitrogen measurement (mass/volume) 10 mg/dL 7-18 Serum or plasma creatinine measurement (mass/volume) 0.80 mg/dL 0.60-1.30 Serum or plasma urea nitrogen/creatinine mass ratio 13 NRG Serum or plasma creatinine measurement with calculation of estimated glomerular filtration rate > NRG Serum or plasma glucose measurement (mass/volume) 84 mg/dL 70-105 Serum or plasma calcium measurement (mass/volume) 9.5 mg/dL 8.5-10.1 Serum or plasma total bilirubin measurement (mass/volume) 0.5 mg/dL 0.1-1.0 Serum or plasma alkaline phosphatase measurement (enzymatic activity/volume) 119 U/L 40-136 Serum or plasma aspartate aminotransferase measurement (enzymatic activity/ volume) 22 U/L 5-34 Serum or plasma alanine aminotransferase measurement (enzymatic activity/volume ) 24 U/L 0-55 Serum or plasma protein measurement (mass/volume) 7.3 g/dL 6.4-8.2 Serum or plasma albumin measurement (mass/volume) 3.9 g/dL 3.2-4.5 Serum or plasma C reactive protein measurement (mass/volume) - 11/10/17 14:30 Serum or plasma C reactive protein measurement (mass/volume) 1.17 mg /dL 0.00-0.50 Blood manual differential performed detection - 11/10/17 14:30 Blood monocytes/100 leukocytes 3 % NRG Manual blood segmented neutrophils/100 leukocytes 53 % NRG Blood band neutrophils/100 leukocytes 0 % NRG Manual blood lymphocytes/100 leukocytes 32 % NRG Manual eosinophils/100 leukocytes in nose 10 % NRG Manual blood basophils/100 leukocytes 2 % NRG Blood erythrocyte morphology finding identification NORMAL NRG Erythrocyte sedimentation rate by westergren method - 11/10/17 14:30 Erythrocyte sedimentation rate by westergren method 38 mm 0-15 Complete blood count (CBC) with automated white blood cell (WBC) differential - 11/17/17 14:45 Blood leukocytes automated count (number/volume) 5.4 10*3/uL 4.3-11.0 Blood erythrocytes automated count (number/volume) 4.49 10*6/uL 4.35-5.85 Venous blood hemoglobin measurement (mass/volume) 12.1 g/dL 13.3-17.7 Blood hematocrit (volume fraction) 38 % 40-54 Automated erythrocyte mean corpuscular volume 85 [foz_us] 80-99 Automated erythrocyte mean corpuscular hemoglobin (mass per erythrocyte) 27 pg 25-34 Automated erythrocyte mean corpuscular hemoglobin concentration measurement ( mass/volume) 32 g/dL 32-36 Automated erythrocyte distribution width ratio 13.7 % 10.0-14.5 Automated blood platelet count (count/volume) 222 10*3/uL 130-400 Automated blood platelet mean volume measurement 11.1 [foz_us] 7.4-10.4 Automated blood neutrophils/100 leukocytes 60 % 42-75 Automated blood lymphocytes/100 leukocytes 19 % 12-44 Blood monocytes/100 leukocytes 9 % 0-12 Automated blood eosinophils/100 leukocytes 11 % 0-10 Automated blood basophils/100 leukocytes 2 % 0-10 Blood neutrophils automated count (number/volume) 3.2 10*3 1.8-7.8 Blood lymphocytes automated count (number/volume) 1.0 10*3 1.0-4.0 Blood monocytes automated count (number/volume) 0.5 10*3 0.0-1.0 Automated eosinophil count 0.6 10*3/uL 0.0-0.3 Automated blood basophil count (count/volume) 0.1 10*3/uL 0.0-0.1 Comprehensive metabolic panel - 11/17/17 14:45 Serum or plasma sodium measurement (moles/volume) 145 mmol/L 135-145 Serum or plasma potassium measurement (moles/volume) 4.2 mmol/L 3.6-5.0 Serum or plasma chloride measurement (moles/volume) 104 mmol/L 98-107 Carbon dioxide 33 mmol/L 21-32 Serum or plasma anion gap determination (moles/volume) 8 mmol/L 5-14 Serum or plasma urea nitrogen measurement (mass/volume) 10 mg/dL 7-18 Serum or plasma creatinine measurement (mass/volume) 0.83 mg/dL 0.60-1.30 Serum or plasma urea nitrogen/creatinine mass ratio 12 NRG Serum or plasma creatinine measurement with calculation of estimated glomerular filtration rate > NRG Serum or plasma glucose measurement (mass/volume) 92 mg/dL 70-105 Serum or plasma calcium measurement (mass/volume) 9.8 mg/dL 8.5-10.1 Serum or plasma total bilirubin measurement (mass/volume) 0.5 mg/dL 0.1-1.0 Serum or plasma alkaline phosphatase measurement (enzymatic activity/volume) 131 U/L 40-136 Serum or plasma aspartate aminotransferase measurement (enzymatic activity/ volume) 34 U/L 5-34 Serum or plasma alanine aminotransferase measurement (enzymatic activity/volume ) 36 U/L 0-55 Serum or plasma protein measurement (mass/volume) 7.7 g/dL 6.4-8.2 Serum or plasma albumin measurement (mass/volume) 4.0 g/dL 3.2-4.5 Serum or plasma C reactive protein measurement (mass/volume) - 11/17/17 14:45 Serum or plasma C reactive protein measurement (mass/volume) 1.74 mg /dL 0.00-0.50 Erythrocyte sedimentation rate by westergren method - 11/17/17 14:45 Erythrocyte sedimentation rate by westergren method 48 mm 0-15 Complete blood count (CBC) with automated white blood cell (WBC) differential - 12/29/17 14:49 Blood leukocytes automated count (number/volume) 6.8 10*3/uL 4.3-11.0 Blood erythrocytes automated count (number/volume) 4.23 10*6/uL 4.35-5.85 Venous blood hemoglobin measurement (mass/volume) 11.9 g/dL 13.3-17.7 Blood hematocrit (volume fraction) 36 % 40-54 Automated erythrocyte mean corpuscular volume 86 [foz_us] 80-99 Automated erythrocyte mean corpuscular hemoglobin (mass per erythrocyte) 28 pg 25-34 Automated erythrocyte mean corpuscular hemoglobin concentration measurement ( mass/volume) 33 g/dL 32-36 Automated erythrocyte distribution width ratio 13.2 % 10.0-14.5 Automated blood platelet count (count/volume) 297 10*3/uL 130-400 Automated blood platelet mean volume measurement 10.9 [foz_us] 7.4-10.4 Automated blood neutrophils/100 leukocytes 63 % 42-75 Automated blood lymphocytes/100 leukocytes 20 % 12-44 Blood monocytes/100 leukocytes 7 % 0-12 Automated blood eosinophils/100 leukocytes 9 % 0-10 Automated blood basophils/100 leukocytes 1 % 0-10 Blood neutrophils automated count (number/volume) 4.2 10*3 1.8-7.8 Blood lymphocytes automated count (number/volume) 1.4 10*3 1.0-4.0 Blood monocytes automated count (number/volume) 0.5 10*3 0.0-1.0 Automated eosinophil count 0.6 10*3/uL 0.0-0.3 Automated blood basophil count (count/volume) 0.1 10*3/uL 0.0-0.1 Comprehensive metabolic panel - 12/29/17 14:49 Serum or plasma sodium measurement (moles/volume) 140 mmol/L 135-145 Serum or plasma potassium measurement (moles/volume) 4.0 mmol/L 3.6-5.0 Serum or plasma chloride measurement (moles/volume) 103 mmol/L 98-107 Carbon dioxide 26 mmol/L 21-32 Serum or plasma anion gap determination (moles/volume) 11 mmol/L 5-14 Serum or plasma urea nitrogen measurement (mass/volume) 14 mg/dL 7-18 Serum or plasma creatinine measurement (mass/volume) 0.81 mg/dL 0.60-1.30 Serum or plasma urea nitrogen/creatinine mass ratio 17 NRG Serum or plasma creatinine measurement with calculation of estimated glomerular filtration rate > NRG Serum or plasma glucose measurement (mass/volume) 101 mg/dL 70-105 Serum or plasma calcium measurement (mass/volume) 9.6 mg/dL 8.5-10.1 Serum or plasma total bilirubin measurement (mass/volume) 0.5 mg/dL 0.1-1.0 Serum or plasma alkaline phosphatase measurement (enzymatic activity/volume) 146 U/L 40-136 Serum or plasma aspartate aminotransferase measurement (enzymatic activity/ volume) 27 U/L 5-34 Serum or plasma alanine aminotransferase measurement (enzymatic activity/volume ) 23 U/L 0-55 Serum or plasma protein measurement (mass/volume) 7.8 g/dL 6.4-8.2 Serum or plasma albumin measurement (mass/volume) 3.9 g/dL 3.2-4.5 CALCIUM CORRECTED 9.7 mg/dL 8.5-10.1 Serum or plasma C reactive protein measurement (mass/volume) - 12/29/17 14:49 Serum or plasma C reactive protein measurement (mass/volume) 2.82 mg /dL 0.00-0.50 Erythrocyte sedimentation rate by westergren method - 12/29/17 14:49 Erythrocyte sedimentation rate by westergren method 69 mm 0-15 Complete blood count (CBC) with automated white blood cell (WBC) differential - 01/05/18 15:05 Blood leukocytes automated count (number/volume) 5.2 10*3/uL 4.3-11.0 Blood erythrocytes automated count (number/volume) 4.17 10*6/uL 4.35-5.85 Venous blood hemoglobin measurement (mass/volume) 11.7 g/dL 13.3-17.7 Blood hematocrit (volume fraction) 36 % 40-54 Automated erythrocyte mean corpuscular volume 86 [foz_us] 80-99 Automated erythrocyte mean corpuscular hemoglobin (mass per erythrocyte) 28 pg 25-34 Automated erythrocyte mean corpuscular hemoglobin concentration measurement ( mass/volume) 33 g/dL 32-36 Automated erythrocyte distribution width ratio 13.5 % 10.0-14.5 Automated blood platelet count (count/volume) 244 10*3/uL 130-400 Automated blood platelet mean volume measurement 11.5 [foz_us] 7.4-10.4 Automated blood neutrophils/100 leukocytes 63 % 42-75 Automated blood lymphocytes/100 leukocytes 19 % 12-44 Blood monocytes/100 leukocytes 8 % 0-12 Automated blood eosinophils/100 leukocytes 9 % 0-10 Automated blood basophils/100 leukocytes 1 % 0-10 Blood neutrophils automated count (number/volume) 3.3 10*3 1.8-7.8 Blood lymphocytes automated count (number/volume) 1.0 10*3 1.0-4.0 Blood monocytes automated count (number/volume) 0.4 10*3 0.0-1.0 Automated eosinophil count 0.5 10*3/uL 0.0-0.3 Automated blood basophil count (count/volume) 0.1 10*3/uL 0.0-0.1 Comprehensive metabolic panel - 01/05/18 15:05 Serum or plasma sodium measurement (moles/volume) 140 mmol/L 135-145 Serum or plasma potassium measurement (moles/volume) 4.0 mmol/L 3.6-5.0 Serum or plasma chloride measurement (moles/volume) 103 mmol/L 98-107 Carbon dioxide 29 mmol/L 21-32 Serum or plasma anion gap determination (moles/volume) 8 mmol/L 5-14 Serum or plasma urea nitrogen measurement (mass/volume) 11 mg/dL 7-18 Serum or plasma creatinine measurement (mass/volume) 0.75 mg/dL 0.60-1.30 Serum or plasma urea nitrogen/creatinine mass ratio 15 NRG Serum or plasma creatinine measurement with calculation of estimated glomerular filtration rate > NRG Serum or plasma glucose measurement (mass/volume) 103 mg/dL 70-105 Serum or plasma calcium measurement (mass/volume) 9.4 mg/dL 8.5-10.1 Serum or plasma total bilirubin measurement (mass/volume) 0.5 mg/dL 0.1-1.0 Serum or plasma alkaline phosphatase measurement (enzymatic activity/volume) 136 U/L 40-136 Serum or plasma aspartate aminotransferase measurement (enzymatic activity/ volume) 28 U/L 5-34 Serum or plasma alanine aminotransferase measurement (enzymatic activity/volume ) 26 U/L 0-55 Serum or plasma protein measurement (mass/volume) 7.4 g/dL 6.4-8.2 Serum or plasma albumin measurement (mass/volume) 3.9 g/dL 3.2-4.5 CALCIUM CORRECTED 9.5 mg/dL 8.5-10.1 Serum or plasma C reactive protein measurement (mass/volume) - 01/05/18 15:05 Serum or plasma C reactive protein measurement (mass/volume) 2.27 mg /dL 0.00-0.50 Erythrocyte sedimentation rate by westergren method - 01/05/18 15:05 Erythrocyte sedimentation rate by westergren method 69 mm 0-15 Serum or plasma C reactive protein measurement (mass/volume) - 01/12/18 10:30 Serum or plasma C reactive protein measurement (mass/volume) 1.98 mg /dL 0.00-0.50 Erythrocyte sedimentation rate by westergren method - 01/12/18 10:30 Erythrocyte sedimentation rate by westergren method 48 mm 0-15 Complete blood count (CBC) with automated white blood cell (WBC) differential - 01/19/18 15:45 Blood leukocytes automated count (number/volume) 3.9 10*3/uL 4.3-11.0 Blood erythrocytes automated count (number/volume) 3.92 10*6/uL 4.35-5.85 Venous blood hemoglobin measurement (mass/volume) 11.4 g/dL 13.3-17.7 Blood hematocrit (volume fraction) 34 % 40-54 Automated erythrocyte mean corpuscular volume 86 [foz_us] 80-99 Automated erythrocyte mean corpuscular hemoglobin (mass per erythrocyte) 29 pg 25-34 Automated erythrocyte mean corpuscular hemoglobin concentration measurement ( mass/volume) 34 g/dL 32-36 Automated erythrocyte distribution width ratio 13.8 % 10.0-14.5 Automated blood platelet count (count/volume) 188 10*3/uL 130-400 Automated blood platelet mean volume measurement 11.4 [foz_us] 7.4-10.4 Automated blood neutrophils/100 leukocytes 63 % 42-75 Automated blood lymphocytes/100 leukocytes 22 % 12-44 Blood monocytes/100 leukocytes 7 % 0-12 Automated blood eosinophils/100 leukocytes 7 % 0-10 Automated blood basophils/100 leukocytes 1 % 0-10 Blood neutrophils automated count (number/volume) 2.4 10*3 1.8-7.8 Blood lymphocytes automated count (number/volume) 0.8 10*3 1.0-4.0 Blood monocytes automated count (number/volume) 0.3 10*3 0.0-1.0 Automated eosinophil count 0.3 10*3/uL 0.0-0.3 Automated blood basophil count (count/volume) 0.0 10*3/uL 0.0-0.1 Erythrocyte sedimentation rate by westergren method - 01/19/18 15:45 Erythrocyte sedimentation rate by westergren method 56 mm 0-15 Comprehensive metabolic panel - 01/19/18 15:45 Serum or plasma sodium measurement (moles/volume) 141 mmol/L 135-145 Serum or plasma potassium measurement (moles/volume) 3.7 mmol/L 3.6-5.0 Serum or plasma chloride measurement (moles/volume) 103 mmol/L 98-107 Carbon dioxide 30 mmol/L 21-32 Serum or plasma anion gap determination (moles/volume) 8 mmol/L 5-14 Serum or plasma urea nitrogen measurement (mass/volume) 11 mg/dL 7-18 Serum or plasma creatinine measurement (mass/volume) 0.78 mg/dL 0.60-1.30 Serum or plasma urea nitrogen/creatinine mass ratio 14 NRG Serum or plasma creatinine measurement with calculation of estimated glomerular filtration rate > NRG Serum or plasma glucose measurement (mass/volume) 116 mg/dL 70-105 Serum or plasma calcium measurement (mass/volume) 9.7 mg/dL 8.5-10.1 Serum or plasma total bilirubin measurement (mass/volume) 0.7 mg/dL 0.1-1.0 Serum or plasma alkaline phosphatase measurement (enzymatic activity/volume) 145 U/L 40-136 Serum or plasma aspartate aminotransferase measurement (enzymatic activity/ volume) 25 U/L 5-34 Serum or plasma alanine aminotransferase measurement (enzymatic activity/volume ) 33 U/L 0-55 Serum or plasma protein measurement (mass/volume) 7.4 g/dL 6.4-8.2 Serum or plasma albumin measurement (mass/volume) 4.1 g/dL 3.2-4.5 CALCIUM CORRECTED 9.6 mg/dL 8.5-10.1 Serum or plasma C reactive protein measurement (mass/volume) - 01/19/18 15:45 Serum or plasma C reactive protein measurement (mass/volume) 2.38 mg /dL 0.00-0.50 Complete blood count (CBC) with automated white blood cell (WBC) differential - 01/26/18 14:00 Blood leukocytes automated count (number/volume) 4.6 10*3/uL 4.3-11.0 Blood erythrocytes automated count (number/volume) 3.96 10*6/uL 4.35-5.85 Venous blood hemoglobin measurement (mass/volume) 11.3 g/dL 13.3-17.7 Blood hematocrit (volume fraction) 35 % 40-54 Automated erythrocyte mean corpuscular volume 87 [foz_us] 80-99 Automated erythrocyte mean corpuscular hemoglobin (mass per erythrocyte) 29 pg 25-34 Automated erythrocyte mean corpuscular hemoglobin concentration measurement ( mass/volume) 33 g/dL 32-36 Automated erythrocyte distribution width ratio 14.1 % 10.0-14.5 Automated blood platelet count (count/volume) 227 10*3/uL 130-400 Automated blood platelet mean volume measurement 11.0 [foz_us] 7.4-10.4 Automated blood neutrophils/100 leukocytes 57 % 42-75 Automated blood lymphocytes/100 leukocytes 21 % 12-44 Blood monocytes/100 leukocytes 10 % 0-12 Automated blood eosinophils/100 leukocytes 10 % 0-10 Automated blood basophils/100 leukocytes 1 % 0-10 Blood neutrophils automated count (number/volume) 2.7 10*3 1.8-7.8 Blood lymphocytes automated count (number/volume) 1.0 10*3 1.0-4.0 Blood monocytes automated count (number/volume) 0.5 10*3 0.0-1.0 Automated eosinophil count 0.5 10*3/uL 0.0-0.3 Automated blood basophil count (count/volume) 0.0 10*3/uL 0.0-0.1 Comprehensive metabolic panel - 01/26/18 14:00 Serum or plasma sodium measurement (moles/volume) 142 mmol/L 135-145 Serum or plasma potassium measurement (moles/volume) 4.1 mmol/L 3.6-5.0 Serum or plasma chloride measurement (moles/volume) 104 mmol/L 98-107 Carbon dioxide 31 mmol/L 21-32 Serum or plasma anion gap determination (moles/volume) 7 mmol/L 5-14 Serum or plasma urea nitrogen measurement (mass/volume) 15 mg/dL 7-18 Serum or plasma creatinine measurement (mass/volume) 0.83 mg/dL 0.60-1.30 Serum or plasma urea nitrogen/creatinine mass ratio 18 NRG Serum or plasma creatinine measurement with calculation of estimated glomerular filtration rate > NRG Serum or plasma glucose measurement (mass/volume) 99 mg/dL 70-105 Serum or plasma calcium measurement (mass/volume) 9.6 mg/dL 8.5-10.1 Serum or plasma total bilirubin measurement (mass/volume) 0.7 mg/dL 0.1-1.0 Serum or plasma alkaline phosphatase measurement (enzymatic activity/volume) 113 U/L 40-136 Serum or plasma aspartate aminotransferase measurement (enzymatic activity/ volume) 24 U/L 5-34 Serum or plasma alanine aminotransferase measurement (enzymatic activity/volume ) 24 U/L 0-55 Serum or plasma protein measurement (mass/volume) 7.5 g/dL 6.4-8.2 Serum or plasma albumin measurement (mass/volume) 4.1 g/dL 3.2-4.5 CALCIUM CORRECTED 9.5 mg/dL 8.5-10.1 Serum or plasma C reactive protein measurement (mass/volume) - 01/26/18 14:00 Serum or plasma C reactive protein measurement (mass/volume) 1.97 mg /dL 0.00-0.50 Erythrocyte sedimentation rate by westergren method - 01/26/18 14:00 Erythrocyte sedimentation rate by westergren method 65 mm 0-15 Complete blood count (CBC) with automated white blood cell (WBC) differential - 02/02/18 15:00 Blood leukocytes automated count (number/volume) 6.1 10*3/uL 4.3-11.0 Blood erythrocytes automated count (number/volume) 3.77 10*6/uL 4.35-5.85 Venous blood hemoglobin measurement (mass/volume) 11.0 g/dL 13.3-17.7 Blood hematocrit (volume fraction) 33 % 40-54 Automated erythrocyte mean corpuscular volume 88 [foz_us] 80-99 Automated erythrocyte mean corpuscular hemoglobin (mass per erythrocyte) 29 pg 25-34 Automated erythrocyte mean corpuscular hemoglobin concentration measurement ( mass/volume) 33 g/dL 32-36 Automated erythrocyte distribution width ratio 13.6 % 10.0-14.5 Automated blood platelet count (count/volume) 227 10*3/uL 130-400 Automated blood platelet mean volume measurement 11.8 [foz_us] 7.4-10.4 Automated blood neutrophils/100 leukocytes 59 % 42-75 Automated blood lymphocytes/100 leukocytes 22 % 12-44 Blood monocytes/100 leukocytes 9 % 0-12 Automated blood eosinophils/100 leukocytes 9 % 0-10 Automated blood basophils/100 leukocytes 1 % 0-10 Blood neutrophils automated count (number/volume) 3.6 10*3 1.8-7.8 Blood lymphocytes automated count (number/volume) 1.3 10*3 1.0-4.0 Blood monocytes automated count (number/volume) 0.6 10*3 0.0-1.0 Automated eosinophil count 0.5 10*3/uL 0.0-0.3 Automated blood basophil count (count/volume) 0.1 10*3/uL 0.0-0.1 Comprehensive metabolic panel - 02/02/18 15:00 Serum or plasma sodium measurement (moles/volume) 143 mmol/L 135-145 Serum or plasma potassium measurement (moles/volume) 4.0 mmol/L 3.6-5.0 Serum or plasma chloride measurement (moles/volume) 104 mmol/L 98-107 Carbon dioxide 28 mmol/L 21-32 Serum or plasma anion gap determination (moles/volume) 11 mmol/L 5-14 Serum or plasma urea nitrogen measurement (mass/volume) 10 mg/dL 7-18 Serum or plasma creatinine measurement (mass/volume) 0.81 mg/dL 0.60-1.30 Serum or plasma urea nitrogen/creatinine mass ratio 12 NRG Serum or plasma creatinine measurement with calculation of estimated glomerular filtration rate > NRG Serum or plasma glucose measurement (mass/volume) 94 mg/dL 70-105 Serum or plasma calcium measurement (mass/volume) 9.5 mg/dL 8.5-10.1 Serum or plasma total bilirubin measurement (mass/volume) 0.5 mg/dL 0.1-1.0 Serum or plasma alkaline phosphatase measurement (enzymatic activity/volume) 130 U/L 40-136 Serum or plasma aspartate aminotransferase measurement (enzymatic activity/ volume) 22 U/L 5-34 Serum or plasma alanine aminotransferase measurement (enzymatic activity/volume ) 22 U/L 0-55 Serum or plasma protein measurement (mass/volume) 7.6 g/dL 6.4-8.2 Serum or plasma albumin measurement (mass/volume) 4.1 g/dL 3.2-4.5 CALCIUM CORRECTED 9.4 mg/dL 8.5-10.1 Serum or plasma C reactive protein measurement (mass/volume) - 02/02/18 15:00 Serum or plasma C reactive protein measurement (mass/volume) 2.17 mg /dL 0.00-0.50 Erythrocyte sedimentation rate by westergren method - 02/02/18 15:00 Erythrocyte sedimentation rate by westergren method 52 mm 0-15 Complete blood count (CBC) with automated white blood cell (WBC) differential - 02/09/18 14:50 Blood leukocytes automated count (number/volume) 5.6 10*3/uL 4.3-11.0 Blood erythrocytes automated count (number/volume) 3.90 10*6/uL 4.35-5.85 Venous blood hemoglobin measurement (mass/volume) 11.1 g/dL 13.3-17.7 Blood hematocrit (volume fraction) 34 % 40-54 Automated erythrocyte mean corpuscular volume 87 [foz_us] 80-99 Automated erythrocyte mean corpuscular hemoglobin (mass per erythrocyte) 28 pg 25-34 Automated erythrocyte mean corpuscular hemoglobin concentration measurement ( mass/volume) 33 g/dL 32-36 Automated erythrocyte distribution width ratio 13.1 % 10.0-14.5 Automated blood platelet count (count/volume) 238 10*3/uL 130-400 Automated blood platelet mean volume measurement 11.7 [foz_us] 7.4-10.4 Automated blood neutrophils/100 leukocytes 58 % 42-75 Automated blood lymphocytes/100 leukocytes 22 % 12-44 Blood monocytes/100 leukocytes 8 % 0-12 Automated blood eosinophils/100 leukocytes 11 % 0-10 Automated blood basophils/100 leukocytes 1 % 0-10 Blood neutrophils automated count (number/volume) 3.3 10*3 1.8-7.8 Blood lymphocytes automated count (number/volume) 1.2 10*3 1.0-4.0 Blood monocytes automated count (number/volume) 0.5 10*3 0.0-1.0 Automated eosinophil count 0.6 10*3/uL 0.0-0.3 Automated blood basophil count (count/volume) 0.1 10*3/uL 0.0-0.1 Erythrocyte sedimentation rate by westergren method - 02/09/18 14:50 Erythrocyte sedimentation rate by westergren method 68 mm 0-15 Comprehensive metabolic panel - 02/09/18 14:50 Serum or plasma sodium measurement (moles/volume) 140 mmol/L 135-145 Serum or plasma potassium measurement (moles/volume) 3.6 mmol/L 3.6-5.0 Serum or plasma chloride measurement (moles/volume) 102 mmol/L 98-107 Carbon dioxide 28 mmol/L 21-32 Serum or plasma anion gap determination (moles/volume) 10 mmol/L 5-14 Serum or plasma urea nitrogen measurement (mass/volume) 13 mg/dL 7-18 Serum or plasma creatinine measurement (mass/volume) 0.82 mg/dL 0.60-1.30 Serum or plasma urea nitrogen/creatinine mass ratio 16 NRG Serum or plasma creatinine measurement with calculation of estimated glomerular filtration rate > NRG Serum or plasma glucose measurement (mass/volume) 111 mg/dL 70-105 Serum or plasma calcium measurement (mass/volume) 9.4 mg/dL 8.5-10.1 Serum or plasma total bilirubin measurement (mass/volume) 0.5 mg/dL 0.1-1.0 Serum or plasma alkaline phosphatase measurement (enzymatic activity/volume) 164 U/L 40-136 Serum or plasma aspartate aminotransferase measurement (enzymatic activity/ volume) 40 U/L 5-34 Serum or plasma alanine aminotransferase measurement (enzymatic activity/volume ) 41 U/L 0-55 Serum or plasma protein measurement (mass/volume) 7.6 g/dL 6.4-8.2 Serum or plasma albumin measurement (mass/volume) 4.1 g/dL 3.2-4.5 CALCIUM CORRECTED 9.3 mg/dL 8.5-10.1 Serum or plasma C reactive protein measurement (mass/volume) - 02/09/18 14:50 Serum or plasma C reactive protein measurement (mass/volume) 2.59 mg /dL 0.00-0.50 Complete blood count (CBC) with automated white blood cell (WBC) differential - 02/16/18 11:10 Blood leukocytes automated count (number/volume) 5.2 10*3/uL 4.3-11.0 Blood erythrocytes automated count (number/volume) 4.10 10*6/uL 4.35-5.85 Venous blood hemoglobin measurement (mass/volume) 11.7 g/dL 13.3-17.7 Blood hematocrit (volume fraction) 35 % 40-54 Automated erythrocyte mean corpuscular volume 86 [foz_us] 80-99 Automated erythrocyte mean corpuscular hemoglobin (mass per erythrocyte) 29 pg 25-34 Automated erythrocyte mean corpuscular hemoglobin concentration measurement ( mass/volume) 33 g/dL 32-36 Automated erythrocyte distribution width ratio 13.2 % 10.0-14.5 Automated blood platelet count (count/volume) 209 10*3/uL 130-400 Automated blood platelet mean volume measurement 11.5 [foz_us] 7.4-10.4 Automated blood neutrophils/100 leukocytes 53 % 42-75 Automated blood lymphocytes/100 leukocytes 24 % 12-44 Blood monocytes/100 leukocytes 10 % 0-12 Automated blood eosinophils/100 leukocytes 12 % 0-10 Automated blood basophils/100 leukocytes 1 % 0-10 Blood neutrophils automated count (number/volume) 2.8 10*3 1.8-7.8 Blood lymphocytes automated count (number/volume) 1.3 10*3 1.0-4.0 Blood monocytes automated count (number/volume) 0.5 10*3 0.0-1.0 Automated eosinophil count 0.6 10*3/uL 0.0-0.3 Automated blood basophil count (count/volume) 0.1 10*3/uL 0.0-0.1 Comprehensive metabolic panel - 02/16/18 11:10 Serum or plasma sodium measurement (moles/volume) 139 mmol/L 135-145 Serum or plasma potassium measurement (moles/volume) 4.0 mmol/L 3.6-5.0 Serum or plasma chloride measurement (moles/volume) 103 mmol/L 98-107 Carbon dioxide 27 mmol/L 21-32 Serum or plasma anion gap determination (moles/volume) 9 mmol/L 5-14 Serum or plasma urea nitrogen measurement (mass/volume) 14 mg/dL 7-18 Serum or plasma creatinine measurement (mass/volume) 0.78 mg/dL 0.60-1.30 Serum or plasma urea nitrogen/creatinine mass ratio 18 NRG Serum or plasma creatinine measurement with calculation of estimated glomerular filtration rate > NRG Serum or plasma glucose measurement (mass/volume) 109 mg/dL 70-105 Serum or plasma calcium measurement (mass/volume) 9.4 mg/dL 8.5-10.1 Serum or plasma total bilirubin measurement (mass/volume) 0.5 mg/dL 0.1-1.0 Serum or plasma alkaline phosphatase measurement (enzymatic activity/volume) 147 U/L 40-136 Serum or plasma aspartate aminotransferase measurement (enzymatic activity/ volume) 23 U/L 5-34 Serum or plasma alanine aminotransferase measurement (enzymatic activity/volume ) 27 U/L 0-55 Serum or plasma protein measurement (mass/volume) 7.7 g/dL 6.4-8.2 Serum or plasma albumin measurement (mass/volume) 4.2 g/dL 3.2-4.5 CALCIUM CORRECTED 9.2 mg/dL 8.5-10.1 Serum or plasma C reactive protein measurement (mass/volume) - 02/16/18 11:10 Serum or plasma C reactive protein measurement (mass/volume) 1.42 mg /dL 0.00-0.50 Erythrocyte sedimentation rate by westergren method - 10/16/18 11:10 Erythrocyte sedimentation rate by westergren method 56 mm 0-15 Complete blood count (CBC) with automated white blood cell (WBC) differential - 02/23/18 15:00 Blood leukocytes automated count (number/volume) 7.1 10*3/uL 4.3-11.0 Blood erythrocytes automated count (number/volume) 4.01 10*6/uL 4.35-5.85 Venous blood hemoglobin measurement (mass/volume) 11.4 g/dL 13.3-17.7 Blood hematocrit (volume fraction) 35 % 40-54 Automated erythrocyte mean corpuscular volume 88 [foz_us] 80-99 Automated erythrocyte mean corpuscular hemoglobin (mass per erythrocyte) 28 pg 25-34 Automated erythrocyte mean corpuscular hemoglobin concentration measurement ( mass/volume) 33 g/dL 32-36 Automated erythrocyte distribution width ratio 13.1 % 10.0-14.5 Automated blood platelet count (count/volume) 202 10*3/uL 130-400 Automated blood platelet mean volume measurement 12.0 [foz_us] 7.4-10.4 Automated blood neutrophils/100 leukocytes 70 % 42-75 Automated blood lymphocytes/100 leukocytes 14 % 12-44 Blood monocytes/100 leukocytes 7 % 0-12 Automated blood eosinophils/100 leukocytes 8 % 0-10 Automated blood basophils/100 leukocytes 1 % 0-10 Blood neutrophils automated count (number/volume) 5.0 10*3 1.8-7.8 Blood lymphocytes automated count (number/volume) 1.0 10*3 1.0-4.0 Blood monocytes automated count (number/volume) 0.5 10*3 0.0-1.0 Automated eosinophil count 0.6 10*3/uL 0.0-0.3 Automated blood basophil count (count/volume) 0.1 10*3/uL 0.0-0.1 Comprehensive metabolic panel - 02/23/18 15:00 Serum or plasma sodium measurement (moles/volume) 141 mmol/L 135-145 Serum or plasma potassium measurement (moles/volume) 3.8 mmol/L 3.6-5.0 Serum or plasma chloride measurement (moles/volume) 102 mmol/L 98-107 Carbon dioxide 27 mmol/L 21-32 Serum or plasma anion gap determination (moles/volume) 12 mmol/L 5-14 Serum or plasma urea nitrogen measurement (mass/volume) 13 mg/dL 7-18 Serum or plasma creatinine measurement (mass/volume) 0.80 mg/dL 0.60-1.30 Serum or plasma urea nitrogen/creatinine mass ratio 16 NRG Serum or plasma creatinine measurement with calculation of estimated glomerular filtration rate > NRG Serum or plasma glucose measurement (mass/volume) 107 mg/dL 70-105 Serum or plasma calcium measurement (mass/volume) 9.3 mg/dL 8.5-10.1 Serum or plasma total bilirubin measurement (mass/volume) 0.4 mg/dL 0.1-1.0 Serum or plasma alkaline phosphatase measurement (enzymatic activity/volume) 156 U/L 40-136 Serum or plasma aspartate aminotransferase measurement (enzymatic activity/ volume) 24 U/L 5-34 Serum or plasma alanine aminotransferase measurement (enzymatic activity/volume ) 24 U/L 0-55 Serum or plasma protein measurement (mass/volume) 7.6 g/dL 6.4-8.2 Serum or plasma albumin measurement (mass/volume) 4.1 g/dL 3.2-4.5 CALCIUM CORRECTED 9.2 mg/dL 8.5-10.1 Serum or plasma C reactive protein measurement (mass/volume) - 02/23/18 15:00 Serum or plasma C reactive protein measurement (mass/volume) 1.50 mg /dL 0.00-0.50 Erythrocyte sedimentation rate by westergren method - 02/23/18 15:00 Erythrocyte sedimentation rate by westergren method 55 mm 0-15 Complete blood count (CBC) with automated white blood cell (WBC) differential - 03/02/18 15:00 Blood leukocytes automated count (number/volume) 11.2 10*3/uL 4.3-11.0 Blood erythrocytes automated count (number/volume) 3.88 10*6/uL 4.35-5.85 Venous blood hemoglobin measurement (mass/volume) 11.3 g/dL 13.3-17.7 Blood hematocrit (volume fraction) 34 % 40-54 Automated erythrocyte mean corpuscular volume 87 [foz_us] 80-99 Automated erythrocyte mean corpuscular hemoglobin (mass per erythrocyte) 29 pg 25-34 Automated erythrocyte mean corpuscular hemoglobin concentration measurement ( mass/volume) 34 g/dL 32-36 Automated erythrocyte distribution width ratio 13.3 % 10.0-14.5 Automated blood platelet count (count/volume) 215 10*3/uL 130-400 Automated blood platelet mean volume measurement 11.5 [foz_us] 7.4-10.4 Automated blood neutrophils/100 leukocytes 80 % 42-75 Automated blood lymphocytes/100 leukocytes 10 % 12-44 Blood monocytes/100 leukocytes 6 % 0-12 Automated blood eosinophils/100 leukocytes 4 % 0-10 Automated blood basophils/100 leukocytes 1 % 0-10 Blood neutrophils automated count (number/volume) 8.9 10*3 1.8-7.8 Blood lymphocytes automated count (number/volume) 1.1 10*3 1.0-4.0 Blood monocytes automated count (number/volume) 0.7 10*3 0.0-1.0 Automated eosinophil count 0.5 10*3/uL 0.0-0.3 Automated blood basophil count (count/volume) 0.1 10*3/uL 0.0-0.1 Erythrocyte sedimentation rate by westergren method - 03/02/18 15:00 Erythrocyte sedimentation rate by westergren method 60 mm 0-15 Comprehensive metabolic panel - 03/02/18 15:00 Serum or plasma sodium measurement (moles/volume) 138 mmol/L 135-145 Serum or plasma potassium measurement (moles/volume) 3.9 mmol/L 3.6-5.0 Serum or plasma chloride measurement (moles/volume) 100 mmol/L 98-107 Carbon dioxide 29 mmol/L 21-32 Serum or plasma anion gap determination (moles/volume) 9 mmol/L 5-14 Serum or plasma urea nitrogen measurement (mass/volume) 15 mg/dL 7-18 Serum or plasma creatinine measurement (mass/volume) 0.80 mg/dL 0.60-1.30 Serum or plasma urea nitrogen/creatinine mass ratio 19 NRG Serum or plasma creatinine measurement with calculation of estimated glomerular filtration rate > NRG Serum or plasma glucose measurement (mass/volume) 111 mg/dL 70-105 Serum or plasma calcium measurement (mass/volume) 9.4 mg/dL 8.5-10.1 Serum or plasma total bilirubin measurement (mass/volume) 0.7 mg/dL 0.1-1.0 Serum or plasma alkaline phosphatase measurement (enzymatic activity/volume) 143 U/L 40-136 Serum or plasma aspartate aminotransferase measurement (enzymatic activity/ volume) 30 U/L 5-34 Serum or plasma alanine aminotransferase measurement (enzymatic activity/volume ) 30 U/L 0-55 Serum or plasma protein measurement (mass/volume) 7.4 g/dL 6.4-8.2 Serum or plasma albumin measurement (mass/volume) 4.1 g/dL 3.2-4.5 CALCIUM CORRECTED 9.3 mg/dL 8.5-10.1 Serum or plasma C reactive protein measurement (mass/volume) - 03/02/18 15:00 Serum or plasma C reactive protein measurement (mass/volume) 2.56 mg /dL 0.00-0.50 Complete blood count (CBC) with automated white blood cell (WBC) differential - 03/09/18 14:55 Blood leukocytes automated count (number/volume) 6.0 10*3/uL 4.3-11.0 Blood erythrocytes automated count (number/volume) 4.23 10*6/uL 4.35-5.85 Venous blood hemoglobin measurement (mass/volume) 11.8 g/dL 13.3-17.7 Blood hematocrit (volume fraction) 37 % 40-54 Automated erythrocyte mean corpuscular volume 86 [foz_us] 80-99 Automated erythrocyte mean corpuscular hemoglobin (mass per erythrocyte) 28 pg 25-34 Automated erythrocyte mean corpuscular hemoglobin concentration measurement ( mass/volume) 32 g/dL 32-36 Automated erythrocyte distribution width ratio 13.2 % 10.0-14.5 Automated blood platelet count (count/volume) 223 10*3/uL 130-400 Automated blood platelet mean volume measurement 12.0 [foz_us] 7.4-10.4 Automated blood neutrophils/100 leukocytes 58 % 42-75 Automated blood lymphocytes/100 leukocytes 23 % 12-44 Blood monocytes/100 leukocytes 9 % 0-12 Automated blood eosinophils/100 leukocytes 9 % 0-10 Automated blood basophils/100 leukocytes 2 % 0-10 Blood neutrophils automated count (number/volume) 3.5 10*3 1.8-7.8 Blood lymphocytes automated count (number/volume) 1.4 10*3 1.0-4.0 Blood monocytes automated count (number/volume) 0.5 10*3 0.0-1.0 Automated eosinophil count 0.5 10*3/uL 0.0-0.3 Automated blood basophil count (count/volume) 0.1 10*3/uL 0.0-0.1 Comprehensive metabolic panel - 03/09/18 14:55 Serum or plasma sodium measurement (moles/volume) 141 mmol/L 135-145 Serum or plasma potassium measurement (moles/volume) 3.7 mmol/L 3.6-5.0 Serum or plasma chloride measurement (moles/volume) 102 mmol/L 98-107 Carbon dioxide 27 mmol/L 21-32 Serum or plasma anion gap determination (moles/volume) 12 mmol/L 5-14 Serum or plasma urea nitrogen measurement (mass/volume) 13 mg/dL 7-18 Serum or plasma creatinine measurement (mass/volume) 0.80 mg/dL 0.60-1.30 Serum or plasma urea nitrogen/creatinine mass ratio 16 NRG Serum or plasma creatinine measurement with calculation of estimated glomerular filtration rate > NRG Serum or plasma glucose measurement (mass/volume) 108 mg/dL 70-105 Serum or plasma calcium measurement (mass/volume) 9.6 mg/dL 8.5-10.1 Serum or plasma total bilirubin measurement (mass/volume) 0.5 mg/dL 0.1-1.0 Serum or plasma alkaline phosphatase measurement (enzymatic activity/volume) 158 U/L 40-136 Serum or plasma aspartate aminotransferase measurement (enzymatic activity/ volume) 32 U/L 5-34 Serum or plasma alanine aminotransferase measurement (enzymatic activity/volume ) 38 U/L 0-55 Serum or plasma protein measurement (mass/volume) 7.7 g/dL 6.4-8.2 Serum or plasma albumin measurement (mass/volume) 4.2 g/dL 3.2-4.5 CALCIUM CORRECTED 9.4 mg/dL 8.5-10.1 Serum or plasma C reactive protein measurement (mass/volume) - 03/09/18 14:55 Serum or plasma C reactive protein measurement (mass/volume) 1.49 mg /dL 0.00-0.50 Erythrocyte sedimentation rate by westergren method - 03/09/18 14:55 Erythrocyte sedimentation rate by westergren method 40 mm 0-15 Erythrocyte sedimentation rate by westergren method - 03/16/18 14:45 Erythrocyte sedimentation rate by westergren method 38 mm 0-15 Serum or plasma C reactive protein measurement (mass/volume) - 03/16/18 14:45 Serum or plasma C reactive protein measurement (mass/volume) 1.72 mg /dL 0.00-0.50 Encounters ACCT No. Visit Date/Time Discharge Status Pt. Type Provider Facility Loc./Unit Complaint [id number] 05/04/2018 00:18:00 05/04/2018 23:59:59 CLS Preadmit KAMINI ELLIS [facility] CHRONIC MANDIBLE INFECTION [id number] 03/16/2018 14:26:00 05/03/2018 00:01:00 DIS Outpatient KAMINI ELLIS [facility] CHRONIC MANDIBLE INFECTION [id number] 04/19/2018 14:19:00 04/19/2018 23:59:59 CLS Outpatient KAMINI ELLIS [facility] ONC [id number] 03/11/2018 00:10:00 03/11/2018 23:59:59 CLS Preadmit LAURIE OILVEIRA MD [facility] CHRONIC MANDIBLE INFECTION [id number] 01/26/2018 13:46:00 03/10/2018 00:01:00 DIS Outpatient LAURIE OLIVEIRA MD [facility] CHRONIC MANDIBLE INFECTION [id number] 03/06/2018 10:54:00 03/06/2018 23:59:59 CLS Outpatient PETERSON MORALES MD [facility] RAD RECURRENT TONGUE CANCER [id number] 01/12/2018 09:41:00 01/31/2018 00:01:00 DIS Outpatient KAMINI ELLIS [facility] ONC [id number] 01/06/2018 00:10:00 01/06/2018 23:59:59 CLS Preadmit LAURIE OLIVEIRA MD [facility] M27.2 [id number] 11/19/2017 14:37:00 01/05/2018 00:01:00 DIS Outpatient LAURIE OLIVEIRA MD [facility] M27.2 [id number] 12/01/2017 13:03:00 12/01/2017 23:59:59 CLS Outpatient KAMINI ELLIS [facility] ONC [id number] 10/13/2017 00:10:00 10/13/2017 23:59:59 CLS Preadmit JOSHUA COX [facility] [id number] 07/30/2017 12:55:00 10/12/2017 00:01:00 DIS Outpatient JOSHUA COX [facility] [id number] 07/21/2017 11:27:00 07/21/2017 23:59:59 CLS Outpatient LAURIE OLIVEIRA MD [facility] LAB DIARRHEA [id number] 05/06/2017 11:32:00 06/08/2017 15:16:00 DIS Outpatient SEMAJ SANTIAGO [facility] REHAB OROPHARYNGEAL DYSPHAGIA ; SQUAMOUS CELL CARCINOMA [id number] 05/29/2017 09:56:00 05/29/2017 23:59:59 CLS Outpatient SEMAJ SANTIAGO [facility] RAD DSYPHAGIA [id number] 02/06/2017 11:41:00 05/07/2017 00:01:00 DIS Outpatient KAMINI ELLIS [facility] ONC [id number] 03/12/2017 06:12:00 03/12/2017 09:55:00 DIS Outpatient SHANT NOLEN DO [facility] 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 [id number] 03/11/2017 10:16:00 03/11/2017 14:53:00 DIS Outpatient SHANT NOLEN DO [facility] PREOP 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 [id number] 02/10/2017 08:45:00 02/10/2017 23:59:59 CLS Outpatient ALFONSO JACKSON MD [facility] RAD SQUAMOUS CELL CA [id number] 02/03/2017 12:26:00 02/03/2017 23:59:59 CLS Preadmit ALFONSO JACKSON MD [facility] RAD C06.1 [id number] 12/19/2016 10:41:00 01/31/2017 00:01:00 DIS Outpatient KAMINI ELLIS [facility] ONC [id number] 09/26/2016 11:33:00 10/30/2016 00:01:00 DIS Outpatient KAMINI ELLIS [facility] ONC [id number] 06/27/2016 09:56:00 06/29/2016 00:01:00 DIS Outpatient KAMINI ELLIS [facility] ONC [id number] 01/31/2016 11:28:00 02/11/2016 13:41:00 DIS Outpatient KAMINI ELLIS [facility] ONC [id number] 02/06/2016 15:43:00 02/06/2016 23:59:59 CLS Outpatient KM FRY DO [facility] RT DYSPNEA AND RESPIRATORY ABNORMALITIES [id number] 01/23/2016 08:03:00 01/23/2016 23:59:59 CLS Outpatient ALFONSO JACKSON MD [facility] RAD NECK MASS [id number] 12/20/2015 09:31:00 01/23/2016 00:01:00 DIS Outpatient KAMINI ELLIS [facility] ONC [id number] 12/31/2015 07:56:00 12/31/2015 23:59:59 CLS Outpatient LIDIA APARICIO MD [facility] CARD CHEST PAIN SYNDROME,HTN, PALPITATIONS [id number] 12/28/2015 09:59:00 12/28/2015 23:59:59 CLS Outpatient LIDIA APARICIO MD [facility] CARD CHEST PAIN SYNDROME,HTN, PALPITATIONS [id number] 09/13/2015 10:26:00 09/19/2015 00:01:00 DIS Outpatient KAMINI ELLIS [facility] ONC [id number] 09/18/2015 08:08:00 09/18/2015 23:59:59 CLS Outpatient MARCOS PATEL [facility] RAD CANCER OF BUCCAL MUCOSA [id number] 09/13/2015 10:27:00 09/13/2015 23:59:59 CLS Outpatient MARCOS PATEL [facility] ONC [id number] 05/08/2015 11:07:00 05/29/2015 00:01:00 DIS Outpatient KAMINI ELLIS Lucero [facility] ONC [id number] 04/24/2015 10:27:00 04/24/2015 23:59:59 CLS Outpatient MARCOS PATEL GRADUATE RECRUITER [facility] RAD RESTAGING OF HEAD AND NECK [id number] 03/27/2015 10:47:00 03/27/2015 23:59:59 CLS Outpatient GETACHEW YEAGER WAREHOUSE DIRECTOR [facility] LAB [id number] 03/27/2015 09:00:00 03/27/2015 23:59:59 CLS Outpatient MARCOS PATEL GRADUATE RECRUITER [facility] ONC [id number] 01/24/2015 11:28:00 01/31/2015 00:01:00 DIS Outpatient KAMINI ELLIS [facility] ONC [id number] 12/01/2014 10:58:00 12/01/2014 23:59:59 CLS Outpatient KAMINI ELLIS Lucero [facility] CARD MOUTH CANCER [id number] 11/24/2014 10:12:00 11/24/2014 23:59:59 CLS Outpatient MARCOS PATEL GRADUATE RECRUITER [facility] ONC [id number] 10/30/2014 11:03:00 11/01/2014 00:01:00 DIS Outpatient KAMINI ELLIS [facility] ONC [id number] 10/02/2014 08:51:00 10/02/2014 23:59:59 CLS Outpatient MARCOS PATEL GRADUATE RECRUITER [facility] ONC [id number] 08/22/2014 08:07:00 08/22/2014 23:59:59 CLS Outpatient MARCOS PATEL GRADUATE RECRUITER [facility] RAD HEAD/NECK CA [id number] 08/09/2014 10:35:00 08/09/2014 23:59:59 CLS Outpatient MARCOS PATEL GRADUATE RECRUITER [facility] RAD HEAD/NECK CA, DIZZINESS [id number] 08/07/2014 09:03:00 08/07/2014 23:59:59 CLS Outpatient MARCOS PATEL [facility] ONC [id number] 06/20/2014 00:09:00 06/20/2014 23:59:59 CLS Outpatient ROSA FREIRE MD [facility] ONC [id number] 06/19/2014 08:33:00 06/19/2014 00:01:00 DIS Outpatient ROSA FREIRE MD [facility] ONC [id number] 06/14/2014 09:50:00 06/14/2014 23:59:59 CLS Outpatient MARCOS PATEL [facility] ONC [id number] 06/09/2014 07:28:00 06/09/2014 11:00:00 DIS Outpatient SHANT NOLEN DO [facility] SDC SQUAMOUS CELL CARCINOMA ORAL CAVITY [id number] 06/07/2014 09:01:00 06/07/2014 23:59:59 CLS Outpatient SHANT NOLEN DO [facility] PREOP SQUAMOUS CELL CARCINOMA ORAL CAVITY [id number] 04/12/2014 12:01:00 04/12/2014 23:59:59 CLS Outpatient ALFONSO JACKSON MD [facility] CARD HTN [id number] 04/04/2014 09:12:00 04/04/2014 23:59:59 CLS Outpatient ROSA FREIRE MD [facility] RAD MOUTH CANCER [id number] 03/28/2014 07:50:00 03/28/2014 23:59:59 CLS Outpatient ROSA FREIRE MD [facility] RAD MOUTH CANCER [id number] 01/13/2014 11:26:00 01/13/2014 23:59:59 CLS Outpatient ALFONSO JACKSON MD [facility] RAD MELIGNANT NEOPLASM LOWER GUM [id number] 10/03/2013 14:24:00 11/10/2013 00:01:00 DIS Outpatient BALDEV BERRY MD [facility] ONC [id number] 07/13/2013 15:53:00 08/11/2013 00:01:00 DIS Outpatient BALDEV BERRY MD [facility] ONC [id number] 06/30/2014 15:41:00 Document Registration [id number] 11/11/2013 14:32:00 Document Registration [id number] 01/25/2015 04:26:55 ACT Document Registration
[2018-05-12 13:00] VITALS: BP 131/89
[2018-05-12 13:19] LABS: BASOPHILS # (AUTO) 0.1 10^3/uL (0.0-0.1); BASOPHILS % (AUTO) 1 % (0-10); EOSINOPHILS # (AUTO) 0.3 10^3/uL (0.0-0.3); EOSINOPHILS % (AUTO) 4 % (0-10); HEMATOCRIT 41 % (40-54); HEMOGLOBIN 12.9 G/DL (13.3-17.7); LYMPHOCYTES # (AUTO) 0.9 X 10^3 (1.0-4.0); LYMPHOCYTES % (AUTO) 10 % (12-44); MEAN CORPUSCULAR HEMOGLOBIN 28 PG (25-34); MEAN CORPUSCULAR HGB CONC 32 G/DL (32-36); MEAN CORPUSCULAR VOLUME 90 FL (80-99); MEAN PLATELET VOLUME 11.5 FL (7.4-10.4); MONOCYTES # (AUTO) 0.8 X 10^3 (0.0-1.0); MONOCYTES % (AUTO) 8 % (0-12); NEUTROPHILS # (AUTO) 7.3 X 10^3 (1.8-7.8); NEUTROPHILS % (AUTO) 78 % (42-75); PLATELET COUNT 198 10^3/uL (130-400); RED BLOOD COUNT 4.54 10^6/uL (4.35-5.85); RED CELL DISTRIBUTION WIDTH 13.3 % (10.0-14.5); WHITE BLOOD COUNT 9.4 10^3/uL (4.3-11.0)
[2018-05-12] MEDS ORDERED: NS IV 1000 ML 1,000 ML IV ONE ×2 (13:20→15:31)
[2018-05-12] MEDS ORDERED: ONDANSETRON 4 MG/2 ML (SDV) Z0FRAN IVP ONE (13:30)
[2018-05-12 13:39] LABS: ALANINE AMINOTRANSFERASE 16 U/L (0-55); ALBUMIN 4.6 GM/DL (3.2-4.5); ALKALINE PHOSPHATASE 169 U/L (40-136); BILIRUBIN,TOTAL 0.7 MG/DL (0.1-1.0); BUN/CREATININE RATIO 14; CALCIUM 9.7 MG/DL (8.5-10.1); CARBON DIOXIDE 27 MMOL/L (21-32); CHLORIDE 98 MMOL/L (98-107); CREATININE SERUM 1.04 MG/DL (0.60-1.30); GFR ESTIMATED > 60; GLUCOSE 113 MG/DL (70-105); SODIUM 136 MMOL/L (135-145); TOTAL PROTEIN 8.5 GM/DL (6.4-8.2)
[2018-05-12 13:40] LABS: INR 0.9 (0.8-1.4); PROTHROMBIN TIME PATIENT 12.5 SEC (12.2-14.7)
[2018-05-12] MEDS ORDERED: VANCOMYCIN INJECTION 1,000 MG in NS (IVPB) 250 ML IV ONE (14:00)
[2018-05-12] MEDS ORDERED: MEROPENEM 1,000 MG in NS (IVPB) 100 ML IV ONE (14:00)
--- NOTE | 2018-05-12 14:00 | Diagnostic Imaging Report ---
INDICATION: Infections. The lungs are clear. The heart and vessels normal. There is no effusion or pneumothorax. IMPRESSION: No acute appearing abnormality. Dictated by: Dictated on workstation # [id number]
--- NOTE | 2018-05-12 14:03 | ED General ---
General Chief Complaint: Fever-Adult/Adol Stated Complaint: POSS INFECTION Nursing Triage Note: STATES HE HAS CHRONIC INFECTION IN HIS FACE SINCE HIS SURGERY LAST YEAR BUT TODAY HIS VITALS STARTED CHANGING AND HE WANTS TO RULE OUT SEPSIS. PT STATES HE TOOK TYLENOL APPX 45 MINS AGO FOR A FEVER OF 101 Nursing Sepsis Screen: Possible Sepsis Risk Source of Information: Patient Exam Limitations: No Limitations History of Present Illness Date Seen by Provider: May 12, 2018 Time Seen by Provider: 12:53 Initial Comments This 48-year-old gentleman presents to the emergency room with complaints of elevated heart rate, decrease in blood pressure, and fever since this morning that he believes is likely associated with a chronic wound near his right jaw. He started feeling ill yesterday. He has a history of squamous cell carcinoma of the face and has had multiple treatments to treat this including surgery, chemotherapy, and radiation. He has had a tissue graft to the area. He has struggled with infection since the surgery in March 2017. He has been on antibiotics much of the time since then including parenteral antibiotics via PICC line. He had hardware removed from the site in January 2018. His most recent parenteral antibiotic was meropenem through a PICC line. He is presently on oral Augmentin. His primary care provider is Dr. Encinas. He has a team of surgeons and specialists at [facility]. His ENT surgeons are Dr. Torres and Dr. Haynes at [facility]. They also have worked extensively with MILENA Muller. His infectious disease provider is Dr. Rolon. His local oncologist is Dr. Medeiros at the [facility]. Patient states his providers are fairly certain he has no active cancer, but he has struggled with infection. He reports chronic drainage from a wound on the right side of the face. If he applies pressure to the exterior of his cheek/mandible, a small amount of purulent drainage will be expressed into the mouth. Patient has extensive induration and scarring from numerous procedures and treatments. This complicates evaluation. Allergies and Home Medications Allergies Uncoded Allergies: FRESH FRUIT (Allergy, Severe, SWELLING OF MOUTH, 03/11/17) Home Medications Alprazolam 0.25 Mg Tablet, 0.25 MG PO PRN, (Reported) Atorvastatin Calcium 40 Mg Tablet, 40 MG PO DAILY, (Reported) Esomeprazole Magnesium 20 Mg Capsule.dr, 20 MG PO DAILY, (Reported) Fluoxetine HCl 20 Mg Capsule, 20 MG PO DAILY, (Reported) Levothyroxine Sodium 125 Mcg Tablet, 125 MCG PO DAILY, (Reported) Lisinopril 10 Mg Tablet, 10 MG PO DAILY, (Reported) Loratadine 10 Mg Tablet, 10 MG PO DAILY, (Reported) Patient Home Medication List Home Medication List Reviewed: Yes Review of Systems Review of Systems Constitutional: see HPI EENTM: see HPI Respiratory: no symptoms reported Cardiovascular: see HPI Gastrointestinal: no symptoms reported, nausea Genitourinary: no symptoms reported Musculoskeletal: see HPI Skin: see HPI Psychiatric/Neurological: No Symptoms Reported Hematologic/Lymphatic: See HPI Immunological/Allergic: no symptoms reported Past Ywireoj-Ulexgy-Gcqmft Hx Past Med/Social Hx: Reviewed and Corrections made Patient Social History Alcohol Use: Denies Use Number of Drinks Today: DD Alcohol Beverage of Choice: Rum Recreational Drug Use: No Smoking Status: Never a Smoker Type Used: Smokeless Tobacco 2nd Hand Smoke Exposure: No Recent Foreign Travel: No Contact w/Someone Who Travel: No Recent Infectious Disease Expo: No Recent Hopitalizations: No Physical Abuse: No Sexual Abuse: No Immunizations Up To Date Date of Influenza Vaccine: Jun 30, 2017 Seasonal Allergies Seasonal Allergies: Yes Past Medical History Surgeries: Yes (SEVERAL ORAL SX'S, MODIFIED RADICAL NECK DISECTION, graft, removal of hardware) Respiratory: Yes (MILD ASTHMA) Asthma Cardiac: Yes High Cholesterol, Hypertension Neurological: No Reproductive Disorders: No Sexually Transmitted Disease: No HIV/AIDS: No Gastrointestinal: Yes Gastroesophageal Reflux Musculoskeletal: Yes Chronic Back Pain Endocrine: Yes Loss of Vision: Bilateral Hearing Impairment: Denies Cancer: Yes Oral (squamous cell carcinoma of the right face) Did You Recieve Any Treatments: Yes What Type of Treatment Did You: Chemotherapy, Radiation, Surgical Intervention Psychosocial: Yes Anxiety Integumentary: Yes (RASH ON LEG) Blood Disorders: No Adverse Reaction/Blood Tranf: No Physical Exam Vital Signs Vital Signs - First Documented 05/12/18 12:47 Temp 102.0 Pulse 139 Resp 20 B/P (MAP) 140/88 (105) Pulse Ox 93 O2 Delivery Room Air Capillary Refill : Less Than 3 Seconds Height, Weight, BMI Height: 5'11.00" Weight: 200lbs. 0.0oz. 90.016935bc; 32.1 BMI Method:Stated General Appearance: WD/WN, Mild Distress HEENT: PERRL/EOMI, TMs Normal, Other (mucous membranes somewhat dry. Induration and disfigurement primarily of the right face below the zygomatic arch. Induration and granulation tissue within the mouth along the oral mucosa and gums. Missing teeth. 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 Norm as Tested Focused Exam Lactate Level 05/12/18 13:05: Lactic Acid Level 1.10 Lactic Acid Level Progress/Results/Core Measures Suspected Sepsis Recent Fever Within 48 Hours: Yes Infection Criteria Present: Suspected New Infection New/Unexplained Altered Menta: No Sepsis Screen: Possible Sepsis Risk SIRS Temperature:102.0 Pulse: 130 Respiratory Rate: 18 Laboratory Tests 05/12/18 13:05: White Blood Count 9.4 Blood Pressure 131 /89 Mean: 103 05/12/18 13:05: Lactic Acid Level 1.10 Laboratory Tests 05/12/18 13:05: Creatinine 1.04, INR Comment 0.9, Platelet Count 198, Total Bilirubin 0.7 Results/Orders Lab Results Laboratory Tests Test 05/12/18 13:05 05/12/18 15:10 Range/Units White Blood Count 9.4 4.3-11.0 10^3/uL Red Blood Count 4.54 4.35-5.85 10^6/uL Hemoglobin 12.9 L 13.3-17.7 G/DL Hematocrit 41 40-54 % Mean Corpuscular Volume 90 80-99 FL Mean Corpuscular Hemoglobin 28 25-34 PG Mean Corpuscular Hemoglobin Concent 32 32-36 G/DL Red Cell Distribution Width 13.3 10.0-14.5 % Platelet Count 198 130-400 10^3/uL Mean Platelet Volume 11.5 H 7.4-10.4 FL Neutrophils (%) (Auto) 78 H 42-75 % Lymphocytes (%) (Auto) 10 L 12-44 % Monocytes (%) (Auto) 8 0-12 % Eosinophils (%) (Auto) 4 0-10 % Basophils (%) (Auto) 1 0-10 % Neutrophils # (Auto) 7.3 1.8-7.8 X 10^3 Lymphocytes # (Auto) 0.9 L 1.0-4.0 X 10^3 Monocytes # (Auto) 0.8 0.0-1.0 X 10^3 Eosinophils # (Auto) 0.3 0.0-0.3 10^3/uL Basophils # (Auto) 0.1 0.0-0.1 10^3/uL Prothrombin Time 12.5 12.2-14.7 SEC INR Comment 0.9 0.8-1.4 Activated Partial Thromboplast Time 36 H 24-35 SEC Sodium Level 136 135-145 MMOL/L Potassium Level 4.0 3.6-5.0 MMOL/L Chloride Level 98 98-107 MMOL/L Carbon Dioxide Level 27 21-32 MMOL/L Anion Gap 11 5-14 MMOL/L Blood Urea Nitrogen 15 7-18 MG/DL Creatinine 1.04 0.60-1.30 MG/DL Estimat Glomerular Filtration Rate > 60 BUN/Creatinine Ratio 14 Glucose Level 113 H 70-105 MG/DL Lactic Acid Level 1.10 0.50-2.00 MMOL/L Calcium Level 9.7 8.5-10.1 MG/DL Corrected Calcium 8.5-10.1 MG/DL Total Bilirubin 0.7 0.1-1.0 MG/DL Aspartate Amino Transf (AST/SGOT) 21 5-34 U/L Alanine Aminotransferase (ALT/SGPT) 16 0-55 U/L Alkaline Phosphatase 169 H 40-136 U/L C-Reactive Protein High Sensitivity 7.33 H 0.00-0.50 MG/DL Total Protein 8.5 H 6.4-8.2 GM/DL Albumin 4.6 H 3.2-4.5 GM/DL Urine Color YELLOW Urine Clarity CLEAR Urine pH 7 5-9 Urine Specific [place] 1.005 L 1.016-1.022 Urine Protein NEGATIVE NEGATIVE Urine Glucose (UA) NEGATIVE NEGATIVE Urine Ketones NEGATIVE NEGATIVE Urine Nitrite NEGATIVE NEGATIVE Urine Bilirubin NEGATIVE NEGATIVE Urine Urobilinogen NORMAL NORMAL MG/DL Urine Leukocyte Esterase NEGATIVE NEGATIVE Urine RBC (Auto) NEGATIVE NEGATIVE Urine RBC RARE /HPF Urine WBC RARE /HPF Urine Crystals NONE /LPF Urine Bacteria NEGATIVE /HPF Urine Casts NONE /LPF Urine Mucus NEGATIVE /LPF Urine Culture Indicated NO Micro Results Microbiology 05/12/18 Influenza Types A,B Antigen (SUZI) - Final, Complete My Orders Orders - SAMI CHANG MD Cbc With Automated Diff (05/12/18 12:54) Comprehensive Metabolic Panel (05/12/18 12:54) Hs C Reactive Protein (05/12/18 12:54) Saline Lock/Iv-Start (05/12/18 12:54) Saline Lock/Iv-Start (05/12/18 13:20) Ns Iv 1000 Ml (Sodium Chloride 0.9%) (05/12/18 13:20) Blood Culture (05/12/18 13:20) Sputum Culture (05/12/18 13:20) Urinalysis (05/12/18 13:20) Urine Culture (05/12/18 13:20) Protime With Inr (05/12/18 13:20) Partial Thromboplastin Time (05/12/18 13:20) Chest 1 View, Ap/Pa Only (05/12/18 13:20) Saline Lock/Iv-Start (05/12/18 13:20) Vital Signs Adult Sepsis Patie Q15M (05/12/18 13:20) O2 (05/12/18 13:20) Remove Rings In Anticipation O (05/12/18 13:20) Lactic Acid Analyzer (05/12/18 13:20) Ondansetron Injection (Zofran Injectio (05/12/18 13:30) Influenza A And B Antigens (05/12/18 13:22) Ct Neck (Soft Tissue) W (05/12/18 13:52) Meropenem (Merrem 1000 Mg) (05/12/18 14:00) Vancomycin Injection (Vancomycin Injecti (05/12/18 14:00) Iohexol Injection (Omnipaque 350 Mg/Ml 1 (05/12/18 14:15) Contrast Received (Contrast Received) (05/12/18 14:15) Ns (Ivpb) (Sodium Chloride 0.9%) (05/12/18 14:15) Fentanyl Injection (Sublimaze Injection (05/12/18 14:45) Saline Lock/Iv-Start (05/12/18 15:31) Ns Iv 1000 Ml (Sodium Chloride 0.9%) (05/12/18 15:31) Wound Culture (05/12/18 15:36) Mrsa Screen Physician Request (05/12/18 15:36) Fentanyl Injection (Sublimaze Injection (05/12/18 16:00) Oxycodone/Apap 5/325mg Tablet (Percocet (05/12/18 18:00) Ketorolac Injection (Toradol Injection) (05/12/18 18:00) Medications Given in ED Current Medications Medications Dose Ordered Sig/Durga Route Start Time Stop Time Status Last Admin Dose Admin Fentanyl Citrate 75 mcg ONCE ONCE IVP 05/12/18 16:00 05/12/18 16:01 DC 05/12/18 15:58 75 MCG Iohexol 75 ml ONCE ONCE IV 05/12/18 14:15 05/12/18 14:16 DC 05/12/18 14:22 75 ML Ketorolac Tromethamine 15 mg ONCE ONCE IVP 05/12/18 18:00 05/12/18 18:01 DC 05/12/18 18:20 15 MG Meropenem 1000 mg/ Sodium Chloride 100 ml @ 200 mls/hr ONCE ONCE IV 05/12/18 14:00 05/12/18 14:29 DC 05/12/18 14:33 200 MLS/HR Ondansetron HCl 8 mg ONCE ONCE IVP 05/12/18 13:30 05/12/18 13:31 DC 05/12/18 13:28 8 MG Oxycodone/ Acetaminophen 1 tab ONCE ONCE PO 05/12/18 18:00 05/12/18 18:01 DC 05/12/18 18:20 1 TAB Sodium Chloride 250 ml ONCE ONCE IV 05/12/18 14:15 05/12/18 14:16 DC 05/12/18 14:22 80 ML Sodium Chloride 1,000 ml @ 0 mls/hr Q0M ONCE IV 05/12/18 13:20 05/12/18 13:21 DC 05/12/18 13:29 0 MLS/HR Sodium Chloride 1,000 ml @ 0 mls/hr Q0M ONCE IV 05/12/18 15:31 05/12/18 15:32 DC 05/12/18 15:50 0 MLS/HR Vancomycin HCl 1000 mg/Sodium Chloride 250 ml @ 250 mls/hr ONCE ONCE IV 05/12/18 14:00 05/12/18 14:59 DC 05/12/18 15:15 250 MLS/HR Vital Signs/I&O 05/12/18 05/12/18 05/12/18 12:47 13:00 13:00 Temp 102.0 102.0 Pulse 139 130 Resp 20 18 B/P (MAP) 140/88 (105) 131/89 (103) Pulse Ox 93 94 94 O2 Delivery Room Air Nasal Cannula Nasal Cannula O2 Flow Rate 2.00 2.00 Capillary Refill : Less Than 3 Seconds Blood Pressure Mean: 103 Progress Note #1: Time: 16:00 Progress Note Septic workup was pursued on this patient. Meropenem was started after collection of cultures including blood culture, wound culture from the mouth, and MRSA screening from the naris. Meropenem was then followed by vancomycin. Patient is receiving his second liter of IV fluid. Fentanyl is being used for pain control. CT of the neck with contrast was obtained for evaluation for possible abscess. The induration and tissue disfigurement from prior surgeries makes evaluation on exam difficult. CT demonstrated a possible abscess up to 3 cm in size inferior to the right mandible. I discussed the CT images and reviewed them with Dr. Polk in radiology. Images were sent to [employer] to [facility]. I have placed a phone consultation in to [facility] and am awaiting response. Nausea was treated with Zofran. Progress Note #2: Progress Note Patient received doses of meropenem and vancomycin in the ER as well as 2 L of IV fluids. I did discuss the case with Dr. Martinez, ENT on-call at [facility]. He consulted with the ENT physicians familiar with this patient. Treatment of infection has been problematic in this patient. Dr. Martinez was hopeful to avoid transfer and surgical procedures. He suggested treating aggressively with antibiotics locally with outpatient follow-up at [facility], and transferring only if this was not successful locally. Dr. Bhatt was agreeable. Dr. Martinez did state they would be happy to accept the patient in transfer if Dr. Bhatt was uncomfortable with the case or if his progress was not satisfactory at [facility]. Patient was agreeable to plan. Patient was allowed to eat and drink and he was given Toradol for additional pain management. Vital signs were stable with improving heart rate on admission. Dr. Sepulveda was consulted and is agreeable to following the patient. Diagnostic Imaging Diagonstic Imaging: Xray Plain Films/CT/US/NM/MRI: chest Comments Chest x-ray viewed by me and report reviewed. See report below: NAME: ISAIAS VARGAS MED REC#: [id number] PT STATUS: REG ER : 1970 PHYSICIAN: SAMI CHANG MD ADMIT DATE: 05/12/18/ER Draft Date of Exam:05/12/18 CHEST 1 VIEW, AP/PA ONLY INDICATION: Infections. The lungs are clear. The heart and vessels normal. There is no effusion or pneumothorax. IMPRESSION: No acute appearing abnormality. Dictated on workstation # [id number] Dict: 05/12/18 1357 Trans: 05/12/18 1359 [facility] [id number] Interpreted by: VALENTIN GUILLAUME Diagonstic Imaging: CT Plain Films/CT/US/NM/MRI: other (soft tissues neck) Comments CT soft tissues neck viewed by me and report reviewed. Reviewed and discussed with the radiologist. See report below: NAME: ISAIAS VARGAS MED REC#: [id number] PT STATUS: REG ER : 1970 PHYSICIAN: SAMI CHANG MD ADMIT DATE: 05/12/18/ER Draft Date of Exam:05/12/18 CT NECK (SOFT TISSUE) W PROCEDURE: CT neck soft tissue with contrast. TECHNIQUE: Multiple contiguous axial images were obtained through the neck after the administration of contrast. INDICATION: Right-sided neck redness. Fever. History of right sided jaw cancer. COMPARISON: CT neck with IV contrast 02/10/2017. MRI neck without and with IV contrast 03/06/2018. FINDINGS: Again seen are the postoperative findings of a mandibular reconstruction. There are surgical clips in the floor of the mouth and suprahyoid neck. New 1.9 x 3.0 cm peripherally enhancing low-attenuation mass along the inferior margin of the right mandible. There is also inflammatory stranding throughout the subcutaneous tissues of the anterior neck. Postoperative findings of right neck dissection. The tongue base and epiglottis are unremarkable. No cervical lymphadenopathy is identified. The cervical carotid and vertebral arteries are grossly patent on this nondedicated exam. No retropharyngeal fluid collection. The laryngeal and pharyngeal soft tissues are symmetric bilaterally with no focal mass or enhancement. Lung apices are clear. Cervical spine is unremarkable. IMPRESSION: Again seen are the postoperative changes involving the floor of the mouth, suprahyoid neck and mandible. There is a new peripherally enhancing low-attenuation mass or fluid collection along the inferior margin of the right mandible measuring up to 3.0 cm. This may represent a cystic mass or abscess. This appears too complex to be amenable to drainage by CT. However, this could be further characterized with ultrasound. Dictated on workstation # [id number] Dict: 05/12/18 1441 Trans: 05/12/18 1455 [id number] Interpreted by: CLAUDIA BALL MD Departure Communication (Admissions) Time/Spoke to Admitting Phy: 17:40 Dr. Bhatt Time/Spoke to Consulting Phy: 17:45 Dr. Sepulveda Impression Primary Impression: Sepsis Qualified Codes: A41.9 - Sepsis, unspecified organism Additional Impressions: Cellulitis, face Abscess of face Disposition: ADMITTED INPATIENT Condition: Improved Admissions Decision to Admit Reason: Admit from ER (General) Decision to Admit/Date: May 12, 2018 Time/Decision to Admit Time: 14:00 Departure-Patient Inst. Referrals: RON ENCINAS MD (PCP/Family) Primary Care Physician SAMI CHANG MD May 12, 2018 14:03
[2018-05-12] MEDS ORDERED: NS 250 ML (IVPB) BAG IV ONE (14:15)
[2018-05-12] MEDS ORDERED: IOHEXOL 350 MG/ML 100 ML (OMNIPAQUE 350) VIAL IV ONE (14:15)
[2018-05-12] MEDS ORDERED: RECEIVED CONTRAST (Hold Metformin) IV SCH (14:15)
[2018-05-12] MEDS ORDERED: fentaNYL INJECTION 100 MCG/2 ML AMP IVP ONE ×2 (14:45→16:00)
--- NOTE | 2018-05-12 14:50 | NUR ---
PT REFUSED 75MCG FENTANYL.
--- NOTE | 2018-05-12 14:56 | Diagnostic Imaging Report ---
PROCEDURE: CT neck soft tissue with contrast. TECHNIQUE: Multiple contiguous axial images were obtained through the neck after the administration of contrast. INDICATION: Right-sided neck redness. Fever. History of right sided jaw cancer. COMPARISON: CT neck with IV contrast 02/10/2017. MRI neck without and with IV contrast 03/06/2018. FINDINGS: Again seen are the postoperative findings of a mandibular reconstruction. There are surgical clips in the floor of the mouth and suprahyoid neck. New 1.9 x 3.0 cm peripherally enhancing low-attenuation mass along the inferior margin of the right mandible. There is also inflammatory stranding throughout the subcutaneous tissues of the anterior neck. Postoperative findings of right neck dissection. The tongue base and epiglottis are unremarkable. No cervical lymphadenopathy is identified. The cervical carotid and vertebral arteries are grossly patent on this nondedicated exam. No retropharyngeal fluid collection. The laryngeal and pharyngeal soft tissues are symmetric bilaterally with no focal mass or enhancement. Lung apices are clear. Cervical spine is unremarkable. IMPRESSION: Again seen are the postoperative changes involving the floor of the mouth, suprahyoid neck and mandible. There is a new peripherally enhancing low-attenuation mass or fluid collection along the inferior margin of the right mandible measuring up to 3.0 cm. This may represent a cystic mass or abscess. This appears too complex to be amenable to drainage by CT. However, this could be further characterized with ultrasound. Dictated by: Dictated on workstation # [id number]
[2018-05-12 15:18] LABS: BILIRUBIN,URINE NEGATIVE (NEGATIVE); CLARITY,URINE CLEAR; COLOR,URINE YELLOW; GLUCOSE, URINE (UA) NEGATIVE (NEGATIVE); KETONES,URINE NEGATIVE (NEGATIVE); LEUKOCYTE ESTERASE ,URINE NEGATIVE (NEGATIVE); NITRITE,URINE NEGATIVE (NEGATIVE); PH,URINE 7 (5-9); PROTEIN,URINE NEGATIVE (NEGATIVE); UROBILINOGEN,URINE NORMAL (NORMAL)
[2018-05-12 15:40] LABS: BACTERIA,URINE NEGATIVE /HPF; RBC,URINE RARE /HPF; WBC,URINE RARE /HPF
[2018-05-12] MEDS ORDERED: oxyCODONE/APAP 5/325MG (PERCOCET 5) TABLET PO ONE (18:00)
[2018-05-12] MEDS ORDERED: KETOROLAC 30 MG/ML VIAL IVP ONE (18:00)
--- NOTE | 2018-05-12 18:18 | CONSULTATION REPORT ---
DATE OF SERVICE: 05/12/2018 ATTENDING PRIMARY CARE PHYSICIAN: Dr. Encinas ADMITTING PHYSICIAN: Dr. Bhatt. 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 The treatment was done at [facility], which encompassed chemotherapy and radiation as well as surgical excision requiring a significant portion of the mandible and reconstruction. He has had multiple issues with infection requiring eventual removal of the hardware that was used for reconstruction of the mandible. This was done in 01/2018. He has a PICC line and has been receiving IV antibiotics. It appears that he did have worsening pain in the left neck as well as swelling, redness and induration. A CT scan was performed, which did show a low attenuating collection of fluid, which appears to be superficial in the left neck, which most likely indicates an abscess. He also presents with fever. He will require admission and IV antibiotics as well as a possible incision and drainage of the abscess. PAST MEDICAL HISTORY: 1. 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 2. Asthma. 3. Hypertension. 4. Hypercholesterolemia. 5. Gastroesophageal reflux disease. 6. Anxiety. PAST SURGICAL HISTORY: Anterior oropharyngeal squamous cell cancer resection and reconstruction with eventual removal of hardware as well as modified radical neck dissection. ALLERGIES: No known drug allergies. MEDICATIONS: 1. Alprazolam 0.25 mg p.r.n. 2. Atorvastatin 40 mg daily. 3. Nexium 20 mg daily. 4. Fluoxetine 20 mg daily. 5. Levothyroxine 125 mcg daily. 6. Lisinopril 10 mg daily. 7. Loratadine 10 mg daily. SOCIAL HISTORY: Negative smoke. Previous smokeless tobacco. Previous social alcohol, none recently. FAMILY HISTORY: Noncontributory. REVIEW OF SYSTEMS: This is a well-nourished male, currently guarded secondary to the fevers and discomfort in the left neck. He is ventilating without any difficulty and no shortness of breath. Minimal cough or sputum production. No chest pain, palpitations or diaphoresis. No nausea or vomiting. No diarrhea or constipation. He is having fevers. No recent inadvertent weight loss. All other review of systems are negative. PHYSICAL EXAMINATION: VITAL SIGNS: Temperature 102.0, blood pressure 140/88, pulse 139, respirations 20, pulse ox 93% on room air. CHEST: Good breath sounds bilaterally. HEART: Tachycardic. No murmurs. EXTREMITIES: No lower extremity edema. Negative Homans sign. HEENT: He has redness and erythema as well as slight swelling on the left neck with the disfigurement of the mandible secondary to his previous reconstructive surgery and revisions. ABDOMEN: Soft, nontender, nondistended. SKIN: Warm, dry. LABS: WBC 9.4, hemoglobin 12.9, hematocrit 41, platelets 198, BUN 15, creatinine 1.04. ASSESSMENT AND PLAN: A 48-year-old male with advanced age anterior oropharyngeal squamous cell cancer, status post chemotherapy and radiation and radical resection of the tumor as well as a modified radical neck dissection. He presents with redness, swelling and fever consistent with cellulitis as well as abscess. We will IV hydrate him as well as start IV antibiotics. We will monitor the progress. However, if the redness, swelling and fluctuance worsen, we will proceed with an incision and drainage. Job ID: [id number] DocumentID: [id number] Dictated Date: 05/12/2018 18:00:43 Weaving Teacher Date: 05/12/2018 18:17:50 Dictated By: JIM HANEY MD [facility]
--- NOTE | 2018-05-12 18:36 | NUR ---
ISAIAS VARGAS admitted to room 428-1, with an admitting diagnosis of cellulitis , on 05/12/18 from ED via wheel chair, accompanied by staff .ISAIAS VARGAS introduced to surroundings, call light, bed controls, phone, TV, temperature control, lights, meal times, smoking policy, visitor policy, side rail policy, bathrooms and showers. Patient Rights given to patient in the handbook. ISAIAS VARGAS verbalizes understanding that [facility] is not responsible for the loss or damage to any personal effects or valuables that are kept in the patients posession during their hospitalization. The following Patient Care Plans and discharge were discussed with the patient . ISAIAS VARGAS verbalizes understanding of Interdisciplinary Patient Education.
[2018-05-12 19:00] VITALS: BP 120/76
--- OUTSIDE RECORDS SUMMARY | 2018-05-12 19:11 | XMS REPORT | Encounter Summary ---
Author Author [facility] Organization [facility] Address Unknown Phone Unavailable Care Team Providers Care Professional System Administrator Name Role Phone Michael Encinas MD PCP Ingrid Medeiros MD Unavailable Reason for Visit * Reason Comments Anxiety Encounter Details Care Team Description Date Type Department Tiago Flower MD [address] [place] [address] MDD (major depressive disorder), recurrent episode, moderate (HCC) (Primary Dx); Specific phobia 05/05/2018 Office Visit [facility] Physicians - Psychiatry Ortho and Medical Pavilion Level 6A [address] [place] [address] Social History Date Tobacco Use [...] Taken Vital Sign Reading 05/05/2018 1:50 PM IMMUNOLOGIST Blood Pressure 130/76 05/05/2018 1:50 PM IMMUNOLOGIST Pulse 80 - Temperature - - Respiratory Rate - - Oxygen Saturation - - Inhaled Oxygen - Concentration 05/05/2018 1:50 PM IMMUNOLOGIST Weight 96.2 kg (212 lb) 05/05/2018 1:50 PM IMMUNOLOGIST Height 177.8 cm (5' 10") 05/05/2018 1:50 PM IMMUNOLOGIST Body Mass Index 30.42 in this encounter [...] Tiago Flower MD - 05/05/2018 1:45 PM IMMUNOLOGIST - Increase Paxil to 30mg daily for depression and anxiety - Start Wellbutrin 75mg daily for depression and energy In the event of a safety concern or suicidal thoughts, call 911 or go to the nearest emergency room. National Suicide Prevention Lifeline 236-904-0664 (Talk) . Crisis Text Hotline (text 613831). The Compassionate Ear phone line is a resource for talk support innon- emergencysituations (0-489-GZCPDRT). Please do not hesitate to call the clinic, if you have questions regarding your psychiatric medications or start to develop side effects to medications prescribed by your psychiatrist. NOLOGIST in this encounter Progress Notes * Elbert Haque MD - 05/05/2018 1:45 PM IMMUNOLOGIST ATTENDING NOTE Encounter Date: 05/05/2018 I saw [...] seeking psychotherapy in his home community of [facility] [place]. PLAN: 1. Increase paroxetine from 20 mg qd to 30 mg qd 2. Trial bupropion 75 mg qam 3. Continue alprazolam 0.25 mg prn anxiety 4. Encourage psychotherapy 5. 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 On disability for about [...] MG/5 ML SOLN 1800.0 30 [place] PER [id number] [facility] (6157) 0 90.0 [place] 04/15/2018 2 04/12/2018 FENTANYL 37.5 MCG/HR PATCH 10.0 30 TIFFANIE MAT [id number] [facility] (6157) 0 90.0 [place] 04/06/2018 2 04/06/2018 ALPRAZOLAM 0.25 MG TABLET 20.0 6 SE AND [id number] [facility] ( 6157) 0 [place] 03/30/2018 2 03/23/2018 FENTANYL 37.5 MCG/HR PATCH 5.0 15 TIFFANIE MAT [id number] [facility] ( 6157) 0 90.0 [place] 03/29/2018 2 03/23/2018 OXYCODONE HCL 5 MG/5 ML SOLN 1540.0 25 TIFFANIE MAT [id number] [facility] (6157) 0 92.4 [place] 02/25/2018 2 02/23/2018 FENTANYL 50 MCG/HR PATCH 10.0 30 TIFFANIE MAT [id number] [facility] ( 6157) 0 120.0 [place] 02/18/2018 2 02/16/2018 OXYCODONE HCL 5 MG/5 ML SOLN 1800.0 30 TIFFANIE MAT [id number] [facility] (6157) 0 90.0 [place] 02/15/2018 2 02/15/2018 ALPRAZOLAM 0.25 MG TABLET 20.0 6 SE AND [id number] [facility] ( 6157) 0 [place] 02/05/2018 2 02/05/2018 OXYCODONE HCL 5 MG/5 ML SOLN 500.0 8 TIFFANIE MAT [id number] [facility] (6157) 0 93.75 MME Comm Ins [place] 01/26/2018 2 01/25/2018 OXYCODONE HCL 5 MG/5 ML SOLN 500.0 8 TIFFANIE MAT [id number] [facility] (6157) 0 93.75 MME Comm Ins [place] 01/23/2018 1 01/23/2018 OXYCODONE HCL 5 MG/5 ML SOLN 220.0 4 CH BOY [id number] [facility] (0971) 0 82.5 MME Comm Ins [place] 01/21/2018 2 01/21/2018 ALPRAZOLAM 0.25 MG TABLET 20.0 6 SE AND [id number] [facility] ( 6157) 0 Comm Ins [place] [...] contact insurance company to find provider in [place], [place] + Oxycodone, Fentanyl, Gabapentin Return to clinic in 2 months Seen and discussed with Dr. Haque The following was discussed with patient: In the event of a safety concern or suicidal thoughts, call 911 or go to the nearest emergency room. National Suicide Prevention Lifeline 586-615-5560 (Talk) . Crisis Text Hotline (text 137345). The Compassionate Ear phone line is a resource for talk support innon- emergencysituations (6-811-QFJWHXX). Please do not hesitate to call the clinic, if you have questions regarding your psychiatric medications or start to develop side effects to medications prescribed by your psychiatrist. NOLOGIST in this encounter Plan of Treatment Not on fileas of this encounter Visit Diagnoses Diagnosis MDD (major depressive disorder), recurrent episode, moderate (HCC) - Primary Major depressive disorder, recurrent episode, moderate Specific phobia Other isolated or specific phobias in this encounter
--- OUTSIDE RECORDS SUMMARY | 2018-05-12 19:11 | XMS REPORT | Encounter Summary ---
Author Author [facility] Organization [facility] Address Unknown Phone Unavailable Care Team Providers Care Rubbing Bed Operator Name Role Phone Michael Encinas MD PCP Ingrid Medeiros MD Unavailable Reason for Visit * Reason Comments Other pt. 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); Oropharyngeal dysphagia 05/05/2018 Office Visit [facility] Physicians - ENT Ortho and Medical Pavilion Level 3C [address] [place] [address] Social History Date Tobacco Use [...] Taken Vital Sign Reading 05/05/2018 11:32 AM RN PLASMA CENTER Blood Pressure 130/77 05/05/2018 11:32 AM RN PLASMA CENTER Pulse 82 - Temperature - - Respiratory Rate - - Oxygen Saturation - - Inhaled Oxygen - Concentration 05/05/2018 11:32 AM RN PLASMA CENTER Weight 96.2 kg (212 lb) 05/05/2018 11:32 AM RN PLASMA CENTER Height 177.8 cm (5' 10") 05/05/2018 11:32 AM RN PLASMA CENTER Body Mass Index 30.42 in this encounter [...] Saeid Luna PA-C - 05/05/2018 11:30 AM RN PLASMA CENTER Chief Complaint Patient presents with Other pt. here to check on jaw and OC infection History of Present Illness: Roberto Her is a 47 y.o. year old male evaluated on 05/05/2018, in the Otolaryngology-Head and Neck Surgery Clinic at the [facility] for follow-up. Pt. 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), Seasonal allergic reaction, Status post chemoradiation, Tobacco [...] and I answered all of his questions. PLASMA CENTER in this encounter Plan of Treatment Not [...]
--- OUTSIDE RECORDS SUMMARY | 2018-05-12 19:11 | XMS REPORT | Encounter Summary ---
Author Author [facility] Organization [facility] Address Unknown Phone Unavailable Care Team Providers Care Silverware Buffing Machine Operator Name Role Phone Michael Encinas MD PCP Ingrid Medeiros MD Unavailable Encounter Details Care Team Description Date Type Department Arrived 05/12/2018 Hospital [facility] Radiology [facility] [address] [place] [address] Social History Date Tobacco Use Types Packs/Day [...] Comments Procedure Name Priority Date/Time Associated Diagnosis CT NECK EXTERNAL IMAGING Routine 05/12/2018 Diagnosis unknown 5:08 PM CHEMICAL PRODUCTION ENGINEER in this encounter Results * CT NECK EXTERNAL IMAGING (05/12/2018 5:08 PM CHEMICAL PRODUCTION ENGINEER) Narrative Performed At This order has been auto finalized and does not contain a result. in this encounter Visit Diagnoses Diagnosis Diagnosis unknown Other unknown and unspecified cause of morbidity or mortality in this encounter
--- OUTSIDE RECORDS SUMMARY | 2018-05-12 19:11 | XMS REPORT | Encounter Summary ---
Author Author [facility] Organization [facility] Address Unknown Phone Unavailable Care Team Providers Care Driver License Agent Name Role Phone Michael Encinas MD PCP Ingrid Medeiros MD Unavailable Reason for Visit * Reason Comments Records Request Encounter Details Care Team Description Date Type Department Saeid Luna PA-C [address] [facility] [address] [place] [address] Records Request 05/05/2018 Telephone [facility] Physicians - ENT Ortho and Medical Pavilion Level 3C [address] [place] [address] Social History Date Tobacco Use [...] Gayle Null LPN - 05/05/2018 3:46 PM YARN WINDER Faxed office visit note to Dr Ingrid Medeiros @ [phone]. Confirmation rec'd 05.05.2018 @ 2:49pm. WINDER in this encounter Plan of Treatment Not on fileas of this encounter Visit Diagnoses Not on filein this encounter
--- OUTSIDE RECORDS SUMMARY | 2018-05-12 19:11 | XMS REPORT | Clinical Summary ---
Author Author [facility] Organization [facility] Address Unknown Phone Unavailable Care Team Providers Care Recycler Forklift Driver Truck Driver Name Role Phone Michael Encinas MD PCP Ingrid Medeiros MD Unavailable Source Comments Some departments are not documenting in the electronic medical record. If you do not see the information that you expected, contact Release of Information in the Health Information Management department at [phone] for further assistance in locating additional records.[facility] Allergies Comments Active Allergy Reactions Severity Noted [...] Overview: Added automatically from request for surgery [id number] Abscess 06/29/2017 Cellulitis 06/29/2017 Induration of skin 06/04/2017 Oropharyngeal dysphagia 04/15/2017 Specific phobia 03/24/2017 Squamous cell carcinoma of oral cavity 03/19/2017 Malignant neoplasm of oral cavity 02/17/2017 Status post dissection of neck 02/17/2017 History of radiation therapy 02/17/2017 Recurrent tongue cancer 02/17/2017 Hypertension 02/17/2017 Resolved Problems Problem Noted Date Resolved Date Tracheostomy in place 05/05/2017 06/16/2017 Encounters Care Team Description Date Type Specialty Arrived 05/12/2018 Hospital Radiology Encounter Tiago Flower MD MDD (major depressive disorder), [...] Diseases Saeid Luna PA-C Yates, Mandy L, KETTLE CLEANER-FOREIGN AGENT MDD (major depressive disorder), recurrent episode, moderate [...] Taken Vital Sign Reading 05/05/2018 1:50 PM LEADER TIER Blood Pressure 130/76 05/05/2018 1:50 PM LEADER TIER Pulse 80 03/03/2018 1:08 PM CDT Temperature 36.2 C (97.1 F) 03/03/2018 3:18 PM CDT Respiratory Rate 18 01/23/2018 9:14 AM CDT Oxygen Saturation 96% - Inhaled Oxygen - Concentration 05/05/2018 1:50 PM LEADER TIER Weight 96.2 kg (212 lb) 05/05/2018 1:50 PM LEADER TIER Height 177.8 cm (5' 10") 05/05/2018 1:50 PM LEADER TIER Body Mass Index 30.42 Plan of Treatment Health Maintenance Due Date Last Done Comments PHYSICAL (COMPREHENSIVE) 1976 EXAM HIV SCREENING 1984 DTAP/TDAP VACCINES ( - 1987 Tdap) INFLUENZA VACCINE Completed 02/24/2018, 07/02/2017, 02/15/2003, Additional history exists Implants Device Identifier Shelf Expiration Date Model / Serial / Lot Implanted Type Area Manufactur er [id number] / / Screw Titanium 11mm 2mm Taper Mandible UNIDENTIFI Oralmaxillofacial Self - ED MFG [id number] Implanted: Qty: 1 on 03/19/2017 by Baron Torres MD 11/24/2018 [id number] / [id number] / [id number] Filler Bone Void 2.5cc Dbx Mandible MUSCULOSKE Allograft Freeze Dry Putty - LETAL [id number] TRANSPLANT Implanted: Qty: 1 on 03/19/2017 by CHAYITOD Baron Torres MD 11/19/2021 [id number] / N/A / [id number] Transcription Manager Anastomosis 4mm [place] SYNOVIS Microvascular Sterile Disposable - MICRO CO Sn/A ALLIANCE Implanted: Qty: 1 on 03/19/2017 by Baron Torres MD 11/19/2021 [id number] / [id number] / [id number] Transcription Manager Anastomosis 4mm [place]ck SYNOVIS Microvascular Sterile Disposable - MICRO CO [id number] ALLIANCE Implanted: Qty: 1 on 03/19/2017 by Baron Torres MD Device Identifier Shelf Expiration Date Model / Serial / Lot Explanted Type Area RUST / / Screw Titanium 7mm 2mm Taper Mandible UNIDENTIFI Oralmaxillofacial Self - ED MFG [id number] Implanted: Qty: 4 on 03/19/2017 by Baron Torres MD Explanted: Qty: 4 on 01/21/2018 by Baron Torres MD / / Screw Titanium 9mm 2mm Taper Mandible UNIDENTIFI Oralmaxillofacial Self - ED MFG [id number] Implanted: Qty: 7 on 03/19/2017 by Baron Torres MD Explanted: Qty: 7 on 01/21/2018 by Baron Torres MD [id number] / N/A / N/A Pci,Slim Plate - Sn/A Mandible UNIDENTIFI Implanted: Qty: 1 on 03/19/2017 by ED Baron Mata MD Explanted: Qty: 1 on 01/21/2018 by Baron Torres MD Procedures Comments Procedure Name Priority Date/Time Associated Diagnosis CT NECK EXTERNAL IMAGING Routine 05/12/2018 Diagnosis unknown 5:08 PM LEADER TIER C REACTIVE PROTEIN (CRP) Routine 03/16/2018 2:45 PM LEADER TIER SED RATE Routine 03/16/2018 2:45 PM LEADER TIER BUN Routine 03/15/2018 2:04 PM LEADER TIER ALT (SGPT) Routine 03/15/2018 2:04 PM LEADER TIER AST (SGOT) Routine 03/15/2018 2:04 PM LEADER TIER POTASSIUM Routine 03/15/2018 2:04 PM LEADER TIER ALK PHOS TOTAL Routine 03/15/2018 2:04 PM LEADER TIER CREATININE Routine 03/15/2018 2:04 PM LEADER TIER PLATELET COUNT Routine 03/15/2018 2:04 PM LEADER TIER CBC Routine 03/15/2018 2:04 PM LEADER TIER HEMOGLOBIN Routine 03/15/2018 2:04 PM LEADER TIER C REACTIVE PROTEIN (CRP) Routine 03/09/2018 2:55 PM LEADER TIER BUN Routine 03/09/2018 2:55 PM LEADER TIER ALT (SGPT) Routine 03/09/2018 2:55 PM LEADER TIER AST (SGOT) Routine 03/09/2018 2:55 PM LEADER TIER POTASSIUM Routine 03/09/2018 2:55 PM LEADER TIER ALK PHOS TOTAL Routine 03/09/2018 2:55 PM LEADER TIER CREATININE Routine 03/09/2018 2:55 PM LEADER TIER SED RATE Routine 03/09/2018 2:55 PM LEADER TIER PLATELET COUNT Routine 03/09/2018 2:55 PM LEADER TIER CBC Routine 03/09/2018 2:55 PM LEADER TIER HEMOGLOBIN Routine 03/09/2018 2:55 PM LEADER TIER MRI NECK EXTERNAL IMAGING Routine 03/06/2018 MRI [...] CDT from Last 3 Months Results * CT NECK EXTERNAL IMAGING (05/12/2018 5:08 PM LEADER TIER) Narrative Performed At This order has been auto finalized and does not contain a result. * SED RATE (03/16/2018 2:45 PM LEADER TIER) Only the most recent of 6 results within the time period is included. Sed Rate -ESR 38 OTHER OUTSIDE LAB Specimen Blood - Blood Narrative Performed At Performing Organization Address City/State/Zipcode Phone Number OTHER OUTSIDE LAB * C REACTIVE PROTEIN (CRP) (03/16/2018 2:45 PM LEADER TIER) Only the most recent of 6 results within the time period is included. C-Reactive Protein 1.72mg/dL high sensitivity OTHER OUTSIDE LAB Specimen Blood - Blood Narrative Performed At Performing Organization Address City/State/Zipcode Phone Number OTHER OUTSIDE LAB * PLATELET COUNT (03/15/2018 2:04 PM LEADER TIER) Only the most recent of 6 results within the time period is included. Platelet Count 232 OTHER OUTSIDE LAB Specimen Blood - Blood Performing Organization Address City/State/Zipcode Phone Number OTHER OUTSIDE LAB * CBC (03/15/2018 2:04 PM LEADER TIER) Only the most recent of 6 results within the time period is included. White Blood Cells 6.6 OTHER OUTSIDE LAB Specimen Blood - Blood Performing Organization Address City/[facility] Phone Number OTHER OUTSIDE LAB * HEMOGLOBIN (03/15/2018 2:04 PM LEADER TIER) Only the most recent of 6 results within the time period is included. Hemoglobin 12.9 OTHER OUTSIDE LAB Specimen Blood - Blood Narrative Performed At Performing Organization Address City/[facility] Phone Number OTHER OUTSIDE LAB * BUN (03/15/2018 2:04 PM LEADER TIER) Only the most recent of 6 results within the time period is included. Blood Urea Nitrogen 12 OTHER OUTSIDE LAB Specimen Blood - Blood Performing Organization Address [facility]KD[facility] Phone Number OTHER OUTSIDE LAB * ALT (SGPT) (03/15/2018 2:04 PM LEADER TIER) Only the most recent of 6 results within the time period is included. ALT (SGPT) 29 OTHER OUTSIDE LAB Specimen Blood - Blood Performing Organization Address [facility] CenterNexImmunede Phone Number OTHER OUTSIDE LAB * AST (SGOT) (03/15/2018 2:04 PM LEADER TIER) Only the most recent of 6 results within the time period is included. AST (SGOT) 26 OTHER OUTSIDE LAB Specimen Blood - Blood Performing Organization Address [facility] Phone Number OTHER OUTSIDE LAB * POTASSIUM (03/15/2018 2:04 PM LEADER TIER) Only the most recent of 6 results within the time period is included. Potassium 3.9 OTHER OUTSIDE LAB Specimen Blood - Blood Performing Organization Address [facility] Phone Number OTHER OUTSIDE LAB * ALK PHOS TOTAL (03/15/2018 2:04 PM LEADER TIER) Only the most recent of 6 results within the time period is included. Alk Phosphatase 156 OTHER OUTSIDE LAB Specimen Blood - Blood Performing Organization Address City/[facility]/[place] Phone Number OTHER OUTSIDE LAB * CREATININE (03/15/2018 2:04 PM LEADER TIER) Only the most recent of 6 results within the time period is included. Creatinine 0.92 OTHER OUTSIDE LAB Specimen Blood - Blood Performing Organization Address [facility]/[place] Phone Number OTHER OUTSIDE LAB * MRI NECK EXTERNAL IMAGING (03/06/2018) Only the most recent of 2 results within the time period is included. Narrative Performed At Performing Organization Address City/State/Zipcode Phone Number IN CLINIC from Last 3 Months Insurance Payer Benefit Subscriber ID Type Phone Address Plan / Group BCBS [facility] xxxxxxxxxxxx PPO PREF CARE BLUE Advance Directives Patient has advance care planning documents, and code status on file. For more information, please contact: [facility] [address] [place] [address] Date Inactivated Comments Code Status Date Activated [...]
--- OUTSIDE RECORDS SUMMARY | 2018-05-12 19:12 | XMS REPORT | Encounter Summary ---
Author Author [facility] Organization [facility] Address Unknown Phone Unavailable Care Team Providers Care Crime Scene Evidence Technician Name Role Phone Michael Encinas MD PCP Reason for Referral * Consult, Test & Treat (Routine) Referred By Contact Referred To Contact Status Reason Specialty Diagnoses [place] [address] [place] [address] [address] [place] [address] New Request Specialty Services Diagnoses Required Encounter for long-term (current) use of antibiotics Reason for Visit * Reason Comments Outpatient Antibiotic Therapy (Opat) Encounter Details Care Team Description Date [place] [address] [place] [address] MS [facility]8 [place], [place] [id number] Outpatient Antibiotic Therapy (Opat) 03/16/2018 Telephone [facility] Physicians - Internal Medicine Ortho and Medical Pavilion Level 4C [address] [place] [address] Social History Date Tobacco Use [...] Blanco Gunn RN - 03/16/2018 9:09 AM WRECKING CRANE ENGINE OPERATOR KING CRANE ENGINE OPERATOR in this encounter Plan of Treatment Order Schedule Name Priority Associated Diagnoses Ordered: 03/16/2018 AMB REFERRAL TO HOME CARE Routine Encounter for long-term (current) use of antibiotics as of this encounter Visit Diagnoses Diagnosis Encounter for long-term (current) use of antibiotics - Primary in this encounter
--- OUTSIDE RECORDS SUMMARY | 2018-05-12 19:12 | XMS REPORT | Encounter Summary ---
Author Author [facility] Organization [facility] Address Unknown Phone Unavailable Care Team Providers Care Boarding Specialist Name Role Phone Michael Encinas MD PCP Ingrid Medeiros MD Unavailable Reason for Visit * Reason Comments Medication Refill Encounter Details Care Team Description Date Type Department Vivian Ramey MD [address] [facility] [address] [place] [address] 03/30/2018 Refill [facility] Physicians - ENT Ortho and Medical Pavilion Level 3C [address] [place] [address] Social History Date Tobacco Use [...]
--- OUTSIDE RECORDS SUMMARY | 2018-05-12 19:12 | XMS REPORT | Encounter Summary ---
Author Author [facility] Organization [facility] Address Unknown Phone Unavailable Care Team Providers Care Real Estate Economist Name Role Phone Michael Encinas MD PCP Encounter Details Care Team Description Date Type Department Roque Oshea MD [address] [facility] MS [address] [place] [address] 03/15/2018 Outpt. [facility] Antibiotic Physicians - Internal Therapy Medicine Ortho and Medical Pavilion Level 4C [address] [place] [address] Social History Date Tobacco Use [...]
--- OUTSIDE RECORDS SUMMARY | 2018-05-12 19:12 | XMS REPORT | Encounter Summary ---
Author Author [facility] Organization [facility] Address Unknown Phone Unavailable Care Team Providers Care Retail Salesman Name Role Phone Michael Encinas MD PCP Reason for Visit * Reason Comments Medication Refill Encounter Details Care Team Description Date Type Department Tiago Flower MD [address] [place] [address] 03/31/2018 Refill [facility] Physicians - Psychiatry Ortho and Medical Pavilion Level 6A [address] [place] [address] Social History Date Tobacco Use [...]
--- OUTSIDE RECORDS SUMMARY | 2018-05-12 19:12 | XMS REPORT | Encounter Summary ---
Author Author [facility] Organization [facility] Address Unknown Phone Unavailable Care Team Providers Care Reference Librarian Name Role Phone Michael Encinas MD PCP Encounter Details Care Team Description Date Type Department 03/06/2018 Hospital [facility] Encounter Hospital Radiology Main Hospital [address]nd [address] [place] [address] Social History Date Tobacco Use [...]
--- OUTSIDE RECORDS SUMMARY | 2018-05-12 19:12 | XMS REPORT | Encounter Summary ---
Author Author [facility] Organization [facility] Address Unknown Phone Unavailable Care Team Providers Care Cardiology Consultants Name Role Phone Michael Encinas MD PCP Encounter Details Care Team Description Date Type Department Saeid Luna PA-C [address] [facility] [address] [place] [address] 04/12/2018 Orders Only [facility] Physicians - ENT Ortho and Medical Pavilion Level 3C [address] [place] [address] Social History Date Tobacco Use [...]
--- OUTSIDE RECORDS SUMMARY | 2018-05-12 19:12 | XMS REPORT | Encounter Summary ---
Author Author [facility] Organization [facility] Address Unknown Phone Unavailable Care Team Providers Care Assistant Director Of Security Name Role Phone Michael Encinas MD PCP Reason for Visit * Reason Comments Results Encounter Details Care Team Description Date Type Department Roque Oshea MD [address] [facility] [address] [place] [address] Results 03/16/2018 Telephone [facility] Physicians - Internal Medicine Ortho and Medical Pavilion Level 4C [address] [place] [address] Social History Date Tobacco Use [...] Roque Oshea MD - 03/16/2018 7:33 AM CONFERENCE SERVICES COORDINATOR MRI imaging reviewed. We received the formal [...] clinic as previously scheduled. Roque Oshea MD ERENCE SERVICES COORDINATOR in this encounter Plan of Treatment Not on fileas of this encounter Visit Diagnoses Not on filein this encounter
--- OUTSIDE RECORDS SUMMARY | 2018-05-12 19:12 | XMS REPORT | Encounter Summary ---
Author Author [facility] Organization [facility] Address Unknown Phone Unavailable Care Team Providers Care Investment Strategist Name Role Phone Michael Encinas MD PCP Reason for Referral * Consult, Test & Treat (Routine) Referred By Contact Referred To Contact Status Reason Specialty Diagnoses / [place] [address] [place] [address] MS [address] [place] [address] New Request Specialty Services Diagnoses Required Encounter for long-term (current) use of antibiotics Reason for Visit * Reason Comments Outpatient Antibiotic Therapy (Opat) Encounter Details Care Team Description Date [place] [address] [place] [address] MS [facility]8 [place], [place] [id number] Outpatient Antibiotic Therapy (Opat) 03/04/2018 Telephone [facility] Physicians - Internal Medicine Ortho and Medical Pavilion Level 4C [address] [place] [address] Social History Date Tobacco Use [...]
--- OUTSIDE RECORDS SUMMARY | 2018-05-12 19:12 | XMS REPORT | Encounter Summary ---
Author Author [facility] Organization [facility] Address Unknown Phone Unavailable Care Team Providers Care Senior Medical Billing Specialist Name Role Phone Michael Encinas MD PCP Encounter Details Care Team Description Date Type Department Roque Oshea MD [address] [facility] MS [address] [place] [address] 03/10/2018 Outpt. [facility] Antibiotic Physicians - Internal Therapy Medicine Ortho and Medical Pavilion Level 4C [address] [place] [address] Social History Date Tobacco Use [...] Diagnosis SED RATE Routine 03/09/2018 2:55 PM FIBER DRIER OPERATOR PLATELET COUNT Routine 03/09/2018 2:55 PM FIBER DRIER OPERATOR CBC Routine 03/09/2018 2:55 PM FIBER DRIER OPERATOR HEMOGLOBIN Routine 03/09/2018 2:55 PM FIBER DRIER OPERATOR C REACTIVE PROTEIN (CRP) Routine 03/09/2018 2:55 PM FIBER DRIER OPERATOR BUN Routine 03/09/2018 2:55 PM FIBER DRIER OPERATOR ALT (SGPT) Routine 03/09/2018 2:55 PM FIBER DRIER OPERATOR AST (SGOT) Routine 03/09/2018 2:55 PM FIBER DRIER OPERATOR POTASSIUM Routine 03/09/2018 2:55 PM FIBER DRIER OPERATOR ALK PHOS TOTAL Routine 03/09/2018 2:55 PM FIBER DRIER OPERATOR CREATININE Routine 03/09/2018 2:55 PM FIBER DRIER OPERATOR in this encounter Results * C REACTIVE PROTEIN (CRP) (03/09/2018 2:55 PM FIBER DRIER OPERATOR) C-Reactive Protein 1.49mg/dL high sensitivity OTHER OUTSIDE LAB Specimen Blood - Blood Performing Organization Address City/[facility] Phone Number OTHER OUTSIDE LAB * BUN (03/09/2018 2:55 PM FIBER DRIER OPERATOR) Blood Urea Nitrogen 13 OTHER OUTSIDE LAB Specimen Blood - Blood Performing Organization Address [facility] Phone Number OTHER OUTSIDE LAB * ALT (SGPT) (03/09/2018 2:55 PM FIBER DRIER OPERATOR) ALT (SGPT) 38 OTHER OUTSIDE LAB Specimen Blood - Blood Performing Organization Address City/[facility] Phone Number OTHER OUTSIDE LAB * AST (SGOT) (03/09/2018 2:55 PM FIBER DRIER OPERATOR) AST (SGOT) 32 OTHER OUTSIDE LAB Specimen Blood - Blood Performing Organization Address City/[facility] Phone Number OTHER OUTSIDE LAB * POTASSIUM (03/09/2018 2:55 PM FIBER DRIER OPERATOR) Potassium 3.7 OTHER OUTSIDE LAB Specimen Blood - Blood Performing Organization Address [facility] Phone Number OTHER OUTSIDE LAB * ALK PHOS TOTAL (03/09/2018 2:55 PM FIBER DRIER OPERATOR) Alk Phosphatase 158 OTHER OUTSIDE LAB Specimen Blood - Blood Performing Organization Address City/State/Zipcode Phone Number OTHER OUTSIDE LAB * CREATININE (03/09/2018 2:55 PM FIBER DRIER OPERATOR) Creatinine 0.80 OTHER OUTSIDE LAB Specimen Blood - Blood Performing Organization Address City/[facility]/Zipcode Phone Number OTHER OUTSIDE LAB * SED RATE (03/09/2018 2:55 PM FIBER DRIER OPERATOR) Sed Rate -ESR 40 OTHER OUTSIDE LAB Specimen Blood - Blood Performing Organization Address City/[facility]/Zipcode Phone Number OTHER OUTSIDE LAB * PLATELET COUNT (03/09/2018 2:55 PM FIBER DRIER OPERATOR) Platelet Count 223 OTHER OUTSIDE LAB Specimen Blood - Blood Performing Organization Address City/[facility]/Zipcode Phone Number OTHER OUTSIDE LAB * CBC (03/09/2018 2:55 PM FIBER DRIER OPERATOR) White Blood Cells 6.0 OTHER OUTSIDE LAB Specimen Blood - Blood Performing Organization Address City/[facility]/Zipcode Phone Number OTHER OUTSIDE LAB * HEMOGLOBIN (03/09/2018 2:55 PM FIBER DRIER OPERATOR) Hemoglobin 11.8 OTHER OUTSIDE LAB Specimen Blood - Blood Narrative Performed At Performing Organization Address City/State/Zipcode Phone Number OTHER OUTSIDE LAB in this encounter Visit Diagnoses Not on filein this encounter
--- OUTSIDE RECORDS SUMMARY | 2018-05-12 19:12 | XMS REPORT | Encounter Summary ---
Author Author [facility] Organization [facility] Address Unknown Phone Unavailable Care Team Providers Care Irish Moss Gatherer Name Role Phone Michael Encinas MD PCP Reason for Visit * Reason Comments Outpatient Antibiotic Therapy (Opat) Encounter Details Care Team Description Date Type Department Roque Oshea MD [address] [facility] MS [address] [place] [address] Outpatient Antibiotic Therapy (Opat) 03/17/2018 Telephone [facility] Physicians - Internal Medicine Ortho and Medical Pavilion Level 4C [address] [place] [address] Social History Date Tobacco Use [...] Blanco Gunn RN - 03/17/2018 9:59 AM GEOSPATIAL INTELLIGENCE ANALYST Confirmed with [facility] PICC was removed on 03/16/18 and all weekly lab orders and antibiotics were discontinued. Pt to follow up in ID ~End may. PATIAL INTELLIGENCE ANALYST in this encounter Plan of Treatment Not on fileas of this encounter Visit Diagnoses Not on filein this encounter
--- OUTSIDE RECORDS SUMMARY | 2018-05-12 19:12 | XMS REPORT | Encounter Summary ---
Author Author [facility] Organization [facility] Address Unknown Phone Unavailable Care Team Providers Care Digital Marketing Executive Name Role Phone Michael Encinas MD PCP Encounter Details Care Team Description Date Type Department Roque Oshea MD [address] [facility] MS [address] [place] [address] 03/19/2018 Outpt. [facility] Antibiotic Physicians - Internal Therapy Medicine Ortho and Medical Pavilion Level 4C [address] [place] [address] Social History Date Tobacco Use [...] Diagnosis SED RATE Routine 03/16/2018 2:45 PM NURSE RN BSN C REACTIVE PROTEIN (CRP) Routine 03/16/2018 2:45 PM NURSE RN BSN PLATELET COUNT Routine 03/15/2018 2:04 PM NURSE RN BSN CBC Routine 03/15/2018 2:04 PM NURSE RN BSN HEMOGLOBIN Routine 03/15/2018 2:04 PM NURSE RN BSN BUN Routine 03/15/2018 2:04 PM NURSE RN BSN ALT (SGPT) Routine 03/15/2018 2:04 PM NURSE RN BSN AST (SGOT) Routine 03/15/2018 2:04 PM NURSE RN BSN POTASSIUM Routine 03/15/2018 2:04 PM NURSE RN BSN ALK PHOS TOTAL Routine 03/15/2018 2:04 PM NURSE RN BSN CREATININE Routine 03/15/2018 2:04 PM NURSE RN BSN in this encounter Results * C REACTIVE PROTEIN (CRP) (03/16/2018 2:45 PM NURSE RN BSN) C-Reactive Protein 1.72mg/dL high sensitivity OTHER OUTSIDE LAB Specimen Blood - Blood Narrative Performed At Performing Organization Address City/State/Zipcode Phone Number OTHER OUTSIDE LAB * SED RATE (03/16/2018 2:45 PM NURSE RN BSN) Sed Rate -ESR 38 OTHER OUTSIDE LAB Specimen Blood - Blood Narrative Performed At Performing Organization Address City/State/Zipcode Phone Number OTHER OUTSIDE LAB * BUN (03/15/2018 2:04 PM NURSE RN BSN) Blood Urea Nitrogen 12 OTHER OUTSIDE LAB Specimen Blood - Blood Performing Organization Address City/[facility]/Zipcode Phone Number OTHER OUTSIDE LAB * ALT (SGPT) (03/15/2018 2:04 PM NURSE RN BSN) ALT (SGPT) 29 OTHER OUTSIDE LAB Specimen Blood - Blood Performing Organization Address City/[facility] Phone Number OTHER OUTSIDE LAB * AST (SGOT) (03/15/2018 2:04 PM NURSE RN BSN) AST (SGOT) 26 OTHER OUTSIDE LAB Specimen Blood - Blood Performing Organization Address City/[facility]/Zipcode Phone Number OTHER OUTSIDE LAB * POTASSIUM (03/15/2018 2:04 PM NURSE RN BSN) Potassium 3.9 OTHER OUTSIDE LAB Specimen Blood - Blood Performing Organization Address City/[facility]/Zipcode Phone Number OTHER OUTSIDE LAB * ALK PHOS TOTAL (03/15/2018 2:04 PM NURSE RN BSN) Alk Phosphatase 156 OTHER OUTSIDE LAB Specimen Blood - Blood Performing Organization Address City/[facility] Phone Number OTHER OUTSIDE LAB * CREATININE (03/15/2018 2:04 PM NURSE RN BSN) Creatinine 0.92 OTHER OUTSIDE LAB Specimen Blood - Blood Performing Organization Address City/[facility]/Zipcode Phone Number OTHER OUTSIDE LAB * PLATELET COUNT (03/15/2018 2:04 PM NURSE RN BSN) Platelet Count 232 OTHER OUTSIDE LAB Specimen Blood - Blood Performing Organization Address City/[facility] Phone Number OTHER OUTSIDE LAB * CBC (03/15/2018 2:04 PM NURSE RN BSN) White Blood Cells 6.6 OTHER OUTSIDE LAB Specimen Blood - Blood Performing Organization Address City/[facility] Phone Number OTHER OUTSIDE LAB * HEMOGLOBIN (03/15/2018 2:04 PM NURSE RN BSN) Hemoglobin 12.9 OTHER OUTSIDE LAB Specimen Blood - Blood Narrative Performed At Performing Organization Address City/State/[facility] Cent[facility]ode Phone Number OTHER OUTSIDE LAB in this encounter Visit Diagnoses Not on filein this encounter
--- OUTSIDE RECORDS SUMMARY | 2018-05-12 19:13 | XMS REPORT | Encounter Summary ---
Author Author [facility] Organization [facility] Address Unknown Phone Unavailable Care Team Providers Care Process Laboratory Specialist Name Role Phone Michael Encinas MD PCP Encounter Details Care Team Description Date Type Department Roque Oshea MD [address] [facility] [address] [place] [address] 02/24/2018 Outpt. [facility] Antibiotic Physicians - Internal Therapy Medicine Ortho and Medical Pavilion Level 4C [address] [place] [address] Social History Date Tobacco Use [...] Blood - Blood Performing Organization Address City/[facility]/Zipcode Phone Number OTHER OUTSIDE LAB * BUN (02/23/2018 3:00 PM CDT) Blood Urea Nitrogen 13 OTHER OUTSIDE LAB Specimen Blood - Blood Performing Organization Address City/[facility] Phone Number OTHER OUTSIDE LAB * ALT (SGPT) (02/23/2018 3:00 PM CDT) ALT (SGPT) 24 OTHER OUTSIDE LAB Specimen Blood - Blood Performing Organization Address City/[facility]/Zipcode Phone Number OTHER OUTSIDE LAB * AST (SGOT) (02/23/2018 3:00 PM CDT) AST (SGOT) 24 OTHER OUTSIDE LAB Specimen Blood - Blood Performing Organization Address City/[facility]/Zipcode Phone Number OTHER OUTSIDE LAB * POTASSIUM (02/23/2018 3:00 PM CDT) Potassium 3.8 OTHER OUTSIDE LAB Specimen Blood - Blood Performing Organization Address City/[facility]/Zipcode Phone Number OTHER OUTSIDE LAB * ALK PHOS TOTAL (02/23/2018 3:00 PM CDT) Alk Phosphatase 156 OTHER OUTSIDE LAB Specimen Blood - Blood Performing Organization Address City/State/Zipcode Phone Number OTHER OUTSIDE LAB * CREATININE (02/23/2018 3:00 PM CDT) Creatinine 0.80 OTHER OUTSIDE LAB Specimen Blood - Blood Performing Organization Address City/[facility]/Zipcode Phone Number OTHER OUTSIDE LAB * SED RATE (02/23/2018 3:00 PM CDT) Sed Rate -ESR 55 OTHER OUTSIDE LAB Specimen Blood - Blood Performing Organization Address City/State/Zipcode Phone Number OTHER OUTSIDE LAB * PLATELET COUNT (02/23/2018 3:00 PM CDT) Platelet Count 202 OTHER OUTSIDE LAB Specimen Blood - Blood Performing Organization Address City/[facility]/Zipcode Phone Number OTHER OUTSIDE LAB * CBC (02/23/2018 3:00 PM CDT) White Blood Cells 7.1 OTHER OUTSIDE LAB Specimen Blood - Blood Performing Organization Address City/[facility] Phone Number OTHER OUTSIDE LAB * HEMOGLOBIN (02/23/2018 3:00 PM CDT) Hemoglobin 11.4 OTHER OUTSIDE LAB Specimen Blood - Blood Narrative Performed At Performing Organization Address City/State/Zipcode Phone Number OTHER OUTSIDE LAB in this encounter Visit Diagnoses Not on filein this encounter
--- OUTSIDE RECORDS SUMMARY | 2018-05-12 19:13 | XMS REPORT | Encounter Summary ---
Author Author [facility] Organization [facility] Address Unknown Phone Unavailable Care Team Providers Care Pediatric Dental Hygienist Name Role Phone Michael Encinas MD PCP Reason for Referral * Radiology Services (Routine) Referred By Contact Referred To Contact Status Reason Specialty Diagnoses / Procedures Baron Torres MD [address] [place] [address] New Request Radiology Diagnoses Recurrent tongue cancer (HCC) P rocedures MRI ORBIT FACE AND/OR NECK WO/W CONT Reason for Visit * Reason Comments Post Operative Visit Encounter Details Care Team Description Date Type Department Baron Torres MD [address] [place] [address] Recurrent tongue cancer (HCC) (Primary Dx); 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 We will obtain an MRI of [...]
--- OUTSIDE RECORDS SUMMARY | 2018-05-12 19:13 | XMS REPORT | Encounter Summary ---
Author Author [facility] Organization [facility] Address Unknown Phone Unavailable Care Team Providers Care Bar Welder Name Role Phone Michael Encinas MD PCP Encounter Details Care Team Description Date Type Department Roque Oshea MD [address] [facility] MS [address] [place] [address] 03/02/2018 Outpt. [facility] Antibiotic Physicians - Internal Therapy Medicine Ortho and Medical Pavilion Level 4C [address] [place] [address] Social History Date Tobacco Use [...] Specimen Blood - Blood Performing Organization Address City/[facility]/Zipcode Phone Number OTHER OUTSIDE LAB * BUN (03/02/2018 3:00 PM CDT) Blood Urea Nitrogen 15 OTHER OUTSIDE LAB Specimen Blood - Blood Performing Organization Address City/[facility] Phone Number OTHER OUTSIDE LAB * ALT (SGPT) (03/02/2018 3:00 PM CDT) ALT (SGPT) 30 OTHER OUTSIDE LAB Specimen Blood - Blood Performing Organization Address City/[facility]/Zipcode Phone Number OTHER OUTSIDE LAB * AST (SGOT) (03/02/2018 3:00 PM CDT) AST (SGOT) 30 OTHER OUTSIDE LAB Specimen Blood - Blood Performing Organization Address City/[facility]/Zipcode Phone Number OTHER OUTSIDE LAB * POTASSIUM (03/02/2018 3:00 PM CDT) Potassium 3.9 OTHER OUTSIDE LAB Specimen Blood - Blood Performing Organization Address City/[facility]/Zipcode Phone Number OTHER OUTSIDE LAB * [...] Specimen Blood - Blood Performing Organization Address City/State/[facility] Pharmacode Phone Number OTHER OUTSIDE LAB * PLATELET COUNT (03/02/2018 3:00 PM CDT) Platelet Count 215 OTHER OUTSIDE LAB Specimen Blood - Blood Performing Organization Address City/State/Zipcode Phone Number OTHER OUTSIDE LAB * CBC (03/02/2018 3:00 PM CDT) White Blood Cells 11.2 OTHER OUTSIDE LAB Specimen Blood - Blood Performing Organization Address City/[facility] Phone Number OTHER OUTSIDE LAB * HEMOGLOBIN (03/02/2018 3:00 PM CDT) Hemoglobin 11.3 OTHER OUTSIDE LAB Specimen Blood - Blood Narrative Performed At Performing Organization Address City/State/Zipcode Phone Number OTHER OUTSIDE LAB in this encounter Visit Diagnoses Not on filein this encounter
--- OUTSIDE RECORDS SUMMARY | 2018-05-12 19:13 | XMS REPORT | Encounter Summary ---
Author Author [facility] Organization [facility] Address Unknown Phone Unavailable Care Team Providers Care Cant Hooker Name Role Phone Michael Encinas MD PCP Encounter Details Care Team Description Date Type Department Roque Oshea MD [address] [facility] [address] [place] [address] 02/10/2018 Outpt. [facility] Antibiotic Physicians - Internal Therapy Medicine Ortho and Medical Pavilion Level 4C [address] [place] [address] Social History Date Tobacco Use [...] Specimen Blood - Blood Performing Organization Address City/[facility]/Zipcode Phone Number OTHER OUTSIDE LAB * BUN (02/09/2018 2:50 PM CDT) Blood Urea Nitrogen 13 OTHER OUTSIDE LAB Specimen Blood - Blood Performing Organization Address City/[facility] Phone Number OTHER OUTSIDE LAB * ALT (SGPT) (02/09/2018 2:50 PM CDT) ALT (SGPT) 41 OTHER OUTSIDE LAB Specimen Blood - Blood Performing Organization Address City/[facility]/Zipcode Phone Number OTHER OUTSIDE LAB * AST (SGOT) (02/09/2018 2:50 PM CDT) AST (SGOT) 40 OTHER OUTSIDE LAB Specimen Blood - Blood Performing Organization Address City/[facility]/Zipcode Phone Number OTHER OUTSIDE LAB * POTASSIUM (02/09/2018 2:50 PM CDT) Potassium 3.6 OTHER OUTSIDE LAB Specimen Blood - Blood Performing Organization Address City/[facility] Phone Number OTHER OUTSIDE [...] Specimen Blood - Blood Performing Organization Address City/State/[employer] Phone Number OTHER OUTSIDE LAB * PLATELET COUNT (02/09/2018 2:50 PM CDT) Platelet Count 238 OTHER OUTSIDE LAB Specimen Blood - Blood Performing Organization Address City/State/Zipcode Phone Number OTHER OUTSIDE LAB * CBC (02/09/2018 2:50 PM CDT) White Blood Cells 5.6 OTHER OUTSIDE LAB Specimen Blood - Blood Performing Organization Address City/[facility] Phone Number OTHER OUTSIDE LAB * HEMOGLOBIN (02/09/2018 2:50 PM CDT) Hemoglobin 11.1 OTHER OUTSIDE LAB Specimen Blood - Blood Narrative Performed At Performing Organization Address City/State/Zipcode Phone Number OTHER OUTSIDE LAB in this encounter Visit Diagnoses Not on filein this encounter
--- OUTSIDE RECORDS SUMMARY | 2018-05-12 19:13 | XMS REPORT | Encounter Summary ---
Author Author [facility] Organization [facility] Address Unknown Phone Unavailable Care Team Providers Care Air Conditioning Insulation Installer Name Role Phone Michael Encinas MD PCP Encounter Details Care Team Description Date Type Department Roque Oshea MD [address] [place] [address] 02/16/2018 Outpt. [facility] Antibiotic Physicians - Internal Therapy Medicine Ortho and Medical Pavilion Level 4C [address] [place] [address] Social History Date Tobacco Use [...] Specimen Blood - Blood Performing Organization Address City/[facility]/Zipcode Phone Number OTHER OUTSIDE LAB * BUN (02/16/2018 11:10 AM CDT) Blood Urea Nitrogen 14 OTHER OUTSIDE LAB Specimen Blood - Blood Performing Organization Address City/[facility] Phone Number OTHER OUTSIDE LAB * ALT (SGPT) (02/16/2018 11:10 AM CDT) ALT (SGPT) 27 OTHER OUTSIDE LAB Specimen Blood - Blood Performing Organization Address City/[facility]/Zipcode Phone Number OTHER OUTSIDE LAB * AST (SGOT) (02/16/2018 11:10 AM CDT) AST (SGOT) 23 OTHER OUTSIDE LAB Specimen Blood - Blood Performing Organization Address City/[facility]/Zipcode Phone Number OTHER OUTSIDE LAB * POTASSIUM (02/16/2018 11:10 AM CDT) Potassium 4.0 OTHER OUTSIDE LAB Specimen Blood - Blood Performing Organization Address City/[facility]/Zipcode Phone Number OTHER OUTSIDE LAB [...] Specimen Blood - Blood Performing Organization Address City/[facility]/Zipcode Phone Number OTHER OUTSIDE LAB * CBC (02/16/2018 11:10 AM CDT) White Blood Cells 5.2 OTHER OUTSIDE LAB Specimen Blood - Blood Performing Organization Address City/[facility] Phone Number OTHER OUTSIDE LAB * HEMOGLOBIN (02/16/2018 11:10 AM CDT) Hemoglobin 11.7 OTHER OUTSIDE LAB Specimen Blood - Blood Narrative Performed At Performing Organization Address City/State/Zipcode Phone Number OTHER OUTSIDE LAB in this encounter Visit Diagnoses Not on filein this encounter
--- OUTSIDE RECORDS SUMMARY | 2018-05-12 19:13 | XMS REPORT | Encounter Summary ---
Author Author [facility] Organization [facility] Address Unknown Phone Unavailable Care Team Providers Care Watershed Engineer Name Role Phone Michael Encinas MD PCP Reason for Referral * Consult, Test & Treat (Urgent) Referred By Contact Referred To Contact Status Reason Specialty Diagnoses / Procedures Saeid Luna PA-C [id number] [place] [address] [facility] Level 6A [address] [place] [address] No Auth Needed Specialty Services Psychiatry Diagnoses [...] Description Date Type Department Saeid Luna PA-C [id number] [place] [address] Depression, unspecified depression type (Primary Dx) 02/18/2018 Orders Only [facility] Physicians - ENT Ortho and Medical Pavilion Level 3C [address] [place] [address] Social History Date Tobacco Use [...]
--- OUTSIDE RECORDS SUMMARY | 2018-05-12 19:13 | XMS REPORT | Encounter Summary ---
Author Author [facility] Organization [facility] Address Unknown Phone Unavailable Care Team Providers Care Biological Science Aide Name Role Phone Michael Encinas MD PCP Reason for Visit * Reason Comments Infection Encounter Details Care Team Description Date Type Department Roque Oshea MD [address] [facility] [address] [place] [address] Encounter for long-term (current) use of antibiotics ( Primary Dx); Infection of mandible; History of radiation therapy 03/03/2018 Office Visit [facility] Physicians - Internal Medicine Ortho and Medical Pavilion Level 4C [address] [place] [address] Social History Date Tobacco Use [...] PICC was placed back at home in [place]. He was started on IV. His contacted [...] he sought a second surgical opinion at [facility] for second opinion regarding his mandible. He was encouraged that some additional healing was underway. He was also encouraged to hear that it was unlikely that he would lose his mandible. He was seen by Infectious Diseases also while at [facility]. Per the patient, they explained that he [...] DISSECTION performed by Vivian Ramey MD at [facility] OR/Periop TRACHEOSTOMY N/A 03/19/2017 TRACHEOSTOMY performed by Vivian Ramey MD at [facility] OR/Periop LARYNGOSCOPY 03/19/2017 DIRECT LARYNGOSCOPY performed by Vivian Ramey MD at [facility] OR/Periop MANDIBLE RECONSTRUCTION 03/19/2017 RECONSTRUCTION MANDIBLE WITH PLATE performed by Vivian Ramey MD at [facility] OR/ Periop MANDIBLE RECONSTRUCTION N/A 03/19/2017 RECONSTRUCTION MANDIBLE WITH ALLOGRAFT performed by Baron Torres MD at [facility] OR/ Peri TISSUE TRANSFER Right 03/19/2017 OSTEOCUTANEOUS FREE FLAP-FIBULA performed by Baron Torres MD at [facility] OR/Periop SKIN GRAFT 03/19/2017 GRAFT SKIN SPLIT THICKNESS LOWER EXTREMITY performed by Baron Torres MD at [facility] OR/Periop INCISION AND DRAINAGE Bilateral 06/30/2017 INCISION AND DRAINAGE OF SUBMENTAL ABSCESS; EXAM OF ORAL CAVITY UNDER ANESTHESIA; I&D OF RIGHT CHEEK ABSCESS performed by Baron Torres MD at [facility] OR/ Periop MO REMOVAL IMPLANT DEEP N/A 01/21/2018 HARDWARE REMOVAL MANDIBLE performed by Baron Torres MD at [facility] OR/Periop HX TONSILLECTOMY Childhood Immunization History Administered Date(s) Administered Flu Vaccine=>6 Months Quadrivalent PF 07/02/2017 Social Hx: . Lives in [facility]. Previously worked for [employer]. Recently started receiving Social Security. 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 Though a little river mandible can be somewhat more resilient in [...]
--- OUTSIDE RECORDS SUMMARY | 2018-05-12 19:13 | XMS REPORT | Encounter Summary ---
Author Author [facility] Organization [facility] Address Unknown Phone Unavailable Care Team Providers Care Emergency Physician Name Role Phone Michael Encinas MD PCP Reason for Visit * Reason Comments Referral Encounter Details Care Team Description Date Type Department Saeid Luna PA-C [address] [facility] [address] [place] [address] Referral 02/18/2018 Telephone [facility] Physicians - ENT Ortho and Medical Pavilion Level [address]C [address] [place] [address] Social History Date Tobacco Use [...] Faxed referral to the Psychiatry Dept @ [phone]. Confirmation rec'd 02.18.2018 @ 1:16pm. in this encounter Plan of Treatment Not on fileas of this encounter Visit Diagnoses Not on filein this encounter
--- OUTSIDE RECORDS SUMMARY | 2018-05-12 19:13 | XMS REPORT | Encounter Summary ---
Author Author [facility] Organization [facility] Address Unknown Phone Unavailable Care Team Providers Care Asset Specialist Name Role Phone Michael Encinas MD PCP Reason for Visit * Reason Comments Depression Anxiety * Consult, Test & Treat (Urgent) Referred By Contact Referred To Contact Status Reason Specialty Diagnoses / Procedures Saeid Luna PA-C [address] [facility] [address] [place] [address] [facility] Level 6A [address] [place] [address] No Auth Needed Specialty Services Psychiatry Diagnoses Required Depression, unspecified depression type Encounter Details Care Team Description Date Type Department Saeid Luna PA-C [address] [facility] [address] [place] [address] [phone] Mansi Rosales, CIRCLE CUTTING SAW OPERATOR-BOAT LABORER [address] [place] [address] [phone] MDD (major depressive disorder), recurrent episode, moderate (HCC) (Primary Dx); Tobacco use disorder, severe, in sustained remission; Specific phobia 03/03/2018 Office Visit [facility] Physicians - Psychiatry Ortho and Medical Pavilion Level [address]A [address] [place] [address] Social History Date Tobacco Use [...] -Begin therapy. Suggested options are the following. -[email or web address].wywy or -[facility] or -Call the number on [...] Prevention Lifeline (Talk). Crisis text hotline, text 159009. in this encounter Progress Notes * Mansi [...] 2011 when he was working for the [employer]. States that at that time he was under a lot of stress and was working in an area he disliked. Endorses fearing future panic attacks. 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) ([facility]) Comment: buccal gingival sulcus No date: Seasonal [...] DISSECTION performed by Vivian Ramey MD at [facility] OR/Periop 03/19/2017: TRACHEOSTOMY; N/A Comment: TRACHEOSTOMY performed by Vivian Ramey MD at [facility] OR/Periop 03/19/2017: LARYNGOSCOPY Comment: DIRECT LARYNGOSCOPY performed by Vivian Ramey MD at [facility] OR/Periop 03/19/2017: MANDIBLE RECONSTRUCTION Comment: RECONSTRUCTION MANDIBLE WITH PLATE performed by Vivian Ramey MD at [facility] OR/[facility] 03/19/2017: MANDIBLE RECONSTRUCTION; N/A Comment: RECONSTRUCTION MANDIBLE WITH ALLOGRAFT performed by Baron Torres MD at [facility] OR/[facility] 03/19/2017: TISSUE TRANSFER; Right Comment: OSTEOCUTANEOUS FREE FLAP-FIBULA performed by Baron Torres MD at [facility] OR/[facility] 03/19/2017: SKIN GRAFT Comment: GRAFT SKIN SPLIT THICKNESS LOWER EXTREMITY performed by Baron Torres MD at [facility] OR/[facility] 06/30/2017: INCISION AND DRAINAGE; Bilateral Comment: INCISION AND DRAINAGE OF SUBMENTAL ABSCESS; EXAM OF ORAL CAVITY UNDER ANESTHESIA; I&D OF RIGHT CHEEK ABSCESS performed by Baron Torres MD at [facility] OR/[facility] 01/21/2018: OR REMOVAL IMPLANT DEEP; N/A Comment: HARDWARE REMOVAL MANDIBLE performed by Baron Torres MD at [facility] OR/[facility] Childhood: HX TONSILLECTOMY Allergies: -- Other (Unclassified [...] others. Social History: Born and raised in [place]. Raised by biological mother and father. He has 2 sisters. He has been 2 times. currently for 6 years. He has 2 daughters, his oldest one he adopted and the other is biological. Lives with and the youngest son. He is on social security and disability which started a few months ago. 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 His main support system is his . For fun, he used to enjoy hunting, fishing, and golfing. - Abuse: Denies. - Education: Some college, he was studying firefighting. - Legal history: Denies. Arrested for bad checks years ago. - history: Denies. - Mormon: Caodaism Family History: - Mother: Denies. - Father: [...] intact, keeps focus, not easily distracted Language: Cypriot, appropriate Fund of knowledge and vocabulary: appropriate [...] -Begin therapy. Suggested options are the following. -www.[employer].[email or web address] or -[facility] or -Call the number on [...]
[2018-05-12] MEDS ORDERED: VANCOMYCIN 1 GM/NS 250 ML IVPB IV NR ×2 (19:30)
[2018-05-12] MEDS ORDERED: ONDANSETRON 4 MG/2 ML (SDV) Z0FRAN IV PRN (19:45)
--- NOTE | 2018-05-12 19:45 | NUR ---
CR 1.04; CR CL > 80; WT 90 KG; VANCO 2000 MG BOLUS THEN 1500 MG IV Q12H; TROUGH AFTER 3RD DOSE
[2018-05-12 20:00] VITALS: BP 112/62
[2018-05-12] MEDS: MEROPENEM 500 MG in NS (IVPB) 100 ML IV SCH (20:06)
[2018-05-12] MEDS: NS IV 1000 ML 1,000 ML IV SCH (20:06)
[2018-05-12] MEDS: oxyCODONE/APAP 5/325MG (PERCOCET 5) TABLET PO PRN (20:19)
--- NOTE | 2018-05-12 20:59 | NUR ---
THIS RN RECEIVED NEW TELEPHONE ORDER TO MOVE Q1 VITALS TO Q4 VITALS PER PT BEING STABLE. Addendum: 05/12/18 at 2129 by GALLO CLAY RN THIS RN RECEIVED NEW TELEPHONE ORDER FROM DR HANEY STATING TO MOVE Q1 VITALS TO Q4 VITALS R/T PTS VITALS BEING STABLE AND WNL.
[2018-05-12 21:00] VITALS: BP 114/58
[2018-05-13 00:05] VITALS: BP 118/72
[2018-05-13] MEDS ORDERED: MELATONIN 3 MG TABLET ONE (00:17)
[2018-05-13] MEDS: MELATONIN 3 MG TABLET PO SCH ×2 (00:25→20:50)
[2018-05-13] MEDS: oxyCODONE/APAP 5/325MG (PERCOCET 5) TABLET PO PRN ×5 (00:26→20:13)
[2018-05-13] MEDS: MEROPENEM 500 MG in NS (IVPB) 100 ML IV SCH ×4 (02:15→20:06)
[2018-05-13] MEDS: KETOROLAC 15 MG/ML VIAL IV PRN ×3 (02:20→16:39)
[2018-05-13 04:05] VITALS: BP 139/67
[2018-05-13 04:29] LABS: BASOPHILS % (AUTO) 1 % (0-10); EOSINOPHILS # (AUTO) 0.2 10^3/uL (0.0-0.3); EOSINOPHILS % (AUTO) 4 % (0-10); HEMATOCRIT 33 % (40-54); HEMOGLOBIN 10.7 G/DL (13.3-17.7); LYMPHOCYTES # (AUTO) 0.8 X 10^3 (1.0-4.0); LYMPHOCYTES % (AUTO) 16 % (12-44); MEAN CORPUSCULAR HEMOGLOBIN 29 PG (25-34); MEAN CORPUSCULAR HGB CONC 32 G/DL (32-36); MEAN CORPUSCULAR VOLUME 92 FL (80-99); MEAN PLATELET VOLUME 11.4 FL (7.4-10.4); MONOCYTES # (AUTO) 0.6 X 10^3 (0.0-1.0); MONOCYTES % (AUTO) 11 % (0-12); NEUTROPHILS # (AUTO) 3.3 X 10^3 (1.8-7.8); NEUTROPHILS % (AUTO) 68 % (42-75); PLATELET COUNT 153 10^3/uL (130-400); RED BLOOD COUNT 3.65 10^6/uL (4.35-5.85); RED CELL DISTRIBUTION WIDTH 13.2 % (10.0-14.5); WHITE BLOOD COUNT 4.9 10^3/uL (4.3-11.0)
[2018-05-13 04:46] LABS: BUN/CREATININE RATIO 16; CALCIUM 8.5 MG/DL (8.5-10.1); CARBON DIOXIDE 25 MMOL/L (21-32); CHLORIDE 106 MMOL/L (98-107); CREATININE SERUM 0.83 MG/DL (0.60-1.30); GFR ESTIMATED > 60; GLUCOSE 94 MG/DL (70-105); POTASSIUM 3.9 MMOL/L (3.6-5.0); SODIUM 140 MMOL/L (135-145)
[2018-05-13] MEDS: NS IV 1000 ML 1,000 ML IV SCH ×2 (05:15→09:29)
[2018-05-13] MEDS: VANCOMYCIN 1500 MG/NS 500 ML IVPB IV SCH ×4 (06:26→18:54)
[2018-05-13 08:31] VITALS: BP 117/68
[2018-05-13] MEDS ORDERED: ESOM20CA58 PO (08:35)
[2018-05-13] MEDS ORDERED: FENT-64 TD (08:35)
[2018-05-13] MEDS ORDERED: BUPR-168 PO (08:35)
[2018-05-13] MEDS ORDERED: PARO30TA3 PO (08:42)
[2018-05-13] MEDS ORDERED: OXYC5SOL19 PO (08:42)
[2018-05-13] MEDS ORDERED: ALPR0.254 PO (08:42)
[2018-05-13] MEDS ORDERED: AMOX1TAB12 PO (08:42)
[2018-05-13] MEDS ORDERED: ACET-2469 PO (08:42)
--- NOTE | 2018-05-13 08:46 | NUR ---
SPOKE WITH THE PATIENT AND HIS ABOUT MEDICATIONS. SHE HAD A LIST AND I COMPARED IT WITH THE EXT MED HX. ACCORDING TO THE EXT MED HX HE FILLED GABAPENTIN RECENTLY HOWEVER THEY STATE THEY HAVE NOT STARTED IT YET. HIS PAXIL DOSE WAS INCREASED AND HE WAS STARTED ON BUPROPION AT THIS TIME WELL AND THEY DID NOT WANT TO ADD MORE THAN ONE NEW MEDICATION/CHANGE AT A TIME UNTIL THEY SEE IF THERE IS ANY NEGATIVE SIDE EFFECTS. HE FILLED AUGMENTIN 875/125 #60 FOR 20 DAYS RECENTLY, HE WAS ONLY TAKING IT BID. HE TAKES THE FOLLOWING OTC: TYLENOL PM 2 HS NEXIUM DAILY LORATADINE DAILY STATES HIS LAST IV ANTIBIOTICS WERE IN MARCH.
--- NOTE | 2018-05-13 10:11 | History & Physical-Hospitalist ---
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 He was seen in infectious disease at just completed IV meropenem in March and was maintained on Augmentin twice a day long-term. Patient received aggressive IV fluids and patient feels much better. He is been placed on meropenem and vancomycin and Dr. Sepulveda has been consulted in case the abscess needs drained. Source: patient, family Exam Limitations: no limitations Date Seen 05/13/18 Time Seen by a Provider: 10:00 Attending Physician Michael Encinas MD PCP Michael Encinas MD Referring Physician Date of Admission May 12, 2018 at 18:04 Home Medications & Allergies Home Medications Reviewed patient Home Medication Reconciliation performed by pharmacy medication reconciliations transportation engineering technician and/or nursing. Patients Allergies have been reviewed. Allergies Allergies Uncoded Allergies FRESH FRUIT ( Allergy, Severe, SWELLING OF MOUTH, 03/11/17) Past [id number]-[id number] Hx Past Med/Social Hx: Reviewed Nursing Past Med/Soc Hx, Reviewed and Corrections made Patient Social History Marrital Status: single Employed/Student: unemployed Alcohol Use: Denies Use Number of Drinks Today: DD Alcohol Beverage of Choice: Rum Recreational Drug Use: No Smoking Status: Never a Smoker Type Used: Smokeless Tobacco 2nd Hand Smoke Exposure: No Physical Abuse Screen: No Sexual Abuse: No Recent Foreign Travel: No Contact w/other who traveled: No Recent Hopitalizations: No Recent Infectious Disease Expo: No Immunizations Up To Date Pediatric: Yes Date of Influenza Vaccine: Jun 30, 2017 Seasonal Allergies Seasonal Allergies: Yes Past Medical History Currently Using CPAP: No Currently Using BIPAP: No Cardiac: High Cholesterol, Hypertension Reproductive: No Sexually Transmitted Disease: No HIV/AIDS: No Gastrointestinal: Gastroesophageal Reflux Musculoskeletal: Chronic Back Pain, Fractures HEENT: Tinnitis Loss of Vision: Bilateral Hearing Impairment: Hard of Hearing Cancer: Oral Did You Recieve Any Treatments: Yes What Type of Treatment Did You: Chemotherapy, Radiation, Surgical Intervention Cancer: CHEMO 4 YRS AGO, RADIATION 5 YRS AGO Psychosocial: Anxiety, Depression History of Blood Disorders: No Adverse Reaction to Blood Messer: No Review of Systems Constitutional: see HPI, chills, dizziness, fever, weakness EENTM: no symptoms reported Respiratory: no symptoms reported Cardiovascular: no symptoms reported Gastrointestinal: no symptoms reported Genitourinary: no symptoms reported Musculoskeletal: no symptoms reported Skin: see HPI Psychiatric/Neurological: No Symptoms Reported All Other Systems Reviewed Negative Unless Noted: Yes Physical Exam Physical Exam Vital Signs Vital Signs - First Documented 05/12/18 12:47 Temp 102.0 Pulse 139 Resp 20 B/P (MAP) 140/88 (105) Pulse Ox 93 O2 Delivery Room Air Capillary Refill : Less Than 3 Seconds Height, Weight, BMI Height: 5'11.00" Weight: 217lbs. 7.0oz. 98.469071ir; 30.3 BMI Method:Stated General Appearance: No Apparent Distress, WD/WN, Chronically ill Eyes: Bilateral Eye Normal Inspection, Bilateral Eye PERRL HEENT: PERRL/EOMI, Pharynx Normal, Other (part of right jaw missing from prior surgery. extensive surgical scars to right side of jaw) Neck: Full Range of Motion, Normal Inspection, Non Tender, Supple, Carotid Bruit Respiratory: Chest Non Tender, Lungs Clear, Normal Breath Sounds, No Accessory Muscle Use, No Respiratory Distress Cardiovascular: Regular Rate, Rhythm, No Edema, No Gallop, No JVD, No Murmur, Normal Peripheral Pulses Gastrointestinal: Normal Bowel Sounds, No Organomegaly, No Pulsatile Mass, Non Tender, Soft Back: Normal Inspection, No CVA Tenderness, No Vertebral Tenderness Extremity: Normal Capillary Refill, Normal Inspection, Normal Range of Motion, Non Tender, No Calf Tenderness, No Pedal Edema Neurologic/Psychiatric: Alert, Oriented x3, No Motor/Sensory Deficits, Normal Mood/Affect Skin: Normal Color, Warm/Dry Lymphatic: No Adenopathy Results Results/Procedures Labs Laboratory Tests 05/12/18 13:05 05/13/18 04:00 Patient resulted labs reviewed. Assessment/Plan Admission Diagnosis Assessment: Sepsis Fever Tachycardia Facial abscess where prior squamous cell carcinoma of the mandible status post radical neck dissection seeing infectious disease maintained on Augmentin long- term after finishing meropenem IV long course March 2018 Hypertension Hyperlipidemia Prior chewing tobacco use Plan Meropenem and thank Appreciate Dr. 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 Pt states he did not feel well and knew that when he felt this way that he needed to go to the hospital. Pt states that he recently finised a course of Meropenim in March and has been on Augmentin BID since. Pt had CT done in the ED wich showed new peripherial mass/fluid collection along the inferior margine of the right mandible which may be cystic mass or abscess. The ED consulted pt's doctors at and recommended pt be admitted for IV Abx. Today pt states he feels a lot better and has been afebrile. Pt states yesterday he felt a little short of breath but that has improved as well as some nausea which improved in the ED post Zofran. Source: patient, family Review of Systems Constitutional: fever Respiratory: No cough; short of breath Cardiovascular: No chest pain; palpitations Gastrointestinal: No abdominal pain, No diarrhea; nausea Genitourinary: No dysuria, No frequency Physical Exam Physical Exam General Appearance: No Apparent Distress, WD/WN Eyes: Bilateral Eye PERRL HEENT: PERRL/EOMI, Other (part of right jaw missing from prior surgery. extensive surgical scars to right side of jaw) Respiratory: Lungs Clear, Normal Breath Sounds, No Respiratory Distress Cardiovascular: Regular Rate, Rhythm, No Edema Neurologic/Psychiatric: Alert, Oriented x3 Assessment/Plan Assessment and Plan Assessment: Right neck mass right neck abscess history of squamous cell carcinoma history of asthma history of HTN history of HLD history of GERD Plan: IV Abx IVF Surgery consult Protonix for reflux symptoms restart home meds continue to monitor for signs of worsening infection JUDE CALLEJAS DO May 13, 2018 10:11 MINISTERIO OSBORNE MEDICAL STUDENT May 13, 2018 11:23
[2018-05-13 12:34] VITALS: BP 120/72
[2018-05-13] MEDS ORDERED: LIDOCAINE 1% INJ 20 ML 20 ML VIAL ONE (14:13)
[2018-05-13 15:30] VITALS: BP 165/80
--- NOTE | 2018-05-13 17:53 | Progress Note (SOAP) ---
Subjective Date Seen by a Provider: May 13, 2018 Time Seen by a Provider: 17:30 Subjective/Events-last exam doing well. tolerating diet. decreased induration and swelling bilateral mandible. no fever/chills. will most likely need home IV abx thru midline. patient will also need outpatient colonoscopy which we can schedule. he will just be instructed to call the office and schedule. Focused Exam Lactate Level 05/12/18 13:05: Lactic Acid Level 1.10 Objective Exam Vital Signs Date Time Temp Pulse Resp B/P (MAP) Pulse Ox O2 Delivery O2 Flow Rate FiO2 05/13/18 15:30 97.3 81 16 165/80 (108) 93 Room Air 05/13/18 12:34 97.9 89 18 120/72 (88) 94 Room Air 05/13/18 08:31 97.8 80 20 117/68 (84) 93 Room Air 05/13/18 07:55 Room Air 05/13/18 07:02 81 05/13/18 04:05 98.5 85 18 139/67 (91) 98 Room Air 05/13/18 01:00 99 05/13/18 00:05 98.7 100 20 118/72 (87) 93 Room Air 05/12/18 21:54 97 05/12/18 21:00 98.7 95 18 114/58 (76) 92 Room Air 05/12/18 20:15 Room Air 05/12/18 20:00 97.6 101 18 112/62 (79) 93 Room Air 05/12/18 20:00 Room Air 05/12/18 19:09 99.6 104 18 123/82 (96) 97 Room Air 0 05/12/18 19:00 99.8 105 20 120/76 (91) 92 Room Air I & O 05/13/18 07:00 Intake Total 4860 ml Balance 4860 ml Capillary Refill : Less Than 3 Seconds General Appearance: No Apparent Distress HEENT: PERRL/EOMI Neck: Full Range of Motion, Other (decreased redness/erythema, no fluctuance) Respiratory: Chest Non Tender, Lungs Clear, Normal Breath Sounds Cardiovascular: Regular Rate, Rhythm Gastrointestinal: normal bowel sounds, non tender, soft Extremity: Normal Capillary Refill Neurologic/Psychiatric: Alert, Oriented x3 Skin: Normal Color Results Lab Laboratory Tests 05/13/18 04:00: White Blood Count 4.9, Red Blood Count 3.65L, Hemoglobin 10.7L, Hematocrit 33L, Mean Corpuscular Volume 92, Mean Corpuscular Hemoglobin 29, Mean Corpuscular Hemoglobin Concent 32, Red Cell Distribution Width 13.2, Platelet Count 153, Mean Platelet Volume 11.4H, Neutrophils (%) (Auto) 68, Lymphocytes (%) (Auto) 16 , Monocytes (%) (Auto) 11, Eosinophils (%) (Auto) 4, Basophils (%) (Auto) 1, Neutrophils # (Auto) 3.3, Lymphocytes # (Auto) 0.8L, Monocytes # (Auto) 0.6, Eosinophils # (Auto) 0.2, Basophils # (Auto) 0.0, Sodium Level 140, Potassium Level 3.9, Chloride Level 106, Carbon Dioxide Level 25, Anion Gap 9, Blood Urea Nitrogen 13, Creatinine 0.83, Estimat Glomerular Filtration Rate > 60, BUN/ Creatinine Ratio 16, Glucose Level 94, Calcium Level 8.5 Microbiology 05/12/18 Blood Culture - Preliminary, Resulted No growth 05/12/18 MRSA Screen - Final, Complete MRSA not isolated 05/12/18 Urine Culture - Final, Complete NO GROWTH 05/12/18 Gram Stain - Final, Resulted 05/12/18 Wound Culture - Preliminary, Resulted Gram Pos Mixed Bacterial Antionette Yeast species Assessment/Plan Assessment/Plan Assess & Plan/Chief Complaint anterior oropharyngeal SCC s/p resection, 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 improved with IV abx. will most likely need as OP. will also need OP colonoscopy due to strong family hx colon cancer. pt advised to call the office([phone]) to schedule when advised to by oncology. Clinical Quality Measures DVT/VTE Risk/Contraindication: Risk Factor Score Per Nursin RFS Level Per Nursing on Admit: 1=Low/No VTE PPX JIM HANEY MD May 13, 2018 17:52
[2018-05-13 19:35] VITALS: BP 116/76
[2018-05-13] MEDS ORDERED: ALPRAZolam 0.25 MG (XANAX) TAB PO PRN (20:15)
[2018-05-13] MEDS ORDERED: FENTANYL 37.5 MCG TD SCH (20:15)
[2018-05-13] MEDS ORDERED: buPROPion 75 MG (WELLBUTRIN) TAB ONE (20:44)
[2018-05-13] MEDS ORDERED: NON-FORMULARY MEDICATION 1 EA EA (Amoxicillin/Potassium Clav (Amox Tr-K Clv 875-125 mg Tab PO SCH (21:00)
[2018-05-13] MEDS ORDERED: fentaNYL PATCH 25 MCG (DURAGESIC) TOP SCH (21:45)
[2018-05-13] MEDS ORDERED: fentaNYL PATCH 12 MCG (DURAGESIC) TD SCH (22:00)
[2018-05-14 00:10] VITALS: BP 116/62
[2018-05-14] MEDS: MEROPENEM 500 MG in NS (IVPB) 100 ML IV SCH ×3 (01:39→14:12)
[2018-05-14 04:09] VITALS: BP 141/63
[2018-05-14] MEDS ORDERED: TROUGH ORDER-PHARMACY XX NR (06:30)
[2018-05-14] MEDS: oxyCODONE/APAP 5/325MG (PERCOCET 5) TABLET PO PRN (06:33)
[2018-05-14] MEDS: VANCOMYCIN 1500 MG/NS 500 ML IVPB IV SCH ×2 (07:30)
--- NOTE | 2018-05-14 07:32 | NUR ---
VANCOMYCIN DOSING TROUGH LEVEL 16.0 - CONTINUE CURRENT DOSE OF VANC 1500 MG Q12H
[2018-05-14 08:00] VITALS: BP 129/74
[2018-05-14] MEDS: KETOROLAC 15 MG/ML VIAL IV PRN (08:40)
[2018-05-14] MEDS ORDERED: buPROPion 75 MG (WELLBUTRIN) TAB PO SCH (09:00)
[2018-05-14] MEDS ORDERED: NON-FORMULARY MEDICATION 1 EA EA (Paroxetine HCl 30 MG) PO SCH (09:00)
[2018-05-14] MEDS ORDERED: ATORVASTATIN 40 MG (LIPITOR) TABLET PO SCH (09:00)
[2018-05-14] MEDS ORDERED: LEVOTHYROXINE 125 MCG (LEVOTHROID) TABLET PO SCH (09:00)
[2018-05-14] MEDS ORDERED: LORATADINE (CLARITIN) 10 MG TAB PO SCH (09:00)
[2018-05-14] MEDS ORDERED: PARoxetine 10 MG (PAXIL) TAB PO SCH (09:00)
[2018-05-14] MEDS ORDERED: PANTOPRAZOLE 40 MG (PROTONIX) TAB PO SCH (09:00)
[2018-05-14] MEDS ORDERED: BUPROPION HCL 75 MG PO SCH (09:00)
[2018-05-14] MEDS ORDERED: NON-FORMULARY MEDICATION 1 EA EA (Esomeprazole Magnesium (Nexium 24Hr) 20 MG) PO SCH (09:00)
[2018-05-14] MEDS ORDERED: MERO1PIG IV (09:49)
--- NOTE | 2018-05-14 10:33 | Discharge Summary-Hospitalist ---
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 (5) History of radical neck dissection Status: Chronic Discharge Summary Discharge Physical Exam Allergies: Uncoded Allergies: FRESH FRUIT (Allergy, Severe, SWELLING OF MOUTH, 03/11/17) Vitals & I&Os Vital Signs Date Time Temp Pulse Resp B/P (MAP) Pulse Ox O2 Delivery O2 Flow Rate FiO2 05/14/18 08:00 Room Air 05/14/18 08:00 98.2 75 18 129/74 (92) 93 05/12/18 19:09 0 General Appearance: No Apparent Distress, WD/WN, Chronically ill Respiratory: Chest Non Tender, Lungs Clear, Normal Breath Sounds, No Accessory Muscle Use, No Respiratory Distress Cardiovascular: Regular Rate, Rhythm, No Edema, No Gallop, No JVD, No Murmur, Normal Peripheral Pulses Skin: Other (improved right facial cellulitis) Neurologic/Psychiatric: Alert, Oriented x3, No Motor/Sensory Deficits, Normal Mood/Affect Hospital Course Hospital course: Patient presented to the ER with sepsis and tachycardia and fever and right facial cellulitis with abscess. Infectious disease doctor Dr. Oshea was notified and he recommended maintenance of meropenem for 3 weeks and close follow-up with him. He did not require any surgical exploration with Dr. Sepulveda was consulted just in case. Vancomycin was discontinued at discharge he will be on meropenem which he gives his own infusions through the midline that was placed during hospital stay. Infectious disease doctor did tell me that there was not going to be a good outcome considering osteomyelitis will never be cured and he will require IV infusions in the future periodically. Overall poor prognosis given the extensive nature of the squamous cell carcinoma of his jaw that required extensive radical neck surgery along with mandible removal which will be requiring supportive care long-term. Labs (last 24 hrs) Laboratory Tests 05/14/18 06:30: Vancomycin Level Trough 16.0 Microbiology 05/12/18 Blood Culture - Preliminary, Resulted No growth 05/12/18 MRSA Screen - Final, Complete MRSA not isolated 05/12/18 Urine Culture - Final, Complete NO GROWTH 05/12/18 Gram Stain - Final, Resulted 05/12/18 Wound Culture - Preliminary, Resulted Gram Pos Mixed Bacterial Antionette Yeast species Patient resulted labs reviewed. Pending Labs Laboratory Tests 05/14/18 06:30: Vancomycin Level Trough 16.0 Discussion & Recommendations Discharge Planning: <30 minutes discharge planning Discharge Home Medications: Active Scripts Active Meropenem-0.9% NaCl 1 Gram/50 (Meropenem-0.9% Sodium Chloride) 1 Gm/50 Ml Piggyback 1 Gm IV Q8HR 21 Days Reported Oxycodone HCl 5 Mg/5 Ml Solution 5-10 Ml PO Q3H PRN Tylenol Pm Ex-Strength Caplet (Acetaminophen/Diphenhydramine) 1 Each Tablet 2 Tab PO HS Alprazolam 0.25 Mg Tablet 0.25 Mg PO Q8H PRN Paroxetine HCl 30 Mg Tablet 30 Mg PO DAILY Fentanyl Patch 37.5 MCG (Fentanyl) 1 Each Patch.td72 37.5 Mcg TD Q72H CHANGES IN THE EVENING Nexium 24Hr (Esomeprazole Magnesium) 20 Mg Capsule.dr 20 Mg PO DAILY Bupropion HCl 75 Mg Tablet 75 Mg PO DAILY Atorvastatin Calcium 40 Mg Tablet 40 Mg PO DAILY Loratadine 10 Mg Tablet 10 Mg PO DAILY Levothyroxine Sodium 125 Mcg Tablet 125 Mcg PO DAILY Instructions to patient/family Please see electronic discharge instructions given to patient. Clinical Quality Measures DVT/VTE Risk/Contraindication: Risk Factor Score Per Nursin RFS Level Per Nursing on Admit: 1=Low/No VTE PPX Problem Qualifiers (1) Sepsis: Sepsis type: sepsis due to unspecified organism Qualified Codes: A41.9 - Sepsis, unspecified organism JUDE CALLEJAS DO May 14, 2018 10:33
--- NOTE | 2018-05-14 11:30 | NUR ---
CM/SS, respond to consult. HOME INFUSION: Coordinated with patient preferred agency [facility]. Patient has had intermittent home infusions through due to his long-standing care and treatment there. Confirmed receipt of referral with intake unit. They indicate they will target delivery of Rx to patient's home by 1700. They have been informed that his next dose should be around 2200. SDC: Order for weekly change of mid-line dressing change provided for SDC, to be done weekly on . Patient fully updated. He understands he will get his 1400 dose here and will administer his next dose this p.m. at home. He has been independent with performing home infusion by self or with assistance from multiple times, he does not want HHC or feel it is needed. Unit RN updated as well. Patient indicates no other needs, questions, concerns.
[2018-05-14 12:00] VITALS: BP 135/84
--- NOTE | 2018-05-14 15:00 | NUR ---
SALINE LOCK REMOVED FROM RIGHT AC, MIDLINE FLUSHED WITH 20ML SALINE WITHOUT DIFFICULTY, PATIENT DISMISSED WITH MIDLINE IN PLACE, INSTRUCTED ON CARE AND FLUSHING, INSTRUCTED TO COME TO SAME DAY SURGERY EVERY THURSDAY FOR DRESSING CHANGES, DISCHARGE INSTRUCTIONS GIVEN, VERBALIZED UNDERSTANDING.
[2018-05-14 15:15] VITALS: BP 135/84
--- NOTE | 2018-05-14 15:15 | NUR ---
ISAIAS VARGAS demonstrates understanding of discharge instructions and accurately returns instructions upon questioning. Copy of Post-Discharge Instructions and Medication Discharge Instructions given to patient. ISAIAS VARGAS is able to manage continuing needs after discharge. Patients belongings returned to Patient. Skin dry and intact; no breakdown noted. Patient discharged from [facility] on 05/14/18 at 1515 . ISAIAS VARGAS left floor via W/C, accompanied by Staff and family.
--- NOTE | 2018-05-17 14:31 | Physician Query Clarification ---
PQ-Link Infection to Dev/Proc Admission/Discharge Admission Date: May 12, 2018 at 18:04 Discharge Date: May 14, 2018 at 15:15 The medical record reflects the following clinical scenario: History/Risk Factors: HX SCCA anterior oropharyngeal s/p chemo, radiation, removal jaw and hardware Clinical Findings: T102.0, P 139, R 20., WBC 9.4, Lactic acid 1.10 Treatment: IV Vancomycin Question: Can you specify if the facial abscess is due to/associated with the prior surgery of the jaw and hardware removal? Please document a response below. PHYSICIAN RESPONSE Specify if infection: Yes,due to/associated with procdure In responding to this query, please exercise your independent professional judgment. The purpose of this communication is to more accurately reflect the complexity of your patients condition. The fact that a question is asked does not imply that any particular answer is desired or expected. Thank you for your timely response to this clarification. Requestors name: Shayne THIS PHYSICIAN QUERY FORM IS A PERMANENT PART OF THE MEDICAL RECORD SHAYNE PARIS May 17, 2018 14:31 JUDE CALLEJAS DO May 18, 2018 10:03
== END 2018-05-14 15:15 | disposition home or self-care (01) | DRG 862 ==
LOC: EDUNIT# 12:42 → ER 12:42 → 4TH 18:04
PROVIDERS: ADMIT Internal Medicine; ATTEND Internal Medicine
DX: T81.44XA Sepsis following a procedure, initial encounter (principal); A41.9 Sepsis, unspecified organism; T81.49XA Infection following a procedure, other surgical site, initial encounter; L02.11 Cutaneous abscess of neck; L03.211 Cellulitis of face; L03.221 Cellulitis of neck; J45.909 Unspecified asthma, uncomplicated; I10 Essential (primary) hypertension; E78.00 Pure hypercholesterolemia, unspecified; K21.9 Gastro-esophageal reflux disease without esophagitis; F41.9 Anxiety disorder, unspecified; F32.9 Major depressive disorder, single episode, unspecified; M54.9 Dorsalgia, unspecified; Z85.818 Personal history of malignant neoplasm of other sites of lip, oral cavity, and pharynx; Z92.21 Personal history of antineoplastic chemotherapy; Z92.3 Personal history of irradiation; Z87.891 Personal history of nicotine dependence; Z90.89 Acquired absence of other organs; Z80.0 Family history of malignant neoplasm of digestive organs
CPT/HCPCS: 36415; 70491; 71045; 76937; 80048; 80053; 80202; 81000; 83605; 85025; 85610; 85730; 86141; 87040; 87070; 87081; 87088; 87205; 87804; 96361; 96365; 96367; 96368; 96375

== ENCOUNTER 2018-05-27 14:53 | Outpatient (CLI) | payer BC ==
--- NOTE | 2018-05-27 14:25 | NUR ---
PT IN SDC FOR MIDLINE DRSG CHANGE ET LAB DRAW. ADDITIONAL LABS DRAWN PER DR BRENNEN SILVA'S ORDERS.
[~2018-05-27 14:53] MED LIST changes: +ACET-2469 PO; +ALPR0.254 PO; +AMOX1TAB12 PO; +BUPR-168 PO; +ESOM20CA58 PO; +FENT-64 TD; +MERO1PIG IV; +OXYC5SOL19 PO; +PARO30TA3 PO
[2018-05-27 15:43] LABS: SODIUM 142 MMOL/L (135-145)
[2018-05-27 15:44] LABS: ALANINE AMINOTRANSFERASE 20 U/L (0-55); ALBUMIN 4.1 GM/DL (3.2-4.5); ALKALINE PHOSPHATASE 153 U/L (40-136); BILIRUBIN,TOTAL 0.4 MG/DL (0.1-1.0); BUN/CREATININE RATIO 21; CALCIUM 9.2 MG/DL (8.5-10.1); CARBON DIOXIDE 30 MMOL/L (21-32); CHLORIDE 102 MMOL/L (98-107); CREATININE SERUM 0.81 MG/DL (0.60-1.30); GFR ESTIMATED > 60; GLUCOSE 102 MG/DL (70-105); POTASSIUM 4.1 MMOL/L (3.6-5.0); TOTAL PROTEIN 7.6 GM/DL (6.4-8.2)
[2018-05-27 15:57] LABS: CHOLESTEROL 155 MG/DL (< 200); HDL CHOLESTEROL 27 MG/DL (40-60); TRIGLYCERIDES 544 MG/DL (<150); VLDL CHOLESTEROL 109 MG/DL (5-40)
== END 2018-05-27 15:25 | disposition home or self-care (01) ==
LOC: SDC 14:53
PROVIDERS: ATTEND Internal Medicine
DX: E03.9 Hypothyroidism, unspecified (principal); E78.2 Mixed hyperlipidemia; Z79.899 Other long term (current) drug therapy
CPT/HCPCS: 36415; 80053; 80061; 84443

== ENCOUNTER 2018-06-11 06:28 | Outpatient (CLI) | payer BC ==
[~2018-06-11] VITALS: Ht 180.3 cm; Wt 98.4 kg
[2018-06-11] MEDS ORDERED: GABA-488 PO (10:53)
== END 2018-06-11 10:55 | disposition home or self-care (01) ==
LOC: PREOP 06:28
PROVIDERS: ATTEND Surgery
DX: Z01.818 Encounter for other preprocedural examination (principal)

== ENCOUNTER 2018-06-16 11:04 | Day surgery (SDC) | payer BC ==
[~2018-06-16] VITALS: Ht 180.3 cm; Wt 98.4 kg
[~2018-06-16 11:04] MED LIST changes: +GABA-488 PO
[2018-06-16 11:10] VITALS: BP 132/86
[2018-06-16] MEDS ORDERED: NS IV 500 ML 500 ML IV PRN (11:17)
[2018-06-16] MEDS ORDERED: NS IV 500 ML 500 ML ONE (11:24)
[2018-06-16] MEDS ORDERED: fentaNYL INJECTION 100 MCG/2 ML AMP IVP ONE (11:30)
[2018-06-16] MEDS ORDERED: MIDAZOLAM 2 MG/2 ML (VERSED) VIAL IVP ONE (11:30)
[2018-06-16] MEDS ORDERED: LIDOCAINE JELLY 2% 6 ML SYRINGE MM PRN (11:30)
--- NOTE | 2018-06-16 11:52 | Conscious Sedation/ASA ---
Conscious Sedation Pre-Proced Time 11:45 ASA Score 3 For ASA 3 and 4: Consider anesthesia and medical clearance. Also, for patients with a history of failed moderate sedation consider anesthesia. Airway Lungs Heart ASA score ASA 1: a normal healthy patient ASA 2: a patient with a mild systemic disease (mid diabetes, controlled hypertension, obesity ASA 3: a patient with a severe systemic disease that limits activity (angina , COPD, prior Myocardial infarction) ASA 4: a patient with an incapacitating disease that is a constant threat to life (CHF, renal failure) ASA 5: a moribund patient not expected to survive 24 hrs. (ruptured aneurysm) ASA 6: a declared brain- patient whose organs are being harvested. For emergent operations, add the letter E after the classification Mallampati Classification Grade 2 Sedation Plan Analgesia, Amnesia, Plan communicated to team members, Discussed options with patient/fam, Discussed risks with patient/fam The patient is an appropriate candidate to undergo the planned procedure, sedation, and anesthesia. The patient immediately re-assessed prior to indication. JIM HANEY MD Jun 16, 2018 11:52
--- NOTE | 2018-06-16 11:53 | Progress Note-Pre Operative ---
Pre-Operative Progress Note H&P Reviewed The H&P was reviewed, patient examined and no changes noted. Date Seen by Provider: Jun 16, 2018 Time Seen by Provider: 11:45 Date H&P Reviewed: Jun 16, 2018 Time H&P Reviewed: 11:45 Pre-Operative Diagnosis: screening colonoscopy JIM HANEY MD Jun 16, 2018 11:53
--- NOTE | 2018-06-16 11:59 | Discharge Inst-Surgical ---
D/C Lap Instructions-LYNDON Follow Up 5yrs Activity as tolerated High Fiber Diet 25g or more per day Avoid Alcohol, Caffeine, Spicy Eagle and Acid foods. Drink 64 fluid oz or more of fluids per day. Symptoms to Report: Fever over 101 degree F, Nausea/Vomiting If any problems/questions: Contact your physician or go to Emergency Room JMI HANEY MD Jun 16, 2018 11:59
[2018-06-16] MEDS ORDERED: morphine INJ 10 MG/ML 1ML (SYR OR VIAL) IV PRN (12:00)
[2018-06-16] MEDS ORDERED: ACETAMINOPHEN 325 MG TABLET PO PRN (12:00)
[2018-06-16] MEDS ORDERED: HYDROcodone/APAP 5 MG/325 MG (LORTAB) TAB PO PRN (12:00)
[2018-06-16] MEDS ORDERED: ONDANSETRON 4 MG/2 ML (SDV) Z0FRAN IV PRN (12:00)
[2018-06-16] MEDS ORDERED: fentaNYL INJECTION 100 MCG/2 ML AMP ONE ×3 (12:36→13:13)
[2018-06-16] MEDS ORDERED: MIDAZOLAM 2 MG/2 ML (VERSED) VIAL ONE ×6 (12:37→13:14)
[2018-06-16] MEDS ORDERED: LIDOCAINE JELLY 2% 6 ML SYRINGE ONE (12:38)
--- NOTE | 2018-06-16 13:47 | Progress Note-Post Operative ---
Post-Operative Progess Note Surgeon (s)/Accountant Machine Processing (s) Surgeon JIM HANEY MD Accountant Machine Processing: none Pre-Operative Diagnosis screening colonoscopy wth family hx colon ca Post-Operative Diagnosis chronic stage 2 ext and int hemorrhoids. Procedure & Operative Findings Date of Procedure 06/16/18 Procedure Performed/Findings Colonoscopy Anesthesia Type cs Estimated Blood Loss Estimated blood loss (mL): minimal Specimens/Packing Specimens Removed none JIM HANEY MD Jun 16, 2018 13:47
[2018-06-16 13:55] VITALS: BP 121/72
[2018-06-16 14:20] VITALS: BP 122/76
--- NOTE | 2018-06-16 21:13 | OPERATIVE REPORT ---
DATE OF SERVICE: 06/16/2018 ATTENDING PRIMARY CARE PHYSICIAN: Dr. Encinas. PREOPERATIVE DIAGNOSIS: Family history of colon cancer. POSTOPERATIVE DIAGNOSIS: Mild chronic stage II external and internal hemorrhoids. The remainder of the rectum and colon were normal. PROCEDURE: Colonoscopy. SURGEON: iJm Haney MD ANESTHESIA: Conscious sedation. ESTIMATED BLOOD LOSS: Minimal. FINDINGS: Mild chronic stage II external and internal hemorrhoids. Prostate gland was palpable and appeared to be normal. The remainder of the rectum and colon were normal. There were no polyps or any neoplasms identified. DISPOSITION: The patient tolerated the procedure well. INDICATIONS: The patient is a 48-year-old male known to us. We have seen him back in 05/2018 for the abscess as well as cellulitis on the left neck. He has a history of what sounds to be an anterior oropharyngeal squamous cell cancer with an advanced age tumor classification. He underwent treatment at [facility] encompassing chemotherapy radiation as well as surgical excision and reconstruction taken from a free flap of the right lower extremity. He does have a family history of colon cancer with his father as well as paternal grandfather both having the disease. He does not report any major issues with diarrhea nor constipation as well as no red blood per rectum nor any dark tarry stools. He has not had a colonoscopy up to this point in his life. DESCRIPTION OF PROCEDURE: The patient was brought to the endoscopy suite, laid in the left lateral decubitus position. After adequate IV pain and sedating medications and conscious sedation anesthesia, a digital rectal examination was performed. Mild chronic stage II external and internal hemorrhoids were identified, which were not actively edematous nor inflamed and no bleeding. Normal sphincter tone was felt and no palpable masses. Prostate gland was palpable and appeared normal. The endoscope was then intubated to the anus and rectum gently insufflated. The endoscope was then advanced to the valves of Fl[place] of the rectum with no polyps or any neoplasms identified. We then proceeded through the sigmoid colon where no diverticulosis identified. The endoscope was then advanced to the remainder of the descending, transverse and ascending colon to the cecum. These segments were normal. There were no polyps or any neoplasms identified throughout the colon or rectum. The endoscope was then slowly withdrawn while taking a second look and suctioning residual air with no additional findings. The patient tolerated the procedure well. We will recommend a high fiber diet with at least 30 grams of fiber per day as well as significant amounts of water on a daily basis to promote soft stools on a daily basis. With his personal history of cancer as well as family history of colon cancer, we will recommend a followup colonoscopy in 5 years. Job ID: [id number] DocumentID: [id number] Dictated Date: 06/16/2018 13:43:43 Extension Service Agent Date: 06/16/2018 21:12:50 Dictated By: JIM HANEY MD
== END 2018-06-16 14:20 | disposition home or self-care (01) ==
LOC: ENDO 11:04
PROVIDERS: ATTEND Surgery
DX: Z12.11 Encounter for screening for malignant neoplasm of colon (principal); K64.1 Second degree hemorrhoids; Z80.0 Family history of malignant neoplasm of digestive organs; J45.909 Unspecified asthma, uncomplicated; I10 Essential (primary) hypertension; E78.00 Pure hypercholesterolemia, unspecified; K21.9 Gastro-esophageal reflux disease without esophagitis; F41.9 Anxiety disorder, unspecified; E03.9 Hypothyroidism, unspecified; Z85.819 Personal history of malignant neoplasm of unspecified site of lip, oral cavity, and pharynx; Z79.899 Other long term (current) drug therapy; Z80.1 Family history of malignant neoplasm of trachea, bronchus and lung

== ENCOUNTER 2018-06-24 15:28 | Outpatient (RCR) | payer BC ==
[2018-05-20 15:00] VITALS: BP 127/86
[2018-05-20 15:52] LABS: BASOPHILS # (AUTO) 0.1 10^3/uL (0.0-0.1); BASOPHILS % (AUTO) 1 % (0-10); EOSINOPHILS # (AUTO) 0.6 10^3/uL (0.0-0.3); EOSINOPHILS % (AUTO) 7 % (0-10); HEMATOCRIT 40 % (40-54); HEMOGLOBIN 12.5 G/DL (13.3-17.7); LYMPHOCYTES # (AUTO) 1.3 X 10^3 (1.0-4.0); LYMPHOCYTES % (AUTO) 16 % (12-44); MEAN CORPUSCULAR HEMOGLOBIN 28 PG (25-34); MEAN CORPUSCULAR HGB CONC 32 G/DL (32-36); MEAN CORPUSCULAR VOLUME 90 FL (80-99); MONOCYTES # (AUTO) 0.6 X 10^3 (0.0-1.0); MONOCYTES % (AUTO) 8 % (0-12); NEUTROPHILS # (AUTO) 5.5 X 10^3 (1.8-7.8); NEUTROPHILS % (AUTO) 68 % (42-75); PLATELET COUNT 233 10^3/uL (130-400); RED CELL DISTRIBUTION WIDTH 12.8 % (10.0-14.5); WHITE BLOOD COUNT 8.2 10^3/uL (4.3-11.0)
[2018-05-20 16:11] LABS: ALANINE AMINOTRANSFERASE 20 U/L (0-55); ALBUMIN 4.3 GM/DL (3.2-4.5); ALKALINE PHOSPHATASE 164 U/L (40-136); BILIRUBIN,TOTAL 0.5 MG/DL (0.1-1.0); BUN/CREATININE RATIO 14; CALCIUM 9.6 MG/DL (8.5-10.1); CARBON DIOXIDE 29 MMOL/L (21-32); CHLORIDE 102 MMOL/L (98-107); CREATININE SERUM 0.87 MG/DL (0.60-1.30); GFR ESTIMATED > 60; GLUCOSE 99 MG/DL (70-105); POTASSIUM 4.1 MMOL/L (3.6-5.0); SODIUM 140 MMOL/L (135-145)
[2018-05-20 16:19] LABS: BAND NEUTROPHILS 2 %; BASOPHILS % (MANUAL) 0 %; EOSINOPHILS % (MANUAL) 8 %; ERYTHROCYTE SEDIMENTATION RATE 43 MM/HR (0-15); LYMPHOCYTES % (MANUAL) 23 %; MONOCYTES % (MANUAL) 4 %; NEUTROPHILS % (MANUAL) 63 %; RBC MORPH NORMAL
[2018-05-27 14:45] VITALS: BP 123/83
[2018-05-27 15:19] LABS: BASOPHILS # (AUTO) 0.1 10^3/uL (0.0-0.1); BASOPHILS % (AUTO) 1 % (0-10); EOSINOPHILS # (AUTO) 0.5 10^3/uL (0.0-0.3); EOSINOPHILS % (AUTO) 8 % (0-10); HEMATOCRIT 37 % (40-54); HEMOGLOBIN 11.9 G/DL (13.3-17.7); LYMPHOCYTES # (AUTO) 1.2 X 10^3 (1.0-4.0); LYMPHOCYTES % (AUTO) 22 % (12-44); MEAN CORPUSCULAR HEMOGLOBIN 29 PG (25-34); MEAN CORPUSCULAR HGB CONC 32 G/DL (32-36); MEAN CORPUSCULAR VOLUME 89 FL (80-99); MEAN PLATELET VOLUME 11.4 FL (7.4-10.4); MONOCYTES # (AUTO) 0.5 X 10^3 (0.0-1.0); MONOCYTES % (AUTO) 9 % (0-12); NEUTROPHILS # (AUTO) 3.3 X 10^3 (1.8-7.8); NEUTROPHILS % (AUTO) 60 % (42-75); PLATELET COUNT 237 10^3/uL (130-400); RED CELL DISTRIBUTION WIDTH 12.9 % (10.0-14.5); WHITE BLOOD COUNT 5.6 10^3/uL (4.3-11.0)
[2018-05-27 15:36] LABS: ALANINE AMINOTRANSFERASE 20 U/L (0-55); ALBUMIN 4.1 GM/DL (3.2-4.5); ALKALINE PHOSPHATASE 153 U/L (40-136); BILIRUBIN,TOTAL 0.4 MG/DL (0.1-1.0); BUN/CREATININE RATIO 21; CALCIUM 9.2 MG/DL (8.5-10.1); CARBON DIOXIDE 30 MMOL/L (21-32); CHLORIDE 102 MMOL/L (98-107); CREATININE SERUM 0.81 MG/DL (0.60-1.30); GFR ESTIMATED > 60; GLUCOSE 102 MG/DL (70-105); POTASSIUM 4.1 MMOL/L (3.6-5.0); SODIUM 142 MMOL/L (135-145); TOTAL PROTEIN 7.6 GM/DL (6.4-8.2)
[2018-05-27 15:37] LABS: ERYTHROCYTE SEDIMENTATION RATE 60 MM/HR (0-15)
[2018-06-03 12:20] VITALS: BP 130/92
[2018-06-03 13:18] LABS: HEMATOCRIT 38 % (40-54); HEMOGLOBIN 11.8 G/DL (13.3-17.7); MEAN CORPUSCULAR HEMOGLOBIN 28 PG (25-34); MEAN CORPUSCULAR HGB CONC 32 G/DL (32-36); MEAN CORPUSCULAR VOLUME 90 FL (80-99); MEAN PLATELET VOLUME 11.7 FL (7.4-10.4); PLATELET COUNT 224 10^3/uL (130-400); RED CELL DISTRIBUTION WIDTH 12.9 % (10.0-14.5); WHITE BLOOD COUNT 5.1 10^3/uL (4.3-11.0)
[2018-06-03 13:41] LABS: ALANINE AMINOTRANSFERASE 25 U/L (0-55); ALBUMIN 4.1 GM/DL (3.2-4.5); ALKALINE PHOSPHATASE 167 U/L (40-136); BILIRUBIN,TOTAL 0.4 MG/DL (0.1-1.0); BUN/CREATININE RATIO 16; CALCIUM 9.4 MG/DL (8.5-10.1); CARBON DIOXIDE 30 MMOL/L (21-32); CHLORIDE 101 MMOL/L (98-107); CREATININE SERUM 0.86 MG/DL (0.60-1.30); GFR ESTIMATED > 60; GLUCOSE 109 MG/DL (70-105); POTASSIUM 4.1 MMOL/L (3.6-5.0); SODIUM 139 MMOL/L (135-145); TOTAL PROTEIN 7.8 GM/DL (6.4-8.2)
[2018-06-03 13:51] LABS: ERYTHROCYTE SEDIMENTATION RATE 45 MM/HR (0-15)
[2018-06-03 14:37] LABS: BASOPHILS # (AUTO) 0.1 10^3/uL (0.0-0.1); BASOPHILS % (AUTO) 2 % (0-10); EOSINOPHILS # (AUTO) 0.5 10^3/uL (0.0-0.3); EOSINOPHILS % (AUTO) 10 % (0-10); LYMPHOCYTES # (AUTO) 1.2 X 10^3 (1.0-4.0); LYMPHOCYTES % (AUTO) 21 % (12-44); MONOCYTES # (AUTO) 0.5 X 10^3 (0.0-1.0); MONOCYTES % (AUTO) 10 % (0-12); NEUTROPHILS # (AUTO) 3.1 X 10^3 (1.8-7.8); NEUTROPHILS % (AUTO) 57 % (42-75)
[2018-06-10 14:45] VITALS: BP 138/82
[2018-06-10 14:49] LABS: BASOPHILS # (AUTO) 0.1 10^3/uL (0.0-0.1); BASOPHILS % (AUTO) 1 % (0-10); EOSINOPHILS # (AUTO) 0.4 10^3/uL (0.0-0.3); EOSINOPHILS % (AUTO) 9 % (0-10); HEMATOCRIT 38 % (40-54); HEMOGLOBIN 12.4 G/DL (13.3-17.7); LYMPHOCYTES # (AUTO) 0.8 X 10^3 (1.0-4.0); LYMPHOCYTES % (AUTO) 16 % (12-44); MEAN CORPUSCULAR HEMOGLOBIN 28 PG (25-34); MEAN CORPUSCULAR HGB CONC 33 G/DL (32-36); MEAN CORPUSCULAR VOLUME 88 FL (80-99); MEAN PLATELET VOLUME 10.5 FL (7.4-10.4); MONOCYTES # (AUTO) 0.4 X 10^3 (0.0-1.0); MONOCYTES % (AUTO) 7 % (0-12); NEUTROPHILS # (AUTO) 3.2 X 10^3 (1.8-7.8); NEUTROPHILS % (AUTO) 67 % (42-75); PLATELET COUNT 221 10^3/uL (130-400); RED CELL DISTRIBUTION WIDTH 13.1 % (10.0-14.5); WHITE BLOOD COUNT 4.9 10^3/uL (4.3-11.0)
[2018-06-10 15:11] LABS: ALANINE AMINOTRANSFERASE 21 U/L (0-55); ALBUMIN 4.1 GM/DL (3.2-4.5); ALKALINE PHOSPHATASE 142 U/L (40-136); BILIRUBIN,TOTAL 0.5 MG/DL (0.1-1.0); BUN/CREATININE RATIO 14; CALCIUM 9.2 MG/DL (8.5-10.1); CARBON DIOXIDE 27 MMOL/L (21-32); CHLORIDE 103 MMOL/L (98-107); CREATININE SERUM 0.83 MG/DL (0.60-1.30); GFR ESTIMATED > 60; GLUCOSE 110 MG/DL (70-105); POTASSIUM 3.9 MMOL/L (3.6-5.0); SODIUM 140 MMOL/L (135-145); TOTAL PROTEIN 7.5 GM/DL (6.4-8.2)
[2018-06-10 15:16] LABS: ERYTHROCYTE SEDIMENTATION RATE 44 MM/HR (0-15)
[2018-06-16 12:10] LABS: BASOPHILS # (AUTO) 0.1 10^3/uL (0.0-0.1); BASOPHILS % (AUTO) 1 % (0-10); EOSINOPHILS # (AUTO) 0.4 10^3/uL (0.0-0.3); EOSINOPHILS % (AUTO) 7 % (0-10); HEMATOCRIT 38 % (40-54); HEMOGLOBIN 12.5 G/DL (13.3-17.7); LYMPHOCYTES % (AUTO) 20 % (12-44); MEAN CORPUSCULAR HEMOGLOBIN 28 PG (25-34); MEAN CORPUSCULAR HGB CONC 33 G/DL (32-36); MEAN CORPUSCULAR VOLUME 87 FL (80-99); MONOCYTES # (AUTO) 0.5 X 10^3 (0.0-1.0); MONOCYTES % (AUTO) 10 % (0-12); NEUTROPHILS # (AUTO) 3.1 X 10^3 (1.8-7.8); NEUTROPHILS % (AUTO) 62 % (42-75); PLATELET COUNT 211 10^3/uL (130-400)
[2018-06-16 12:27] LABS: ALANINE AMINOTRANSFERASE 25 U/L (0-55); ALBUMIN 4.1 GM/DL (3.2-4.5); ALKALINE PHOSPHATASE 147 U/L (40-136); BILIRUBIN,TOTAL 0.5 MG/DL (0.1-1.0); BUN/CREATININE RATIO 15; CALCIUM 9.5 MG/DL (8.5-10.1); CARBON DIOXIDE 28 MMOL/L (21-32); CHLORIDE 102 MMOL/L (98-107); CREATININE SERUM 0.82 MG/DL (0.60-1.30); GFR ESTIMATED > 60; GLUCOSE 98 MG/DL (70-105); SODIUM 139 MMOL/L (135-145); TOTAL PROTEIN 7.4 GM/DL (6.4-8.2)
[2018-06-16 12:36] LABS: ERYTHROCYTE SEDIMENTATION RATE 46 MM/HR (0-15)
--- NOTE | 2018-06-16 13:00 | NUR ---
MIDLINE DRESSING CHANGE DONE WHILE PATIENT WAS IN ENDOSCOPY FOR A COLONOSCOPY.
[~2018-06-24] VITALS: Ht 180.3 cm; Wt 98.6 kg
[2018-06-24 15:28] VITALS: BP 126/91
[2018-06-24 15:56] LABS: BASOPHILS # (AUTO) 0.1 10^3/uL (0.0-0.1); BASOPHILS % (AUTO) 1 % (0-10); EOSINOPHILS # (AUTO) 0.4 10^3/uL (0.0-0.3); EOSINOPHILS % (AUTO) 5 % (0-10); HEMATOCRIT 40 % (40-54); HEMOGLOBIN 12.4 G/DL (13.3-17.7); LYMPHOCYTES # (AUTO) 1.2 X 10^3 (1.0-4.0); LYMPHOCYTES % (AUTO) 17 % (12-44); MEAN CORPUSCULAR HEMOGLOBIN 27 PG (25-34); MEAN CORPUSCULAR HGB CONC 31 G/DL (32-36); MEAN CORPUSCULAR VOLUME 87 FL (80-99); MEAN PLATELET VOLUME 11.6 FL (7.4-10.4); MONOCYTES # (AUTO) 0.5 X 10^3 (0.0-1.0); MONOCYTES % (AUTO) 7 % (0-12); NEUTROPHILS # (AUTO) 4.8 X 10^3 (1.8-7.8); NEUTROPHILS % (AUTO) 70 % (42-75); PLATELET COUNT 203 10^3/uL (130-400); WHITE BLOOD COUNT 6.8 10^3/uL (4.3-11.0)
[2018-06-24 16:15] LABS: ERYTHROCYTE SEDIMENTATION RATE 36 MM/HR (0-15)
[2018-06-24 16:18] LABS: ALANINE AMINOTRANSFERASE 30 U/L (0-55); ALBUMIN 4.2 GM/DL (3.2-4.5); ALKALINE PHOSPHATASE 148 U/L (40-136); BILIRUBIN,TOTAL 0.6 MG/DL (0.1-1.0); BUN/CREATININE RATIO 18; CALCIUM 9.7 MG/DL (8.5-10.1); CARBON DIOXIDE 29 MMOL/L (21-32); CHLORIDE 101 MMOL/L (98-107); CREATININE SERUM 0.87 MG/DL (0.60-1.30); GFR ESTIMATED > 60; GLUCOSE 105 MG/DL (70-105); POTASSIUM 3.7 MMOL/L (3.6-5.0); SODIUM 140 MMOL/L (135-145); TOTAL PROTEIN 7.5 GM/DL (6.4-8.2)
== END 2018-06-24 15:50 | disposition home or self-care (01) ==
LOC: SDC 15:28
PROVIDERS: ATTEND Internal Medicine Infectious Disease
DX: Z08 Encounter for follow-up examination after completed treatment for malignant neoplasm (principal); Z85.818 Personal history of malignant neoplasm of other sites of lip, oral cavity, and pharynx; E89.0 Postprocedural hypothyroidism; Z79.899 Other long term (current) drug therapy; Z92.21 Personal history of antineoplastic chemotherapy; Z92.3 Personal history of irradiation
CPT/HCPCS: 36415; 76937; 80053; 85007; 85025; 85027; 85652; 86141; 99211

== ENCOUNTER 2018-07-05 14:57 | Outpatient (RCR) | payer BC ==
[2018-05-24 13:56] LABS: BASOPHILS # (AUTO) 0.1 10^3/uL (0.0-0.1); BASOPHILS % (AUTO) 1 % (0-10); EOSINOPHILS # (AUTO) 0.5 10^3/uL (0.0-0.3); EOSINOPHILS % (AUTO) 7 % (0-10); HEMATOCRIT 38 % (40-54); HEMOGLOBIN 12.1 G/DL (13.3-17.7); LYMPHOCYTES # (AUTO) 1.2 X 10^3 (1.0-4.0); LYMPHOCYTES % (AUTO) 16 % (12-44); MEAN CORPUSCULAR HEMOGLOBIN 28 PG (25-34); MEAN CORPUSCULAR HGB CONC 32 G/DL (32-36); MEAN CORPUSCULAR VOLUME 90 FL (80-99); MONOCYTES # (AUTO) 0.6 X 10^3 (0.0-1.0); MONOCYTES % (AUTO) 8 % (0-12); NEUTROPHILS # (AUTO) 5.1 X 10^3 (1.8-7.8); NEUTROPHILS % (AUTO) 69 % (42-75); PLATELET COUNT 241 10^3/uL (130-400); RED CELL DISTRIBUTION WIDTH 12.6 % (10.0-14.5); WHITE BLOOD COUNT 7.4 10^3/uL (4.3-11.0)
[2018-05-24 14:13] LABS: ALANINE AMINOTRANSFERASE 17 U/L (0-55); ALBUMIN 4.1 GM/DL (3.2-4.5); ALKALINE PHOSPHATASE 158 U/L (40-136); BILIRUBIN,TOTAL 0.4 MG/DL (0.1-1.0); BUN/CREATININE RATIO 20; CALCIUM 9.5 MG/DL (8.5-10.1); CARBON DIOXIDE 28 MMOL/L (21-32); CHLORIDE 102 MMOL/L (98-107); CREATININE SERUM 0.81 MG/DL (0.60-1.30); GFR ESTIMATED > 60; GLUCOSE 104 MG/DL (70-105); POTASSIUM 4.2 MMOL/L (3.6-5.0); SODIUM 139 MMOL/L (135-145)
[2018-07-05 15:15] LABS: BASOPHILS # (AUTO) 0.1 10^3/uL (0.0-0.1); BASOPHILS % (AUTO) 1 % (0-10); EOSINOPHILS # (AUTO) 0.4 10^3/uL (0.0-0.3); EOSINOPHILS % (AUTO) 6 % (0-10); HEMATOCRIT 40 % (40-54); HEMOGLOBIN 13.1 G/DL (13.3-17.7); LYMPHOCYTES # (AUTO) 1.6 X 10^3 (1.0-4.0); LYMPHOCYTES % (AUTO) 22 % (12-44); MEAN CORPUSCULAR HEMOGLOBIN 28 PG (25-34); MEAN CORPUSCULAR HGB CONC 33 G/DL (32-36); MEAN CORPUSCULAR VOLUME 85 FL (80-99); MEAN PLATELET VOLUME 11.2 FL (7.4-10.4); MONOCYTES # (AUTO) 0.6 X 10^3 (0.0-1.0); MONOCYTES % (AUTO) 8 % (0-12); NEUTROPHILS # (AUTO) 4.8 X 10^3 (1.8-7.8); NEUTROPHILS % (AUTO) 65 % (42-75); PLATELET COUNT 267 10^3/uL (130-400); RED CELL DISTRIBUTION WIDTH 13.5 % (10.0-14.5); WHITE BLOOD COUNT 7.5 10^3/uL (4.3-11.0)
[2018-07-05 15:32] LABS: ALANINE AMINOTRANSFERASE 26 U/L (0-55); ALBUMIN 4.4 GM/DL (3.2-4.5); ALKALINE PHOSPHATASE 159 U/L (40-136); BILIRUBIN,TOTAL 0.5 MG/DL (0.1-1.0); BUN/CREATININE RATIO 14; CALCIUM 9.8 MG/DL (8.5-10.1); CARBON DIOXIDE 26 MMOL/L (21-32); CHLORIDE 104 MMOL/L (98-107); GFR ESTIMATED > 60; GLUCOSE 113 MG/DL (70-105); POTASSIUM 3.8 MMOL/L (3.6-5.0); SODIUM 139 MMOL/L (135-145)
== END 2018-08-22 | disposition home or self-care (01) ==
LOC: ONC 14:57
PROVIDERS: ATTEND Internal Medicine Hematology & Oncology
DX: Z08 Encounter for follow-up examination after completed treatment for malignant neoplasm (principal); Z85.818 Personal history of malignant neoplasm of other sites of lip, oral cavity, and pharynx; E89.0 Postprocedural hypothyroidism; Z79.899 Other long term (current) drug therapy; Z92.21 Personal history of antineoplastic chemotherapy; Z92.3 Personal history of irradiation
CPT/HCPCS: 36415; 80053; 84443; 85025; 99213

== ENCOUNTER 2018-09-29 15:01 | Outpatient (RCR) | payer BC ==
[2018-08-30 14:18] LABS: BASOPHILS # (AUTO) 0.1 10^3/uL (0.0-0.1); BASOPHILS % (AUTO) 1 % (0-10); EOSINOPHILS # (AUTO) 0.5 10^3/uL (0.0-0.3); EOSINOPHILS % (AUTO) 9 % (0-10); HEMATOCRIT 39 % (40-54); HEMOGLOBIN 12.3 G/DL (13.3-17.7); LYMPHOCYTES # (AUTO) 1.2 X 10^3 (1.0-4.0); LYMPHOCYTES % (AUTO) 23 % (12-44); MEAN CORPUSCULAR HEMOGLOBIN 28 PG (25-34); MEAN CORPUSCULAR HGB CONC 32 G/DL (32-36); MEAN CORPUSCULAR VOLUME 89 FL (80-99); MEAN PLATELET VOLUME 10.9 FL (7.4-10.4); MONOCYTES # (AUTO) 0.4 X 10^3 (0.0-1.0); MONOCYTES % (AUTO) 8 % (0-12); NEUTROPHILS # (AUTO) 3.1 X 10^3 (1.8-7.8); NEUTROPHILS % (AUTO) 59 % (42-75); PLATELET COUNT 195 10^3/uL (130-400); RED CELL DISTRIBUTION WIDTH 14.2 % (10.0-14.5); WHITE BLOOD COUNT 5.3 10^3/uL (4.3-11.0)
[2018-08-30 14:59] LABS: ALANINE AMINOTRANSFERASE 16 U/L (0-55); ALBUMIN 4.1 GM/DL (3.2-4.5); ALKALINE PHOSPHATASE 118 U/L (40-136); BILIRUBIN,TOTAL 0.4 MG/DL (0.1-1.0); BUN/CREATININE RATIO 17; CALCIUM 9.2 MG/DL (8.5-10.1); CARBON DIOXIDE 25 MMOL/L (21-32); CHLORIDE 106 MMOL/L (98-107); GFR ESTIMATED > 60; GLUCOSE 100 MG/DL (70-105); POTASSIUM 3.9 MMOL/L (3.6-5.0); SODIUM 142 MMOL/L (135-145); TOTAL PROTEIN 7.3 GM/DL (6.4-8.2)
[2018-09-29 15:38] LABS: BASOPHILS # (AUTO) 0.1 10^3/uL (0.0-0.1); BASOPHILS % (AUTO) 1 % (0-10); EOSINOPHILS # (AUTO) 0.3 10^3/uL (0.0-0.3); EOSINOPHILS % (AUTO) 5 % (0-10); HEMATOCRIT 38 % (40-54); LYMPHOCYTES # (AUTO) 1.3 X 10^3 (1.0-4.0); LYMPHOCYTES % (AUTO) 24 % (12-44); MEAN CORPUSCULAR HEMOGLOBIN 28 PG (25-34); MEAN CORPUSCULAR HGB CONC 32 G/DL (32-36); MEAN CORPUSCULAR VOLUME 89 FL (80-99); MEAN PLATELET VOLUME 11.3 FL (7.4-10.4); MONOCYTES # (AUTO) 0.4 X 10^3 (0.0-1.0); MONOCYTES % (AUTO) 8 % (0-12); NEUTROPHILS # (AUTO) 3.3 X 10^3 (1.8-7.8); NEUTROPHILS % (AUTO) 61 % (42-75); PLATELET COUNT 209 10^3/uL (130-400); RED CELL DISTRIBUTION WIDTH 13.1 % (10.0-14.5); WHITE BLOOD COUNT 5.4 10^3/uL (4.3-11.0)
[2018-09-29 16:00] LABS: ALANINE AMINOTRANSFERASE 15 U/L (0-55); ALBUMIN 4.3 GM/DL (3.2-4.5); ALKALINE PHOSPHATASE 108 U/L (40-136); BILIRUBIN,TOTAL 0.4 MG/DL (0.1-1.0); BUN/CREATININE RATIO 16; CALCIUM 9.2 MG/DL (8.5-10.1); CARBON DIOXIDE 27 MMOL/L (21-32); CHLORIDE 106 MMOL/L (98-107); CREATININE SERUM 0.98 MG/DL (0.60-1.30); GFR ESTIMATED > 60; GLUCOSE 96 MG/DL (70-105); POTASSIUM 3.9 MMOL/L (3.6-5.0); SODIUM 141 MMOL/L (135-145); TOTAL PROTEIN 7.3 GM/DL (6.4-8.2)
== END 2018-11-28 | disposition home or self-care (01) ==
LOC: ONC 15:01
PROVIDERS: ATTEND Internal Medicine Hematology & Oncology
DX: Z08 Encounter for follow-up examination after completed treatment for malignant neoplasm (principal); Z85.818 Personal history of malignant neoplasm of other sites of lip, oral cavity, and pharynx; E89.0 Postprocedural hypothyroidism; Z79.899 Other long term (current) drug therapy; Z92.21 Personal history of antineoplastic chemotherapy; Z92.3 Personal history of irradiation
CPT/HCPCS: 36415; 80053; 84443; 85025; 99213

== ENCOUNTER → 2018-10-09 | Outpatient (CLI) | payer BC ==
[~2018-10-09] MED LIST changes: +GADOBUTROL 10 MMOL/10 ML (GADAVIST) VIAL IV ONE
--- NOTE | 2018-10-09 15:21 | Diagnostic Imaging Report ---
PROCEDURE: MR imaging right lower extremity with and without contrast. TECHNIQUE: Multiplanar, multisequence pre and post contrast-enhanced MR imaging of the right lower extremity was accomplished. INDICATION: Leg pain and swelling. Patient has history of right fibular graft or mandibular reconstruction. FINDINGS: There has been resection of the mid and distal right fibula. There is no abnormal fluid collection or mass in the right lower extremity. There are no abnormal areas of contrast enhancement within the right tibia. There may be some minimal subcutaneous edema. Left lower extremity is unremarkable. IMPRESSION: Previous resection of the mid and distal right fibula. No evidence of underlying fluid collection of contrast enhancement to suggest cellulitis. Additionally, there is no abnormal enhancement or signal intensity within the tibia to suggest osteomyelitis. Dictated by: Dictated on workstation # [id number]
== END ==
LOC: RAD 14:00
PROVIDERS: ATTEND Nurse Practitioner Adult Health
DX: C06.0 Malignant neoplasm of cheek mucosa (principal); M27.2 Inflammatory conditions of jaws; M79.661 Pain in right lower leg; Z98.890 Other specified postprocedural states
CPT/HCPCS: 73720

== ENCOUNTER 2018-11-18 14:41 | Outpatient (CLI) | payer BC ==
[~2018-11-18] VITALS: Ht 180.3 cm; Wt 98.6 kg
[~2018-11-18 14:41] MED LIST changes: -GADOBUTROL 10 MMOL/10 ML (GADAVIST) VIAL IV ONE
[2018-11-18] MEDS ORDERED: NS IV 1000 ML 1,000 ML ONE (14:46)
[2018-11-18 14:50] VITALS: BP 105/68
[2018-11-18] MEDS ORDERED: NS IV 1000 ML 1,000 ML IV SCH (15:00)
== END 2018-11-18 16:15 | disposition home or self-care (01) ==
LOC: SDC 14:41
PROVIDERS: ATTEND Internal Medicine
DX: E86.0 Dehydration (principal)
CPT/HCPCS: 96360

== ENCOUNTER → 2018-12-01 | Outpatient (CLI) | payer BC | LOC: LAB 14:13 | PROVIDERS: ATTEND Physician Assistant | DX: R51 Headache (principal); R53.83 Other fatigue | CPT/HCPCS: 36415; 86618; 86666; 86668; 86757 ==

== ENCOUNTER → 2018-12-08 | Outpatient (CLI) | payer BC ==
[~2018-12-08] MED LIST changes: +HOLD METFORMIN - RECEIVED CONTRAST 20 ML VIAL IV SCH; +IOHEXOL 350 MG/ML 100 ML (OMNIPAQUE 350) VIAL IV ONE; +NS 100 ML (IVPB) BAG IV ONE
--- NOTE | 2018-12-08 14:26 | Diagnostic Imaging Report ---
PROCEDURE: CT head with and without contrast. TECHNIQUE: Multiple contiguous axial images were obtained through the brain before and after the administration of intravenous contrast. Auto Exposure Controls were utilized during the CT exam to meet ALARA standards for radiation dose reduction. INDICATION: Squamous cell carcinoma of the jaw with headache and blurred vision. COMPARISON: No prior head CT is available for comparison. FINDINGS: Precontrast images through the brain demonstrate a rounded hyperdense lesion near the anterior aspect of the roof of the third ventricle measuring 7 mm in size. This may represent a small colloid cyst. Ventricular size is normal. No hydrocephalus is seen. There is no sulcal effacement or midline shift. No acute intra-axial or extra-axial hemorrhage is detected. No abnormal enhancement following contrast administration is seen. Cisterns are patent. Visualized paranasal sinuses are clear. IMPRESSION: 1. 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 Continued followup to confirm stability could be performed. There is no hydrocephalus. No enhancing lesion is detected. Dictated by: Dictated on workstation # [id number]
--- NOTE | 2018-12-08 14:44 | Diagnostic Imaging Report ---
INDICATION: Cancer of the buccal mucosa. TECHNIQUE: Axial imaging through the neck and chest was performed after the administration of intravenous contrast. COMPARISON: Correlation is made with prior CT neck study from 05/12/[address] chest study from 12/01/2014. FINDINGS: CT NECK: The visualized intracranial structures are unremarkable. Postop changes of mandibular reconstruction is again noted. Numerous surgical clips in the submandibular and suprahyoid soft tissues are again noted. The area of peripherally enhancing low density in the right neck just inferior to the right mandible is no longer appreciated. The degree of soft tissue thickening in the right neck also appears to be improved. Base of tongue and epiglottis are unremarkable. Nasopharynx and oropharynx are unremarkable. Parapharyngeal fat planes are preserved. No definite cervical lymphadenopathy is seen. Thyroid is unremarkable. No retropharyngeal fluid collection is identified. Parotids are unremarkable. IMPRESSION: Postsurgical changes to the neck. Previously noted hypoattenuating mass in the right neck is no longer appreciated. There has been overall improvement in the degree of soft tissue thickening in the right neck. No lymphadenopathy or fluid collection is detected. CT CHEST: No axillary lymphadenopathy is detected. No hilar or mediastinal lymphadenopathy is seen. There is no pericardial or pleural fluid detected. No pulmonary infiltrates, nodules or masses are seen. Imaging through the upper abdomen does demonstrate development of several low density lesions within the spleen. No adrenal or liver mass is detected. No other abnormalities are detected. IMPRESSION: 1. Unremarkable CT of the chest. No thoracic lymphadenopathy or evidence of pulmonary metastatic disease is identified. 2. Development of several low density lesions within the spleen when compared with CT chest from 2015. This is indeterminate. Splenic ultrasound to evaluate for solid versus cystic lesion would be useful for further evaluation. Dictated by: Dictated on workstation # [id number]
== END ==
LOC: RAD 13:05
PROVIDERS: ATTEND Nurse Practitioner Adult Health
DX: C06.0 Malignant neoplasm of cheek mucosa (principal); R51 Headache
CPT/HCPCS: 70470; 70491; 71260

== ENCOUNTER → 2018-12-14 | Outpatient (CLI) | payer BC ==
[~2018-12-14] MED LIST changes: -HOLD METFORMIN - RECEIVED CONTRAST 20 ML VIAL IV SCH; -IOHEXOL 350 MG/ML 100 ML (OMNIPAQUE 350) VIAL IV ONE; -NS 100 ML (IVPB) BAG IV ONE
--- NOTE | 2018-12-14 14:29 | Diagnostic Imaging Report ---
Indication: Abnormal appearance to the spleen on recent CT from 12/08/2018. Study is performed for further evaluation. Correlation is made with CT study from 12/08/2018. Spleen measures 11.3 x 4.1 x 11.8 cm. There are rounded hyperechoic masses within the spleen largest approximately 16 mm x 15 mm in size. Second lesion measures 14 mm x 10 mm in size. Impression: Hyperechoic lesions within the spleen, correlating with the CT abnormality. While these could represent hemangiomas, these did not appear to be present on prior CT from 12/01/2014. Close followup is recommended to confirm stability. Dictated by: Dictated on workstation # [id number]
== END ==
LOC: RAD 13:51
PROVIDERS: ATTEND Nurse Practitioner Adult Health
DX: D73.89 Other diseases of spleen (principal)
CPT/HCPCS: 76705

== ENCOUNTER 2019-01-24 14:49 | Outpatient (RCR) | payer BC ==
[2018-12-01 15:07] LABS: BASOPHILS # (AUTO) 0.1 10^3/uL (0.0-0.1); BASOPHILS % (AUTO) 1 % (0-10); EOSINOPHILS # (AUTO) 0.3 10^3/uL (0.0-0.3); EOSINOPHILS % (AUTO) 5 % (0-10); HEMATOCRIT 42 % (40-54); HEMOGLOBIN 13.6 G/DL (13.3-17.7); LYMPHOCYTES # (AUTO) 1.4 X 10^3 (1.0-4.0); LYMPHOCYTES % (AUTO) 23 % (12-44); MEAN CORPUSCULAR HEMOGLOBIN 28 PG (25-34); MEAN CORPUSCULAR HGB CONC 32 G/DL (32-36); MEAN CORPUSCULAR VOLUME 88 FL (80-99); MEAN PLATELET VOLUME 11.6 FL (7.4-10.4); MONOCYTES # (AUTO) 0.4 X 10^3 (0.0-1.0); MONOCYTES % (AUTO) 7 % (0-12); NEUTROPHILS % (AUTO) 65 % (42-75); PLATELET COUNT 183 10^3/uL (130-400); RED CELL DISTRIBUTION WIDTH 12.7 % (10.0-14.5); WHITE BLOOD COUNT 6.1 10^3/uL (4.3-11.0)
[2018-12-01 15:51] LABS: ALANINE AMINOTRANSFERASE 17 U/L (0-55); ALBUMIN 4.6 GM/DL (3.2-4.5); ALKALINE PHOSPHATASE 136 U/L (40-136); BILIRUBIN,TOTAL 0.3 MG/DL (0.1-1.0); BUN/CREATININE RATIO 11; CALCIUM 9.4 MG/DL (8.5-10.1); CARBON DIOXIDE 24 MMOL/L (21-32); CHLORIDE 105 MMOL/L (98-107); CREATININE SERUM 1.01 MG/DL (0.60-1.30); GFR ESTIMATED > 60; GLUCOSE 104 MG/DL (70-105); POTASSIUM 3.8 MMOL/L (3.6-5.0); SODIUM 141 MMOL/L (135-145); TOTAL PROTEIN 8.1 GM/DL (6.4-8.2)
[2019-01-24 15:23] LABS: BASOPHILS # (AUTO) 0.1 10^3/uL (0.0-0.1); BASOPHILS % (AUTO) 1 % (0-10); EOSINOPHILS # (AUTO) 0.3 10^3/uL (0.0-0.3); EOSINOPHILS % (AUTO) 6 % (0-10); HEMATOCRIT 43 % (40-54); HEMOGLOBIN 13.8 G/DL (13.3-17.7); LYMPHOCYTES # (AUTO) 1.2 X 10^3 (1.0-4.0); LYMPHOCYTES % (AUTO) 20 % (12-44); MEAN CORPUSCULAR HEMOGLOBIN 28 PG (25-34); MEAN CORPUSCULAR HGB CONC 32 G/DL (32-36); MEAN CORPUSCULAR VOLUME 88 FL (80-99); MEAN PLATELET VOLUME 11.2 FL (7.4-10.4); MONOCYTES # (AUTO) 0.5 X 10^3 (0.0-1.0); MONOCYTES % (AUTO) 9 % (0-12); NEUTROPHILS # (AUTO) 3.8 X 10^3 (1.8-7.8); NEUTROPHILS % (AUTO) 65 % (42-75); PLATELET COUNT 212 10^3/uL (130-400); RED CELL DISTRIBUTION WIDTH 13.4 % (10.0-14.5); WHITE BLOOD COUNT 5.9 10^3/uL (4.3-11.0)
[2019-01-24 15:44] LABS: ALANINE AMINOTRANSFERASE 21 U/L (0-55); ALBUMIN 4.5 GM/DL (3.2-4.5); ALKALINE PHOSPHATASE 131 U/L (40-136); BILIRUBIN,TOTAL 0.4 MG/DL (0.1-1.0); BUN/CREATININE RATIO 11; CALCIUM 9.2 MG/DL (8.5-10.1); CARBON DIOXIDE 28 MMOL/L (21-32); CHLORIDE 102 MMOL/L (98-107); CREATININE SERUM 1.01 MG/DL (0.60-1.30); GFR ESTIMATED > 60; GLUCOSE 118 MG/DL (70-105); SODIUM 139 MMOL/L (135-145)
== END 2019-03-01 | disposition home or self-care (01) ==
LOC: ONC 14:49
PROVIDERS: ATTEND Internal Medicine Hematology & Oncology
DX: Z08 Encounter for follow-up examination after completed treatment for malignant neoplasm (principal); Z85.818 Personal history of malignant neoplasm of other sites of lip, oral cavity, and pharynx; E89.0 Postprocedural hypothyroidism; Z79.899 Other long term (current) drug therapy; Z92.21 Personal history of antineoplastic chemotherapy; Z92.3 Personal history of irradiation
CPT/HCPCS: 36415; 80053; 84443; 85025; 99213

== ENCOUNTER → 2019-03-08 | Outpatient (CLI) | payer BC ==
[~2019-03-08] MED LIST changes: +BARIUM SUSPENSION 2.1% (VANILLA SILQ) 450 ML PO ONE; +CATHETER FLUSH 10 ML SYR IV PRN; +HOLD METFORMIN - RECEIVED CONTRAST 20 ML VIAL IV SCH; +IOHEXOL 350 MG/ML 100 ML (OMNIPAQUE 350) VIAL IV ONE; +NS 100 ML (IVPB) BAG IV ONE
--- NOTE | 2019-03-08 10:55 | Diagnostic Imaging Report ---
PROCEDURE: CT head with and without contrast. TECHNIQUE: Multiple contiguous axial images were obtained through the brain before and after the administration of intravenous contrast. Auto Exposure Controls were utilized during the CT exam to meet ALARA standards for radiation dose reduction. INDICATION: Blurred vision. History of cancer of the buccal mucosa. COMPARISON: 12/08/2018 FINDINGS: Ventricles and cortical sulci are normal in size and shape. There is no mass effect or midline shift. Postcontrast images show no abnormal areas of enhancement. There is no loss of sahu-white matter junction differentiation to suggest acute territorial infarct. There is no evidence of intra or extra-axial intracranial hemorrhage. No other extra-axial masses or fluid collections are seen. Bony calvarium is within normal limits. Included portions of the paranasal sinuses and mastoid air cells are clear. IMPRESSION: 1. No acute intracranial abnormality. No CT evidence of acute infarct, mass, or hemorrhage. Dictated by: Dictated on workstation # [id number]
--- NOTE | 2019-03-08 13:20 | Diagnostic Imaging Report ---
INDICATION: History of head and neck cancer. COMPARISON: Neck CT compared 05/12/2018. Chest and abdominal portion of the study is correlated with metabolic CT fusion PET exam of 09/18/2015. NECK: TECHNIQUE: Post IV contrast enhanced soft tissue neck CT performed with multiplanar reconstructions. FINDINGS: There has been resolution of the previous inframandibular cystic lesion present on the prior extensive postoperative changes to the right neck redemonstrated. No residual recurrent or new fluid collection and no lymphadenopathy. No acute or suspect bony destructive process. No fracture. No airway embarrassment. No findings suggestive of neoplastic recurrence. CHEST: TECHNIQUE: Post IV contrast enhanced chest CT performed with multiplanar reconstructions. FINDINGS: Supraclavicular fossa and thoracic inlet are unremarkable. No axillary, hilar or mediastinal lymphadenopathy. No suspicious soft tissue or osseous chest wall lesion. No lung mass or suspicious pulmonary nodule. No evidence for pneumonia. No thoracic effusion. ABDOMEN: TECHNIQUE: Post IV contrast enhanced abdominal CT was performed. Oral contrast was administered. FINDINGS: A tiny cyst in the left hepatic lobe subcentimeter anteriorly is noted. No enhancing solid or suspect liver lesion. The gallbladder and bile ducts appear normal. The adrenals are negative. The pancreas are normally unobstructed. The kidneys are nonacute. The left contains a simple cyst. There are no pathological-appearing abdominal mesenteric or retroperitoneal lymph nodes. The spleen is within normal limits of size. However, it shows at least 4 rounded low-density nodules which are most conspicuous on the dynamic images but subtly appreciable on the delayed acquisitions. The largest of these measured 1.3 cm. The comparison is limited to attenuation correction nonenhanced CT abdomen in 2017 were these findings are not readily apparent. It is unclear if these are new and reflective of change or if these are chronic and obscured previously on a technical basis. Repeat metabolic PET CT may be of benefit to see if these are metabolically active lesions as they are of uncertain significance and etiology at this time. IMPRESSION: NECK: Postoperative changes without findings of neoplastic recurrence. Resolution of previous fluid collection. No adverse development. CHEST: No evidence of metastatic disease or acute finding. ABDOMEN: 1. Indeterminate splenic masses. Consider metabolic PET CT as further evaluation. 2. Tiny hepatic cysts noted. No other potential metastasis. Dictated by: Dictated on workstation # [id number]
== END ==
LOC: RAD 09:43
PROVIDERS: ATTEND Internal Medicine Hematology & Oncology
DX: C06.0 Malignant neoplasm of cheek mucosa (principal); H53.8 Other visual disturbances; R16.1 Splenomegaly, not elsewhere classified
CPT/HCPCS: 70470; 70491; 71260; 74160

== ENCOUNTER → 2019-03-29 | Outpatient (CLI) | payer BC ==
[~2019-03-29] MED LIST changes: -BARIUM SUSPENSION 2.1% (VANILLA SILQ) 450 ML PO ONE; -CATHETER FLUSH 10 ML SYR IV PRN; -HOLD METFORMIN - RECEIVED CONTRAST 20 ML VIAL IV SCH; -IOHEXOL 350 MG/ML 100 ML (OMNIPAQUE 350) VIAL IV ONE; -NS 100 ML (IVPB) BAG IV ONE
--- NOTE | 2019-03-29 14:52 | Diagnostic Imaging Report ---
EXAMINATION: PET/CT. INDICATION: Cancer of buccal mucosa. TECHNIQUE: PET/CT imaging was obtained from the base of the skull through the pelvis after the administration of 14.51 mCi of F-[address] imaging was utilized for localization and attenuation correction purposes. The low energy CT utilized for attenuation correction is not considered to be of high enough spatial resolution to allow in and of itself a separate anatomical analysis. Patient's weight is 200 pounds. Height 5' 11". Blood glucose level 110 mg/dL. FINDINGS: The previous PET/CT exam performed on 02/10/2017 noted moderately intense uptake of the FDG in the anterior aspect of the oral cavity. The maximum SUV in this area was 7. The CT images indicate that in the interval since the prior exam, the patient has undergone a surgical procedure as there are now numerous surgical clips in the region of the floor of the mouth. This area is somewhat difficult to evaluate due to streak artifact related to the patient's dental fillings. There is soft tissue edema and scar formation along the anterior aspect of the neck extending from the inferior margin of the mandible to the superior margin of the hyoid bone. There is slightly increased activity in the soft tissues in the floor of the mouth in this area. The maximum SUV is approximately 5.4. This does raise the question of residual/recurrent neoplasm. There is no other hypermetabolic activity to suggest presence of neoplasm. The recent CT neck, chest and abdomen exam of 03/08/2019 noted four low density nodules within the spleen. The ultrasound exam of the spleen performed on 12/14/2018 suggested that these may be hemangiomas. On this exam, there is no hypermetabolic activity associated with the spleen to indicate that these nodules are neoplastic in nature. There is physiologic activity in the brain, the heart, the kidneys, the bowel and the bladder. The CT images failed to show any sign of an acute abnormality. IMPRESSION: 1. In the interval since the prior study, the patient has undergone a surgical procedure. The increased activity in the floor of the mouth is worrisome for recurrent neoplasm. 2. There is no other hypermetabolic activity to indicate the presence of neoplasm. In particular, there is no hypermetabolic activity associated with the spleen. The low density lesions within the spleen are most likely due to hemangioma formation. Dictated by: Dictated on workstation # [id number]
== END ==
LOC: RAD 09:05
PROVIDERS: ATTEND Internal Medicine Hematology & Oncology
DX: C06.0 Malignant neoplasm of cheek mucosa (principal); R93.89 Abnormal findings on diagnostic imaging of other specified body structures

== ENCOUNTER → 2019-04-14 | Outpatient (CLI) | payer BC ==
[~2019-04-14] MED LIST changes: +GADOBUTROL 10 MMOL/10 ML (GADAVIST) VIAL IV ONE
--- NOTE | 2019-04-14 17:58 | Diagnostic Imaging Report ---
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 EXAM: MRI of the head and neck performed without and with 9 mL Gadavist IV contrast. Sequences include axial T1, axial T2, axial T1 fat-sat, coronal T1, coronal T2 fat-sat, coronal T1 fat-sat post IV contrast, axial T1 fat-sat post IV contrast, and sagittal T1 fat-sat post IV contrast. COMPARISON: CT scan of the neck with contrast dated 03/08/2019. MRI of the neck with and without contrast dated 03/06/2018. FINDINGS: Of note, this exam is predominantly compared to the CT scan of the neck. There is non-suppression of fat involving the axial T1 fat-sat, axial T1 fat-sat postcontrast, and sagittal postcontrast fat-sat sequences limiting evaluation for true enhancement and lesions. There are postop changes to the right mandibular body and symphysis again noted which may be related to bony reconstruction. Multiple surgical clips are seen in the anterior neck on the comparison CT scan. There is no infiltrative abnormal signal involving the reconstructed mandible. There are stable postop changes and anatomical distortion of the right side of the neck with anterior floor of mouth, sublingual and submandibular resection changes. Fat packing is seen in the anterior floor of mouth and just to right of midline, which is stable compared to the prior CT scan. Given the differences in technique, there are no definite developing mass-like changes seen. The amorphous tissue anteriorly and inferior to the reconstructed mandible shows no definite abnormal mass-like enhancement. The oropharynx, nasopharynx, hypopharynx, and laryngeal soft tissue structures are unremarkable. Thyroid gland is unremarkable. Bilateral parotid glands are unremarkable. The bilateral submandibular glands are absent. There is scarring along the right anterior neck region. There is no lymphadenopathy seen. The visualized upper lung howell are clear. Cervical spine is unremarkable. Limited visualization of the intracranial structures is unremarkable. Orbits and globes are unremarkable. Paranasal sinuses are clear as visualized. There is minimal fluid in the right mastoid air cells. IMPRESSION: 1: Relatively stable postop resection/post-treatment changes and reconstructive surgery changes involving the anterior floor of mouth, sublingual and submandibular regions, and anterior aspects of the neck. There is no evidence of developing mass or lymphadenopathy. 2: The remainder of this exam shows no other significant abnormality. Dictated by: Dictated on workstation # [id number]
== END ==
LOC: RAD 10:03
PROVIDERS: ATTEND Nurse Practitioner Adult Health
DX: C06.0 Malignant neoplasm of cheek mucosa (principal); R94.02 Abnormal brain scan; Z98.890 Other specified postprocedural states
CPT/HCPCS: 70543

== ENCOUNTER 2019-05-12 12:54 | Outpatient (RCR) | payer BC ==
[2019-03-08 10:30] LABS: BUN/CREATININE RATIO 17; CALCIUM 9.5 MG/DL (8.5-10.1); CARBON DIOXIDE 24 MMOL/L (21-32); CHLORIDE 105 MMOL/L (98-107); CREATININE SERUM 1.02 MG/DL (0.60-1.30); GFR ESTIMATED > 60; GLUCOSE 138 MG/DL (70-105); POTASSIUM 4.6 MMOL/L (3.6-5.0); SODIUM 139 MMOL/L (135-145)
[~2019-05-12 12:54] MED LIST changes: -ACET-2469 PO; +ACET-2715 PO; -GADOBUTROL 10 MMOL/10 ML (GADAVIST) VIAL IV ONE
[2019-05-12 13:06] LABS: BASOPHILS # (AUTO) 0.1 10^3/uL (0.0-0.1); BASOPHILS % (AUTO) 2 % (0-10); EOSINOPHILS # (AUTO) 0.2 10^3/uL (0.0-0.3); EOSINOPHILS % (AUTO) 3 % (0-10); HEMATOCRIT 42 % (40-54); HEMOGLOBIN 13.7 G/DL (13.3-17.7); LYMPHOCYTES # (AUTO) 1.2 X 10^3 (1.0-4.0); LYMPHOCYTES % (AUTO) 21 % (12-44); MEAN CORPUSCULAR HEMOGLOBIN 28 PG (25-34); MEAN CORPUSCULAR HGB CONC 33 G/DL (32-36); MEAN CORPUSCULAR VOLUME 87 FL (80-99); MEAN PLATELET VOLUME 10.8 FL (7.4-10.4); MONOCYTES # (AUTO) 0.5 X 10^3 (0.0-1.0); MONOCYTES % (AUTO) 10 % (0-12); NEUTROPHILS # (AUTO) 3.5 X 10^3 (1.8-7.8); NEUTROPHILS % (AUTO) 64 % (42-75); PLATELET COUNT 214 10^3/uL (130-400); RED CELL DISTRIBUTION WIDTH 12.2 % (10.0-14.5); WHITE BLOOD COUNT 5.5 10^3/uL (4.3-11.0)
[2019-05-12 13:28] LABS: ALANINE AMINOTRANSFERASE 15 U/L (0-55); ALBUMIN 4.3 GM/DL (3.2-4.5); ALKALINE PHOSPHATASE 93 U/L (40-136); BILIRUBIN,TOTAL 0.4 MG/DL (0.1-1.0); BUN/CREATININE RATIO 14; CALCIUM 8.9 MG/DL (8.5-10.1); CARBON DIOXIDE 24 MMOL/L (21-32); CHLORIDE 104 MMOL/L (98-107); CREATININE SERUM 1.07 MG/DL (0.60-1.30); GFR ESTIMATED > 60; GLUCOSE 106 MG/DL (70-105); POTASSIUM 4.1 MMOL/L (3.6-5.0); SODIUM 139 MMOL/L (135-145); TOTAL PROTEIN 7.5 GM/DL (6.4-8.2)
== END 2019-06-06 | disposition home or self-care (01) ==
LOC: ONC 12:54
PROVIDERS: ATTEND Internal Medicine Hematology & Oncology
DX: Z08 Encounter for follow-up examination after completed treatment for malignant neoplasm (principal); Z85.818 Personal history of malignant neoplasm of other sites of lip, oral cavity, and pharynx; E89.0 Postprocedural hypothyroidism; Z79.899 Other long term (current) drug therapy; Z92.21 Personal history of antineoplastic chemotherapy; Z92.3 Personal history of irradiation
CPT/HCPCS: 36415; 80048; 80053; 84443; 85025; 99213

== ENCOUNTER → 2019-09-12 | Outpatient (CLI) | payer BC ==
[2019-09-12 14:48] LABS: BASOPHILS # (AUTO) 0.1 10^3/uL (0.0-0.1); BASOPHILS % (AUTO) 1 % (0-10); EOSINOPHILS # (AUTO) 0.2 10^3/uL (0.0-0.3); EOSINOPHILS % (AUTO) 4 % (0-10); HEMATOCRIT 43 % (40-54); HEMOGLOBIN 13.5 G/DL (13.3-17.7); LYMPHOCYTES # (AUTO) 1.4 X 10^3 (1.0-4.0); LYMPHOCYTES % (AUTO) 26 % (12-44); MEAN CORPUSCULAR HEMOGLOBIN 28 PG (25-34); MEAN CORPUSCULAR HGB CONC 32 G/DL (32-36); MEAN CORPUSCULAR VOLUME 87 FL (80-99); MEAN PLATELET VOLUME 11.5 FL (7.4-10.4); MONOCYTES # (AUTO) 0.4 X 10^3 (0.0-1.0); MONOCYTES % (AUTO) 7 % (0-12); NEUTROPHILS # (AUTO) 3.3 X 10^3 (1.8-7.8); NEUTROPHILS % (AUTO) 62 % (42-75); PLATELET COUNT 185 10^3/uL (130-400); RED CELL DISTRIBUTION WIDTH 13.6 % (10.0-14.5); WHITE BLOOD COUNT 5.2 10^3/uL (4.3-11.0)
[2019-09-12 15:06] LABS: ALANINE AMINOTRANSFERASE 18 U/L (0-55); ALBUMIN 4.2 GM/DL (3.2-4.5); ALKALINE PHOSPHATASE 87 U/L (40-136); BILIRUBIN,TOTAL 0.2 MG/DL (0.1-1.0); BUN/CREATININE RATIO 12; CALCIUM 8.7 MG/DL (8.5-10.1); CARBON DIOXIDE 26 MMOL/L (21-32); CHLORIDE 103 MMOL/L (98-107); GFR ESTIMATED > 60; GLUCOSE 116 MG/DL (70-105); POTASSIUM 4.2 MMOL/L (3.6-5.0); SODIUM 139 MMOL/L (135-145); TOTAL PROTEIN 7.5 GM/DL (6.4-8.2)
== END ==
LOC: EDSTATUS 06-07 08:56 → ONC 14:30
PROVIDERS: ATTEND Internal Medicine Hematology & Oncology
DX: C06.0 Malignant neoplasm of cheek mucosa (principal); Z79.899 Other long term (current) drug therapy; Z92.21 Personal history of antineoplastic chemotherapy; Z92.3 Personal history of irradiation
CPT/HCPCS: 80053; 84443; 85025; 99213

== ENCOUNTER → 2019-10-13 | Outpatient (CLI) | payer BC ==
[2019-10-13 14:18] LABS: BASOPHILS # (AUTO) 0.1 10^3/uL (0.0-0.1); BASOPHILS % (AUTO) 1 % (0-10); EOSINOPHILS # (AUTO) 0.2 10^3/uL (0.0-0.3); EOSINOPHILS % (AUTO) 4 % (0-10); HEMATOCRIT 42 % (40-54); HEMOGLOBIN 13.8 G/DL (13.3-17.7); LYMPHOCYTES # (AUTO) 1.1 X 10^3 (1.0-4.0); LYMPHOCYTES % (AUTO) 19 % (12-44); MEAN CORPUSCULAR HEMOGLOBIN 29 PG (25-34); MEAN CORPUSCULAR HGB CONC 33 G/DL (32-36); MEAN CORPUSCULAR VOLUME 86 FL (80-99); MEAN PLATELET VOLUME 11.1 FL (7.4-10.4); MONOCYTES # (AUTO) 0.4 X 10^3 (0.0-1.0); MONOCYTES % (AUTO) 6 % (0-12); NEUTROPHILS # (AUTO) 4.1 X 10^3 (1.8-7.8); NEUTROPHILS % (AUTO) 70 % (42-75); PLATELET COUNT 200 10^3/uL (130-400); RED CELL DISTRIBUTION WIDTH 12.8 % (10.0-14.5); WHITE BLOOD COUNT 5.8 10^3/uL (4.3-11.0)
[2019-10-13 14:37] LABS: ALANINE AMINOTRANSFERASE 18 U/L (0-55); ALKALINE PHOSPHATASE 85 U/L (40-136); BILIRUBIN,TOTAL 0.2 MG/DL (0.1-1.0); BUN/CREATININE RATIO 9; CALCIUM 8.7 MG/DL (8.5-10.1); CARBON DIOXIDE 21 MMOL/L (21-32); CHLORIDE 104 MMOL/L (98-107); CREATININE SERUM 1.05 MG/DL (0.60-1.30); GFR ESTIMATED > 60; GLUCOSE 116 MG/DL (70-105); POTASSIUM 3.8 MMOL/L (3.6-5.0); SODIUM 139 MMOL/L (135-145); TOTAL PROTEIN 7.5 GM/DL (6.4-8.2)
== END ==
LOC: ONC 13:59
PROVIDERS: ATTEND Internal Medicine Hematology & Oncology
DX: C06.0 Malignant neoplasm of cheek mucosa (principal); E03.9 Hypothyroidism, unspecified
CPT/HCPCS: 80053; 84443; 85025; G0463; 99213

== ENCOUNTER → 2020-01-11 | Outpatient (CLI) | payer BC ==
[2020-01-11 13:16] LABS: BASOPHILS # (AUTO) 0.1 10^3/uL (0.0-0.1); BASOPHILS % (AUTO) 1 % (0-10); EOSINOPHILS # (AUTO) 0.2 10^3/uL (0.0-0.3); EOSINOPHILS % (AUTO) 3 % (0-10); HEMATOCRIT 42 % (40-54); HEMOGLOBIN 13.5 G/DL (13.3-17.7); LYMPHOCYTES # (AUTO) 1.4 X 10^3 (1.0-4.0); LYMPHOCYTES % (AUTO) 20 % (12-44); MEAN CORPUSCULAR HEMOGLOBIN 28 PG (25-34); MEAN CORPUSCULAR HGB CONC 32 G/DL (32-36); MEAN CORPUSCULAR VOLUME 85 FL (80-99); MEAN PLATELET VOLUME 11.3 FL (7.4-10.4); MONOCYTES # (AUTO) 0.4 X 10^3 (0.0-1.0); MONOCYTES % (AUTO) 6 % (0-12); NEUTROPHILS # (AUTO) 4.8 X 10^3 (1.8-7.8); NEUTROPHILS % (AUTO) 70 % (42-75); PLATELET COUNT 218 10^3/uL (130-400); WHITE BLOOD COUNT 6.9 10^3/uL (4.3-11.0)
[2020-01-11 13:41] LABS: ALANINE AMINOTRANSFERASE 17 U/L (0-55); ALBUMIN 4.3 GM/DL (3.2-4.5); ALKALINE PHOSPHATASE 94 U/L (40-136); BILIRUBIN,TOTAL 0.4 MG/DL (0.1-1.0); BUN/CREATININE RATIO 13; CARBON DIOXIDE 26 MMOL/L (21-32); CHLORIDE 103 MMOL/L (98-107); CREATININE SERUM 1.19 MG/DL (0.60-1.30); GFR ESTIMATED > 60; GLUCOSE 132 MG/DL (70-105); POTASSIUM 3.7 MMOL/L (3.6-5.0); SODIUM 140 MMOL/L (135-145); TOTAL PROTEIN 7.6 GM/DL (6.4-8.2)
== END ==
LOC: ONC 13:03
PROVIDERS: ATTEND Internal Medicine Hematology & Oncology
DX: C06.0 Malignant neoplasm of cheek mucosa (principal); J45.909 Unspecified asthma, uncomplicated; Z92.21 Personal history of antineoplastic chemotherapy; Z92.3 Personal history of irradiation; Z98.890 Other specified postprocedural states
CPT/HCPCS: 80053; 84443; 85025; G0463; 99213

== ENCOUNTER → 2020-01-16 | Outpatient (CLI) | payer BC ==
[~2020-01-16] VITALS: Ht 178 cm; Wt 97.0 kg
[~2020-01-16] MED LIST changes: +CATHETER FLUSH 10 ML SYR IV PRN; +REGADENOSON 0.4 MG/5 ML SYR (LEXISCAN) IV ONE
[2020-01-16 09:35] VITALS: BP 149/90
--- NOTE | 2020-01-16 12:35 | Cardiology Stress Test Report ---
Stress Test Report Date of Procedure/Referring: Date of Procedure: Jan 16, 2020 PCP Lidia Olivier MD Admitting Physician Michael Encinas MD Indications: Chest pain Baseline Blood Pressure: Blood Pressure Systolic: 149 Blood Pressure Diastolic: 90 Baseline Vitals Vital Signs Date Time Temp Pulse Resp B/P (MAP) Pulse Ox O2 Delivery O2 Flow Rate FiO2 01/16/20 09:35 83 149/90 (109) 98 Baseline EKG: Baseline EKG: normal sinus rhythm Summary After explaining the procedure to the patient, he signed a consent and then brought to the stress nuclear laboratory. Patient received 0.4 mg Lexiscan for stress test, ECG, heart rate and blood pressure were monitored continuously. Resting and stress dose of radio tracer were injected, imaging was acquired and reviewed in short axis, horizontal long axis and vertical long axis views. TID: 1.13 SSS: 1 SDS: 1 EF: 63 1. Patient tolerated Lexiscan well 2. Typical male pattern with no significant ischemia or infarction on SPECT images 3. Normal left ventricular size, EF 63 percent LIDIA OLIVIER MD Jan 16, 2020 12:35
== END ==
LOC: CARD 07:11
PROVIDERS: ATTEND Internal Medicine Cardiovascular Disease
DX: I35.1 Nonrheumatic aortic (valve) insufficiency (principal); I11.9 Hypertensive heart disease without heart failure
CPT/HCPCS: 78452; 93017; 93306; A9502

== ENCOUNTER → 2020-01-24 | Outpatient (CLI) | payer BC ==
[~2020-01-24] MED LIST changes: -ACET-2715 PO; +ACET-3075 PO; -CATHETER FLUSH 10 ML SYR IV PRN; -REGADENOSON 0.4 MG/5 ML SYR (LEXISCAN) IV ONE
--- NOTE | 2020-01-24 15:18 | Diagnostic Imaging Report ---
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 Serum blood glucose level at the time of injection is 125 mg/dL. Patient was administered 13.5 mCi F18-FDG intravenously in the left antecubital location and PET imaging was performed from the top of the skull to mid thighs. Noncontrast CT was performed for attenuation correction and anatomic correlation. COMPARISON is made with prior PET/CT study from 03/29/2019. There is symmetric activity throughout the brain. Postsurgical changes to the neck soft tissues is again noted. No suspicious hypermetabolic foci are identified at the surgical site. There is a hypermetabolic lesion in the region of the right lobe of the thyroid with an SUV max of approximately 10. No hypermetabolic mediastinal or hilar lymph nodes are seen. No hypermetabolic lesions within the pulmonary parenchyma are identified. Abdomen and pelvis demonstrates physiologic activity throughout the gastrointestinal and genitourinary tracts. IMPRESSION: 1. A hypermetabolic lesion in the right lobe of the thyroid. Dedicated thyroid ultrasound would be recommended for further evaluation. 2. Postsurgical changes to the neck with no suspicious area of hypermetabolism or evidence of recurrent mass. Dictated by: Dictated on workstation # [id number]
== END ==
LOC: RAD 09:00
PROVIDERS: ATTEND Nurse Practitioner Adult Health
DX: Z01.89 Encounter for other specified special examinations (principal); E07.89 Other specified disorders of thyroid; Z85.818 Personal history of malignant neoplasm of other sites of lip, oral cavity, and pharynx; Z98.890 Other specified postprocedural states
CPT/HCPCS: 78815; A9552

== ENCOUNTER → 2020-01-27 | Outpatient (CLI) | payer BC ==
[~2020-01-27] MED LIST changes: +ALPR.25T PO; -ALPR0.254 PO
--- NOTE | 2020-01-27 14:48 | Diagnostic Imaging Report ---
INDICATION: Abnormal PET with hypermetabolic lesion right lobe thyroid. History of head and neck malignancy. TECHNIQUE: Grayscale sonographic images of the thyroid gland. CORRELATION STUDY: PET 01/24/2020 FINDINGS: RIGHT LOBE: 2.7 x 1.7 x 1.3 cm. Heterogeneous echotexture throughout the right lobe. Within the anterior aspect the right lobe is a hypoechoic heterogeneous complex appearing mass. There does appear to be a few echogenic foci suggestive of microcalcifications. This measures 1.9 x 1.4 cm. LEFT LOBE: 2.8 x 1.5 x 1.1 cm. Heterogeneous echotexture without definitive mass. Isthmus appears unremarkable. IMPRESSION: Asymmetric complex mass right lobe of thyroid gland. In conjunction with the PET imaging, neoplasm should be excluded. Fine-needle aspiration is recommended. (Normal gland size: 4-5 x 2 x 2 cm) Dictated by: Dictated on workstation # [id number]
== END ==
LOC: RAD 13:15
PROVIDERS: ATTEND Nurse Practitioner Adult Health
DX: E03.9 Hypothyroidism, unspecified (principal); C06.0 Malignant neoplasm of cheek mucosa; E07.89 Other specified disorders of thyroid; R94.8 Abnormal results of function studies of other organs and systems
CPT/HCPCS: 76536

== ENCOUNTER → 2020-02-06 | Outpatient (CLI) | payer BC ==
[~2020-02-06] VITALS: Ht 180.4 cm; Wt 95.5 kg
[~2020-02-06] MED LIST changes: +LIDOCAINE 1% INJ 20 ML 20 ML VIAL INJ ONE
--- NOTE | 2020-02-06 11:38 | Diagnostic Imaging Report ---
INDICATION: Right thyroid nodule. Patient brought to the procedure and placed on the table in supine position. Ultrasound imaging of the right neck was performed to evaluate appropriate entry site. Right neck was then prepped and draped in usual sterile fashion. Small amount of 1% lidocaine was utilized for local anesthesia. A total of 4 passes were made into the area of heterogeneous decreased hypoechogenicity in the lower pole right lobe of the thyroid utilizing 25-gauge needles and fine-needle aspiration technique. A single pass was made with a Rotex needle and a Rotex biopsy was performed. The patient tolerated the procedure well and left the department in stable condition. IMPRESSION: Ultrasound-guided right thyroid nodule FNA and Rotex biopsy, as described. Pathology results are currently pending. Dictated by: Dictated on workstation # [id number]
== END ==
LOC: RAD 10:35
PROVIDERS: ATTEND Nurse Practitioner Adult Health
DX: E07.9 Disorder of thyroid, unspecified (principal); E04.1 Nontoxic single thyroid nodule; R93.89 Abnormal findings on diagnostic imaging of other specified body structures; R94.8 Abnormal results of function studies of other organs and systems

== ENCOUNTER → 2020-05-21 | Outpatient (CLI) | payer BC ==
[~2020-05-21] MED LIST changes: -LIDOCAINE 1% INJ 20 ML 20 ML VIAL INJ ONE
--- NOTE | 2020-05-21 16:00 | Diagnostic Imaging Report ---
PROCEDURE: US Thyroid. TECHNIQUE: Multiple real-time grayscale images were obtained of the thyroid in various projections. INDICATION: Right thyroid FNA in February. Studies performed for follow-up. FINDINGS: Thyroid tissue on the right measures 3.8 x 1.4 x 1.4 cm. Tissue on the left is 3.1 x 1.4 x 1.17. Isthmus is 4 mm in thickness. The area of slight nodularity in lower pole of right lobe appears similar to prior exam. No new abnormality is seen. No discrete mass is identified. IMPRESSION: Stable thyroid heterogeneity when compared with examination from 01/27/2020. Dictated by: Dictated on workstation # [id number]
== END ==
LOC: RAD 12:45
PROVIDERS: ATTEND Nurse Practitioner Adult Health
DX: R93.89 Abnormal findings on diagnostic imaging of other specified body structures (principal)
CPT/HCPCS: 76536

== ENCOUNTER → 2020-05-22 | Outpatient (CLI) | payer BC ==
[~2020-05-22] MED LIST changes: +LISI10TA25 PO
[2020-05-22 15:54] LABS: BASOPHILS # (AUTO) 0.1 10^3/uL (0.0-0.1); BASOPHILS % (AUTO) 1 % (0-10); EOSINOPHILS # (AUTO) 0.4 10^3/uL (0.0-0.3); EOSINOPHILS % (AUTO) 5 % (0-10); HEMATOCRIT 41 % (40-54); HEMOGLOBIN 13.3 g/dL (13.3-17.7); LYMPHOCYTES # (AUTO) 1.7 10^3/uL (1.0-4.0); LYMPHOCYTES % (AUTO) 24 % (12-44); MEAN CORPUSCULAR HEMOGLOBIN 28 pg (25-34); MEAN CORPUSCULAR HGB CONC 33 g/dL (32-36); MEAN CORPUSCULAR VOLUME 86 fL (80-99); MEAN PLATELET VOLUME 11.3 fL (9.0-12.2); MONOCYTES # (AUTO) 0.7 10^3/uL (0.0-1.0); MONOCYTES % (AUTO) 10 % (0-12); NEUTROPHILS # (AUTO) 4.2 10^3/uL (1.8-7.8); NEUTROPHILS % (AUTO) 60 % (42-75); PLATELET COUNT 225 10^3/uL (130-400); WHITE BLOOD COUNT 7.1 10^3/uL (4.3-11.0)
[2020-05-22 16:13] LABS: ALANINE AMINOTRANSFERASE 26 U/L (0-55); ALBUMIN 4.3 GM/DL (3.2-4.5); ALKALINE PHOSPHATASE 79 U/L (40-136); BILIRUBIN,TOTAL 0.3 MG/DL (0.1-1.0); BUN/CREATININE RATIO 11; CARBON DIOXIDE 25 MMOL/L (21-32); CHLORIDE 103 MMOL/L (98-107); CREATININE SERUM 1.23 MG/DL (0.60-1.30); GFR ESTIMATED > 60; GLUCOSE 81 MG/DL (70-105); POTASSIUM 3.5 MMOL/L (3.6-5.0); SODIUM 140 MMOL/L (135-145); TOTAL PROTEIN 7.5 GM/DL (6.4-8.2)
== END ==
LOC: ONC 15:42
PROVIDERS: ATTEND Internal Medicine Hematology & Oncology
DX: C06.0 Malignant neoplasm of cheek mucosa (principal); E03.9 Hypothyroidism, unspecified; K13.21 Leukoplakia of oral mucosa, including tongue; E04.1 Nontoxic single thyroid nodule; M86.8X8 Other osteomyelitis, other site; Z92.3 Personal history of irradiation; Z80.0 Family history of malignant neoplasm of digestive organs
CPT/HCPCS: 80053; 84443; 85025; G0463; 99213

== ENCOUNTER → 2020-08-20 | Outpatient (CLI) | payer BC ==
[2020-08-20 15:11] LABS: BASOPHILS # (AUTO) 0.1 10^3/uL (0.0-0.1); BASOPHILS % (AUTO) 1 % (0-10); EOSINOPHILS # (AUTO) 0.3 10^3/uL (0.0-0.3); EOSINOPHILS % (AUTO) 3 % (0-10); HEMATOCRIT 43 % (40-54); HEMOGLOBIN 13.7 g/dL (13.3-17.7); LYMPHOCYTES # (AUTO) 1.7 10^3/uL (1.0-4.0); LYMPHOCYTES % (AUTO) 19 % (12-44); MEAN CORPUSCULAR HEMOGLOBIN 28 pg (25-34); MEAN CORPUSCULAR HGB CONC 32 g/dL (32-36); MEAN CORPUSCULAR VOLUME 89 fL (80-99); MEAN PLATELET VOLUME 10.5 fL (9.0-12.2); MONOCYTES # (AUTO) 0.6 10^3/uL (0.0-1.0); MONOCYTES % (AUTO) 7 % (0-12); NEUTROPHILS % (AUTO) 68 % (42-75); PLATELET COUNT 237 10^3/uL (130-400); WHITE BLOOD COUNT 8.8 10^3/uL (4.3-11.0)
[2020-08-20 15:35] LABS: ALBUMIN 4.3 GM/DL (3.2-4.5); BILIRUBIN,TOTAL 0.3 MG/DL (0.1-1.0); CALCIUM 8.7 MG/DL (8.5-10.1); CREATININE SERUM 1.39 MG/DL (0.60-1.30); POTASSIUM 3.7 MMOL/L (3.6-5.0); TOTAL PROTEIN 7.3 GM/DL (6.4-8.2)
== END ==
LOC: ONC 15:03
PROVIDERS: ATTEND Internal Medicine Hematology & Oncology
DX: C06.0 Malignant neoplasm of cheek mucosa (principal); E03.9 Hypothyroidism, unspecified; E04.1 Nontoxic single thyroid nodule; Z92.3 Personal history of irradiation; Z98.890 Other specified postprocedural states
CPT/HCPCS: 80053; 84443; 85025; G0463; 99213

== ENCOUNTER → 2020-08-24 | Outpatient (CLI) | payer BC ==
--- NOTE | 2020-08-24 14:30 | Diagnostic Imaging Report ---
PROCEDURE: US Thyroid. TECHNIQUE: Multiple real-time grayscale images were obtained of the thyroid in various projections. 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 COMPARISON: 05/21/2020. FINDINGS: The right thyroid lobe measures 5.8 x 2.7 x 1.4 cm in size. It appears mildly large and it is heterogeneous with normal vascularity. There is a particularly heterogeneous, hypoechoic region which is irregular along the lateral side of the thyroid which measures 3.5 x 1.7 x 0.8 cm in size in the greatest dimensions. This area appears somewhat elongated compared to the prior exam, but is similar in echotexture. This area was previously biopsied. The isthmus measures 3 mm in thickness. The left thyroid lobe measures 4.1 x 1.8 x 1.1 cm in size. The echotexture is mildly heterogeneous. Vascularity appears normal. IMPRESSION: 1. Heterogeneous hypoechoic region with irregular borders in the lateral right thyroid. This appears somewhat more elongated compared to the prior exam. Imaging is suspicious for malignancy, however this was previously biopsied, please correlate with pathology. No new nodules or masses are seen. Dictated by: Dictated on workstation # [id number]
== END ==
LOC: RAD 11:00
PROVIDERS: ATTEND Internal Medicine Hematology & Oncology
DX: E04.9 Nontoxic goiter, unspecified (principal)
CPT/HCPCS: 76536

== ENCOUNTER → 2020-11-22 | Outpatient (CLI) | payer BC ==
[2020-11-22 15:08] LABS: BASOPHILS # (AUTO) 0.1 10^3/uL (0.0-0.1); BASOPHILS % (AUTO) 1 % (0-10); EOSINOPHILS # (AUTO) 0.4 10^3/uL (0.0-0.3); EOSINOPHILS % (AUTO) 5 % (0-10); HEMATOCRIT 43 % (40-54); LYMPHOCYTES # (AUTO) 1.5 10^3/uL (1.0-4.0); LYMPHOCYTES % (AUTO) 21 % (12-44); MEAN CORPUSCULAR HEMOGLOBIN 29 pg (25-34); MEAN CORPUSCULAR HGB CONC 33 g/dL (32-36); MEAN CORPUSCULAR VOLUME 90 fL (80-99); MEAN PLATELET VOLUME 10.9 fL (9.0-12.2); MONOCYTES # (AUTO) 0.5 10^3/uL (0.0-1.0); MONOCYTES % (AUTO) 7 % (0-12); NEUTROPHILS # (AUTO) 4.9 10^3/uL (1.8-7.8); NEUTROPHILS % (AUTO) 66 % (42-75); PLATELET COUNT 208 10^3/uL (130-400); WHITE BLOOD COUNT 7.4 10^3/uL (4.3-11.0)
[2020-11-22 15:43] LABS: ALBUMIN 4.2 GM/DL (3.2-4.5); BILIRUBIN,TOTAL 0.4 MG/DL (0.1-1.0); CALCIUM 8.9 MG/DL (8.5-10.1); CREATININE SERUM 1.43 MG/DL (0.60-1.30); POTASSIUM 3.6 MMOL/L (3.6-5.0); TOTAL PROTEIN 7.5 GM/DL (6.4-8.2)
== END ==
LOC: ONC 14:56
PROVIDERS: ATTEND Internal Medicine Hematology & Oncology
DX: C06.0 Malignant neoplasm of cheek mucosa (principal); E04.1 Nontoxic single thyroid nodule; E03.9 Hypothyroidism, unspecified; M27.2 Inflammatory conditions of jaws; Z98.890 Other specified postprocedural states; Z92.21 Personal history of antineoplastic chemotherapy; Z92.3 Personal history of irradiation; Z91.81 History of falling
CPT/HCPCS: 80053; 84443; 85025; G0463; 99213

== ENCOUNTER → 2020-11-30 | Outpatient (CLI) | payer BC ==
[~2020-11-30] MED LIST changes: +CATHETER FLUSH 10 ML SYR IV PRN; +HOLD METFORMIN - RECEIVED CONTRAST 20 ML VIAL IV SCH; +IOHEXOL 350 MG/ML 100 ML (OMNIPAQUE 350) VIAL IV ONE; +NS 100 ML (IVPB) BAG IV ONE
--- NOTE | 2020-11-30 11:56 | Diagnostic Imaging Report ---
TECHNIQUE: CT of the neck and chest was performed with contrast. Sagittal and coronal reformats were obtained and reviewed. Dose reduction techniques were utilized. All CT scans use one or more of the following dose optimizing techniques: automated exposure control, MA and/or KvP adjustment based on patient size and exam type or iterative reconstruction. REASON FOR EXAM: History of head and neck cancer. Thyroid mass. COMPARISON: 08/24/2020, 01/24/2020, 03/08/2019. FINDINGS: CT neck: Postsurgical changes are again seen in the neck with surgical reconstruction of the mandible and bilateral neck dissection. Surgical resection of the bilateral submandibular glands is noted. No evidence of masslike recurrence is seen in the neck. No loculated fluid collections are seen. There is a new prominent lateral retropharyngeal lymph node on the right measuring 0.9 x 0.7 cm. No other enlarged lymph nodes are seen in the neck. No evidence of perineural tumor spread is seen. The bilateral pterygopalatine fossa are unremarkable with preserved fat planes. The posterior nasopharynx and oropharynx demonstrate appropriate symmetry. There is no displacement of the parapharyngeal fat planes. There is no abnormal process evident within the prevertebral or retropharyngeal space. There is no evidence of abnormal thickening of the epiglottis or aryepiglottic folds. The vocal folds appear symmetric. No discrete thyroid mass is identified. The parotid glands are unremarkable. The vascular structures the neck demonstrate no evidence of high-grade stenosis on this nondedicated exam. The visualized intracranial contents demonstrate no evidence of pathologic intracranial enhancement or intracranial mass effect. Visualized orbital contents are unremarkable. The visualized paranasal sinuses are clear. The mastoids and middle ears are clear. No acute osseous abnormality in the cervical spine. CT CHEST: The heart size is within normal limits. No pericardial effusion is present. There is no mediastinal, hilar, or axillary lymphadenopathy. The lungs demonstrate no pulmonary nodules or masses. Dependent opacities are seen in the lung bases. There are no focal areas of consolidation. No central endobronchial obstructing lesions are identified. There is no pleural effusion or pneumothorax. The osseous structures demonstrate no acute abnormalities. Limited views of the upper abdominal structures demonstrate no acute abnormalities. Both adrenal glands are unremarkable. IMPRESSION: 1. Interval development of a prominent lateral retropharyngeal lymph node on the right (node of Rouviere), suspicious for disease recurrence. Consider PET/CT to evaluate for hypermetabolic activity. 2. Otherwise stable appearance of the neck with stable postsurgical changes. No enhancing masses seen. 3. No evidence of metastatic disease in the chest. Dictated by: Dictated on workstation # [id number]
--- NOTE | 2020-11-30 17:39 | Diagnostic Imaging Report ---
PROCEDURE: US thyroid. TECHNIQUE: Multiple real-time grayscale images were obtained of the thyroid in various projections. INDICATION: Nontoxic thyroid nodule. COMPARISON: Prior ultrasound from August 24, 2020. FINDINGS: The right lobe of the thyroid measures 5.2 x 2.4 x 1.7 cm and the left lobe measures 4.6 x 2.2 x 1.3 cm. Within the right lobe of the thyroid is a 3.8 x 1.8 x 1.2 cm heterogeneous hypoechoic nodule. This previously measured 3.5 x 1.7 x 0.8 cm. The left lobe of the thyroid demonstrates diffuse heterogeneity without convincing evidence of a focal left-sided thyroid nodule or mass. There is a small lymph node adjacent to the inferior aspect of the left lobe of the thyroid measuring 10 x 8 mm. IMPRESSION: Patient's hypoechoic and slightly heterogeneous masslike nodule within the right lobe of the thyroid is not convincingly changed. This has been previously biopsied. There is no definitive left-sided thyroid nodule. The overall thyroid parenchyma appears heterogeneous and hypovascular. Dictated by: Dictated on workstation # [id number]
== END ==
LOC: RAD 09:45
PROVIDERS: ATTEND Nurse Practitioner Adult Health
DX: E04.1 Nontoxic single thyroid nodule (principal); R22.2 Localized swelling, mass and lump, trunk; Z85.818 Personal history of malignant neoplasm of other sites of lip, oral cavity, and pharynx
CPT/HCPCS: 70491; 71260; 76536

== ENCOUNTER → 2020-12-11 | Outpatient (CLI) | payer BC ==
[~2020-12-11] MED LIST changes: -CATHETER FLUSH 10 ML SYR IV PRN; -HOLD METFORMIN - RECEIVED CONTRAST 20 ML VIAL IV SCH; -IOHEXOL 350 MG/ML 100 ML (OMNIPAQUE 350) VIAL IV ONE; -NS 100 ML (IVPB) BAG IV ONE
--- NOTE | 2020-12-11 14:21 | Diagnostic Imaging Report ---
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 Patient had abnormal findings on CT head and neck study. TECHNIQUE: Serum blood glucose level at the time of injection is 105 mg/dL. Patient was administered 12.2 mCi F-18 FDG intravenously in the right hand and PET imaging was performed from the top of the skull through mid thighs. Noncontrast CT was also performed for attenuation correction and anatomic correlation. COMPARISON: Correlation is made with prior PET/CT study from 01/24/2020 as well as prior CT neck and chest study from 11/30/2020. FINDINGS: There is symmetric activity throughout the brain. The previously noted right lateral retropharyngeal lymph node does not appear to be hypermetabolic. There continues to be hypermetabolism in the right lobe of the thyroid, similar to prior study. No definite hypermetabolic lymphadenopathy is seen. Postsurgical changes to the neck are again noted. No mediastinal or hilar hypermetabolism is identified. No pulmonary parenchymal hypermetabolism is identified. Physiologic activity throughout the GI and tract of the abdomen and pelvis is noted. IMPRESSION: 1. Stable PET/CT study since prior exam from 01/24/2020. Hypermetabolic focus in the right lobe of the thyroid is again noted. The lymph node noted on recent CT neck study does not appear to be hypermetabolic. No suspicious regions of hypermetabolism are identified. Dictated by: Dictated on workstation # [id number]
== END ==
LOC: RAD 09:45
PROVIDERS: ATTEND Nurse Practitioner Adult Health
DX: C41.1 Malignant neoplasm of mandible (principal); R93.89 Abnormal findings on diagnostic imaging of other specified body structures
CPT/HCPCS: 78815; A9552

== ENCOUNTER 2021-02-20 15:28 | Outpatient (RCR) | payer BC ==
[2021-02-20 15:35] LABS: BASOPHILS # (AUTO) 0.1 10^3/uL (0.0-0.1); BASOPHILS % (AUTO) 1 % (0-10); EOSINOPHILS # (AUTO) 0.3 10^3/uL (0.0-0.3); EOSINOPHILS % (AUTO) 5 % (0-10); HEMATOCRIT 43 % (40-54); HEMOGLOBIN 14.2 g/dL (13.3-17.7); LYMPHOCYTES # (AUTO) 1.5 10^3/uL (1.0-4.0); LYMPHOCYTES % (AUTO) 26 % (12-44); MEAN CORPUSCULAR HEMOGLOBIN 29 pg (25-34); MEAN CORPUSCULAR HGB CONC 33 g/dL (32-36); MEAN CORPUSCULAR VOLUME 89 fL (80-99); MEAN PLATELET VOLUME 10.5 fL (9.0-12.2); MONOCYTES # (AUTO) 0.7 10^3/uL (0.0-1.0); MONOCYTES % (AUTO) 13 % (0-12); NEUTROPHILS # (AUTO) 3.2 10^3/uL (1.8-7.8); NEUTROPHILS % (AUTO) 54 % (42-75); PLATELET COUNT 213 10^3/uL (130-400); WHITE BLOOD COUNT 5.9 10^3/uL (4.3-11.0)
[2021-02-20 16:28] LABS: ALBUMIN 4.2 GM/DL (3.2-4.5); BILIRUBIN,TOTAL 0.3 MG/DL (0.1-1.0); CALCIUM 9.3 MG/DL (8.5-10.1); CREATININE SERUM 1.39 MG/DL (0.60-1.30); POTASSIUM 3.4 MMOL/L (3.6-5.0); TOTAL PROTEIN 7.7 GM/DL (6.4-8.2)
== END 2021-04-08 | disposition home or self-care (01) ==
LOC: ONC 15:28
PROVIDERS: ATTEND Internal Medicine Hematology & Oncology
DX: C06.0 Malignant neoplasm of cheek mucosa (principal); E04.1 Nontoxic single thyroid nodule; E03.9 Hypothyroidism, unspecified; Z92.3 Personal history of irradiation; Z98.890 Other specified postprocedural states; Z92.21 Personal history of antineoplastic chemotherapy
CPT/HCPCS: 80053; 84443; 85025; 99213

== ENCOUNTER → 2021-03-22 | Outpatient (CLI) | payer BC ==
[~2021-03-22] MED LIST changes: +CATHETER FLUSH 10 ML SYR IV PRN; +HOLD METFORMIN - RECEIVED CONTRAST 20 ML VIAL IV SCH; +IOHEXOL 350 MG/ML 100 ML (OMNIPAQUE 350) VIAL IV ONE; +NS 100 ML (IVPB) BAG IV ONE
--- NOTE | 2021-03-22 09:18 | Diagnostic Imaging Report ---
PROCEDURE: US Thyroid. TECHNIQUE: Multiple real-time grayscale images were obtained of the thyroid in various projections. INDICATION: Followup thyroid nodule COMPARISON: 11/30/2020 FINDINGS: Right thyroid lobe: The right thyroid lobe measures 3.8 x 1.2 x 1.7 cm. It again is noted to have heterogeneous echogenicity. In the upper pole of the right thyroid, there is now more discrete hypoechoic nodule with ill-defined margins that measures 1.3 x 1.2 x 0.8 cm. Isthmus: The thyroid isthmus measures 0.3 cm and without nodule,. Left thyroid lobe: The left thyroid lobe measures 3.7 x 1.2 x 1.3 cm. It is heterogeneous but there is no discrete nodule. IMPRESSION: 1. The thyroid remains very heterogeneous in nature. The nodule in the upper pole of the right thyroid is measured differently on today's examination, has a smaller more discrete nodular rather than a large heterogeneous nodule occupying the entire right thyroid lobe. Therefore, it is possible that this is changed, but more likely just differences in ultrasound technique. Since this was previously biopsy, followup should be as clinically indicated. Dictated by: Dictated on workstation # [id number]
--- NOTE | 2021-03-22 09:39 | Diagnostic Imaging Report ---
EXAMINATION: CT neck and chest with intravenous contrast. TECHNIQUE: Multiple contiguous axial images were obtained through the neck and chest after the uneventful administration of intravenous contrast. All CT scans use one or more of the following dose optimizing techniques: automated exposure control, MA and/or KvP adjustment based on patient size and exam type or iterative reconstruction. HISTORY: Head and neck cancer. COMPARISON: 11/30/2020. 12/11/2020. FINDINGS: Neck CT: Stable postsurgical changes of bilateral neck dissection and reconstruction of the mandible. No soft tissue mass or fluid collection is seen. There is a stable prominent lateral retropharyngeal lymph node on the right measuring 0.9 x 0.7 cm. No new lymphadenopathy seen in the neck. No evidence of perineural tumor spread. The posterior nasopharynx and oropharynx demonstrate appropriate symmetry. There is no displacement of the parapharyngeal fat planes. There is no abnormal process evident within the prevertebral or retropharyngeal space. There is no evidence of abnormal thickening of the epiglottis or aryepiglottic folds. The vocal folds appear symmetric. The parotid and thyroid gland are unremarkable. The submandibular glands are surgically absent. The vascular structures the neck demonstrate no evidence of high-grade stenosis on this nondedicated exam. The visualized intracranial contents demonstrate no evidence of pathologic intracranial enhancement or intracranial mass effect. Visualized orbital contents are unremarkable. The visualized paranasal sinuses are clear. The mastoids and middle ears are clear. No acute osseous abnormality in the cervical spine. Chest CT: The heart size is within normal limits. No pericardial effusion is present. Mildly prominent left axillary lymphadenopathy is seen with the largest lymph node measuring 1.0 cm in short axis. No lymphadenopathy is seen in the mediastinum and bilateral hilar regions. The lungs demonstrate no pulmonary nodules or masses. There are no focal areas of consolidation. Dependent atelectasis is seen in the lungs bilaterally. No central endobronchial obstructing lesions are identified. There is no pleural effusion or pneumothorax. The osseous structures demonstrate no acute abnormalities. There is increase in size in a hypoattenuating focus in the central aspect of the spleen measuring 1.6 cm, previously measuring 1.1 cm. Both adrenal glands are unremarkable. IMPRESSION: 1. Stable prominent lymph node in the right lateral retropharyngeal station. No pneumothorax is clearly enlarged lymphadenopathy is seen in the neck. No soft tissue mass or fluid collection is seen. Recommend continued followup as indicated. 2. Development of a mildly prominent left axillary lymph node measuring 1.0 cm in short axis. Recommend attention on followup. 3. Increase in size in a cystic focus within the spleen. This is nonspecific and attention on followup is recommended. Dictated by: Dictated on workstation # [id number]
== END ==
LOC: RAD 08:02
PROVIDERS: ATTEND Nurse Practitioner Adult Health
DX: C06.0 Malignant neoplasm of cheek mucosa (principal); R93.89 Abnormal findings on diagnostic imaging of other specified body structures
CPT/HCPCS: 70491; 71260; 76536

== ENCOUNTER → 2021-05-27 | Outpatient (CLI) | payer BC ==
[~2021-05-27] MED LIST changes: -CATHETER FLUSH 10 ML SYR IV PRN; -HOLD METFORMIN - RECEIVED CONTRAST 20 ML VIAL IV SCH; -IOHEXOL 350 MG/ML 100 ML (OMNIPAQUE 350) VIAL IV ONE; -NS 100 ML (IVPB) BAG IV ONE
== END ==
LOC: LAB 16:12
PROVIDERS: ATTEND Nurse Practitioner Family
DX: R07.9 Chest pain, unspecified (principal); M54.9 Dorsalgia, unspecified; R73.9 Hyperglycemia, unspecified
CPT/HCPCS: 36415; 82553; 83874; 84484